=== PATIENT | male | born 1935 | race Caucasian/White ===

== ENCOUNTER → 2016-11-11 | Outpatient (CLI) | payer MEDICARE, OTHER ==
[~2016-11-11] MED LIST: AMLO2.5T PO; ASPI-983 PO; ASPI325T32 PO; CALC-870 PO; DOCU-143 PO; ENLP5T; GADOBUTROL 10 MMOL/10 ML (GADAVIST) VIAL IV ONE; KCL20TCR; LISI-3; LISI1TAB10 PO; NABU750T; ONDA-42 SL; PHEN100C4 PO; POTA20TA15 PO; SENN-35 PO; TRAM1TAB7 PO; TRM50T; [UNRECOGNIZED DRUG - OTHER]
--- OUTSIDE RECORDS SUMMARY | 2016-11-11 11:44 | XMS REPORT | Continuity of Care Document ---
Author Author [facility] Organization [facility] Address Unknown Phone Unavailable Care Team Providers Care Beauty Counselor Name Role Phone MANAN RAJPUT DO PCP Insurance Providers Payer Name Policy Number Subscriber Name Relationship [employer] [id number] Syd Monson 18 Self / Same As Patient Enter Insurance Name [id number] Syd Monson 18 Self / Same As Patient Advance Directives Directive Response Recorded Date/Time Advance Directives Yes 10/07/16 12:14pm Health Care Power of Custom Harvester Y /Charline 10/07/16 12:14pm Organ Donor Yes 10/07/16 12:14pm Resuscitation Status Full Code 10/07/16 12:14pm Chief Complaint and Reason for Visit Chief Complaint WEAKNESS,FATIGUE Reason for Visit Chest pain of uncertain etiology Nausea & vomiting Weakness of both legs Problems Active Problems Medical Problem Onset Date Status Chest pain of uncertain etiology Unknown Acute Nausea & vomiting Unknown Acute Weakness of both legs Unknown Acute Medications Current Home Medications Medication Dose Units Route Directions Days/Qty Instructions Start Date Sennosides/Docusate Sodium 1 Tab 1 Tab Oral Daily 12/04/09 Lisinopril/Hydrochlorothiazide 1 Each 1 Tab Oral Daily 10/07/16 Potassium Chloride 20 Meq 20 Meq Oral Twice A Day 10/07/16 Tramadol Hcl/Acetaminophen 1 Each 2 Tab Oral Three Times A Day as needed for Pain 10/07/16 Aspirin 325 Mg 325 Mg Oral Daily 90 10/08/16 Past Home Medications Medication Directions Ordered Status Enalapril Maleate 5 Mg Tablet, 02/25/09 Discontinued Potassium Chloride 20 Meq Tab, 02/25/09 Discontinued Tramadol Hcl 50 Mg Tab, 02/25/09 Discontinued Lisinopril/Hydrochlorothiazide 1 Tab Tablet, 02/26/09 Discontinued Potassium Chloride 20 Meq Tab, 02/26/09 Discontinued Tramadol Hcl 50 Mg Tab, 02/26/09 Discontinued [Relafin] , 10/16/09 Discontinued Nabumetone 750 Mg Tablet, 12/04/09 Discontinued Ondansetron Hcl 4 Mg Tab, 4 Mg Sublingual Every 4HRS 09/30/14 Discontinued Amlodipine Besylate 2.5 Mg Tablet, 2.5 Mg Oral Daily 10/07/16 Discontinued Social History Social History Problem Response Recorded Date/Time Alcohol Use Denies Use 09/30/2014 10:30am Recreational Drug Use No 09/30/2014 10:30am Recent Foreign Travel No 10/07/2016 12:07pm Recent Infectious Disease Exposure No 10/07/2016 12:07pm Hospitalization with Isolation Denies 10/08/2016 1:58pm Smoking Status Never a Smoker 10/07/2016 12:12pm Recent Hopitalizations Yes 10/07/2016 1:04pm Hospitalization with Isolation Denies 10/08/2016 1:58pm Query Response Start Date Stop Date Smoking Status Never a Smoker Hospital Discharge Instructions Patient Instructions Physician Instructions Patient Instructions: MAKE FOLLOW UP APPT WITH DR. RAJPUT FOR NEXT WEEK Resume Normal Activity: Yes Discharge Diet: Regular Diet Drink 6-8 Glasses of Fluid/Day: Yes Return to The Hospital For: ANY CONCERN FOR RETURN OF WEAKNESS, CHEST PAIN, SHORTNESS OF BREATH, OR CONCERN FOR LIFETHREATENING ILLNESS OR INJURY Symptoms to Reoprt to DrAlanna: Fever Over 101 Degrees F, Pain/Pressure in Chest, Pain/Pressure in Jaw, Pain/Pressure in Shoulder, Memory Changes Suddenly, Shortness of Breath Care Plan Patient Instructions:: MAKE FOLLOW UP APPT WITH DR. RAJPUT FOR NEXT WEEK Plan of Care Discharge Date 10/08/16 1:00pm Disposition 01 HOME, SELF-CARE Instructions/Education Provided Generalized Weakness (DC) Prescriptions See Medication Section Referrals [facility] (Unspecified) - 1 Week Reason(s) for Referral: Weakness of both legs Chest pain of uncertain etiology Nausea & vomiting DR. RAJPUT (Unspecified) - Reason(s) for Referral: CALL TO SCHEDULE FOLLOW UP APPOINTMENT TO SEE DR. RAJPUT IN ONE WEEK ([phone]) DR. BACON (Unspecified) - Reason(s) for Referral: PLEASE CALL TO SCHEDULE APPOINTMENT TO SEE DR. BACON IN 10 DAYS ([phone]) Care Plan and Goals See Discharge Instructions Section Functional Status Query Response Date Recorded Patient Orientation Person Place Time Situation Normal For Age October 08, 2016 1:58pm Comprehension Ability Understands Concepts October 08, 2016 9:00am Allergies, Adverse Reactions, Alerts No known allergies. Immunizations Name Given Type FLU TRIvalent 5 years - Adult 10/07/16 Administered Vital Signs Acute Vital Signs Vital Response Date/Time Temperature (Fahrenheit) 97.9 degrees F (97.6 - 99.5) 10/08/2016 1:53pm Temperature (Calculated Celsius) 36.46415 degrees C (36.4 - 37.5) 10/08/2016 12:00pm Temperature Source Tympanic 10/08/2016 1:53pm Pulse Rate (adult) 58 bpm (60 - 90) 10/08/2016 1:53pm Respiratory Rate 20 bpm (12 - 24) 10/08/2016 1:53pm O2 Sat by Pulse Oximetry 96 % (88 - 100) 10/08/2016 1:53pm Blood Pressure 120/64 mm Hg 10/08/2016 1:53pm Blood Pressure Mean 82 mm Hg 10/08/2016 12:00pm Pain Numeric Pain Scale 0-No Pain 10/08/2016 1:53pm Height (Feet) 6 feet 10/07/2016 1:03pm Height (Inches) 1.00 inches 10/07/2016 1:03pm Height (Calculated Centimeters) 185.258239 cm 10/07/2016 1:03pm Weight (Pounds) 201 pounds 10/08/2016 6:00am Weight (Ounces) 3.0 oz 10/07/2016 1:03pm Weight (Calculated Grams) 58624.067 gm 10/08/2016 6:00am Weight (Calculated Kilograms) 91.958479 kilograms 10/08/2016 6:00am Calculated BMI 26.7 10/07/2016 1:03pm Results Laboratory Results Test Name Result Units Flags Reference Collection Date/Time Result Date/ Time Comments White Blood Count 5.6 10^3/uL 4.3-11.0 10/08/2016 3:2210/08/2016 4: 17am Red Blood Count 4.02 10^6/uL L 4.35-5.85 10/08/2016 3:10/08/2016 4: 17am Hemoglobin 12.9 G/DL L 13.3-17.7 10/08/2016 3:10/08/2016 4:17am Hematocrit 38 % L 40-54 10/08/2016 3:10/08/2016 4:17am Mean Corpuscular Volume 94 FL 80-99 10/08/2016 3:10/08/2016 4: 17am Mean Corpuscular Hemoglobin 32 PG 25-34 10/08/2016 3:10/08/2016 4: 17am Mean Corpuscular Hemoglobin Concent 34 G/DL 32-36 10/08/2016 3:01/2016 4:17am Red Cell Distribution Width 12.6 % 10.0-14.5 10/08/2016 3:2015 4:17am Platelet Count 273 10^3/uL 130-400 10/08/2016 3:10/08/2016 4:17am Mean Platelet Volume 8.9 FL 7.4-10.4 10/08/2016 3:10/08/2016 4: 17am Neutrophils (%) (Auto) 55 % 42-75 10/08/2016 3:10/08/2016 4:17am Lymphocytes (%) (Auto) 27 % 12-44 10/08/2016 3:10/08/2016 4:17am Monocytes (%) (Auto) 12 % 0-12 10/08/2016 3:10/08/2016 4:17am Eosinophils (%) (Auto) 5 % 0-10 10/08/2016 3:10/08/2016 4:17am Basophils (%) (Auto) 1 % 0-10 10/08/2016 3:10/08/2016 4:17am Neutrophils # (Auto) 3.1 X 10^3 1.8-7.8 10/08/2016 3:10/08/2016 4: 17am Lymphocytes # (Auto) 1.5 X 10^3 1.0-4.0 10/08/2016 3:10/08/2016 4: 17am Monocytes # (Auto) 0.7 X 10^3 0.0-1.0 10/08/2016 3:10/08/2016 4: 17am Eosinophils # (Auto) 0.3 10^3/uL 0.0-0.3 10/08/2016 3:10/08/2016 4 :17am Basophils # (Auto) 0.0 10^3/uL 0.0-0.1 10/08/2016 3:10/08/2016 4: 17am Sodium Level 136 MMOL/L 135-145 10/08/2016 3:10/08/2016 4:38am Potassium Level 3.2 MMOL/L L 3.6-5.0 10/08/2016 3:10/08/2016 4:38am Chloride Level 102 MMOL/L 98-107 10/08/2016 3:10/08/2016 4:38am Carbon Dioxide Level 23 MMOL/L 21-32 10/08/2016 3:10/08/2016 4: 38am Anion Gap 11 MMOL/L 5-14 10/08/2016 3:10/08/2016 4:38am Blood Urea Nitrogen 13 MG/DL 7-18 10/08/2016 3:10/08/2016 4:38am Creatinine 0.85 MG/DL 0.60-1.30 10/08/2016 3:10/08/2016 4:38am BUN/Creatinine Ratio 15 10/08/2016 3:10/08/2016 4:38am Estimat Glomerular Filtration Rate > 60 10/08/2016 3:2015 4:38am GFR INTERPRETIVE DATA UNITS FOR ESTIMATED GFR (eGFR): mL/min/1.73 M2 REFERENCE RANGE FOR ESTIMATED GFR (eGFR) eGFR NORMAL eGFR >60 MODERATELY DECREASED eGFR 30-59 SEVERLY DECREASED eGFR 15-29 KIDNEY FAILURE <15 (OR DIALYSIS) Glucose Level 85 MG/DL 70-105 10/08/2016 3:10/08/2016 4:38am Calcium Level 8.7 MG/DL 8.5-10.1 10/08/2016 3:10/08/2016 4:38am Magnesium Level 1.9 MG/DL 1.8-2.4 10/08/2016 3:22am 10/08/2016 4:38am Total Bilirubin 0.8 MG/DL 0.1-1.0 10/07/2016 12:05pm 10/07/2016 12: 41pm Alkaline Phosphatase 85 U/L 40-136 10/07/2016 12:05pm 10/07/2016 12: 41pm Aspartate Amino Transf (AST/SGOT) 23 U/L 5-34 10/07/2016 12:05pm 2015 12:41pm Alanine Aminotransferase (ALT/SGPT) 8 U/L 0-55 10/07/2016 12:05pm 10/07 12:41pm Troponin I < 0.30 NG/ML <0.30 10/07/2016 12:05pm 10/07/2016 12:41pm Troponin I < 0.30 NG/ML <0.30 10/07/2016 5:48pm 10/07/2016 6:17pm Myoglobin 556.2 NG/ML H 10.0-92.0 10/07/2016 12:05pm 10/07/2016 12:41pm Total Protein 6.5 G/DL 6.4-8.2 10/07/2016 12:05pm 10/07/2016 12:41pm Albumin 4.2 G/DL 3.2-4.5 10/07/2016 12:05pm 10/07/2016 12:41pm Thyroid Stimulating Hormone (TSH) 1.68 UIU/ML 0.35-4.94 10/08/2016 3: 22am 10/08/2016 4:55am Procedures Procedure Status Date Provider(s) Tracing only of electrocardiogram Active 10/07/16 MANAN RAJPUT DO Tracing only of electrocardiogram Active 10/07/16 MANAN RAJPUT DO Color Doppler echocardiography Active 10/07/16 Jayde BACON MD Encounters Encounter Location Arrival/Admit Date Discharge/Depart Date Attending Provider Discharged Inpatient (obs) [facility] 10/07/16 11:30am 10/08/16 1:00pm MANAN RAJPUT DO Recent Diagnosis Chest pain of uncertain etiology Nausea & vomiting Weakness of both legs
--- NOTE | 2016-11-11 13:18 | Diagnostic Imaging Report ---
PROCEDURE: MR imaging of the brain with and without contrast. TECHNIQUE: Multiplanar, multisequence MR imaging of the brain was performed with and without contrast. INDICATION: Smelling abnormalities. 10 mL of Gadavist is administered intravenously. FINDINGS: Please note that there is some partial signal drop off in the frontal region related to the kyphotic curvature of the spine preventing optimal positioning. The overall diagnostic quality on most sequences is acceptable. There is no diffusion restriction to suggest an acute infarct or other diffusion abnormality. There are mild periventricular and deep white matter T2 hyperintense signal abnormalities without significant mass effect, edema or enhancement compatible with chronic microvascular ischemic changes. The pituitary gland is normal in size. No hypothalamic or pineal region mass. The central vascular flow-voids are preserved. The internal auditory canals and inner ear structures appear grossly unremarkable. No hydrocephalus. No extraaxial mass is seen. There is mucosal thickening and enhancement seen in the left frontal sinus suggestive of sinusitis. Also there is mucosal thickening and enhancement in the ethmoidal air cells bilaterally. There is suggestion of prior sinonasal surgery in the maxillary sinuses and turbinates with generally clear maxillary sinuses except for mild mucous retention cyst anteriorly and inferiorly on the left side. IMPRESSION: 1. No acute infarct or enhancing mass seen intracranially. 2. Mucosal thickening and enhancement with central debris seen in the left frontal sinus suggestive of sinusitis. Correlate clinically. Dictated by: Dictated on workstation # [id number]
== END ==
LOC: RAD 11:39
PROVIDERS: ATTEND Psychiatry & Neurology Neurology
DX: R56.9 Unspecified convulsions (principal)
CPT/HCPCS: 70553

== ENCOUNTER 2016-12-08 23:19 | Inpatient (IN) | payer MEDICARE, OTHER ==
[~2016-12-08] VITALS: Ht 185.4 cm; Wt 90.7 kg
[~2016-12-08 23:19] MED LIST changes: -ASPI-983 PO; -CALC-870 PO; -DOCU-143 PO; -GADOBUTROL 10 MMOL/10 ML (GADAVIST) VIAL IV ONE; -PHEN100C4 PO
--- OUTSIDE RECORDS SUMMARY | 2016-12-08 23:26 | XMS REPORT | Continuity of Care Document ---
Author Author [facility] Organization [facility] Address Unknown Phone Unavailable Care Team Providers Care Drafter Plumbing Name Role Phone MANAN RAJPUT DO PCP Insurance Providers Payer Name Policy Number Subscriber Name Relationship [employer] [id number] Syd Monson 18 Self / Same As Patient Enter Insurance Name [id number] Syd Monson 18 Self / Same As Patient Advance Directives Directive Response Recorded Date/Time Advance Directives Yes 10/07/16 12:14pm Health Care Power of Conference Specialist Y /Charline 10/07/16 12:14pm Organ Donor Yes [...] TO SEE DR. RAJPUT IN ONE WEEK ([phone]) DR. BACON (Unspecified) - Reason(s) for Referral: PLEASE CALL TO SCHEDULE APPOINTMENT TO SEE DR. BACON IN 10 DAYS ([phone]) Care Plan and Goals See Discharge Instructions [...] - 99.5) 10/08/2016 1:53pm Temperature (Calculated Celsius) 36.32318 degrees C (36.4 - 37.5) 10/08/2016 12:00pm [...] 1.00 inches 10/07/2016 1:03pm Height (Calculated Centimeters) 185.042109 cm 10/07/2016 1:03pm Weight (Pounds) 201 pounds 10/08/2016 6:00am Weight (Ounces) 3.0 oz 10/07/2016 1:03pm Weight (Calculated Grams) 81552.067 gm 10/08/2016 6:00am Weight (Calculated Kilograms) 91.355716 kilograms 10/08/2016 6:00am Calculated BMI 26.7 10/07/2016 [...] Date Attending Provider Discharged Inpatient (obs) [facility] 10/07/16 11:30am 10/08/16 1:00pm MANAN RAJPUT DO Recent Diagnosis Chest pain of uncertain etiology Nausea & vomiting Weakness of both legs
[2016-12-08] MEDS ORDERED: PHEN100C4 PO (23:56)
[2016-12-08] MEDS ORDERED: AMLO2.5T PO (23:56)
[2016-12-09 00:03] LABS: BILIRUBIN,URINE NEGATIVE (NEGATIVE); KETONES,URINE 1+ (NEGATIVE); LEUKOCYTE ESTERASE ,URINE NEGATIVE (NEGATIVE); NITRITE,URINE NEGATIVE (NEGATIVE); PH,URINE 7 (5-9); PROTEIN,URINE 1+ (NEGATIVE); UROBILINOGEN,URINE NORMAL (NORMAL)
[2016-12-09 00:15] LABS: WBC,URINE RARE /HPF
[2016-12-09 00:16] LABS: SQUAMOUS EPITHELIAL CELL,UR RARE /HPF
[2016-12-09] MEDS ORDERED: fentaNYL INJECTION 100 MCG/2 ML AMP IVP ONE ×2 (00:30→02:15)
[2016-12-09 00:31] LABS: BASOPHILS % (AUTO) 0 % (0-10); EOSINOPHILS # (AUTO) 0.2 10^3/uL (0.0-0.3); EOSINOPHILS % (AUTO) 2 % (0-10); LYMPHOCYTES # (AUTO) 1.2 X 10^3 (1.0-4.0); LYMPHOCYTES % (AUTO) 12 % (12-44); MEAN CORPUSCULAR HEMOGLOBIN 32 PG (25-34); MEAN CORPUSCULAR HGB CONC 34 G/DL (32-36); MEAN CORPUSCULAR VOLUME 93 FL (80-99); MEAN PLATELET VOLUME 8.5 FL (7.4-10.4); MONOCYTES % (AUTO) 10 % (0-12); NEUTROPHILS # (AUTO) 7.5 X 10^3 (1.8-7.8); NEUTROPHILS % (AUTO) 76 % (42-75); PLATELET COUNT 305 10^3/uL (130-400); RED BLOOD COUNT 4.73 10^6/uL (4.35-5.85); RED CELL DISTRIBUTION WIDTH 12.9 % (10.0-14.5); WHITE BLOOD COUNT 9.9 10^3/uL (4.3-11.0)
[2016-12-09 00:51] LABS: ALANINE AMINOTRANSFERASE 9 U/L (0-55); ALBUMIN 4.1 G/DL (3.2-4.5); ANION GAP 12 MMOL/L (5-14); ASPARTATE AMINO TRANSFERASE 19 U/L (5-34); BILIRUBIN,TOTAL 0.4 MG/DL (0.1-1.0); BLOOD UREA NITROGEN 11 MG/DL (7-18); BUN/CREATININE RATIO 13; CALCIUM 9.6 MG/DL (8.5-10.1); CARBON DIOXIDE 27 MMOL/L (21-32); CHLORIDE 98 MMOL/L (98-107); CREATININE SERUM 0.87 MG/DL (0.60-1.30); GFR ESTIMATED > 60; GLUCOSE 129 MG/DL (70-105); LIPASE 26 U/L (8-78); POTASSIUM 3.9 MMOL/L (3.6-5.0); SODIUM 137 MMOL/L (135-145); TOTAL PROTEIN 6.7 G/DL (6.4-8.2)
[2016-12-09] MEDS ORDERED: NS 100 ML (IVPB) BAG IV ONE (01:30)
[2016-12-09] MEDS ORDERED: IOHEXOL 350 MG/ML 100 ML (OMNIPAQUE 350) VIAL IV ONE (01:30)
--- NOTE | 2016-12-09 02:11 | ED Abdominal Pain ---
General Chief Complaint: Abdominal/GI Problems Stated Complaint: ABD PAIN Nursing Triage Note: Pt c/o midline abd pain starting this afternoon. Pt reports feeling "gassy" and reports he has been belching a lot. Sepsis Screen: No Definite Risk Source of Information: Patient Exam Limitations: No Limitations History of Present Illness Time Seen By Provider: 23:20 Initial Comments This 81-year-old gentleman presents to the emergency room with complaints of severe mid abdominal pain starting around 13:00. He took antacids and Pepto- Bismol which were not effective. His last bowel movement was about 24 hours ago and was soft. He notes urine is darker than usual. He has excessive belching. He rates his pain as 9/10. He denies any fever, nausea, vomiting, constipation, or diarrhea. He has history of pancreatitis. He also has a history of multiple abdominal surgeries including splenectomy, bowel repair, and cholecystectomy. Allergies and Home Medications Allergies Coded Allergies: No Known Drug Allergies (Unverified , 02/25/09) Home Medications Amlodipine Besylate 2.5 Mg Tablet 2.5 MG PO DAILY (Reported) Aspirin 325 Mg Tablet. #90 325 MG PO DAILY Prescribed by: SHAHAB MARTINEZ on 10/08/16 0907 Phenytoin Sodium Extended 100 Mg Capsule 100 MG PO TID (Reported) Sennosides/Docusate Sodium 1 Tab Tablet 1 TAB PO DAILY (Reported) Tramadol HCl/Acetaminophen 1 Each Tablet 2 TAB PO TID PRN PRN PAIN (Reported) Review of Systems Constitutional: no symptoms reported EENTM: No Symptoms Reported Respiratory: No Symptoms Reported Cardiovascular: No Symptoms Reported Gastrointestinal: See HPI Genitourinary: See HPI Musculoskeletal: no symptoms reported Skin: no symptoms reported Psychiatric/Neurological: No Symptoms Reported Endocrine: No Symptoms Reported Past Rxsqllv-[id number]-Gjklmt Hx Patient Social History Alcohol Use: Denies Use Recreational Drug Use: No Smoking Status: Never a Smoker Recent Foreign Travel: No Contact w/Someone Who Travel: No Recent Infectious Disease Expo: No Recent Hopitalizations: No Seasonal Allergies Seasonal Allergies: No Surgeries HX Surgeries: Yes (SPLEENECTOMY; LT KNEE x2; HERNIA REPAIRS; SINUS SX; LEFT THUMB) Surgeries: Abdominal, Amputation (left thumb), Bowel Surgery, Gallbladder, Joint Replacement, Orthopedic, Tonsillectomy Respiratory Hx Respiratory Disorders: No Cardiovascular Hx Cardiac Disorders: Yes Cardiac Disorders: Hypertension Neurological Hx Neurological Disorders: Yes Neurological Disorders: Seizure Disorder Reproductive System Hx Reproductive Disorders: No Genitourinary Hx Genitourinary Disorders: No Gastrointestinal Hx Gastrointestinal Disorders: Yes (Ventral hernia repair, hernia repair with adhesiolysis) Gastrointestinal Disorders: Obstructive Bowel Musculoskeletal Hx Musculoskeletal Disorders: Yes (Tramuatic left thumb amp) Musculoskeletal Disorders: Amputee Endocrine Hx Endocrine Disorders: No HEENT HX ENT Disorders: Yes Loss of Vision: Denies Hearing Impairment: Hard of Hearing, Bilateral Hearing Aide Cancer Hx Cancer: No Psychosocial Hx Psychiatric Problems: No Integumentary HX Skin/Integumentary Disorder: No Blood Transfusions Hx Blood Disorders: No Physical Exam Vital Signs VS - Last 72 Hours, by Label 12/08/16 23:45 Temp 98.4 Pulse 81 Resp 18 B/P 125/86 Pulse Ox 97 O2 Delivery Room Air Capillary Refill : Less Than 3 Seconds General Appearance: WD/WN mild distress HEENT: PERRL/EOMI normal ENT inspection Neck: normal inspection Respiratory: lungs clear normal breath sounds no respiratory distress no accessory muscle use Cardiovascular: regular rate, rhythm no edema no murmur Gastrointestinal: normal bowel sounds distended tenderness Extremities: normal inspection no pedal edema Neurologic/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 as tested no motor/sensory deficits alert normal mood/affect oriented x 3 Skin: normal color warm/dry Progress/Results/Core Measures Results/Orders Lab Results Laboratory Tests Test 12/08/16 23:47 12/09/16 00:22 Range/Units Urine Amorphous Sediment FEW SOHAIL PHOSPHATE H /LPF Urine Bacteria TRACE /HPF Urine Bilirubin NEGATIVE NEGATIVE Urine Casts NONE /LPF Urine Clarity CLEAR Urine Color YELLOW Urine Crystals PRESENT H /LPF Urine Culture Indicated NO Urine Glucose (UA) NEGATIVE NEGATIVE Urine Ketones 1+ H NEGATIVE Urine Leukocyte Esterase NEGATIVE NEGATIVE Urine Mucus MODERATE H /LPF Urine Nitrite NEGATIVE NEGATIVE Urine Protein 1+ H NEGATIVE Urine RBC RARE /HPF Urine RBC (Auto) 1+ H NEGATIVE Urine Specific [place] 1.015 L 1.016-1.022 Urine Squamous Epithelial Cells RARE /HPF Urine Urobilinogen NORMAL NORMAL MG/DL Urine WBC RARE /HPF Urine pH 7 5-9 Alanine Aminotransferase (ALT/SGPT) 9 0-55 U/L Albumin 4.1 3.2-4.5 G/DL Alkaline Phosphatase 107 40-136 U/L Anion Gap 12 5-14 MMOL/L Aspartate Amino Transf (AST/SGOT) 19 5-34 U/L BUN/Creatinine Ratio 13 Basophils # (Auto) 0.0 0.0-0.1 10^3/uL Basophils (%) (Auto) 0 0-10 % Blood Urea Nitrogen 11 7-18 MG/DL Calcium Level 9.6 8.5-10.1 MG/DL Carbon Dioxide Level 27 21-32 MMOL/L Chloride Level 98 98-107 MMOL/L Creatinine 0.87 0.60-1.30 MG/DL Eosinophils # (Auto) 0.2 0.0-0.3 10^3/uL Eosinophils (%) (Auto) 2 0-10 % Estimat Glomerular Filtration Rate > 60 Glucose Level 129 H 70-105 MG/DL Hematocrit 44 40-54 % Hemoglobin 15.0 13.3-17.7 G/DL Lipase 26 8-78 U/L Lymphocytes # (Auto) 1.2 1.0-4.0 X 10^3 Lymphocytes (%) (Auto) 12 12-44 % Mean Corpuscular Hemoglobin 32 25-34 PG Mean Corpuscular Hemoglobin Concent 34 32-36 G/DL Mean Corpuscular Volume 93 80-99 FL Mean Platelet Volume 8.5 7.4-10.4 FL Monocytes # (Auto) 1.0 0.0-1.0 X 10^3 Monocytes (%) (Auto) 10 0-12 % Neutrophils # (Auto) 7.5 1.8-7.8 X 10^3 Neutrophils (%) (Auto) 76 H 42-75 % Phenytoin (Dilantin) Level 1.7 L 10.0-20.0 UG/ML Platelet Count 305 130-400 10^3/uL Potassium Level 3.9 3.6-5.0 MMOL/L Red Blood Count 4.73 4.35-5.85 10^6/uL Red Cell Distribution Width 12.9 10.0-14.5 % Sodium Level 137 135-145 MMOL/L Total Bilirubin 0.4 0.1-1.0 MG/DL Total Protein 6.7 6.4-8.2 G/DL White Blood Count 9.9 4.3-11.0 10^3/uL My Orders Orders-STEPHANIE GARCIA MD Cbc With Automated Diff (12/08/16 23:20) Comprehensive Metabolic Panel (12/08/16 23:20) Lipase (12/08/16 23:20) Ua Culture If Indicated (12/08/16 23:20) Saline Lock/Iv-Start (12/08/16 23:20) Bladder Scan (12/09/16 00:13) Fentanyl Injection (Sublimaze Injection (12/09/16 00:30) Ct Abdomen/Pelvis W (12/09/16 01:00) Iohexol Injection (Omnipaque 350 Mg/Ml 1 (12/09/16 01:30) Ns (Ivpb) (Sodium Chloride 0.9% Ivpb Bag (12/09/16 01:30) Fentanyl Injection (Sublimaze Injection (12/09/16 02:15) Ng Tube Insert & Assessment (12/09/16 02:04) Phenytoin (Dilantin) (12/09/16 02:06) Medications Given in ED Current Medications Medications Dose Ordered Sig/Mariusz Route Start Time Stop Time Status Last Admin Dose Admin Fentanyl Citrate 50 mcg ONCE ONCE IVP 12/09/16 00:30 12/09/16 00:31 DC 12/09/16 00:36 50 MCG Iohexol 100 ml ONCE ONCE IV 12/09/16 01:30 12/09/16 01:31 DC 12/09/16 01:26 100 ML Sodium Chloride 100 ml ONCE ONCE IV 12/09/16 01:30 12/09/16 01:31 DC 12/09/16 01:26 80 ML Vital Signs/I&O Vital Sign - Last 12Hours 12/08/16 23:45 Temp 98.4 Pulse 81 Resp 18 B/P 125/86 Pulse Ox 97 O2 Delivery Room Air Blood Pressure Mean: 99 Progress Note : Progress Note IV was established and labs drawn. Patient was treated with fentanyl for pain. Imaging analysis began with bladder scan which demonstrated a little retained urine. Labs failed to reveal any cause of pain. CT of the abdomen and pelvis revealed small bowel obstruction. Patient was given a repeat dose of fentanyl and an NG tube was placed. About 300 mL of fluid that resembled bowel contents was yielded from the NG tube. Dr. Jim was contacted and agrees to admission. Patient remarks that he has been taking Dilantin only twice a day instead of 3 times a day as prescribed due to side effect of headaches. He requested a Dilantin level be drawn. Since patient has seizure disorder, he will be allowed his usual medications with NG tube clamping after administration. Diagnostic Imaging Diagonstic Imaging: CT Plain Films/CT/US/NM/MRI: c-spine, pelvis Comments CT scan reviewed by me and staffed rad report reviewed. Small bowel obstruction with transition point was identified. Small amount of mesenteric edema was noted. No free air or evidence of perforation. Departure Communication Time/Spoke to Admitting Phy: 02:[address] Jim Impression Impression: Primary Impression: Small bowel obstruction Disposition: ADMITTED INPATIENT Condition: Stable Decision to Admit Reason: Admit from ER (General) Decision to Admit/Date: Dec 09, 2016 Time/Decision to Admit Time: 01:50 Departure-Patient Inst. Referrals: MANAN RAJPUT DO (PCP/Family) Primary Care Physician STEPHANIE GARCIA MD Dec 09, 2016 02:11
[2016-12-09] MEDS ORDERED: D5 1/2 NS W/KCL 20 MEQ/L 1,000 ML IV ONE (03:27)
[2016-12-09] MEDS: D5 1/2 NS W/KCL 20 MEQ/L 1,000 ML IV SCH ×2 (03:35→16:07)
[2016-12-09 04:00] VITALS: BP 167/80
[2016-12-09] MEDS ORDERED: fentaNYL INJECTION 100 MCG/2 ML AMP IV PRN (04:00)
[2016-12-09] MEDS ORDERED: CATHETER FLUSH 10 ML SYR IV PRN (04:00)
[2016-12-09] MEDS ORDERED: ONDANSETRON 4 MG/2 ML (SDV) Z0FRAN IV PRN (04:00)
[2016-12-09] MEDS: CATHETER FLUSH 10 ML SYR IV SCH ×3 (04:01→19:24)
--- NOTE | 2016-12-09 06:41 | Diagnostic Imaging Report ---
PROCEDURE: CT abdomen and pelvis with contrast. TECHNIQUE: Multiple contiguous axial images were obtained through the abdomen and pelvis after administration of intravenous contrast. Indication: Midline abdominal pain. Comparison: 12/04/2009. Discussion: Changes of COPD are noted within the bilateral lung bases. 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 Normal heart size. No pleural or pericardial fluid. The gallbladder surgically absent. 1.2 cm low-attenuation focus within the right hepatic lobe, segment VII, appears new and is indeterminate. Postsurgical changes are noted within the bowel. Small bowel obstruction is noted with transition point within the anterior right midline of the abdomen. Mild mesenteric edema is noted. No evidence of perforation or pneumatosis. There is a small amount of gas and stool noted within the colon. The distal small bowel is completely decompressed. The spleen is surgically absent, with a small residual splenule noted within the left upper quadrant. The stomach and pancreas along with the adrenal glands are unremarkable. Cystic changes of the bilateral kidneys are noted. Tiny nonobstructing bilateral renal calculi. No hydronephrosis. Previous ventral wall hernia repair. Small ventral hernia containing fat, measuring 4 cm. The abdominal aorta is normal in caliber. The prostate is enlarged. The urinary bladder is unremarkable. Mild diverticulosis with no secondary evidence for diverticulitis. Degenerative changes are present within the lumbar spine. No acute osseous abnormality. Impression: 1. High-grade small bowel obstruction with abrupt transition point within the anterior midline of the abdomen near the region of previous hernia repair, likely due to an adhesion. 2. Indeterminate low-attenuation 1.2 cm nodule within the liver, new from prior. 3. Tiny nonobstructing bilateral renal calculi. 4. Diverticulosis. 5. Additional chronic changes as discussed above. 6. Agree with preliminary report. Dictated by: Dictated on workstation # [id number]
--- NOTE | 2016-12-09 06:53 | Diagnostic Imaging Report ---
INDICATION: Enteric tube placement. DISCUSSION: Single portable upright view of the chest was obtained, comparison 10/07/2016. No acute cardiopulmonary process identified. Stable normal heart size. New enteric tube tip in the gastric body in good position. IMPRESSION: 1. Enteric tube with tip in the gastric body in good position. Dictated by: Dictated on workstation # [id number]
[2016-12-09 08:00] VITALS: BP 160/75
[2016-12-09] MEDS: FAMOTIDINE 20MG/2ML IV (PEPCID) IV SCH ×2 (09:01→19:23)
[2016-12-09] MEDS ORDERED: DOCU-143 PO (09:29)
[2016-12-09] MEDS ORDERED: ASPI-983 PO (09:29)
[2016-12-09] MEDS ORDERED: CALC-870 PO (09:29)
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
[2016-12-09 12:00] VITALS: BP 172/77
[2016-12-09 15:42] VITALS: BP 163/85
[2016-12-09] MEDS ORDERED: NON-FORMULARY MEDICATION 1 EA EA (Tramadol HCl/Acetaminophen (Tramadol-Acetaminophn 37.5-3 PO PRN (16:00)
[2016-12-09] MEDS ORDERED: CALCIUM CARBONATE 500 MG (TUMS) TAB.CHEW PO PRN (16:00)
[2016-12-09] MEDS ORDERED: CALCIUM CARBONATE 300 MG PO PRN (16:00)
[2016-12-09] MEDS ORDERED: ACETAMINOPHEN 325 MG TABLET/CAPLET (TYLENOL) PO PRN (16:00)
[2016-12-09] MEDS ORDERED: FLU TRIvalent (5 YOA+) 2016-17 (AFLURIA) 0.5 ML IM ONE (18:00)
[2016-12-09] MEDS ORDERED: amLODIPine 2.5MG (NORVASC) TAB ONE (19:18)
[2016-12-09] MEDS: PHENYTOIN 100 MG (DILANTIN) CAP PO SCH (19:20)
[2016-12-09 19:21] VITALS: BP 177/81
[2016-12-09] MEDS: ASPIRIN E.C. 81 MG (ECOTRIN) TAB PO SCH (19:22)
[2016-12-09] MEDS: amLODIPine 2.5MG (NORVASC) TAB PO SCH (19:22)
[2016-12-10] VITALS: BP 155/72
[2016-12-10 04:00] VITALS: BP 154/78
[2016-12-10] MEDS: CATHETER FLUSH 10 ML SYR IV SCH (05:37)
[2016-12-10 08:00] VITALS: BP 148/70
[2016-12-10] MEDS: ASPIRIN E.C. 81 MG (ECOTRIN) TAB PO SCH (08:52)
[2016-12-10] MEDS: amLODIPine 2.5MG (NORVASC) TAB PO SCH (08:52)
[2016-12-10] MEDS: FAMOTIDINE 20MG/2ML IV (PEPCID) IV SCH (08:52)
[2016-12-10] MEDS: PHENYTOIN 100 MG (DILANTIN) CAP PO SCH (08:52)
[2016-12-10] MEDS ORDERED: DOCUSATE SODIUM 100 MG (COLACE) CAP PO SCH (09:00)
[2016-12-10 13:36] VITALS: BP 129/69
[2016-12-10 13:37] VITALS: BP 129/69
--- NOTE | 2016-12-10 14:09 | Progress Note (SOAP) ---
Subjective Subjective/Events-last exam uneventful night. No nausea. Tolerating soft diet. NG tube clamped. Review of Systems General: No Chills, No Night Sweats, No Fatigue, No Malaise HEENT: No Head Aches, No Eye Pain, No Ear Pain, No Dysphasia, No Sinus Congestion, No Post Nasal Drip, No Sore Throat Pulmonary: No Dyspnea, No Cough, No Pleuritic Chest Pain Cardiovascular: No: Chest Pain, Edema, Lt Headedness, Orthopnea, Palpitations, Paroxysmal Noc. Dyspnea Gastrointestinal: No: Abdominal Pain, Constipation, Diarrhea, Hematochezia, Melena, Nausea, Vomiting Genitourinary: No Dysuria, No Frequency, No Incontinence, No Hematuria, No Retention Musculoskeletal: No: arm pain, back pain, foot pain, hand pain, leg pain, neck pain, other, shoulder pain Neurological: No: Change in speech, Confusion, Incoordination, Numbness, Other , Seizures, Weakness Objective Exam Vital Signs Date Time Temp Pulse Resp B/P Pulse Ox O2 Delivery O2 Flow Rate FiO2 12/10/16 13:37 74 16 129/69 97 12/10/16 13:36 97.6 74 16 129/69 97 Room Air 12/10/16 08:00 98.4 68 18 148/70 98 Room Air 12/10/16 04:00 98.0 66 18 154/78 96 Room Air 12/10/16 00:00 99.1 72 18 155/72 96 Room Air 12/09/16 19:21 98.4 80 20 177/81 98 Room Air 12/09/16 15:42 98.5 59 20 163/85 98 Room Air I & O 12/10/16 07:00 Intake Total 2730 ml Output Total 480 ml Balance 2250 ml Capillary Refill : Less Than 3 Seconds General Appearance: No Apparent Distress HEENT: PERRL/EOMI Neck: Normal Inspection Respiratory: Lungs Clear Cardiovascular: Regular Rate, Rhythm Gastrointestinal: non tender soft Extremity: Normal Capillary Refill Normal Inspection Skin: Normal Color Warm/Dry Assessment/Plan Assessment/Plan Assess & Plan/Chief Complaint gentleman with partial small bowel obstruction, currently resolved. Tolerating diet. NG tube removed and he could be discharged Diagnosis/Problems: Final Diagnosis partial small bowel obstruction, resolved Clinical Quality Measures DVT/VTE Risk/Contraindication: Risk Factor Score Per Nursin RFS Level Per Nursing on Admit: 4+=Very High LORETTA BURNHAM MD Dec 10, 2016 2:09 pm
== END 2016-12-10 13:15 | disposition home or self-care (01) | DRG 328 ==
LOC: EDUNIT# 23:19 → ER 23:21 → 4TH 12-09 02:09
PROVIDERS: ADMIT Surgery; ATTEND Surgery
PROC: 0D9470Z Drainage of Esophagogastric Junction with Drainage Device, Via Natural or Artificial Opening (ICD-10-PCS; principal; 2016-12-09)
DX: K56.69 Other intestinal obstruction (principal); I10 Essential (primary) hypertension; G40.909 Epilepsy, unspecified, not intractable, without status epilepticus; Z90.49 Acquired absence of other specified parts of digestive tract; Z90.81 Acquired absence of spleen; Z89.012 Acquired absence of left thumb
CPT/HCPCS: 36415; 71010; 74177; 80053; 80185; 81000; 83690; 85025; 96374; 96376

== ENCOUNTER 2017-07-14 19:09 | Inpatient (IN) | payer MEDICARE, OTHER ==
[~2017-07-14] VITALS: Ht 180.3 cm; Wt 86.2 kg
[~2017-07-14 19:09] MED LIST changes: +ASPI-983 PO; +CALC-870 PO; +DOCU-143 PO; +PHEN100C4 PO
[2017-07-14] MEDS ORDERED: NS IV 1000 ML 1,000 ML IV ONE (19:21)
[2017-07-14] MEDS ORDERED: fentaNYL INJECTION 100 MCG/2 ML AMP IVP STA (19:21)
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
[2017-07-14 19:36] LABS: BASOPHILS % (AUTO) 0 % (0-10); BILIRUBIN,URINE NEGATIVE (NEGATIVE); EOSINOPHILS # (AUTO) 0.4 10^3/uL (0.0-0.3); EOSINOPHILS % (AUTO) 5 % (0-10); KETONES,URINE NEGATIVE (NEGATIVE); LEUKOCYTE ESTERASE ,URINE NEGATIVE (NEGATIVE); LYMPHOCYTES # (AUTO) 1.7 X 10^3 (1.0-4.0); LYMPHOCYTES % (AUTO) 20 % (12-44); MEAN CORPUSCULAR HEMOGLOBIN 33 PG (25-34); MEAN CORPUSCULAR HGB CONC 34 G/DL (32-36); MEAN CORPUSCULAR VOLUME 98 FL (80-99); MEAN PLATELET VOLUME 8.4 FL (7.4-10.4); MONOCYTES # (AUTO) 0.9 X 10^3 (0.0-1.0); MONOCYTES % (AUTO) 11 % (0-12); NEUTROPHILS # (AUTO) 5.5 X 10^3 (1.8-7.8); NEUTROPHILS % (AUTO) 64 % (42-75); NITRITE,URINE NEGATIVE (NEGATIVE); PH,URINE 7 (5-9); PLATELET COUNT 305 10^3/uL (130-400); PROTEIN,URINE NEGATIVE (NEGATIVE); RED BLOOD COUNT 4.22 10^6/uL (4.35-5.85); RED CELL DISTRIBUTION WIDTH 12.5 % (10.0-14.5); UROBILINOGEN,URINE NORMAL (NORMAL); WHITE BLOOD COUNT 8.6 10^3/uL (4.3-11.0)
[2017-07-14 19:58] LABS: WBC,URINE RARE /HPF
[2017-07-14] MEDS ORDERED: NS 100 ML (IVPB) BAG IV ONE (20:00)
[2017-07-14] MEDS ORDERED: IOHEXOL 350 MG/ML 100 ML (OMNIPAQUE 350) VIAL IV ONE (20:00)
[2017-07-14 20:06] LABS: ALANINE AMINOTRANSFERASE 10 U/L (0-55); ALBUMIN 4.2 GM/DL (3.2-4.5); ANION GAP 11 MMOL/L (5-14); ASPARTATE AMINO TRANSFERASE 23 U/L (5-34); BILIRUBIN,TOTAL 0.6 MG/DL (0.1-1.0); BLOOD UREA NITROGEN 14 MG/DL (7-18); BUN/CREATININE RATIO 14; CALCIUM 9.4 MG/DL (8.5-10.1); CARBON DIOXIDE 27 MMOL/L (21-32); CHLORIDE 97 MMOL/L (98-107); CREATININE SERUM 0.98 MG/DL (0.60-1.30); GFR ESTIMATED > 60; GLUCOSE 101 MG/DL (70-105); LIPASE 34 U/L (8-78); MAGNESIUM 2.2 MG/DL (1.8-2.4); POTASSIUM 4.3 MMOL/L (3.6-5.0); SODIUM 135 MMOL/L (135-145); TOTAL PROTEIN 6.7 GM/DL (6.4-8.2); TRIGLYCERIDES 83 MG/DL (<150)
--- NOTE | 2017-07-14 20:44 | Diagnostic Imaging Report ---
PROCEDURE: CT abdomen and pelvis with contrast. TECHNIQUE: Multiple contiguous axial images were obtained through the abdomen and pelvis after administration of intravenous contrast. INDICATION: 81-year-old male with generalized abdominal pain. COMPARISONS: 01/06/17 FINDINGS: The lung bases show some chronic parenchyma changes with mild COPD. Cardiac contour is normal. A few coronary calcifications are suggested. The liver shows uniform attenuation. The gallbladder is surgically absent. There is a splenic remnant. GE junction is normal. The stomach is moderately distended with food stuff and liquid. The duodenal sweep is unremarkable. The pancreas shows sharp margins. Adrenals are normal. Kidneys show cortical thinning, age-appropriate. There are also bilateral small renal cysts. There is symmetrical perfusion and excretion of contrast. Both ureters are seen intermittently through their course. The filled bladder is unremarkable. Prostate is enlarged and measures 6 cm and shows heterogenous attenuation and mild heterogenous enhancement. The mid and distal small bowel shows moderate distention with fluid and air-fluid levels. There appears to be anterior abdominal wall adhesions. There has been a previous abdominal hernia repair with possibly mesh. There continues to be some fascial defects on the right with herniated fat in the right abdomen with fascial defect measuring approximately 2.4 cm. There is also a wide fascial defect with slight herniation of small bowel in the left abdomen with the fascial defect measuring approximately 3.2 cm. The ileum is normal in caliber. The large bowel contains fecal material and gas proximally with moderate gaseous distention of the transverse and the descending colon to the rectum. There is colonic diverticulosis but no evidence of acute diverticulitis. The visualized vasculature shows normal caliber of the aorta, iliac and femoral arteries with a few nonaneurysmal calcifications. There is normal origin of the visceral arteries. There is moderate to severe degenerative changes in the lumbosacral spine with multilevel hypertrophic facet changes and marginal endplate osteophytes. IMPRESSION: 1. Moderate distention of the stomach and proximal and mid small bowel. A mid small bowel obstruction is suspected. This obstruction may be due to anterior abdominal wall effusions. There are also several wide fascial defects with associated herniated fat and small bowel. These do not appear to be incarcerated or strangulated. 2. Colonic diverticulosis but no evidence of acute diverticulitis. 3. Previous abdominal wall repair possibly with mesh. Correlate clinically. 4. Prostatic enlargement with heterogenous attenuation, correlate clinically and possibly with PSA. Additional nonemergent findings, as described. Dictated by: Dictated on workstation # [id number]
[2017-07-14] MEDS ORDERED: ONDANSETRON 4 MG/2 ML (SDV) Z0FRAN IVP ONE (21:30)
[2017-07-14 22:05] VITALS: BP 131/61
[2017-07-14] MEDS ORDERED: ONDANSETRON 4 MG/2 ML (SDV) Z0FRAN IV PRN (22:45)
[2017-07-14] MEDS ORDERED: fentaNYL INJECTION 100 MCG/2 ML AMP IV PRN ×2 (22:45)
[2017-07-14] MEDS: NS IV 1000 ML 1,000 ML IV SCH (22:47)
[2017-07-15] VITALS: BP 133/70
[2017-07-15] MEDS ORDERED: LISI40TA PO (01:43)
[2017-07-15 04:00] VITALS: BP 139/68
[2017-07-15] MEDS: NS IV 1000 ML 1,000 ML IV SCH (06:46)
[2017-07-15 07:26] LABS: ANION GAP 8 MMOL/L (5-14); BLOOD UREA NITROGEN 9 MG/DL (7-18); BUN/CREATININE RATIO 12; CALCIUM 8.8 MG/DL (8.5-10.1); CARBON DIOXIDE 24 MMOL/L (21-32); CHLORIDE 105 MMOL/L (98-107); CREATININE SERUM 0.78 MG/DL (0.60-1.30); GFR ESTIMATED > 60; GLUCOSE 94 MG/DL (70-105); POTASSIUM 4.8 MMOL/L (3.6-5.0); SODIUM 137 MMOL/L (135-145)
[2017-07-15 07:54] LABS: BASOPHILS % (AUTO) 0 % (0-10); EOSINOPHILS # (AUTO) 0.3 10^3/uL (0.0-0.3); EOSINOPHILS % (AUTO) 4 % (0-10); LYMPHOCYTES % (AUTO) 17 % (12-44); MEAN CORPUSCULAR HEMOGLOBIN 33 PG (25-34); MEAN CORPUSCULAR HGB CONC 33 G/DL (32-36); MEAN CORPUSCULAR VOLUME 100 FL (80-99); MEAN PLATELET VOLUME 8.5 FL (7.4-10.4); MONOCYTES # (AUTO) 0.8 X 10^3 (0.0-1.0); MONOCYTES % (AUTO) 14 % (0-12); NEUTROPHILS # (AUTO) 3.9 X 10^3 (1.8-7.8); NEUTROPHILS % (AUTO) 65 % (42-75); PLATELET COUNT 257 10^3/uL (130-400); RED BLOOD COUNT 3.84 10^6/uL (4.35-5.85); RED CELL DISTRIBUTION WIDTH 12.6 % (10.0-14.5)
[2017-07-15 08:30] VITALS: BP 157/70
--- NOTE | 2017-07-15 08:59 | Diagnostic Imaging Report ---
EXAM: ABDOMEN, FLAT UPRIGHT/DECUB INDICATION: Small bowel obstruction. COMPARISON: CT abdomen and pelvis with IV contrast 07/14/2017. FINDINGS: NG tube tip and side-port overlying the stomach. Stable cholecystectomy clips, midline sutures and hernia repair. Nonspecific bowel gas pattern. No acute osseous findings. IMPRESSION: 1. Nonspecific bowel gas pattern. Paucity of bowel gas in the small bowel. 2. NG tube in the expected position. Dictated by: Dictated on workstation # [id number]
[2017-07-15 12:00] VITALS: BP 159/76
[2017-07-15] MEDS ORDERED: DIATRIZOATE MEGLUM/SODIUM 37% 120 ML (GASTROGRAFIN) NG ONE (12:00)
--- NOTE | 2017-07-15 12:30 | Progress Note-Hospitalist ---
Progress Note Progress Notes/Assess & Plan Date Seen 07/15/17 Time Seen by Provider: 00:00 Diagonsis/Assessment & Plan Pt not seen due to in small bowel follow through procedure Dilantin 100mg IV Q 12 hours was ordered due to NPO status SERENITY THAO DO Jul 15, 2017 12:30
[2017-07-15] MEDS ORDERED: PHENYTOIN IV NR (12:35)
[2017-07-15] MEDS ORDERED: NS IV NR (12:35)
--- NOTE | 2017-07-15 12:52 | Diagnostic Imaging Report ---
INDICATION: Abdominal pain. Evaluate for small bowel obstruction. 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 There are no dilated loops of bowel. The patient was then administered water-soluble radiopaque contrast material (120 mL of Gastrografin mixed with 120 mL of water). Imaging over the next one hour and 30 minutes demonstrates opacification of normal caliber small bowel loops which have normal fold pattern. No extrinsic mass effect on the small bowel loops. Contrast reaches the colon by one hour and 30 minutes. IMPRESSION: 1. No small bowel obstruction. Normal small bowel transit time of one hour 30 minutes. Dictated by: Dictated on workstation # [id number]
--- NOTE | 2017-07-15 13:20 | History & Physical-Surgical ---
History of Present Illness History of Present Illness Reason for visit/HPI Chief complaint abdominal pain Patient is an 81-year-old male who states yesterday began having abdominal pain in the central epigastric portion of his abdomen. He started feeling like he became more distended. Patient's pain was moderate. There is no radiation of the pain. Patient states that he began getting very nauseous but had no emesis. He has history of previous small bowel obstructions in the past therefore he went to the emergency department for further evaluation. Patient was CT scan that was consistent with small bowel obstruction. He had an NG tube placed last night to low intermittent wall suction. A shouldn't states that he is passing some flatus and had some bowel movements but it was having bowel movements yesterday as well. He has not had any fever sweats chills shortness of breath or chest pain. Date of Admission Jul 14, 2017 at 21:55 Date Seen by Provider: Jul 15, 2017 Time Seen by Provider: 08:30 I consulted on this patient on 07/15/17 08:30 Attending Physician Isaias Garcia DO Admitting Physician Gaby Rodas DO Consult Allergies and Home Medications Allergies Coded Allergies: No Known Drug Allergies (Unverified , 02/25/09) Home Medications Aspirin 81 Mg Tablet.dr, 162 MG PO DAILY, (Reported) TAKES 2 (81MG) TABLETS Calcium Carbonate 300 Mg Tab.chew, 300 MG PO TID PRN for INDIGESTION, (Reported) Docusate Sodium 100 Mg Capsule, 100 MG PO DAILY, (Reported) Lisinopril 40 Mg Tablet, 40 MG PO DAILY for 30 Days, (Reported) Phenytoin Sodium Extended 100 Mg Capsule, 100 MG PO BID, (Reported) Tramadol HCl/Acetaminophen 1 Each Tablet, 1 TAB PO TID PRN for PAIN, (Reported) Past Xgmreob-Sbkfbc-Puthvi Hx Patient Social History Alcohol Use: Denies Use Recreational Drug Use: No Smoking Status: Never a Smoker 2nd Hand Smoke Exposure: No Recent Foreign Travel: No Contact w/Someone Who Travel: No Recent Infectious Disease Expo: No Recent Hopitalizations: No Physical Abuse Screen: No Sexual Abuse: No Seasonal Allergies Seasonal Allergies: No Surgeries History of Surgeries: Yes (SPLEENECTOMY; LT KNEE x2; HERNIA REPAIRS; SINUS SX; LEFT THUMB) Surgeries: Abdominal, Amputation, Bowel Surgery, Gallbladder, Joint Replacement , Orthopedic, Tonsillectomy Respiratory History of Respiratory Disorde: No Cardiovascular History of Cardiac Disorders: Yes Cardiac Disorders: Hypertension Neurological History of Neurological Disord: Yes Neurological Disorders: Seizure Disorder Reproductive System Hx Reproductive Disorders: No Sexually Transmitted Disease: No HIV/AIDS: No Genitourinary History of Genitourinary Disor: No Gastrointestinal History of Gastrointestinal Di: Yes (Ventral hernia repair, hernia repair with adhesiolysis) Gastrointestinal Disorders: Obstructive Bowel Musculoskeletal History of Musculoskeletal Dis: Yes (Tramuatic left thumb amp) Musculoskeletal Disorders: Amputee Endocrine History of Endocrine Disorders: No HEENT History of HEENT Disorders: No Loss of Vision: Denies Hearing Impairment: Hard of Hearing, Bilateral Hearing Aide Cancer History of Cancer: No Psychosocial History of Psychiatric Problem: No Integumentary History of Skin or Integumenta: No Blood Transfusions History of Blood Disorders: No Adverse Reaction to a Blood Tr: No Family Medical History Significant Family History: Cancer, Other Conditions/Hx Constitutional: no symptoms reported EENTM: no symptoms reported Respiratory: no symptoms reported Cardiovascular: no symptoms reported Gastrointestinal: see HPI Genitourinary: no symptoms reported Musculoskeletal: no symptoms reported Skin: no symptoms reported Psychiatric/Neurological: No Symptoms Reported Physical Exam Vital Signs Vital Sign - Last 12Hours 07/14/17 19:16 Temp 98.2 Pulse 71 Resp 16 B/P (MAP) 126/69 Pulse Ox 98 O2 Delivery Room Air Capillary Refill : Less Than 3 Seconds General Appearance: No Apparent Distress HEENT: PERRL/EOMI, Normal ENT Inspection Neck: Non Tender, Supple Respiratory: No Accessory Muscle Use, No Respiratory Distress Cardiovascular: Regular Rate, Rhythm Gastrointestinal: Soft (reducible ventral hernias), No Distended, No Guarding, No Hepatomegaly Rectal: Deferred Back: No CVA Tenderness Extremity: Non Tender, No Calf Tenderness Neurologic/Psychiatric: Alert, Oriented x3, Normal Mood/Affect Skin: Warm/Dry Lymphatic: No Adenopathy Data Review Labs Laboratory Tests 07/14/17 19:25: White Blood Count 8.6, Red Blood Count 4.22L, Hemoglobin 14.1, Hematocrit 41, Mean Corpuscular Volume 98, Mean Corpuscular Hemoglobin 33, Mean Corpuscular Hemoglobin Concent 34, Red Cell Distribution Width 12.5, Platelet Count 305, Mean Platelet Volume 8.4, Neutrophils (%) (Auto) 64, Lymphocytes (%) (Auto) 20, Monocytes (%) (Auto) 11, Eosinophils (%) (Auto) 5, Basophils (%) (Auto) 0, Neutrophils # (Auto) 5.5, Lymphocytes # (Auto) 1.7, Monocytes # (Auto) 0.9, Eosinophils # (Auto) 0.4H, Basophils # (Auto) 0.0, Urine Color YELLOW, Urine Clarity CLEAR, Urine pH 7, Urine Specific [place] 1.010L, Urine Protein NEGATIVE , Urine Glucose (UA) NEGATIVE, Urine Ketones NEGATIVE, Urine Nitrite NEGATIVE, Urine Bilirubin NEGATIVE, Urine Urobilinogen NORMAL, Urine Leukocyte Esterase NEGATIVE, Urine RBC (Auto) NEGATIVE, Urine RBC RARE, Urine WBC RARE, Urine Crystals NONE, Urine Bacteria NEGATIVE, Urine Casts NONE, Urine Mucus NEGATIVE, Urine Culture Indicated NO, Sodium Level 135, Potassium Level 4.3, Chloride Level 97L, Carbon Dioxide Level 27, Anion Gap 11, Blood Urea Nitrogen 14, Creatinine 0.98, Estimat Glomerular Filtration Rate > 60, BUN/Creatinine Ratio 14, Glucose Level 101, Calcium Level 9.4, Magnesium Level 2.2, Total Bilirubin 0.6, Aspartate Amino Transf (AST/SGOT) 23, Alanine Aminotransferase (ALT/SGPT) 10, Alkaline Phosphatase 128, Total Protein 6.7, Albumin 4.2, Triglycerides Level 83, Lipase 34 07/15/17 07:02: Sodium Level 137, Potassium Level 4.8, Chloride Level 105, Carbon Dioxide Level 24, Anion Gap 8, Blood Urea Nitrogen 9, Creatinine 0.78, Estimat Glomerular Filtration Rate > 60, BUN/Creatinine Ratio 12, Glucose Level 94, Calcium Level 8.8 07/15/17 07:50: White Blood Count 6.0, Red Blood Count 3.84L, Hemoglobin 12.8L, Hematocrit 38L, Mean Corpuscular Volume 100H, Mean Corpuscular Hemoglobin 33, Mean Corpuscular Hemoglobin Concent 33, Red Cell Distribution Width 12.6, Platelet Count 257, Mean Platelet Volume 8.5, Neutrophils (%) (Auto) 65, Lymphocytes (%) (Auto) 17, Monocytes (%) (Auto) 14H, Eosinophils (%) (Auto) 4, Basophils (%) (Auto) 0, Neutrophils # (Auto) 3.9, Lymphocytes # (Auto) 1.0, Monocytes # (Auto) 0.8, Eosinophils # (Auto) 0.3, Basophils # (Auto) 0.0 Assessment/Plan Assessment/Plan Assessment/Plan Partial small bowel obstruction Reducible ventral/incisional hernias Epigastric abdominal pain-resolved Patient is an 81-year-old male with CT scan findings suggestive of at least partial small bowel obstruction. Patient was placed in the hospital with low intermittent wall suction NG tube. This morning he is passing some flatus and had some bowel movements. Question if this is from distal to the obstruction or if he is already opened up. We'll get a small bowel follow-through to evaluate. If small bowel follow-through is open patient doing well we'll start on liquids and possibly DC home later today or tomorrow. If not open. Plan continue NG tube to low intermittent wall suction. And see if patient opens up if not would possibly need surgical intervention. Conservative management for now. Patient agrees with plan. Time attention 07/15/17 1318 small bowel follow-through completed contrast makes it is way through the small bowel without any sign of obstruction. Since patient's passing flatus and having bowel movements will DC the NG tube started on clear liquids. If he tolerates we'll plan on DC home later today or possibly in the morning. Final Diagnosis partial small bowel obstruction ventral/incisional hernias reducible abdominal pain epigastric resolved. Clinical Quality Measures DVT/VTE Risk/Contraindication: Risk Factor Score Per Nursin RFS Level Per Nursing on Admit: 2=Moderate ISAIAS GARCIA DO Jul 15, 2017 13:20
[2017-07-15 16:45] VITALS: BP 125/63
[2017-07-15 17:28] VITALS: BP 125/63
[2017-07-15] MEDS ORDERED: NS IV SCH (21:00)
[2017-07-15] MEDS ORDERED: PHENYTOIN IV SCH (21:00)
== END 2017-07-15 17:35 | disposition home or self-care (01) | DRG 390 ==
LOC: EDUNIT# 19:09 → ER 19:11 → 4TH 21:55
PROVIDERS: ADMIT Surgery; ATTEND Surgery
PROC: 0D9670Z Drainage of Stomach with Drainage Device, Via Natural or Artificial Opening (ICD-10-PCS; principal; 2017-07-14)
DX: K56.60 Unspecified intestinal obstruction (principal); K43.2 Incisional hernia without obstruction or gangrene; G40.909 Epilepsy, unspecified, not intractable, without status epilepticus; I10 Essential (primary) hypertension
CPT/HCPCS: 36415; 74020; 74177; 74250; 80048; 80053; 81000; 83690; 83735; 84478; 85025; 96361; 96374; 96375

== ENCOUNTER → 2018-04-24 | Outpatient (CLI) | payer MEDICARE, OTHER ==
[~2018-04-24] MED LIST changes: +LISI40TA PO
--- NOTE | 2018-04-24 17:12 | Diagnostic Imaging Report ---
INDICATION: Pain in back x40 years. TECHNIQUE: AP, lateral and spot imaging of the lumbar spine. CORRELATION STUDY: None. FINDINGS: There is loss of normal lumbar lordotic curvature. There is overall fairly good preservation of the lumbar vertebral body heights without evidence for acute-appearing compression deformity. There is marked disc space narrowing particularly at the L4-L5 and L3-L4 levels. Extensive bridging osteophytes noted throughout the majority of the lumbar segments. There is marked prominent anterior osteophyte at the L1-L2 level. Hypertrophic facet arthropathy is present which also is likely largely fused. Likely prior abdominal wall hernia repair with mesh. IMPRESSION: No findings to suggest acute abnormality about the lumbar spine. There is however extensive fusion across the disc spaces as well as likely facet joints at multiple levels. While some of these areas are somewhat bulky and prominent, underlying ankylosing spondylitis is not excluded and suspect. Dictated by: Dictated on workstation # [id number]
--- NOTE | 2018-04-24 17:19 | Diagnostic Imaging Report ---
INDICATION: 40-year history of back pain. TECHNIQUE: AP, lateral and swimmer's imaging of the thoracic spine. CORRELATION STUDY: None. FINDINGS: There is slightly accentuated superior thoracic kyphotic curvature. Alignment is otherwise relatively anatomic. Thoracic vertebral body heights overall are fairly well maintained. There is diffuse disc space narrowing. Additionally, there appear predominantly diffuse thin bridging osteophytes throughout essentially entirety of the thoracic spine. Slightly more prominent bulky osteophytes inferiorly. IMPRESSION: No findings to suggest acute abnormality about the thoracic spine. There is extensive diffuse predominantly thin bridging osteophytes throughout the majority of the thoracic spine likely reflective of underlying ankylosing spondylitis. Dictated by: Dictated on workstation # [id number]
== END ==
LOC: RAD 13:57
PROVIDERS: ATTEND Family Medicine
DX: M54.5 Low back pain (principal); M54.6 Pain in thoracic spine; Z98.1 Arthrodesis status
CPT/HCPCS: 72072; 72100

== ENCOUNTER 2019-01-02 11:14 | Outpatient (RCR) | payer MEDICARE, OTHER ==
[~2019-01-02 11:14] MED LIST changes: -AMLO2.5T PO; +AMLO2.5T4 PO
== END 2019-01-02 17:00 | disposition home or self-care (01) ==
PROVIDERS: ATTEND Orthopaedic Surgery
DX: Z47.1 Aftercare following joint replacement surgery (principal); Z96.652 Presence of left artificial knee joint

== ENCOUNTER 2019-06-19 05:32 | Outpatient (CLI) | payer MEDICARE, OTHER ==
[~2019-06-19] VITALS: Ht 180.3 cm; Wt 88.5 kg
[2019-06-19] MEDS ORDERED: ASPI-808 PO (11:38)
== END 2019-06-19 11:43 | disposition home or self-care (01) ==
LOC: PREOP 05:32
PROVIDERS: ATTEND Specialist
DX: Z01.818 Encounter for other preprocedural examination (principal)

== ENCOUNTER 2019-06-21 06:31 | Day surgery (SDC) | payer MEDICARE, OTHER ==
[~2019-06-21] VITALS: Ht 180.3 cm; Wt 88.5 kg
[~2019-06-21 06:31] MED LIST changes: +ASPI-808 PO
[2019-06-21 06:35] VITALS: BP 150/78
[2019-06-21] MEDS: TETRACAINE 0.5% OPHTH SOLN 4 ML BTL (SINGLE DOSE ONLY) OU PRN ×3 (06:55→07:07)
[2019-06-21] MEDS: TROPICAMIDE 1% OPH SOLN (MYDRIACYL) 15 ML BTL OU PRN ×3 (06:55→07:07)
[2019-06-21] MEDS: PHENYLEPHRINE 10% OPHTH (NEO-SYN) 5 ML BTL OU PRN ×3 (06:55→07:07)
[2019-06-21 07:30] VITALS: BP 150/78
--- NOTE | 2019-06-21 07:50 | Ophthalmologist Pre-Op Note ---
Pre-Operative Progress Note H&P Reviewed The H&P was reviewed, patient examined and no changes noted. Date H&P Reviewed: Jun 21, 2019 Time H&P Reviewed: 07:29 Pre-Op Dx Secondary Cataract, Right Eye MELBA LEVY MD Jun 21, 2019 07:50
--- NOTE | 2019-06-21 07:51 | Ophthalmology Operative Report ---
YAG Capsulotomy PREOPERATIVE DIAGNOSIS: Secondary Cataract Right Eye POSTOPERATIVE DIAGNOSIS: Secondary Cataract Right Eye PROCEDURE: YAG Capsulotomy, right eye SURGEON: Rashard Levy ANESTHESIA: Topical anesthesia COMPLICATIONS: None ESTIMATED BLOOD LOSS: Minimal DESCRIPTION OF PROCEDURE: After proper informed consent was obtained, the patient's, a 83 male, right eye received one drop of Tropicamide and one drop of Tetracaine. The patient was then placed at the YAG laser and using a power of [ 3.8] millijoules and [29 ] bursts were used to fashion a central capsulotomy. The patient tolerated the procedure well without complications. RASHARD LEVY MD Jun 21, 2019 07:51
== END 2019-06-21 07:30 | disposition home or self-care (01) ==
LOC: SDC 06:31
PROVIDERS: ATTEND Specialist
DX: H26.491 Other secondary cataract, right eye (principal); I10 Essential (primary) hypertension; G40.909 Epilepsy, unspecified, not intractable, without status epilepticus; M19.91 Primary osteoarthritis, unspecified site; Z85.828 Personal history of other malignant neoplasm of skin

== ENCOUNTER 2019-09-18 18:49 | Inpatient (IN) | payer MEDICARE, OTHER ==
[~2019-09-18] VITALS: Ht 177.8 cm; Wt 87.2 kg
[2019-09-18] MEDS ORDERED: fentaNYL INJECTION 100 MCG/2 ML AMP IVP ONE ×2 (19:30→20:45)
[2019-09-18] MEDS ORDERED: ONDANSETRON 4 MG/2 ML (SDV) Z0FRAN IVP ONE (19:30)
[2019-09-18 19:43] LABS: BASOPHILS % (AUTO) 0 % (0-10); EOSINOPHILS # (AUTO) 0.2 10^3/uL (0.0-0.3); EOSINOPHILS % (AUTO) 2 % (0-10); HEMATOCRIT 40 % (40-54); HEMOGLOBIN 13.5 G/DL (13.3-17.7); LYMPHOCYTES # (AUTO) 1.5 X 10^3 (1.0-4.0); LYMPHOCYTES % (AUTO) 16 % (12-44); MEAN CORPUSCULAR HEMOGLOBIN 33 PG (25-34); MEAN CORPUSCULAR HGB CONC 34 G/DL (32-36); MEAN CORPUSCULAR VOLUME 98 FL (80-99); MEAN PLATELET VOLUME 8.8 FL (7.4-10.4); MONOCYTES # (AUTO) 0.8 X 10^3 (0.0-1.0); MONOCYTES % (AUTO) 8 % (0-12); NEUTROPHILS # (AUTO) 7.4 X 10^3 (1.8-7.8); NEUTROPHILS % (AUTO) 74 % (42-75); PLATELET COUNT 326 10^3/uL (130-400); RED CELL DISTRIBUTION WIDTH 13.1 % (10.0-14.5)
[2019-09-18 19:54] LABS: INR 0.9 (0.8-1.4); PROTHROMBIN TIME PATIENT 12.9 SEC (12.2-14.7)
--- NOTE | 2019-09-18 19:54 | NUR ---
Pt reports pain has resolved at this time.
--- NOTE | 2019-09-18 20:01 | ED Abdominal Pain ---
General Chief Complaint: Abdominal/GI Problems Stated Complaint: ABD PAIN Nursing Triage Note: abdominal pain started today at 1400pain 10/10 nausea and vomiting at this time for the first time. Sepsis Screen: No Definite Risk Source of Information: Patient Exam Limitations: No Limitations History of Present Illness Date Seen by Provider: Sep 18, 2019 Time Seen by Provider: 19:59 Initial Comments To ER with reports of. No abdominal pain that began today about 2 PM. Vomited once in the waiting room here but feels better in that regard now, no diarrhea. He has been passing gas. 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 Timing/Duration: 1-2 Days Severity/Quality: Moderate Radiation: No Radiation Activities at Onset: None Allergies and Home Medications Allergies Coded Allergies: No Known Drug Allergies (Unverified , 02/25/09) Home Medications Aspirin 325 Mg Tablet, 325 MG PO DAILY, (Reported) Docusate Sodium 100 Mg Capsule, 100 MG PO BID, (Reported) Lisinopril 40 Mg Tablet, 40 MG PO DAILY, (Reported) Phenytoin Sodium Extended 100 Mg Capsule, 200 MG PO BID, (Reported) take 2 (100mg) tabs Patient Home Medication List Home Medication List Reviewed: Yes Review of Systems Review of Systems Constitutional: see HPI EENTM: No Symptoms Reported Respiratory: No Symptoms Reported Cardiovascular: No Symptoms Reported Gastrointestinal: See HPI Genitourinary: No Symptoms Reported Musculoskeletal: no symptoms reported Skin: no symptoms reported Psychiatric/Neurological: No Symptoms Reported Endocrine: No Symptoms Reported Hematologic/Lymphatic: No Symptoms Reported Past Mbimlqd-Oxgobg-Ezyqii Hx Patient Social History Alcohol Use: Denies Use Recreational Drug Use: No 2nd Hand Smoke Exposure: No Recent Foreign Travel: No Contact w/Someone Who Travel: No Recent Infectious Disease Expo: No Recent Hopitalizations: No Physical Abuse: No Sexual Abuse: No Mistreated: No Fear: No Immunizations Up To Date Tetanus Booster (TDap): Unknown Seasonal Allergies Seasonal Allergies: No Past Medical History Surgeries: Yes (SPLEENECTOMY; LT KNEE x2; HERNIA REPAIRS; SINUS SX; LEFT THUMB) Abdominal, Amputation, Bowel Surgery, Gallbladder, Joint Replacement, Orthopedic, Tonsillectomy Respiratory: No Currently Using CPAP: No Currently Using BIPAP: No Cardiac: Yes Hypertension Neurological: Yes Seizure Disorder Reproductive Disorders: No Sexually Transmitted Disease: No HIV/AIDS: No Genitourinary: No Gastrointestinal: Yes (Ventral hernia repair, hernia repair with adhesiolysis) 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 Endocrine: No HEENT: No Loss of Vision: Denies Hearing Impairment: Hard of Hearing, Bilateral Hearing Aide Cancer: No Psychosocial: No Integumentary: No Blood Disorders: No Adverse Reaction/Blood Tranf: No Family Medical History Cancer, Other Conditions/Hx Physical Exam Vital Signs Vital Signs - First Documented 09/18/19 19:04 Temp 36.4 Pulse 65 Resp 20 B/P (MAP) 139/77 (97) Pulse Ox 96 Capillary Refill : Less Than 3 Seconds Height/Weight/BMI Height: 5'11.00" Weight: 195lbs. 0.0oz. 88.929427tp; 27.00 BMI Method:Stated General Appearance: WD/WN, no apparent distress HEENT: PERRL/EOMI, normal ENT inspection Neck: non-tender, full range of motion Respiratory: no respiratory distress, no accessory muscle use Cardiovascular: regular rate, rhythm, no murmur Gastrointestinal: normal bowel sounds, soft, other (large ventral hernia without apparent strangulation or incarceration) Extremities: normal range of motion, non-tender Neurologic/Psychiatric: alert, normal mood/affect, oriented x 3 Skin: normal color, warm/dry Progress/Results/Core Measures Results/Orders Lab Results Laboratory Tests Test 09/18/19 19:35 09/18/19 20:00 09/18/19 20:01 Range/Units White Blood Count 10.0 4.3-11.0 10^3/uL Red Blood Count 4.06 L 4.35-5.85 10^6/uL Hemoglobin 13.5 13.3-17.7 G/DL Hematocrit 40 40-54 % Mean Corpuscular Volume 98 80-99 FL Mean Corpuscular Hemoglobin 33 25-34 PG Mean Corpuscular Hemoglobin Concent 34 32-36 G/DL Red Cell Distribution Width 13.1 10.0-14.5 % Platelet Count 326 130-400 10^3/uL Mean Platelet Volume 8.8 7.4-10.4 FL Neutrophils (%) (Auto) 74 42-75 % Lymphocytes (%) (Auto) 16 12-44 % Monocytes (%) (Auto) 8 0-12 % Eosinophils (%) (Auto) 2 0-10 % Basophils (%) (Auto) 0 0-10 % Neutrophils # (Auto) 7.4 1.8-7.8 X 10^3 Lymphocytes # (Auto) 1.5 1.0-4.0 X 10^3 Monocytes # (Auto) 0.8 0.0-1.0 X 10^3 Eosinophils # (Auto) 0.2 0.0-0.3 10^3/uL Basophils # (Auto) 0.0 0.0-0.1 10^3/uL Prothrombin Time 12.9 12.2-14.7 SEC INR Comment 0.9 0.8-1.4 Urine Color YELLOW Urine Clarity CLEAR Urine pH 7.0 5-9 Urine Specific [place] 1.015 L 1.016-1.022 Urine Protein NEGATIVE NEGATIVE Urine Glucose (UA) NEGATIVE NEGATIVE Urine Ketones NEGATIVE NEGATIVE Urine Nitrite NEGATIVE NEGATIVE Urine Bilirubin NEGATIVE NEGATIVE Urine Urobilinogen 0.2 < = 1.0 MG/DL Urine Leukocyte Esterase NEGATIVE NEGATIVE Urine RBC (Auto) NEGATIVE NEGATIVE Urine RBC NONE /HPF Urine WBC NONE /HPF Urine Squamous Epithelial Cells RARE /HPF Urine Crystals NONE /LPF Urine Bacteria NEGATIVE /HPF Urine Casts NONE /LPF Urine Mucus SMALL H /LPF Urine Culture Indicated NO Sodium Level 136 135-145 MMOL/L Potassium Level 4.2 3.6-5.0 MMOL/L Chloride Level 97 L 98-107 MMOL/L Carbon Dioxide Level 29 21-32 MMOL/L Anion Gap 10 5-14 MMOL/L Blood Urea Nitrogen 19 H 7-18 MG/DL Creatinine 0.86 0.60-1.30 MG/DL Estimat Glomerular Filtration Rate > 60 BUN/Creatinine Ratio 22 Glucose Level 133 H 70-105 MG/DL Calcium Level 9.0 8.5-10.1 MG/DL Corrected Calcium 9.0 8.5-10.1 MG/DL Total Bilirubin 0.3 0.1-1.0 MG/DL Aspartate Amino Transf (AST/SGOT) 19 5-34 U/L Alanine Aminotransferase (ALT/SGPT) 7 0-55 U/L Alkaline Phosphatase 121 40-136 U/L Total Protein 6.5 6.4-8.2 GM/DL Albumin 4.0 3.2-4.5 GM/DL Lipase 32 8-78 U/L My Orders Orders - MARILEE HERNANDEZ APRN Protime With Inr (09/18/19 19:28) Cbc With Automated Diff (09/18/19 19:28) Comprehensive Metabolic Panel (09/18/19 19:28) Lipase (09/18/19 19:28) Ua Culture If Indicated (09/18/19 19:28) Ct Abdomen/Pelvis W (09/18/19 19:28) Ed Iv/Invasive Line Start (09/18/19 19:28) Ondansetron Injection (Zofran Injectio (09/18/19 19:30) Fentanyl Injection (Sublimaze Injection (09/18/19 19:30) Fentanyl Injection (Sublimaze Injection (09/18/19 20:45) Medications Given in ED Current Medications Medications Dose Ordered Sig/Mariusz Route Start Time Stop Time Status Last Admin Dose Admin Fentanyl Citrate 50 mcg ONCE ONCE IVP 09/18/19 19:30 09/18/19 19:31 DC 09/18/19 19:42 50 MCG Fentanyl Citrate 50 mcg ONCE ONCE IVP 09/18/19 20:45 09/18/19 20:46 DC 09/18/19 20:52 50 MCG Iohexol 100 ml ONCE ONCE IV 09/18/19 20:45 09/18/19 20:46 UNV 09/18/19 21:03 100 ML Ondansetron HCl 4 mg ONCE ONCE IVP 09/18/19 19:30 09/18/19 19:31 DC 09/18/19 19:40 4 MG Sodium Chloride 10 ml NEEDED PRN IV 09/18/19 20:45 UNV 09/18/19 21:03 10 ML Sodium Chloride 100 ml ONCE ONCE IV 09/18/19 20:45 09/18/19 20:46 UNV 09/18/19 21:03 80 ML Vital Signs/I&O 09/18/19 19:04 Temp 36.4 Pulse 65 Resp 20 B/P (MAP) 139/77 (97) Pulse Ox 96 Blood Pressure Mean: 97 POS Departure Impression Primary Impression: Small bowel obstruction Disposition: 09 ADMITTED INPATIENT Condition: Stable Admissions Decision to Admit Reason: Admit from ER (General) Decision to Admit/Date: Sep 18, 2019 Time/Decision to Admit Time: 21:13 Departure-Patient Inst. Referrals: MANAN RAJPUT DO (PCP/Family) Primary Care Physician HERNANDEZMARILEE LAM APRN Sep 18, 2019 20:01 POS
[2019-09-18 20:09] LABS: BILIRUBIN,URINE NEGATIVE (NEGATIVE); CLARITY,URINE CLEAR; COLOR,URINE YELLOW; GLUCOSE, URINE (UA) NEGATIVE (NEGATIVE); KETONES,URINE NEGATIVE (NEGATIVE); LEUKOCYTE ESTERASE ,URINE NEGATIVE (NEGATIVE); NITRITE,URINE NEGATIVE (NEGATIVE); PROTEIN,URINE NEGATIVE (NEGATIVE)
[2019-09-18 20:16] LABS: BACTERIA,URINE NEGATIVE /HPF; SQUAMOUS EPITHELIAL CELL,UR RARE /HPF
[2019-09-18 20:30] LABS: ALANINE AMINOTRANSFERASE 7 U/L (0-55); ALKALINE PHOSPHATASE 121 U/L (40-136); BILIRUBIN,TOTAL 0.3 MG/DL (0.1-1.0); BUN/CREATININE RATIO 22; CARBON DIOXIDE 29 MMOL/L (21-32); CHLORIDE 97 MMOL/L (98-107); CREATININE SERUM 0.86 MG/DL (0.60-1.30); GFR ESTIMATED > 60; GLUCOSE 133 MG/DL (70-105); LIPASE 32 U/L (8-78); POTASSIUM 4.2 MMOL/L (3.6-5.0); SODIUM 136 MMOL/L (135-145); TOTAL PROTEIN 6.5 GM/DL (6.4-8.2)
[2019-09-18] MEDS ORDERED: CATHETER FLUSH 10 ML SYR IV PRN (20:45)
[2019-09-18] MEDS ORDERED: NS 100 ML (IVPB) BAG IV ONE (20:45)
[2019-09-18] MEDS ORDERED: IOHEXOL 350 MG/ML 100 ML (OMNIPAQUE 350) VIAL IV ONE (20:45)
[2019-09-18] MEDS ORDERED: HOLD METFORMIN - RECEIVED CONTRAST 20 ML VIAL IV SCH (20:45)
--- NOTE | 2019-09-18 21:55 | Diagnostic Imaging Report ---
PROCEDURE: CT abdomen and pelvis with contrast. TECHNIQUE: Multiple contiguous axial images were obtained through the abdomen and pelvis after administration of intravenous contrast. Auto Exposure Controls were utilized during the CT exam to meet ALARA standards for radiation dose reduction. INDICATION: Mid abdominal pain with nausea and vomiting. History of melanoma. COMPARISON: 07/14/2017. FINDINGS: The heart is unremarkable. Atelectasis is seen in the bilateral lung bases. Fluid-filled dilated loops of small bowel are seen in the mid abdomen with a transition point in the region of ventral hernia repair in the midline of the lower abdomen. Small ventral hernias are seen in the midline and left of midline containing partial loops of small bowel. No evidence of free fluid or free air is seen in the abdomen and pelvis. Diverticulosis without evidence of acute diverticulitis is noted. Small hemangioma is again noted in the right hepatic lobe. No suspicious hepatic lesions are seen. The gallbladder is surgically absent. Postsurgical changes of splenectomy are again noted with a small splenule in the left upper quadrant. The pancreas, adrenal glands and kidneys demonstrate no acute abnormalities. Multiple cortical cysts are seen in the kidneys, similar to prior exam. Degenerative changes are seen in the included osseous structures without acute abnormality. The urinary bladder is nondistended. Diverticulosis without evidence of acute diverticulitis. Prostatomegaly is noted. No pathologically enlarged lymphadenopathy is seen in the abdomen and pelvis. IMPRESSION: 1. Findings consistent with small bowel obstruction with a transition point in the area of prior ventral hernia repair. No free fluid or free air. 2. Diverticulosis without evidence of acute diverticulitis. 3. Two small ventral hernias are seen in the midline and left of midline containing partial loops of small bowel. Dictated by: Dictated on workstation # [id number]
[2019-09-18] MEDS ORDERED: fentaNYL INJECTION 100 MCG/2 ML AMP IVP PRN (22:30)
--- NOTE | 2019-09-18 22:51 | NUR ---
Called to give report. Nurse will call when available.
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
--- NOTE | 2019-09-18 23:15 | NUR ---
KELLE TATUM admitted to room 413-1, with an admitting diagnosis of SMALL BOWEL OBSTRUCTION, on 09/18/19 from [place] via WHEELCHAIR, accompanied by STAFF.KELLE TATMU introduced to surroundings, call light, bed controls, phone, TV, temperature control, lights, meal times, smoking policy, visitor policy, side rail policy, bathrooms and showers. Patient Rights given to patient in the handbook. KELLE TATUM verbalizes understanding that [facility] is not responsible for the loss or damage to any personal effects or valuables that are kept in the patients posession during their hospitalization.
[2019-09-18 23:35] VITALS: BP 113/64
[2019-09-18] MEDS ORDERED: NS W/KCL 20 MEQ/L 1,000 ML IV ONE (23:59)
[2019-09-19] VITALS (7 sets, daily range): BP systolic 108–156; BP diastolic 57–71
[2019-09-19] MEDS ORDERED: fentaNYL INJECTION 100 MCG/2 ML AMP IV PRN (01:00)
[2019-09-19] MEDS ORDERED: ONDANSETRON 4 MG/2 ML (SDV) Z0FRAN IV PRN (01:00)
[2019-09-19 06:06] LABS: BASOPHILS % (AUTO) 0 % (0-10); EOSINOPHILS # (AUTO) 0.2 10^3/uL (0.0-0.3); EOSINOPHILS % (AUTO) 2 % (0-10); HEMATOCRIT 38 % (40-54); HEMOGLOBIN 12.7 G/DL (13.3-17.7); LYMPHOCYTES # (AUTO) 0.7 X 10^3 (1.0-4.0); LYMPHOCYTES % (AUTO) 9 % (12-44); MEAN CORPUSCULAR HEMOGLOBIN 33 PG (25-34); MEAN CORPUSCULAR HGB CONC 34 G/DL (32-36); MEAN CORPUSCULAR VOLUME 99 FL (80-99); MEAN PLATELET VOLUME 8.5 FL (7.4-10.4); MONOCYTES # (AUTO) 0.9 X 10^3 (0.0-1.0); MONOCYTES % (AUTO) 11 % (0-12); NEUTROPHILS # (AUTO) 6.3 X 10^3 (1.8-7.8); NEUTROPHILS % (AUTO) 78 % (42-75); PLATELET COUNT 307 10^3/uL (130-400); RED CELL DISTRIBUTION WIDTH 13.3 % (10.0-14.5); WHITE BLOOD COUNT 8.2 10^3/uL (4.3-11.0)
[2019-09-19 06:39] LABS: ALANINE AMINOTRANSFERASE 7 U/L (0-55); ALBUMIN 3.8 GM/DL (3.2-4.5); ALKALINE PHOSPHATASE 114 U/L (40-136); BILIRUBIN,TOTAL 0.4 MG/DL (0.1-1.0); BUN/CREATININE RATIO 21; CARBON DIOXIDE 31 MMOL/L (21-32); CHLORIDE 99 MMOL/L (98-107); CREATININE SERUM 0.82 MG/DL (0.60-1.30); GFR ESTIMATED > 60; GLUCOSE 106 MG/DL (70-105); POTASSIUM 4.8 MMOL/L (3.6-5.0); SODIUM 139 MMOL/L (135-145); TOTAL PROTEIN 6.1 GM/DL (6.4-8.2)
--- NOTE | 2019-09-19 07:47 | Diagnostic Imaging Report ---
Indication: Abdominal pain started today nausea and vomiting FINDINGS: Frontal view of the chest demonstrates lungs to be clear. Heart mediastinum and pulmonary vascularity and visualized bony thorax normal. An oral gastric tube transverses the radiograph. IMPRESSION: Normal chest. Dictated by: Dictated on workstation # [id number]
--- NOTE | 2019-09-19 09:57 | Diagnostic Imaging Report ---
INDICATION: Small bowel obstruction EXAM: KUB at 9:48 AM FINDINGS: There is an NG tube projecting over the stomach. There are postsurgical changes from a cholecystectomy and from a ventral hernia repair. The small bowel is decompressed compared to the previous days CT. Bowel gas pattern is nearly normal. IMPRESSION: Resolving small bowel obstruction. Dictated by: Dictated on workstation # [id number]
--- NOTE | 2019-09-19 10:16 | NUR ---
PATIENT LISTED HIS MEDICATIONS TO ME. I CALLED [facility] BUT THEY HAVE NOT FILLED ANYTHING FOR HIM RECENTLY. I CALLED AND SPOKE WITH [facility]: 08-26-19 PHENYTOIN EXT 100MG 2 CAPS BID 90 DAYS 04-17-19 LISINOPRIL 40MG DAILY #90 HE STATES HE TAKES A STOOL SOFTENER BID OTC. HE IS NO LONGER TAKING ASPIRIN, HE STATES HE WAS TAKING IT AFTER HIS KNEE PROCEDURE BUT HAS STOPPED IN THE LAST WEEK TO WEEK AND A HALF DUE TO HIS SKIN BEING SO THIN. HE IS GOING TO DISCUSS WITH HIS BUT HAS STOPPED TAKING IT FOR NOW.
[2019-09-19] MEDS: NS W/KCL 20 MEQ/L 1,000 ML IV SCH ×3 (10:43→20:23)
--- NOTE | 2019-09-19 12:26 | Consultation ---
History of Present Illness History of Present Illness Patient Consulted On(tc/time) 09/19/19 12:21 Date Seen by Provider: Sep 19, 2019 Time Seen by Provider: 12:22 History of Present Illness This is an 83 year old male with a known history of bowel obstructions who presented to the emergency room with sudden onset of abdominal pain. He also had one episode of nausea and vomiting. Upon examination in the emergency room, he was found to have a small bowel obstruction. A NG tube was placed and the patient was given IV fentanyl for pain. He will be admitted to surgery and I will consult for medical management. Allergies and Home Medications Allergies Coded Allergies: oxycodone (Verified Allergy, Unknown, 09/18/19) hallucinations Home Medications Docusate Sodium 100 Mg Capsule, 100 MG PO BID, (Reported) Lisinopril 40 Mg Tablet, 40 MG PO DAILY, (Reported) LAST FILLED #90 04-17-19 Phenytoin Sodium Extended 100 Mg Capsule, 200 MG PO BID, (Reported) TAKES 2 (100MG) CAPSULES Patient Home Medication List Home Medication List Reviewed: Yes Past Ehhnjfc-Btflfm-Qomzti Hx Patient Social History Alcohol Use: Denies Use Recreational Drug Use: No 2nd Hand Smoke Exposure: No Recent Foreign Travel: No Contact w/Someone Who Travel: No Recent Infectious Disease Expo: No Recent Hopitalizations: No Physical Abuse: No Sexual Abuse: No Mistreated: No Fear: No Immunizations Up To Date Tetanus Booster (TDap): Unknown Date of Influenza Vaccine: Sep 06, 2019 Seasonal Allergies Seasonal Allergies: No Past Medical History Surgeries: Yes (SPLEENECTOMY; LT KNEE x2; HERNIA REPAIRS; SINUS SX; LEFT THUMB) Abdominal, Amputation, Bowel Surgery, Gallbladder, Joint Replacement, Orthopedic, Tonsillectomy Respiratory: No Currently Using CPAP: No Currently Using BIPAP: No Cardiac: Yes Hypertension Neurological: Yes Seizure Disorder Reproductive Disorders: No Sexually Transmitted Disease: No HIV/AIDS: No Genitourinary: No Gastrointestinal: Yes (Ventral hernia repair, hernia repair with adhesiolysis) 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 Endocrine: No HEENT: No Loss of Vision: Denies Hearing Impairment: Hard of Hearing, Bilateral Hearing Aide Cancer: No Psychosocial: No Integumentary: No Blood Disorders: No Adverse Reaction/Blood Tranf: No Family Medical History Cancer, Other Conditions/Hx Physical Exam Vital Signs Vital Signs - First Documented 09/18/19 09/18/19 19:04 23:13 Temp 36.4 Pulse 65 Resp 20 B/P (MAP) 139/77 (97) Pulse Ox 96 O2 Delivery Room Air Capillary Refill : Less Than 3 Seconds Height, Weight, BMI Height: 5'11.00" Weight: 195lbs. 0.0oz. [id number]; 27.58 BMI Method:Stated General Appearance: No Apparent Distress HEENT: Other (NG tube in place) Neck: Supple Respiratory: Lungs Clear Cardiovascular: Regular Rate, Rhythm Gastrointestinal: Non Tender, Soft, Abnormal Bowel Sounds Rectal: Deferred Back: No CVA Tenderness Extremity: Non Tender, No Calf Tenderness, No Pedal Edema Neurologic/Psychiatric: Alert, Oriented x3 Skin: Warm/Dry Comments Laboratory Tests 09/18/19 19:35: White Blood Count 10.0, Red Blood Count 4.06L, Hemoglobin 13.5, Hematocrit 40, Mean Corpuscular Volume 98, Mean Corpuscular Hemoglobin 33, Mean Corpuscular Hemoglobin Concent 34, Red Cell Distribution Width 13.1, Platelet Count 326, Mean Platelet Volume 8.8, Neutrophils (%) (Auto) 74, Lymphocytes (%) (Auto) 16, Monocytes (%) (Auto) 8, Eosinophils (%) (Auto) 2, Basophils (%) (Auto) 0, Neut rophils # (Auto) 7.4, Lymphocytes # (Auto) 1.5, Monocytes # (Auto) 0.8, Eosinophils # (Auto) 0.2, Basophils # (Auto) 0.0, Prothrombin Time 12.9, INR Comment 0.9 09/18/19 20:00: Urine Color YELLOW, Urine Clarity CLEAR, Urine pH 7.0, Urine Specific [place] 1.015L, Urine Protein NEGATIVE, Urine Glucose (UA) NEGATIVE, Urine Ketones NEGATIVE, Urine Nitrite NEGATIVE, Urine Bilirubin NEGATIVE, Urine Urobilinogen 0.2, Urine Leukocyte Esterase NEGATIVE, Urine RBC (Auto) NEGATIVE, Urine RBC NONE, Urine WBC NONE, Urine Squamous Epithelial Cells RARE, Urine Crystals NONE, Urine Bacteria NEGATIVE, Urine Casts NONE, Urine Mucus SMALLH, Urine Culture Indicated NO 09/18/19 20:01: Sodium Level 136, Potassium Level 4.2, Chloride Level 97L, Carbon Dioxide Level 29, Anion Gap 10, Blood Urea Nitrogen 19H, Creatinine 0.86, Estimat Glomerular Filtration Rate > 60, BUN/Creatinine Ratio 22, Glucose Level 133H, Calcium Level 9.0, Corrected Calcium 9.0, Total Bilirubin 0.3, Aspartate Amino Transf (AST/SGOT) 19, Alanine Aminotransferase (ALT/SGPT) 7, Alkaline Phosphatase 121, Total Protein 6.5, Albumin 4.0, Lipase 32 09/19/19 05:20: White Blood Count 8.2, Red Blood Count 3.82L, Hemoglobin 12.7L, Hematocrit 38L, Mean Corpuscular Volume 99, Mean Corpuscular Hemoglobin 33, Mean Corpuscular Hemoglobin Concent 34, Red Cell Distribution Width 13.3, Platelet Count 307, Mean Platelet Volume 8.5, Neutrophils (%) (Auto) 78H, Lymphocytes (%) (Auto) 9L, Monocytes (%) (Auto) 11, Eosinophils (%) (Auto) 2, Basophils (%) (Auto) 0, [place] trophils # (Auto) 6.3, Lymphocytes # (Auto) 0.7L, Monocytes # (Auto) 0.9, Eosinophils # (Auto) 0.2, Basophils # (Auto) 0.0, Sodium Level 139, Potassium Level 4.8, Chloride Level 99, Carbon Dioxide Level 31, Anion Gap 9, Blood Urea Nitrogen 17, Creatinine 0.82, Estimat Glomerular Filtration Rate > 60, BUN/Creatinine Ratio 21, Glucose Level 106H, Calcium Level 9.0, Corrected Calcium 9.2, Total Bilirubin 0.4, Aspartate Amino Transf (AST/SGOT) 18, Alanine Aminotransferase (ALT/SGPT) 7, Alkaline Phosphatase 114, Total Protein 6.1L, Albumin 3.8 Assessment/Plan Assessment/Plan Admission Dx 1. Acute Small Bowel Obstruction--NG tube with gut rest, pain control, ambulate 2. Hypertension--currently stable so will hold home meds and monitor 3. Seizure Disorder--resume dilantin once able to take orals, ativan prn for seizure activity Clinical Quality Measures DVT/VTE Risk/Contraindication: Risk Factor Score Per Nursin RFS Level Per Nursing on Admit: 2=Moderate MANAN RAJPUT DO Sep 19, 2019 12:26 POS
[2019-09-19] MEDS ORDERED: LORazepam INJ 2 MG/ML (ATIVAN) VIAL IVP PRN (12:30)
--- NOTE | 2019-09-19 16:21 | NUR ---
Pt is Orthodoxy. Currently NPO. Will check daily for Communion.
[2019-09-19] MEDS: lisINopril 40 MG (PRINIVIL) TABLET PO SCH (20:23)
[2019-09-19] MEDS: PHENYTOIN 100 MG (DILANTIN) CAP PO SCH (20:23)
[2019-09-20 04:45] VITALS: BP 152/65
[2019-09-20] MEDS: NS W/KCL 20 MEQ/L 1,000 ML IV SCH ×2 (06:21→19:00)
[2019-09-20 08:00] VITALS: BP 147/71
--- NOTE | 2019-09-20 08:15 | NUR ---
Initial visit by [employer] Selectortalia [place]: Engaged in rapport building and educated about Spiritual Care Services. Pt's family is Rastafari. Hide Selector offered prayer for healing.
[2019-09-20] MEDS ORDERED: lisINopril 40 MG (PRINIVIL) TABLET PO SCH (09:00)
[2019-09-20] MEDS: PHENYTOIN 100 MG (DILANTIN) CAP PO SCH ×2 (09:22→20:30)
--- NOTE | 2019-09-20 10:35 | Progress Note ---
Subjective Date Seen by a Provider: Sep 20, 2019 Time Seen by a Provider: 10:00 Subjective/Events-last exam doing much better. had a few bowel movements and continues to pass flatus. no abd pain or distention. ambulating well. Objective Exam Vital Signs Date Time Temp Pulse Resp B/P (MAP) Pulse Ox O2 Delivery O2 Flow Rate FiO2 09/20/19 08:00 36.5 81 20 147/71 (96) 98 Room Air 09/20/19 07:46 99 Room Air 09/20/19 04:45 36.3 62 18 152/65 (94) 96 Room Air 09/19/19 23:33 36.8 67 20 156/70 (98) 97 Room Air 09/19/19 20:23 Room Air 09/19/19 20:00 37.2 84 16 140/66 (90) 97 Room Air 09/19/19 16:55 36.8 69 16 150/70 (96) 97 Room Air 09/19/19 11:33 36.6 79 18 122/67 (85) 96 Room Air I & O 09/20/19 07:00 Intake Total 2000 ml Output Total 525 ml Balance 1475 ml Capillary Refill : Less Than 3 Seconds General Appearance: No Apparent Distress HEENT: PERRL/EOMI Neck: Full Range of Motion, Normal Inspection Respiratory: Chest Non Tender, Lungs Clear, Normal Breath Sounds Cardiovascular: Regular Rate, Rhythm Gastrointestinal: normal bowel sounds, non tender, soft Extremity: Normal Capillary Refill Neurologic/Psychiatric: Alert, Oriented x3 Skin: Normal Color Lymphatic: No Adenopathy Assessment/Plan Assessment/Plan Assess & Plan/Chief Complaint PSBO. resolving. will d/c NGT and start clear liquids. if tolerating then advance to low residue dys3 diet. would recommend adding fiber supplement slowly nursing home to promote soft stools daily. Clinical Quality Measures DVT/VTE Risk/Contraindication: Risk Factor Score Per Nursin RFS Level Per Nursing on Admit: 2=Moderate SEEMA LEUNG MD Sep 20, 2019 10:35 POS
--- NOTE | 2019-09-20 10:43 | Progress Note ---
Subjective Date Seen by a Provider: Sep 20, 2019 Time Seen by a Provider: 10:41 Subjective/Events-last exam Fwup SBO, HTN, seizure disorder. Passing flatus and stool. Feels much better. Has been up ambulating. Objective Exam Vital Signs Date Time Temp Pulse Resp B/P (MAP) Pulse Ox O2 Delivery O2 Flow Rate FiO2 09/20/19 08:00 36.5 81 20 147/71 (96) 98 Room Air 09/20/19 07:46 99 Room Air 09/20/19 04:45 36.3 62 18 152/65 (94) 96 Room Air 09/19/19 23:33 36.8 67 20 156/70 (98) 97 Room Air 09/19/19 20:23 Room Air 09/19/19 20:00 37.2 84 16 140/66 (90) 97 Room Air 09/19/19 16:55 36.8 69 16 150/70 (96) 97 Room Air 09/19/19 11:33 36.6 79 18 122/67 (85) 96 Room Air I & O 09/20/19 07:00 Intake Total 2000 ml Output Total 525 ml Balance 1475 ml Capillary Refill : Less Than 3 Seconds General Appearance: No Apparent Distress HEENT: Other (NG tube in place) Respiratory: Lungs Clear Cardiovascular: Regular Rate, Rhythm Gastrointestinal: normal bowel sounds, non tender, soft Extremity: Non Tender, No Calf Tenderness, No Pedal Edema Neurologic/Psychiatric: Alert, Oriented x3 Assessment/Plan Assessment/Plan Assess & Plan/Chief Complaint 1. SBO--improved, NG tube out today and start clear liquids 2. Hypertension--restarted lisinopril 3. Hx of Seizure Disorder--restarted Dilantin and has ativan prn Clinical Quality Measures Admission Status Admission Dx 1. Acute Small Bowel Obstruction--NG tube with gut rest, pain control, ambulate 2. Hypertension--currently stable so will hold home meds and monitor 3. Seizure Disorder--resume dilantin once able to take orals, ativan prn for seizure activity DVT/VTE Risk/Contraindication: Risk Factor Score Per Nursin RFS Level Per Nursing on Admit: 2=Moderate MANAN RAJPUT DO Sep 20, 2019 10:43 POS
[2019-09-20 12:00] VITALS: BP 125/63
--- NOTE | 2019-09-20 12:50 | NUR ---
"RD ASSESSMENT PMHx: HTN; seizures PT INTERACTION: Pt was awake and pleasant during nutrition assessment. Pt states current appetite is good and that he just received his first meal earlier today. Note pt had been NPO x1d, per chart review. Pt states following a regular diet at home, and currently has no issues with chewing/swallowing food. Pt states no recent issues with n/v at this time. Pt states having some issues with constipation, as he had a SBO. Note last BM was 09/19 and pt not currently on bowel regimen, per chart review. Pt states no recent wt changes. Note 2# wt loss x3mon, per chart review. Upon visual exam, pt appears to be adequately nourished with no visible signs of muscle/fat wasting and a BMI of 27.6. ABNORMAL NUTRITION-RELATED LAB VALUES: glu 106 (H); Pro 6.1 (L) Est. kcal needs: 2009-3113 kcal (20-25 kcal/kg) Est. Pro needs: 70-87 g Pro (0.8-1.0 g Pro/kg) PES STATEMENT: Inadequate oral intake (NI-2.1) related to constipation | NPO status as evidenced by pt interview INTERVENTION: Continue with current diet order of Clear Liquid diet. Advance diet to Regular, if medically able and as tolerated. Pt may benefit from nutrition supplementation if PO intake remains low. Will continue to follow and reassess as pt needs and status change. MONITOR/EVALUATE: PO Intake; Plan of Care; Hydration Status; Weight Status; Lab Values Shira Palm, MS, RD, LD"
--- NOTE | 2019-09-20 15:36 | NUR ---
provided prayer and Communion.
[2019-09-20 16:00] VITALS: BP 161/73
[2019-09-20 20:23] VITALS: BP 139/69
[2019-09-20] MEDS: lisINopril 40 MG (PRINIVIL) TABLET PO SCH (20:30)
[2019-09-20 23:30] VITALS: BP 147/55
[2019-09-21] MEDS: NS W/KCL 20 MEQ/L 1,000 ML IV SCH (00:24)
[2019-09-21 03:48] VITALS: BP 153/76
[2019-09-21 08:00] VITALS: BP 103/59
[2019-09-21] MEDS: PHENYTOIN 100 MG (DILANTIN) CAP PO SCH (09:01)
--- NOTE | 2019-09-21 10:13 | Discharge Summary ---
Discharge Summary Hospital Course Was the Problem List Reviewed?: Yes Hospital Course Date of Admission: Sep 18, 2019 at 22:22 Admission Diagnosis : Partial small bowel obstruction Family Physician/Provider: Gaby Rodas DO Date of Discharge: 09/21/19 Discharge Diagnosis: Partial small bowel obstruction Hospital Course: Norman Monson is an 83yoM who was admitted with a partial small bowel obstruction. Surgery was consulted and he was treated conservatively with bowel rest and NG tube. His symptoms improved and the NG was removed. He tolerated a diet. He was passing gas. He was discharged home and should follow up with Dr. Rodas in about a week. Labs and Pending Lab Test: Microbiology 09/19/19 MRSA Screen - Final, Complete MRSA not isolated Home Meds Active Reported Lisinopril 40 Mg Tablet 40 Mg PO DAILY LAST FILLED #90 04-17-19 Colace (Docusate Sodium) 100 Mg Capsule 100 Mg PO BID Dilantin (Phenytoin Sodium Extended) 100 Mg Capsule 200 Mg PO BID TAKES 2 (100MG) CAPSULES Assessment/Pt Instructions Take medications as prescribed. Follow up with Dr. Rodas in about a week. Return with intractable nausea and vomiting, worsening abdominal pain and distension, or if you feel like you are getting worse. Discharge Planning: <30 minutes discharge planning Discharge Instructions Discharge Diet: No Restrictions Activity as Tolerated: Yes Pneumonia Vaccine Order Indica: Yes Consultations General surgery Discharge Physical Examination Vital Signs Vital Signs Date Time Temp Pulse Resp B/P (MAP) Pulse Ox O2 Delivery O2 Flow Rate FiO2 09/21/19 07:55 Nasal Cannula 09/21/19 03:48 36.5 65 18 153/76 (101) 97 General Appearance: No Apparent Distress, WD/WN HEENT: PERRL/EOMI, Pharynx Normal Respiratory: Lungs Clear, Normal Breath Sounds, No Respiratory Distress Cardiovascular: Regular Rate, Rhythm, No Edema, No Murmur Gastrointestinal: Normal Bowel Sounds, Non Tender, Soft Extremity: Normal Inspection, Non Tender, No Pedal Edema Skin: Normal Color, Warm/Dry Neurologic/Psychiatric: Alert, Oriented x3, No Motor/Sensory Deficits, Normal Mood/Affect Allergies: Coded Allergies: oxycodone (Verified Allergy, Unknown, 09/18/19) hallucinations Copy Copies To 1: GABY RODAS DO Discharge Summary Date of Admission Sep 18, 2019 at 22:22 Date of Discharge Discharge Date: Sep 21, 2019 Discharge Time: 10:12 Admission Diagnosis Partial small bowel obstruction Consults/Procedures Consulations General surgery Discharge Diagnosis Partial small bowel obstruction (1) Small bowel obstruction Status: Acute Clinical Quality Measures DVT/VTE Risk/Contraindication: Risk Factor Score Per Nursin RFS Level Per Nursing on Admit: 2=Moderate LUISITO LOPEZ MD Sep 21, 2019 10:13 POS
[2019-09-21 11:30] VITALS: BP 153/76
--- NOTE | 2019-09-21 11:30 | NUR ---
KELLE TATUM demonstrates understanding of discharge instructions and accurately returns instructions upon questioning. Copy of Post-Discharge Instructions given to PT. KELLE TATUM is able to manage continuing needs after discharge. Patients belongings returned to PT. Patient discharged from 413-1 on 09/21/19 at 11:30 . KELLE TATUM left floor via W/C, accompanied by STAFF AND SELF PER AUTO.
--- NOTE | 2019-09-21 13:13 | Progress Note - Surgery ---
CONY ALBRIGHT,MED STUDENT 09/21/19 1313: Subjective Date Seen by a Provider: Sep 21, 2019 Time Seen by a Provider: 07:50 Subjective/Events-last exam Patient seen and examined. He started following a regular diet this morning and is tolerating well without nausea. He is passing gas, and had a bm yesterday but has not had one yet this am. Bowel gas pattern on abdominal x-ray from 09/19 is improved from previous. He states he feels much better today and is wanting to go home. Objective Exam Vital Signs Date Time Temp Pulse Resp B/P (MAP) Pulse Ox O2 Delivery O2 Flow Rate FiO2 09/21/19 11:30 36.5 65 18 153/76 97 Nasal Cannula 09/21/19 08:00 36.1 73 18 103/59 (74) 98 Room Air 09/21/19 07:55 Nasal Cannula 09/21/19 03:48 36.5 65 18 153/76 (101) 97 Room Air 09/21/19 03:10 95 Room Air 09/20/19 23:30 36.4 63 18 147/55 (85) 95 Room Air 09/20/19 22:39 98 Room Air 09/20/19 20:33 98 Room Air 09/20/19 20:25 Room Air 09/20/19 20:23 37.0 61 18 139/69 (92) 100 Room Air 09/20/19 16:00 36.9 60 18 161/73 (102) 98 Room Air I & O 09/21/19 07:00 Intake Total 2730 ml Balance 2730 ml Capillary Refill : Less Than 3 Seconds General Appearance: No Apparent Distress, WD/WN HEENT: PERRL/EOMI, Pharynx Normal Neck: Full Range of Motion, Normal Inspection Respiratory: Lungs Clear, Normal Breath Sounds, No Accessory Muscle Use, No Respiratory Distress Cardiovascular: Regular Rate, Rhythm, No Edema, No Murmur Peripheral Pulses: 2+ Radial Pulses (R), 2+ Radial Pulses (L) Gastrointestinal: normal bowel sounds, non tender, soft; No distended, No guarding Extremity: Normal Inspection, Non Tender, No Pedal Edema Neurologic/Psychiatric: Alert, Oriented x3, Normal Mood/Affect Skin: Normal Color, Warm/Dry Results Lab Microbiology 09/19/19 MRSA Screen - Final, Complete MRSA not isolated Assessment/Plan Assessment/Plan Assessment/Plan Small bowel obstruction Hypertension Hx of seizures SBO is improved and has had bm's and flatus, advance to regular diet On Phenytoin, and has Ativan prn Will DC home today Clinical Quality Measures DVT/VTE Risk/Contraindication: Risk Factor Score Per Nursin RFS Level Per Nursing on Admit: 2=Moderate ISAIAS GARCIA DO 09/21/19 1441: Subjective Subjective/Events-last exam Patient tolerating diet. No nausea or emesis. + bowel function. Wanting to go home. Denies n/v fever sweats chills shortness of breath or chest pain. Objective Exam General Appearance: No Apparent Distress HEENT: PERRL/EOMI Neck: Full Range of Motion, Normal Inspection Respiratory: Chest Non Tender, No Accessory Muscle Use, No Respiratory Distress Cardiovascular: Regular Rate, Rhythm Gastrointestinal: non tender, soft, hernia (reducible above umbilicus) Extremity: Normal Inspection, Non Tender Neurologic/Psychiatric: Alert, Oriented x3, No Motor/Sensory Deficits, Normal Mood/Affect, religion instructor II-XII Norm as Tested Skin: Normal Color, Warm/Dry Lymphatic: No Adenopathy Assessment/Plan Assessment/Plan Assessment/Plan Small bowel obstruction Hypertension Hx of seizures doing well. okay to dc any change be seen at that time. Supervisory-Addendum Brief Verification & Attestation Participated in pt care: history, MDM, physical Personally performed: exam, history, MDM, supervision of care Care discussed with: Medical Student Procedures: n/a Results interpretation: Verified all documentation Verification and Attestation of Medical Student E/M Service A medical student performed and documented this service in my presence. I reviewed and verified all information documented by the medical student and made modifications to such information, when appropriate. I personally performed the physical exam and medical decision making. Isaias Garcia, Sep 21, 2019,14:41 CONY ALBRIGHT,LATOYA STUDENT Sep 21, 2019 13:13 ISAIAS FRASER DO Sep 21, 2019 14:41 POS
== END 2019-09-21 11:30 | disposition home or self-care (01) | DRG 394 ==
LOC: EDUNIT# 18:49 → ER 18:50 → 4TH 22:22
PROVIDERS: ADMIT Surgery; ATTEND Surgery
PROC: 0D9670Z Drainage of Stomach with Drainage Device, Via Natural or Artificial Opening (ICD-10-PCS; principal; 2019-09-18)
DX: K43.0 Incisional hernia with obstruction, without gangrene (principal); K56.51 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], with partial obstruction; I10 Essential (primary) hypertension; G40.909 Epilepsy, unspecified, not intractable, without status epilepticus; M19.91 Primary osteoarthritis, unspecified site; H91.93 Unspecified hearing loss, bilateral; Z90.81 Acquired absence of spleen; Z89.012 Acquired absence of left thumb; Z97.4 Presence of external hearing-aid; Z96.652 Presence of left artificial knee joint
CPT/HCPCS: 36415; 71045; 74019; 74177; 80053; 81000; 83690; 85025; 85610; 87081; 94760; 96374; 96375; 96376

== ENCOUNTER 2019-11-03 21:28 | Inpatient (IN) | payer MEDICARE, OTHER ==
[~2019-11-03] VITALS: Ht 177.8 cm; Wt 85.7 kg
--- NOTE | 2019-11-03 21:54 | ED Chest Pain ---
General Stated Complaint: CHEST PAIN, TROUBLE BREATHING Source: patient Exam Limitations: no limitations (ASYA HU MED STUDENT) History of Present Illness Date Seen by Provider: Nov 03, 2019 Time Seen by Provider: 21:44 Initial Comments Pt presents to ED via personal vehicle with CC of chest pressure. Pt was reading in chair when he experienced epigastric chest pressure and shortness of breath beginning at approximately 2100 today and lasted one minute. He recorded a pulse of 38 and his encouraged him to come to ER. Denies chest pain, radiation, nausea, vomiting, diaphoresis, recent illness or lightheadedness. He has taken his aspirin today. Pt states he is active and works outside daily. Pt has had no prior cardiac work up or interventions. Past medical history is notable for hypertension for which he takes lisinopril. Timing/Duration: 1 hour, resolved prior to arrival Severity/Quality: mild, pressure Location: substernal, central Radiation: no radiation Activities at Onset: none Prior CP/Workup: no prior chest pain, no prior cardiac workup Associated Symptoms: No abdominal pain, No back pain, No diaphoresis, No dizziness, No fever/chills, No headache, No heartburn, No nausea/vomiting; shortness of breath; No syncope (ASYA HU MED STUDENT) Timing/Duration: resolved prior to arrival Severity/Quality: mild, pressure Location: central Radiation: no radiation Prior CP/Workup: echocardiography, stress test Modifying Factors: improves with rest ASA po VP PROJECT: Yes NTG SL VP PROJECT: No (MIHIR SHIPLEY MD) Allergies and Home Medications Allergies Coded Allergies: oxycodone (Verified Allergy, Unknown, 09/18/19) hallucinations Home Medications Docusate Sodium 100 Mg Capsule, 100 MG PO BID, (Reported) Lisinopril 40 Mg Tablet, 40 MG PO DAILY, (Reported) LAST FILLED #90 04-17-19 Phenytoin Sodium Extended 100 Mg Capsule, 200 MG PO BID, (Reported) TAKES 2 (100MG) CAPSULES Patient Home Medication List Home Medication List Reviewed: Yes (ASYA HU MED STUDENT) Home Medication List Reviewed: Yes (MIHIR SHIPLEY MD) Review of Systems Review of Systems Constitutional: No chills, No fever EENTM: No Eye Pain, No Ear Pain, No Nose Pain, No Throat Pain Respiratory: Denies Cough; Shortness of Air Cardiovascular: See HPI, Chest Pain (pressure), Edema; Denies Irregular Heart Rate, Denies Lightheadedness, Denies Palpitations, Denies Syncope Gastrointestinal: Denies Abdominal Pain, Denies Constipated, Denies Diarrhea, Denies Nausea Genitourinary: Denies Incontinence, Denies Pain Musculoskeletal: No back pain, No joint pain Skin: No lesions, No lumps, No rash Psychiatric/Neurological: Denies Headache, Denies Numbness, Denies Tingling (AYSA HU MED STUDENT) All Other Systems Reviewed Negative Unless Noted: Yes (MIHIR SHIPLEY MD) Past Ltqoiqb-Mktoax-Esaqge Hx Past Med/Social Hx: Reviewed Nursing Past Med/Soc Hx (MIHIR SHIPLEY MD) Patient Social History 2nd Hand Smoke Exposure: No Recent Foreign Travel: No Contact w/Someone Who Travel: No Recent Hopitalizations: No (ASYA HU MED STUDENT) Immunizations Up To Date Tetanus Booster (TDap): Unknown Date of Influenza Vaccine: Sep 06, 2019 (ASYA HU MED STUDENT) Seasonal Allergies Seasonal Allergies: No (ASYA HU MED STUDENT) Past Medical History Surgeries: Yes (SPLEENECTOMY; LT KNEE x2; HERNIA REPAIRS; SINUS SX; LEFT THUMB) Abdominal, Amputation, Bowel Surgery, Gallbladder, Joint Replacement, Orthopedic, Tonsillectomy Respiratory: No Currently Using CPAP: No Currently Using BIPAP: No Cardiac: Yes Hypertension Neurological: Yes Seizure Disorder Reproductive Disorders: No Sexually Transmitted Disease: No HIV/AIDS: No Genitourinary: No Gastrointestinal: Yes (Ventral hernia repair, hernia repair with adhesiolysis) 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 Endocrine: No HEENT: No Loss of Vision: Denies Hearing Impairment: Hard of Hearing, Bilateral Hearing Aide Cancer: No Psychosocial: No Integumentary: No Blood Disorders: No Adverse Reaction/Blood Tranf: No (ASYA HU MED STUDENT) Family Medical History Reviewed Nursing Family Hx (MIHIR SHIPLEY MD) Cancer, Other Conditions/Hx (ASYA HU MED STUDENT) No Pertinent Family Hx (MIHIR SHIPLEY MD) Physical Exam Vital Signs Vital Signs - First Documented 11/03/19 22:03 Temp 36.8 Pulse 43 Resp 23 B/P (MAP) 94/75 (81) Pulse Ox 99 (MIHIR SHIPLEY MD) Vital Signs Capillary Refill : (ASYA HU,MED STUDENT) Height, Weight, BMI Height: 5'11.00" Weight: 195lbs. 0.0oz. 88.218347ie; 27.58 BMI Method:Stated General Appearance: No Apparent Distress, WD/WN HEENT: PERRL/EOMI, Pharynx Normal Neck: Non Tender, Supple Respiratory: Chest Non Tender, Lungs Clear, Normal Breath Sounds, No Accessory Muscle Use, No Respiratory Distress Cardiovascular: No Edema, No Gallop, No Murmur, Bradycardia (38 in room ) Gastrointestinal: Non Tender, Soft Extremity: No Calf Tenderness, No Pedal Edema Neurologic/Psychiatric: Alert, Oriented x3 Skin: Normal Color, Warm/Dry Lymphatic: No Adenopathy (A/P cervical, supra/infra clavicular ) (ASYA HU,MED STUDENT) General Appearance: No Apparent Distress, WD/WN HEENT: PERRL/EOMI, Pharynx Normal Neck: Non Tender, Supple Respiratory: No Accessory Muscle Use, No Respiratory Distress, Crackles (right base) Cardiovascular: No Murmur, Bradycardia (38 in room ) Gastrointestinal: Non Tender, Soft Extremity: No Calf Tenderness, No Pedal Edema Neurologic/Psychiatric: Alert, Oriented x3 Skin: Normal Color, Warm/Dry (MIHIR SHIPLEY MD) Progress/Results/Core Measures Results/Orders Lab Results Laboratory Tests Test 11/03/19 21:38 Range/Units White Blood Count 6.4 4.3-11.0 10^3/uL Red Blood Count 3.70 L 4.35-5.85 10^6/uL Hemoglobin 12.4 L 13.3-17.7 G/DL Hematocrit 37 L 40-54 % Mean Corpuscular Volume 101 H 80-99 FL Mean Corpuscular Hemoglobin 34 25-34 PG Mean Corpuscular Hemoglobin Concent 33 32-36 G/DL Red Cell Distribution Width 13.4 10.0-14.5 % Platelet Count 282 130-400 10^3/uL Mean Platelet Volume 8.6 7.4-10.4 FL Neutrophils (%) (Auto) 43 42-75 % Lymphocytes (%) (Auto) 36 12-44 % Monocytes (%) (Auto) 13 H 0-12 % Eosinophils (%) (Auto) 7 0-10 % Basophils (%) (Auto) 1 0-10 % Neutrophils # (Auto) 2.8 1.8-7.8 X 10^3 Lymphocytes # (Auto) 2.3 1.0-4.0 X 10^3 Monocytes # (Auto) 0.9 0.0-1.0 X 10^3 Eosinophils # (Auto) 0.5 H 0.0-0.3 10^3/uL Basophils # (Auto) 0.0 0.0-0.1 10^3/uL Prothrombin Time 13.6 12.2-14.7 SEC INR Comment 1.0 0.8-1.4 Activated Partial Thromboplast Time 27 24-35 SEC Sodium Level 133 L 135-145 MMOL/L Potassium Level 4.8 3.6-5.0 MMOL/L Chloride Level 98 98-107 MMOL/L Carbon Dioxide Level 23 21-32 MMOL/L Anion Gap 12 5-14 MMOL/L Blood Urea Nitrogen 19 H 7-18 MG/DL Creatinine 1.14 0.60-1.30 MG/DL Estimat Glomerular Filtration Rate > 60 BUN/Creatinine Ratio 17 Glucose Level 113 H 70-105 MG/DL Calcium Level 8.8 8.5-10.1 MG/DL Corrected Calcium 8.8 8.5-10.1 MG/DL Magnesium Level 2.0 1.6-2.4 MG/DL Total Bilirubin 0.2 0.1-1.0 MG/DL Aspartate Amino Transf (AST/SGOT) 25 5-34 U/L Alanine Aminotransferase (ALT/SGPT) 14 0-55 U/L Alkaline Phosphatase 114 40-136 U/L Myoglobin 46.0 10.0-92.0 NG/ML Troponin I < 0.028 <0.028 NG/ML Total Protein 6.3 L 6.4-8.2 GM/DL Albumin 4.0 3.2-4.5 GM/DL (MIHIR SHIPLEY MD) My Orders Orders - MIHIR SHIPLEY MD Cbc With Automated Diff (11/03/19 21:57) Magnesium (11/03/19 21:57) Chest 1 View, Ap/Pa Only (11/03/19 21:57) Ekg Tracing (11/03/19 21:57) Comprehensive Metabolic Panel (11/03/19 21:57) Myoglobin Serum (11/03/19 21:57) Protime With Inr (11/03/19 21:57) Partial Thromboplastin Time (11/03/19 21:57) O2 (11/03/19 21:57) Monitor-Rhythm Ecg Trace Only (11/03/19 21:57) Lipid Panel (11/04/19 06:00) Ed Iv/Invasive Line Start (11/03/19 21:57) Troponin I (11/03/19 21:57) Lactated Ringers (Lr 1000 Ml Iv Solution (11/03/19 22:23) Dilantin (Phenytoin) (11/03/19 23:00) Acetaminophen Tablet (Tylenol Tablet) (11/03/19 23:28) (MIHIR SHIPLEY MD) Medications Given in ED Current Medications Medications Dose Ordered Sig/Mariusz Route Start Time Stop Time Status Last Admin Dose Admin Lactated Ringer's 1,000 ml @ 0 mls/hr Q0M ONCE IV 11/03/19 22:23 11/03/19 22:24 DC 11/03/19 22:31 1,000 MLS/HR (MIIHR SHIPLEY MD) Vital Signs/I&O 11/03/19 22:03 Temp 36.8 Pulse 43 Resp 23 B/P (MAP) 94/75 (81) Pulse Ox 99 (MIHIR SHIPLEY MD) Progress Progress Note : Time: 21:59 Progress Note Seen and evaluated. Ordered EKG, CBC, CMP, PT/INR CXR, troponin, BNP, Mg. Pt has already taken ASA today. (ASYA HU,MED STUDENT) Progress Note : Progress Note I have seen and evaluated the patient and agree with above except as indicated. I have directed the plan of care. Patient is here with slow heart rate and brief chest pressure. Presented to the ER without chest pain but did have persistence of bradycardia. Typically runs his heart rate os 50s to 70s and now it is in the 30s. Denies nausea, vomiting or dizziness. Evaluation as above. We will do chest pain protocol and patient is on monitor. Patient has taken aspirin today. Monitor patient. 2258: I discussed the case with Dr. Olivarez. We will do serial troponins and get echo in the morning. Patient to be admitted. He will see the patient in consult. I discussed the case with Dr. Blackman, on-call for Dr. Rodas. He accepts patient for admission, inpatient status. Patient will go to cardiac step down for symptomatic bradycardia and chest pain. Patient does have headache and so LR 1 L bolus was ordered and blood pressure did improve the headache did not resolve. Tylenol 1 g by mouth ordered. Blood pressure currently 110's systolic. Heart rate 32-38. (MIHIR SHIPLEY MD) Initial ECG Impression Date: Nov 03, 2019 Initial ECG Impression Time: 21:34 Initial ECG Rate: 43 Comment Junctional escape with nonspecific intraventricular conduction delay. No obvious P waves noted. Change from previous of 10/07/16 which had similar appearance but P waves were present at that time. No evidence of ST elevation DC. Interpreted by me. (MIHIR SHIPLEY MD) Diagnostic Imaging Diagonstic Imaging: Xray Plain Films/CT/US/NM/MRI: chest Comments No acute findings Reviewed: Reviewed by Me (MIHIR SHIPLEY MD) Departure Communication (Admissions) Time/Spoke to Admitting Phy: 23:05 Time/Spoke to Consulting Phy: 22:58 (MIHIR SHIPLEY MD) Impression Primary Impression: Symptomatic bradycardia Additional Impressions: Junctional escape rhythm Chest pain Qualified Codes: R07.9 - Chest pain, unspecified Disposition: 09 ADMITTED INPATIENT Condition: Stable Admissions Decision to Admit Reason: Admit from ER (General) Decision to Admit/Date: Nov 03, 2019 Time/Decision to Admit Time: 22:58 (MIHIR SHIPLEY MD) Departure-Patient Inst. Referrals: MANAN RODAS DO (PCP/Family) Primary Care Physician ASYA HU,MED STUDENT Nov 03, 2019 21:53 MIHIR SHIPLEY MD Nov 03, 2019 23:37
[2019-11-03 22:06] LABS: BASOPHILS % (AUTO) 1 % (0-10); EOSINOPHILS # (AUTO) 0.5 10^3/uL (0.0-0.3); EOSINOPHILS % (AUTO) 7 % (0-10); HEMATOCRIT 37 % (40-54); HEMOGLOBIN 12.4 G/DL (13.3-17.7); LYMPHOCYTES # (AUTO) 2.3 X 10^3 (1.0-4.0); LYMPHOCYTES % (AUTO) 36 % (12-44); MEAN CORPUSCULAR HEMOGLOBIN 34 PG (25-34); MEAN CORPUSCULAR HGB CONC 33 G/DL (32-36); MEAN CORPUSCULAR VOLUME 101 FL (80-99); MEAN PLATELET VOLUME 8.6 FL (7.4-10.4); MONOCYTES # (AUTO) 0.9 X 10^3 (0.0-1.0); MONOCYTES % (AUTO) 13 % (0-12); NEUTROPHILS # (AUTO) 2.8 X 10^3 (1.8-7.8); NEUTROPHILS % (AUTO) 43 % (42-75); PLATELET COUNT 282 10^3/uL (130-400); RED CELL DISTRIBUTION WIDTH 13.4 % (10.0-14.5); WHITE BLOOD COUNT 6.4 10^3/uL (4.3-11.0)
[2019-11-03 22:09] LABS: PROTHROMBIN TIME PATIENT 13.6 SEC (12.2-14.7)
[2019-11-03 22:17] LABS: ALANINE AMINOTRANSFERASE 14 U/L (0-55); ALKALINE PHOSPHATASE 114 U/L (40-136); BILIRUBIN,TOTAL 0.2 MG/DL (0.1-1.0); BUN/CREATININE RATIO 17; CALCIUM 8.8 MG/DL (8.5-10.1); CARBON DIOXIDE 23 MMOL/L (21-32); CHLORIDE 98 MMOL/L (98-107); CREATININE SERUM 1.14 MG/DL (0.60-1.30); GFR ESTIMATED > 60; GLUCOSE 113 MG/DL (70-105); POTASSIUM 4.8 MMOL/L (3.6-5.0); SODIUM 133 MMOL/L (135-145); TOTAL PROTEIN 6.3 GM/DL (6.4-8.2)
[2019-11-03] MEDS ORDERED: LACTATED RINGERS 1,000 ML IV ONE (22:23)
[2019-11-03] MEDS ORDERED: ACETAMINOPHEN 500 MG TAB (TYLENOL) PO STA (23:28)
[2019-11-04] VITALS (9 sets, daily range): BP systolic 99–161; BP diastolic 46–80
[2019-11-04] MEDS ORDERED: NS IV 1000 ML 1,000 ML ONE (00:43)
[2019-11-04] MEDS ORDERED: ONDANSETRON 4 MG/2 ML (SDV) Z0FRAN IV PRN (01:00)
[2019-11-04] MEDS ORDERED: NS IV 1000 ML 1,000 ML IV SCH ×2 (01:00→16:04)
[2019-11-04] MEDS ORDERED: ACETAMINOPHEN 325 MG TABLET PO PRN (01:00)
[2019-11-04] MEDS ORDERED: ATROPINE INJ 0.4 MG/ML SDV ONE (02:05)
[2019-11-04 03:52] LABS: BASOPHILS % (AUTO) 1 % (0-10); EOSINOPHILS # (AUTO) 0.4 10^3/uL (0.0-0.3); EOSINOPHILS % (AUTO) 6 % (0-10); HEMATOCRIT 34 % (40-54); HEMOGLOBIN 11.4 G/DL (13.3-17.7); LYMPHOCYTES # (AUTO) 1.9 X 10^3 (1.0-4.0); LYMPHOCYTES % (AUTO) 32 % (12-44); MEAN CORPUSCULAR HEMOGLOBIN 34 PG (25-34); MEAN CORPUSCULAR HGB CONC 33 G/DL (32-36); MEAN CORPUSCULAR VOLUME 101 FL (80-99); MONOCYTES # (AUTO) 0.9 X 10^3 (0.0-1.0); MONOCYTES % (AUTO) 14 % (0-12); NEUTROPHILS # (AUTO) 2.9 X 10^3 (1.8-7.8); NEUTROPHILS % (AUTO) 48 % (42-75); PLATELET COUNT 251 10^3/uL (130-400); RED CELL DISTRIBUTION WIDTH 13.4 % (10.0-14.5); WHITE BLOOD COUNT 6.1 10^3/uL (4.3-11.0)
[2019-11-04 04:14] LABS: ALANINE AMINOTRANSFERASE 13 U/L (0-55); ALBUMIN 3.5 GM/DL (3.2-4.5); ALKALINE PHOSPHATASE 98 U/L (40-136); BILIRUBIN,TOTAL 0.2 MG/DL (0.1-1.0); BUN/CREATININE RATIO 17; CALCIUM 8.6 MG/DL (8.5-10.1); CARBON DIOXIDE 24 MMOL/L (21-32); CHLORIDE 101 MMOL/L (98-107); CHOLESTEROL 156 MG/DL (< 200); CREATININE SERUM 0.99 MG/DL (0.60-1.30); GFR ESTIMATED > 60; GLUCOSE 101 MG/DL (70-105); HDL CHOLESTEROL 64 MG/DL (40-60); POTASSIUM 4.9 MMOL/L (3.6-5.0); SODIUM 136 MMOL/L (135-145); TOTAL PROTEIN 5.4 GM/DL (6.4-8.2); TRIGLYCERIDES 64 MG/DL (<150); VLDL CHOLESTEROL 13 MG/DL (5-40)
--- NOTE | 2019-11-04 06:53 | Diagnostic Imaging Report ---
INDICATION: Chest pain Portable upright AP view of the chest is obtained with comparison made to the study of 09/18/2019. FINDINGS: Heart size and pulmonary vascularity are within normal limits, and the lungs are clear, bilaterally. IMPRESSION: Unremarkable chest. Dictated by: Dictated on workstation # [id number]
[2019-11-04] MEDS ORDERED: ASPI-808 PO (09:58)
--- NOTE | 2019-11-04 11:17 | Consultation-Cardiology ---
HPI-Cardiology Cardiology Consultation: Date of Consultation 11/04/19 Date of Admission Attending Physician Gaby Rodas DO Admitting Physician Gaby Rodas DO Consulting Physician Jayde OLIVAREZ MD HPI: Time Seen by a Provider: 11:16 Chief Complaint: Bradycardia, fatigue, lightheadedness, chest pressure This is a 84-year-old gentleman who presented to the ER with bradycardia and chest pressure. His heart rate was in the 30s at home and he was extremely weak and lightheaded. He was also complaining of some chest pressure. He has history of hypertension. He denies any other cardiac symptoms especially palpitations, syncope, near-syncope. Chest pressure is in the epigastric area. No associated cardiac symptoms. No exacerbating or relieving factors. Moderate intensity. Denies active smoking. He does have history of seizure disorder and takes phenytoin. However he has been taking phenytoin for many years. Review of Systems-Cardiology Review of Systems Constitutional: As described under HPI; No As described under HPI, No no symptoms reported, No chills, No fever; lightheadedness, tiredness Eyes: No As described under HPI, No no symptoms reported, No blindness, No blurred vision, No contact lenses, No drainage, No decreased acuity, No foreign body sensation, No pain, No vision change Ears/Nose/Throat: No As described under HPI, No no symptoms reported, No chronic hearing loss, No ear discharge, No ear pain, No nasal drainage, No ulcerations Respiratory: No no symptoms reported; As described under HPI; No As described under HPI, No cough, No orthopnea, No shortness of breath, No SOB with excertion Cardiovascular: No no symptoms reported; As described under HPI; No As described under HPI; chest pain; No edema, No irregular heart rate, No lightheadedness, No palpitations Gastrointestinal: No no symptoms reported, No As described under HPI, No abdomen distended, No abdominal pain, No blood streaked bowels, No constipation, No diarrhea, No nausea, No vomiting, No stool coloration changes Genitourinary: No As described under HPI, No burning, No dysuria, No discharge, No frequency, No flank pain, No hematuria, No urgency Skin: No rash, No skin related problems, No ulcerations Psychiatric/Neurological: No anxiety, No depression, No seizure, No focal weakness, No syncope Hematologic: No bleeding abnormalities All Other Systems Reviewed Negative Unless Noted: Yes CEA-Uizitx-Kpmpoy Hx Patient Social History Alcohol Use: Denies Use Recreational Drug Use: No 2nd Hand Smoke Exposure: No Recent Foreign Travel: No Recent Infectious Disease Expo: No Hospitalization with Isolation: Denies Immunizations Up To Date Tetanus Booster (TDap): Unknown Date of Pneumonia Vaccine: Oct 05, 2019 Date of Influenza Vaccine: Sep 06, 2019 Past Medical History PMH As described under Assessment. Allergies and Home Medications Allergies Coded Allergies: oxycodone (Verified Allergy, Unknown, 09/18/19) hallucinations Home Medications Aspirin 325 Mg Tablet, 325 MG PO DAILY, (Reported) Docusate Sodium 100 Mg Capsule, 100 MG PO HS, (Reported) Lisinopril 40 Mg Tablet, 40 MG PO DAILY, (Reported) LAST FILLED #90 04-17-19 Phenytoin Sodium Extended 100 Mg Capsule, 200 MG PO BID, (Reported) TAKES 2 (100MG) CAPSULES Patient Home Medication List Home Medication List Reviewed: Yes Physical Exam-Cardiology Physical Exam Vital Signs/I&O 11/04/19 11/04/19 11/04/19 11/04/19 07:00 08:00 08:00 09:00 Pulse 55 69 Resp 21 B/P (MAP) 148/75 (99) Pulse Ox 98 95 O2 Delivery Room Air Room Air Room Air 11/04/19 11/04/19 11/04/19 11/04/19 12:00 12:00 12:00 13:00 Temp 36.4 Pulse 63 60 Resp 38 B/P (MAP) 151/80 (103) Pulse Ox 100 O2 Delivery Room Air Room Air 11/04/19 16:00 Pulse 59 Resp 8 B/P (MAP) 139/74 (95) Pulse Ox 97 O2 Delivery Room Air 11/04/19 00:00 Intake Total 1000 ml Balance 1000 ml Capillary Refill : Less Than 3 Seconds Constitutional: appears stated age, AAO x 3; No apparent distress; well- developed, well-nourished HEENT: PERRL; No discharge; hearing is well preserved, oral hygience is good; No ulceration, No xanthelasmas are seen Neck: No carotid bruit; carotid pulses are 2 + bilaterally Respiratory: chest is bilaterally symmetric, lungs clear to auscultation Cardiovascular: regular rate-rhythm, bradycardia, S1 and S2 Gastrointestinal: soft, audible bowel sounds; No spleenomegaly Rectal: deferred Extremities: normal range of motion, non-tender, normal inspection; No clubbing, No cyanosis; no lower extremity edema bilateral; No significant edema Neurologic/Psychiatric: no motor/sensory deficits, alert, normal mood/affect, oriented x 3, power is 5/5 both on sides Skin: normal color, warm/dry; No rash, No ulcerations Data Review Labs Laboratory Tests 11/03/19 21:38: White Blood Count 6.4, Red Blood Count 3.70L, Hemoglobin 12.4L, Hematocrit 37L, Mean Corpuscular Volume 101H, Mean Corpuscular Hemoglobin 34, Mean Corpuscular Hemoglobin Concent 33, Red Cell Distribution Width 13.4, Platelet Count 282, Mean Platelet Volume 8.6, Neutrophils (%) (Auto) 43, Lymphocytes (%) (Auto) 36, Monocytes (%) (Auto) 13H, Eosinophils (%) (Auto) 7, Basophils (%) (Auto) 1, Neutrophils # (Auto) 2.8, Lymphocytes # (Auto) 2.3, Monocytes # (Auto) 0.9, Eosinophils # (Auto) 0.5H, Basophils # (Auto) 0.0, Prothrombin Time 13.6, INR Comment 1.0, Activated Partial Thromboplast Time 27, Sodium Level 133L, Potassium Level 4.8, Chloride Level 98, Carbon Dioxide Level 23, Anion Gap 12, Blood Urea Nitrogen 19H, Creatinine 1.14, Estimat Glomerular Filtration Rate > 60, BUN/Creatinine Ratio 17, Glucose Level 113H, Calcium Level 8.8, Corrected Calcium 8.8, Magnesium Level 2.0, Total Bilirubin 0.2, Aspartate Amino Transf (AST/SGOT) 25, Alanine Aminotransferase (ALT/SGPT) 14, Alkaline Phosphatase 114, Myoglobin 46.0, Troponin I < 0.028, Total Protein 6.3L, Albumin 4.0 11/04/19 02:43: White Blood Count 6.1, Red Blood Count 3.39L, Hemoglobin 11.4L, Hematocrit 34L, Mean Corpuscular Volume 101H, Mean Corpuscular Hemoglobin 34, Mean Corpuscular Hemoglobin Concent 33, Red Cell Distribution Width 13.4, Platelet Count 251, Mean Platelet Volume 9.0, Neutrophils (%) (Auto) 48, Lymphocytes (%) (Auto) 32, Monocytes (%) (Auto) 14H, Eosinophils (%) (Auto) 6, Basophils (%) (Auto) 1, Neutrophils # (Auto) 2.9, Lymphocytes # (Auto) 1.9, Monocytes # (Auto) 0.9, Eosinophils # (Auto) 0.4H, Basophils # (Auto) 0.0, Sodium Level 136, Potassium Level 4.9, Chloride Level 101, Carbon Dioxide Level 24, Anion Gap 11, Blood Urea Nitrogen 17, Creatinine 0.99, Estimat Glomerular Filtration Rate > 60, BUN/Creatinine Ratio 17, Glucose Level 101, Calcium Level 8.6, Corrected Calcium 9.0, Total Bilirubin 0.2, Aspartate Amino Transf (AST/SGOT) 22, Alanine Aminotransferase (ALT/SGPT) 13, Alkaline Phosphatase 98, Troponin I < 0.028, Total Protein 5.4L, Albumin 3.5, Triglycerides Level 64, Cholesterol Level 156, LDL Cholesterol Direct 75, VLDL Cholesterol 13, HDL Cholesterol 64H 11/04/19 09:39: Troponin I < 0.028 ECG Impression ECG Comment Junctional bradycardia A/P-Cardiology Assessment/Admission Diagnosis Severe junctional bradycardia with symptoms, Seizure disorder, Chest pressure Plan Severe junctional bradycardia with symptoms, his lowest heart rate was 28 BPM. He complained of extreme fatigue and mild lightheadedness. Therefore this patient has symptomatic bradycardia. He is not on any rate controlling agents. Dual-chamber permanent pacemaker is recommended. Informed consent was taken. Seizure disorder, continue phenytoin. Dilantin can rarely cause sinus bradycardia and sinus node dysfunction. However the patient has been on Dilantin for a number of years. Chest pressure, serial troponin are negative. Recommend an echocardiogram. Echocardiogram showed normal LV function. Thank you for your consultation. Please call me if you have any questions. Shae Olivarez MD, FACP, FACC, FSCAI, FHRS, CCDS Interventional Cardiology Cardiac Electrophysiology Vascular Medicine and Endovascular Interventions Clinical Quality Measures AMI/AHF: ASA po Prior to arrival: Yes DVT/VTE Risk/Contraindication: Risk Factor Score Per Nursin RFS Level Per Nursing on Admit: 3=High Jayde OLIVAREZ MD Nov 04, 2019 11:17
[2019-11-04] MEDS ORDERED: BACITRACIN INJECTION 50,000 UNIT, SODIUM CHLORIDE 0.9% IRRIGATIO 500 ML IR ONE ×2 (12:45)
[2019-11-04] MEDS ORDERED: ceFAZolin 2 GM/50 ML NS 50 ML IV ONE (12:45)
[2019-11-04] MEDS ORDERED: fentaNYL INJECTION 100 MCG/2 ML AMP ONE ×2 (12:46→14:49)
[2019-11-04] MEDS ORDERED: MIDAZOLAM 5 MG/5 ML (VERSED) VIAL ONE ×2 (12:46→14:49)
[2019-11-04] MEDS ORDERED: HEParin 1000 UNIT/ML (10ML VIAL) FOR BOLUS ONE (12:50)
[2019-11-04] MEDS ORDERED: NS IV 1000 ML 2,000 ML ONE (12:50)
[2019-11-04] MEDS ORDERED: LIDOCAINE 1% INJ 20 ML 20 ML VIAL ONE (12:50)
[2019-11-04] MEDS ORDERED: PHENYTOIN 100 MG (DILANTIN) CAP PO ONE (13:32)
[2019-11-04] MEDS: PHENYTOIN 100 MG (DILANTIN) CAP PO SCH ×2 (14:31→20:57)
--- NOTE | 2019-11-04 16:04 | Permanent Pacemaker Implant ---
Dual Chamber Pacemaker Implant PROCEDURE PHYSICIAN: Shae Olivarez MD DUAL CHAMBER PACEMAKER IMPLANTATION: DATE OF PROCEDURE: 11/04/19 INDICATION: Severe symptomatic bradycardia. PREOPERATIVE DIAGNOSIS: Severe symptomatic bradycardia. POSTOPERATIVE DIAGNOSIS: Successful dual-chamber permanent pacemaker. HISTORY: This is a 84-year-old gentleman who presents with symptomatic bradycardia with heart rate of 28. EKG showed junctional bradycardia. However when I saw him later he was in sinus rhythm. His been on Dilantin for a long time. Dual- chamber permanent pacemaker was recommended. PROCEDURE PERFORMED: 1. Dual-chamber permanent pacemaker implantation. 2. Fluoroscopy. 3. Central venous access. 4. Left upper extremity venogram. ANESTHESIA: Local anesthesia, conscious sedation. COMPLICATIONS: None. ESTIMATED BLOOD LOSS:20 mL. SPECIMENS: None. ORAL ANTICOAGULATION: None. FLUOROSCOPY TIME: 11.25 minutes. FLUOROSCOPY DOSE: 143 mgy. CONTRAST DOSE: 20 mL. PROCEDURE DETAILS: The patient is a 84 male and after all of the patients questions were answered, the patient was brought to the EP Lab. The patient's left chest was prepped and draped in sterile fashion. A 2 inch horizontal incision was made 1 cm below the clavicle and dissection carried down to the pectoralis fascia. . We were having difficulty in accessing the axillary vein and therefore a left upper extremity venogram was performed. 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 Using the modified Seldinger technique and under fluoroscopy guidance, the anterior aspect of the left axillary vein was accessed 2 times. The J wires were secured to the drapes with a mosquito clamp. A 6-Citizen Of [place] sheath was introduced over one of the J-wires. The RV lead was then inserted. The RV lead was directed across the tricuspid valve to the apical septal portion of the right ventricle. The position was checked in RONY and HO views. The screw was deployed and the lead connected to the machine programmer. Close sensing and pacing thresholds were obtained. Diaphragmatic pacing was ruled out. The lead was secured with 2-0 silk ties to the underlying muscle and fascia. Next, a 6-Citizen Of [place] sheath was introduced through the remaining J-wire. An atrial lead was then introduced and guided to the level of the right appendage. The screw was deployed and the lead was connected to the interrogator. Good sensing and pacing thresholds were obtained. Diaphragmatic pacing was ruled out. The leads were secured with 2-0 silk ties to the underlying muscle and fascia. The leads were connected to the device in a hermetic fashion. The device and ronald ds were placed in the pocket. Aggressive irrigation with saline solution was done. The device was secured to the underlying muscle and fascia with a 2-0 silk tie. interrogation of the device revealed good integrity of all the leads and good connections. The wound was then closed using 2 layers. The first layer was interrupted 2-0 absorbable Vicryl suture. The last layer was a single subcuticular layer with 4- 0 Vicryl suture. Half inch Steri-Strips and a small dressing were then applied to the wound. The patient tolerated the procedure well and was returned to the recovery room in stable condition with stable vital signs. DEVICE INFORMATION: Eluna 8 DR-T, [employer], reference number [id number], serial number [id number]. RA LEAD: Solia S 53, [employer], reference number [id number], serial number [id number]. RV LEAD: Solia S 60, [employer], reference number [id number], serial number [id number]. PER-OPERATIVE DEVICE INTERROGATION: Right atrial sensing 1.4 mV. Impedance 577 ohms. Capture threshold 1.4 V at 0.4 ms. RV sensing 9.8 mV. Impedance 1205 ohms. Threshold 0.8 V at 0.4 ms. IMMEDIATE POSTOPERATIVE DEVICE INTERROGATION: Right atrial sensing 1.2 mV, impedance 507 ohms. Capture threshold 1.4 V at 0.4 ms. RV sensing 9.8 mV, impedance 1053 ohms, threshold 0.6 V at 0.4 ms. Device DDD [id number]. Paced AV delay 350+70, sensed AV delay 350+70. PLAN: The patient transferred to the ICU. We will continue with two more doses of IV antibiotics. We will check a chest x-ray and interrogate the device in the morning. The patient will continue on oral antibiotics for 5 days. Shae Olivarez MD, [facility] Cardiac Electrophysiology Jayde OLIVAREZ MD Nov 04, 2019 16:04
--- NOTE | 2019-11-04 16:04 | Cardiac Procedure Note-CS/ASA ---
Pre-Procedure Note Pre-Op Procedure Note H&P Reviewed The H&P was reviewed, patient examined and no changes noted. Date H&P Reviewed: Nov 04, 2019 Time H&P Reviewed: 12:00 Conscious Sedation Pre-Proced Time 12:00 ASA Score 3 For ASA 3 and 4: Consider anesthesia and medical clearance. Also, for patients with a history of failed moderate sedation consider anesthesia. Airway Lungs Heart ASA score ASA 1: a normal healthy patient ASA 2: a patient with a mild systemic disease (mid diabetes, controlled hypertension, obesity ASA 3: a patient with a severe systemic disease that limits activity (angina, COPD, prior Myocardial infarction) ASA 4: a patient with an incapacitating disease that is a constant threat to life (CHF, renal failure) ASA 5: a moribund patient not expected to survive 24 hrs. (ruptured aneurysm) ASA 6: a declared brain- patient whose organs are being harvested. For emergent operations, add the letter E after the classification Mallampati Classification Grade 1 Sedation Plan Analgesia, Amnesia, Plan communicated to team members, Discussed options with patient/fam, Discussed risks with patient/fam The patient is an appropriate candidate to undergo the planned procedure, sedation, and anesthesia. The patient immediately re-assessed prior to indication. Jayde BACON MD Nov 04, 2019 16:04
--- NOTE | 2019-11-04 16:14 | Diagnostic Imaging Report ---
INDICATION: Arrhythmia. Portable chest at 03:59 p.m. FINDINGS: There is a dual-chamber pacemaker. Heart size and pulmonary vascularity are normal. Lungs are clear. There are no effusions or pneumothoraces. IMPRESSION: Negative chest. Dictated by: Dictated on workstation # [id number]
[2019-11-04] MEDS ORDERED: PATIENT MAY USE OWN MEDS, ALL PO SCH (16:15)
--- NOTE | 2019-11-04 17:43 | History & Physical ---
History of Present Illness History of Present Illness Reason for visit/HPI This is an 84 year old male who presented to the emergency room after an episode of substernal chest discomfort. His pulse was in the 40s so his felt he should be evaluated. Upon arrival in the emergency room, his heart rate was in the 40s and remained in the 40s. It was decided he should be admitted to the ICU for further monitoring and evaluation. Date of Admission Nov 03, 2019 at 23:19 Date Seen by a Provider: Nov 04, 2019 Time Seen by a Provider: 08:55 I consulted on this patient on 11/04/19 17:33 Attending Physician Gaby Rajput DO Admitting Physician Gaby Rajput DO Consult Allergies and Home Medications Allergies Coded Allergies: oxycodone (Verified Allergy, Unknown, 09/18/19) hallucinations Home Medications Aspirin 325 Mg Tablet, 325 MG PO DAILY, (Reported) Docusate Sodium 100 Mg Capsule, 100 MG PO HS, (Reported) Lisinopril 40 Mg Tablet, 40 MG PO DAILY, (Reported) LAST FILLED #90 04-17-19 Phenytoin Sodium Extended 100 Mg Capsule, 200 MG PO BID, (Reported) TAKES 2 (100MG) CAPSULES Patient Home Medication List Home Medication List Reviewed: Yes Past Myeguvx-Teqgcl-Ppwevg Hx Past Med/Social Hx: Reviewed Nursing Past Med/Soc Hx Patient Social History Marrital Status: Alcohol Use: Denies Use Recreational Drug Use: No 2nd Hand Smoke Exposure: No Recent Foreign Travel: No Contact w/other who traveled: No Recent Hopitalizations: No Recent Infectious Disease Expo: No Immunizations Up To Date Tetanus Booster (TDap): Unknown Date of Pneumonia Vaccine: Oct 05, 2019 Date of Influenza Vaccine: Sep 06, 2019 Seasonal Allergies Seasonal Allergies: No Past Medical History Surgeries: Abdominal, Amputation, Bowel Surgery, Gallbladder, Joint Replacement, Orthopedic, Tonsillectomy Currently Using CPAP: No Currently Using BIPAP: No Cardiac: Hypertension Neurological: Seizure Disorder Reproductive: No Sexually Transmitted Disease: No HIV/AIDS: No Gastrointestinal: Obstructive Bowel Musculoskeletal: Amputee Loss of Vision: Denies Hearing Impairment: Hard of Hearing, Bilateral Hearing Aide History of Blood Disorders: No Adverse Reaction to Blood Zaman: No Family History Reviewed Nursing Family Hx No Pertinent Family Hx Review of Systems Constitutional: weakness EENTM: No see HPI, No no symptoms reported, No ear discharge, No hearing loss, No ear pain, No blurred vision, No double vision, No eye pain, No tearing, No vision loss, No dental problems, No hoarseness, No mouth pain, No mouth swelling, No epistaxis, No nose congestion, No nose pain, No throat pain, No throat swelling, No other Respiratory: No no symptoms reported, No see HPI, No cough, No dyspnea on exertion, No hemoptysis, No orthopnea, No phlegm, No short of breath, No stridor, No wheezing, No other Cardiovascular: chest pain Gastrointestinal: No RUQ, No LUQ, No RLQ, No LLQ, No no symptoms reported, No see HPI, No abdominal pain, No constipation, No diarrhea, No dysphagia, No hematemesis, No heartburn, No jaundice, No loss of appetite, No melena, No nausea, No vomiting, No other Genitourinary: No no symptoms reported, No see HPI, No decreased output, No discharge, No dysuria, No frequency, No hematuria, No hesitancy, No in continence, No nocturia, No pain, No other Musculoskeletal: No no symptoms reported, No see HPI, No back pain, No gout, No joint pain, No joint swelling, No muscle pain, No muscle stiffness, No muscle cramps, No muscle twitching, No muscle weakness, No neck pain, No other Skin: No no symptoms reported, No see HPI, No change in color, No change in hair/nails, No dryness, No hx of skin cancer, No lesions, No lumps, No pruritus, No rash, No other Psychiatric/Neurological: Seizure, Weakness Physical Exam Vital Signs Vital Signs - First Documented 11/03/19 22:03 Temp 36.8 Pulse 43 Resp 23 B/P (MAP) 94/75 (81) Pulse Ox 99 Capillary Refill : Less Than 3 Seconds Height, Weight, BMI Height: 5'11.00" Weight: 195lbs. 0.0oz. 88.915412cc; 27.67 BMI Method:Stated General Appearance: No Apparent Distress HEENT: Normal ENT Inspection Neck: Supple Respiratory: Lungs Clear Cardiovascular: Bradycardia, Systolic Murmur Gastrointestinal: Normal Bowel Sounds, Non Tender, Soft Rectal: Deferred Back: No CVA Tenderness Extremity: Non Tender, No Calf Tenderness, No Pedal Edema Neurologic/Psychiatric: Alert, Oriented x3 Skin: Warm/Dry Comments Laboratory Tests 11/03/19 21:38: White Blood Count 6.4, Red Blood Count 3.70L, Hemoglobin 12.4L, Hematocrit 37L, Mean Corpuscular Volume 101H, Mean Corpuscular Hemoglobin 34, Mean Corpuscular Hemoglobin Concent 33, Red Cell Distribution Width 13.4, Platelet Count 282, Mean Platelet Volume 8.6, Neutrophils (%) (Auto) 43, Lymphocytes (%) (Auto) 36, Monocytes (%) (Auto) 13H, Eosinophils (%) (Auto) 7, Basophils (%) (Auto) 1, Neutrophils # (Auto) 2.8, Lymphocytes # (Auto) 2.3, Monocytes # (Auto) 0.9, Eosinophils # (Auto) 0.5H, Basophils # (Auto) 0.0, Prothrombin Time 13.6, INR Comment 1.0, Activated Partial Thromboplast Time 27, Sodium Level 133L, Potassium Level 4.8, Chloride Level 98, Carbon Dioxide Level 23, Anion Gap 12, Blood Urea Nitrogen 19H, Creatinine 1.14, Estimat Glomerular Filtration Rate > 60, BUN/Creatinine Ratio 17, Glucose Level 113H, Calcium Level 8.8, Corrected Calcium 8.8, Magnesium Level 2.0, Total Bilirubin 0.2, Aspartate Amino Transf (AST/SGOT) 25, Alanine Aminotransferase (ALT/SGPT) 14, Alkaline Phosphatase 114, Myoglobin 46.0, Troponin I < 0.028, Total Protein 6.3L, Albumin 4.0, Phenytoin (Dilantin) Level [Pending] 11/04/19 02:43: White Blood Count 6.1, Red Blood Count 3.39L, Hemoglobin 11.4L, Hematocrit 34L, Mean Corpuscular Volume 101H, Mean Corpuscular Hemoglobin 34, Mean Corpuscular Hemoglobin Concent 33, Red Cell Distribution Width 13.4, Platelet Count 251, Mean Platelet Volume 9.0, Neutrophils (%) (Auto) 48, Lymphocytes (%) (Auto) 32, Monocytes (%) (Auto) 14H, Eosinophils (%) (Auto) 6, Basophils (%) (Auto) 1, Neutrophils # (Auto) 2.9, Lymphocytes # (Auto) 1.9, Monocytes # (Auto) 0.9, Eosinophils # (Auto) 0.4H, Basophils # (Auto) 0.0, Sodium Level 136, Potassium Level 4.9, Chloride Level 101, Carbon Dioxide Level 24, Anion Gap 11, Blood Urea Nitrogen 17, Creatinine 0.99, Estimat Glomerular Filtration Rate > 60, BUN/Creatinine Ratio 17, Glucose Level 101, Calcium Level 8.6, Corrected Calcium 9.0, Total Bilirubin 0.2, Aspartate Amino Transf (AST/SGOT) 22, Alanine Aminotransferase (ALT/SGPT) 13, Alkaline Phosphatase 98, Troponin I < 0.028, Total Protein 5.4L, Albumin 3.5, Triglycerides Level 64, Cholesterol Level 156, LDL Cholesterol Direct 75, VLDL Cholesterol 13, HDL Cholesterol 64H 11/04/19 09:39: Troponin I < 0.028 Assessment/Plan Assessment and Plan 1. Sinus Bradycardia--likely sick sinus syndrome--cardiology eval but will likely need pacemaker 2. Hypertension--BP currently stable 3. History of Seizure Disorder--restart home meds 4. Chest Pain--uncertain etiology, further workup per cardiology Admission Diagnosis Admission Status: Inpatient Order (span 2 midnights) Reason for Inpatient Admission: Will likely need pacemaker Clinical Quality Measures AMI/AHF: ASA po Prior to arrival: Yes DVT/VTE Risk/Contraindication: Risk Factor Score Per Nursin RFS Level Per Nursing on Admit: 3=High GABY RAJPUT DO Nov 04, 2019 17:43
[2019-11-04] MEDS: ceFAZolin INJECTION 1,000 MG in WATER (STERILE) FOR INJECTION 10 ML IV SCH (20:57)
[2019-11-04] MEDS ORDERED: DOCUSATE SODIUM 100 MG (COLACE) CAP PO SCH (21:00)
[2019-11-05 04:14] LABS: HEMOGLOBIN 12.8 G/DL (13.3-17.7); MEAN PLATELET VOLUME 9.1 FL (7.4-10.4); RED CELL DISTRIBUTION WIDTH 13.3 % (10.0-14.5); WHITE BLOOD COUNT 7.2 10^3/uL (4.3-11.0)
[2019-11-05 04:30] VITALS: BP 127/69
[2019-11-05 04:43] LABS: ALANINE AMINOTRANSFERASE 12 U/L (0-55); ALBUMIN 3.8 GM/DL (3.2-4.5); ALKALINE PHOSPHATASE 110 U/L (40-136); BILIRUBIN,TOTAL 0.5 MG/DL (0.1-1.0); BUN/CREATININE RATIO 16; CALCIUM 8.8 MG/DL (8.5-10.1); CARBON DIOXIDE 23 MMOL/L (21-32); CHLORIDE 102 MMOL/L (98-107); CREATININE SERUM 0.95 MG/DL (0.60-1.30); GFR ESTIMATED > 60; GLUCOSE 93 MG/DL (70-105); POTASSIUM 4.3 MMOL/L (3.6-5.0); SODIUM 137 MMOL/L (135-145); TOTAL PROTEIN 5.9 GM/DL (6.4-8.2)
[2019-11-05] MEDS: ceFAZolin INJECTION 1,000 MG in WATER (STERILE) FOR INJECTION 10 ML IV SCH (06:59)
[2019-11-05 08:00] VITALS: BP 128/78
[2019-11-05] MEDS: PHENYTOIN 100 MG (DILANTIN) CAP PO SCH (09:41)
[2019-11-05 12:00] VITALS: BP 130/69
[2019-11-05] MEDS ORDERED: CEPH-507 PO (12:56)
[2019-11-05] MEDS ORDERED: ASPI-999 PO (12:58)
[2019-11-05 15:09] VITALS: BP 130/69
--- NOTE | 2019-11-05 16:09 | Cardiology Progress Note ---
Cardiology SOAP Progress Note Subjective: Doing well post dual-chamber permanent pacemaker. Objective: I&O/Vital Signs 11/05/19 11/05/19 11/05/19 11/05/19 04:30 07:01 08:00 08:00 Temp 36.6 Pulse 66 69 78 Resp 27 12 B/P (MAP) 127/69 (88) 128/78 (95) Pulse Ox 96 O2 Delivery Room Air Room Air Room Air 11/05/19 11/05/19 11/05/19 11/05/19 09:00 12:00 12:00 15:09 Temp 36.6 36.6 Pulse 64 64 Resp 17 17 B/P (MAP) 130/69 (89) 130/69 Pulse Ox 96 96 96 O2 Delivery Room Air Room Air Room Air Room Air 11/05/19 00:00 Intake Total 2580 ml Output Total 1750 ml Balance 830 ml Weight (Pounds): 195 Weight (Ounces): 0.0 Weight (Calculated Kilograms): 88.835313 Side: left Device Insertion Site: without hematoma, no signs of inflammation Swelling: without swelling Drainage: No Bruising: mild bruising Constitutional: appears stated age, AAO x 3; No apparent distress; well- developed, well-nourished Respiratory: chest is bilaterally symmetric, lungs clear to auscultation Cardiovascular: regular rate-rhythm, S1 and S2 Gastrointestional: soft, audible bowel sounds; No spleenomegaly Extremities: normal range of motion, non-tender, normal inspection; No clubbing, No cyanosis; no lower extremity edema bilateral; No significant edema Neurologic/Psychiatric: no motor/sensory deficits, alert, normal mood/affect, oriented x 3, power is 5/5 both on sides Skin: normal color, warm/dry; No rash, No ulcerations Results/Procedures: Labs Laboratory Tests 11/05/19 02:50: White Blood Count 7.2, Red Blood Count 3.85L, Hemoglobin 12.8L, Hematocrit 39L, Mean Corpuscular Volume 100H, Mean Corpuscular Hemoglobin 33, Mean Corpuscular Hemoglobin Concent 33, Red Cell Distribution Width 13.3, Platelet Count 289, Mean Platelet Volume 9.1, Sodium Level 137, Potassium Level 4.3, Chloride Level 102, Carbon Dioxide Level 23, Anion Gap 12, Blood Urea Nitrogen 15, Creatinine 0.95, Estimat Glomerular Filtration Rate > 60, BUN/Creatinine Ratio 16, Glucose Level 93, Calcium Level 8.8, Corrected Calcium 9.0, Total Bilirubin 0.5, Aspartate Amino Transf (AST/SGOT) 26, Alanine Aminotransferase (ALT/SGPT) 12, Alkaline Phosphatase 110, Total Protein 5.9L, Albumin 3.8 A/P: Assessment/Dx: Severe junctional bradycardia with symptoms, Seizure disorder, Chest pressure Plan: Severe junctional bradycardia with symptoms, his lowest heart rate was 28 BPM. He complained of extreme fatigue and mild lightheadedness. Therefore this patient has symptomatic bradycardia. He is not on any rate controlling agents. Dual-chamber permanent pacemaker is recommended. Informed consent was taken. Dual-chamber permanent pacemaker done on 11/04/2019. Postprocedure chest x-ray did not show any complication. 24-hour device interrogation showed excellent capture threshold and sensitivity. Seizure disorder, continue phenytoin. Dilantin can rarely cause sinus bradycardia and sinus node dysfunction. However the patient has been on Dilantin for a number of years. Chest pressure, serial troponin are negative. Myocardial perfusion imaging as an outpatient is recommended. Echocardiogram showed normal LV function. Patient can be discharged to follow-up for wound checkup with my nurse in one week and device follow-up in a month. Keflex 500 mg 3 times a day for 5 days. Discharge instructions discussed at length with the patient. Thank you for your consultation. Please call me if you have any questions. Shae Olivarez MD, FACP, FACC, FSCAI, FHRS, CCDS Interventional Cardiology Cardiac Electrophysiology Vascular Medicine and Endovascular Interventions Clinical Quality Measures AMI/AHF: ASA po Prior to arrival: Yes Jayde OLIVAREZ MD Nov 05, 2019 16:09
== END 2019-11-05 15:15 | disposition home or self-care (01) | DRG 244 ==
LOC: EDUNIT# 21:28 → ER 21:30 → ICU 23:19 → UNDOADMIN 23:19 → ICU 11-04 00:22
PROVIDERS: ADMIT Internal Medicine; ATTEND Family Medicine
PROC: 02HK3JZ Insertion of Pacemaker Lead into Right Ventricle, Percutaneous Approach (ICD-10-PCS; principal; 2019-11-04)
PROC: 0JH606Z Insertion of Pacemaker, Dual Chamber into Chest Subcutaneous Tissue and Fascia, Open Approach (ICD-10-PCS; 2019-11-04)
PROC: 02H63JZ Insertion of Pacemaker Lead into Right Atrium, Percutaneous Approach (ICD-10-PCS; 2019-11-04)
DX: I49.5 Sick sinus syndrome (principal); I10 Essential (primary) hypertension; G40.909 Epilepsy, unspecified, not intractable, without status epilepticus; Z89.012 Acquired absence of left thumb; Z90.81 Acquired absence of spleen; Z90.89 Acquired absence of other organs; Z79.82 Long term (current) use of aspirin
CPT/HCPCS: 33208; 36415; 71045; 75820; 80053; 80061; 80185; 83735; 83874; 84484; 85025; 85027; 85610; 85730; 93005; 93041; 93306; 96360

== ENCOUNTER 2019-11-10 17:31 | Emergency (ER) | payer MEDICARE, OTHER ==
[~2019-11-10] VITALS: Ht 177.8 cm; Wt 86.8 kg
[~2019-11-10 17:31] MED LIST changes: +ASPI-999 PO; +CEPH-507 PO
--- NOTE | 2019-11-10 17:43 | ED Cardiac General ---
History of Present Illness General Chief Complaint: Cardiac/General Problems Stated Complaint: POST PACE MAKER SURGERY/LOW HR Source: patient Exam Limitations: no limitations History of Present Illness Date Seen by Provider: Nov 10, 2019 Time Seen by Provider: 17:41 Initial Comments To ER with reports of bradycardia. States that he awakened from his nap earlier today and felt very weak. He checked his pulse and found it to be 48. He had pacemaker placed on Monday one week ago for bradycardia. He feels a little better now, still weak however. No chest pain, minimal shortness of breath. Pacemaker was [employer], mode DDD rate 45 to 130 Timing/Duration: 1-3 hours Severity: moderate Prior CP/Workup: other NTG SL CPAS: No ASA po CPAS: No Allergies and Home Medications Allergies Coded Allergies: oxycodone (Verified Allergy, Unknown, 09/18/19) hallucinations Home Medications Aspirin 81 Mg Tab.chew, 81 MG PO DAILY Prescribed by: MANAN RAJPUT on 11/05/19 1258 Cephalexin 500 Mg Capsule, 500 MG PO TID Prescribed by: GERMAINE WRIGHT on 11/05/19 1256 Docusate Sodium 100 Mg Capsule, 100 MG PO HS, (Reported) Lisinopril 40 Mg Tablet, 40 MG PO DAILY, (Reported) LAST FILLED #90 04-17-19 Phenytoin Sodium Extended 100 Mg Capsule, 200 MG PO BID, (Reported) TAKES 2 (100MG) CAPSULES Patient Home Medication List Home Medication List Reviewed: Yes Review of Systems Review of Systems Constitutional: see HPI EENTM: No Symptoms Reported Respiratory: No Symptoms Reported Cardiovascular: See HPI, Lightheadedness Gastrointestinal: No Symptoms Reported Genitourinary: No Symptoms Reported Musculoskeletal: no symptoms reported Skin: no symptoms reported Psychiatric/Neurological: No Symptoms Reported Endocrine: No Symptoms Reported Hematologic/Lymphatic: No Symptoms Reported Past Thphhcp-Kxjebo-Aqfeqf Hx Patient Social History 2nd Hand Smoke Exposure: No Recent Foreign Travel: No Contact w/Someone Who Travel: No Recent Hopitalizations: No Immunizations Up To Date Tetanus Booster (TDap): Unknown Date of Pneumonia Vaccine: Oct 05, 2019 Date of Influenza Vaccine: Sep 06, 2019 Seasonal Allergies Seasonal Allergies: No Past Medical History Surgeries: Yes (SPLEENECTOMY; LT KNEE x2; HERNIA REPAIRS; SINUS SX; LEFT THUMB) Abdominal, Amputation, Bowel Surgery, Gallbladder, Joint Replacement, Orthopedic, Tonsillectomy Respiratory: No Currently Using CPAP: No Currently Using BIPAP: No Cardiac: Yes Hypertension Neurological: Yes Seizure Disorder Reproductive Disorders: No Sexually Transmitted Disease: No HIV/AIDS: No Genitourinary: No Gastrointestinal: Yes (Ventral hernia repair, hernia repair with adhesiolysis) 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 Endocrine: No HEENT: No Loss of Vision: Denies Hearing Impairment: Hard of Hearing, Bilateral Hearing Aide Cancer: No Psychosocial: No Integumentary: No Blood Disorders: No Adverse Reaction/Blood Tranf: No Family Medical History No Pertinent Family Hx Physical Exam Vital Signs Vital Signs - First Documented 11/10/19 17:34 Temp 36.6 Pulse 48 Resp 18 B/P (MAP) 137/65 (89) Pulse Ox 97 Capillary Refill : Height, Weight, BMI Height: 5'11.00" Weight: 195lbs. 0.0oz. 88.506761ai; 27.67 BMI Method:Stated General Appearance: No Apparent Distress, WD/WN HEENT: PERRL/EOMI, TMs Normal Neck: Full Range of Motion, Normal Inspection Respiratory: No Accessory Muscle Use, No Respiratory Distress Cardiovascular: Bradycardia (initially rate of 48, on the EKG the rate is 56 atrial paced.) Extremity: Normal Capillary Refill, Normal Inspection Neurologic/Psychiatric: Alert, Oriented x3 Skin: Normal Color, Warm/Dry Progress/Results/Core Measures Results/Orders Lab Results Laboratory Tests Test 11/10/19 15:42 11/10/19 17:45 Range/Units White Blood Count 7.4 4.3-11.0 10^3/uL Red Blood Count 3.78 L 4.35-5.85 10^6/uL Hemoglobin 12.6 L 13.3-17.7 G/DL Hematocrit 38 L 40-54 % Mean Corpuscular Volume 101 H 80-99 FL Mean Corpuscular Hemoglobin 33 25-34 PG Mean Corpuscular Hemoglobin Concent 33 32-36 G/DL Red Cell Distribution Width 13.5 10.0-14.5 % Platelet Count 311 130-400 10^3/uL Mean Platelet Volume 9.4 7.4-10.4 FL Neutrophils (%) (Auto) 36 L 42-75 % Lymphocytes (%) (Auto) 36 12-44 % Monocytes (%) (Auto) 17 H 0-12 % Eosinophils (%) (Auto) 11 H 0-10 % Basophils (%) (Auto) 1 0-10 % Neutrophils # (Auto) 2.6 1.8-7.8 X 10^3 Lymphocytes # (Auto) 2.6 1.0-4.0 X 10^3 Monocytes # (Auto) 1.2 H 0.0-1.0 X 10^3 Eosinophils # (Auto) 0.8 H 0.0-0.3 10^3/uL Basophils # (Auto) 0.1 0.0-0.1 10^3/uL Sodium Level 133 L 135-145 MMOL/L Potassium Level 4.9 3.6-5.0 MMOL/L Chloride Level 101 98-107 MMOL/L Carbon Dioxide Level 20 L 21-32 MMOL/L Anion Gap 12 5-14 MMOL/L Blood Urea Nitrogen 21 H 7-18 MG/DL Creatinine 0.88 0.60-1.30 MG/DL Estimat Glomerular Filtration Rate > 60 BUN/Creatinine Ratio 24 Glucose Level 104 70-105 MG/DL Calcium Level 8.7 8.5-10.1 MG/DL Troponin I < 0.028 <0.028 NG/ML B-Type Natriuretic Peptide 87.7 <100.0 PG/ML My Orders Orders - MARILEE HERNANDEZ APRN Cbc With Automated Diff (11/10/19 17:57) BNP (11/10/19 17:57) Basic Metabolic Panel (11/10/19 17:57) Chest 1 View, Ap/Pa Only (11/10/19 17:57) Troponin I (11/10/19 17:57) Ekg Tracing (11/10/19 17:57) Vital Signs/I&O 11/10/19 11/10/19 17:34 19:21 Temp 36.6 Pulse 48 65 Resp 18 14 B/P (MAP) 137/65 (89) 149/78 (101) Pulse Ox 97 98 Diagnostic Imaging Diagonstic Imaging: CT Comments NAME: KELLE TATUM [facility] REC#: [id number] PT STATUS: REG ER : 1935 PHYSICIAN: MARILEE HERNANDEZ APRN ADMIT DATE: 11/10/19/ER Draft Date of Exam:11/10/19 CHEST 1 VIEW, AP/PA ONLY INDICATION: Pacemaker placement 5 days ago, bradycardia. TECHNIQUE: Single view chest, 6:21 p.m. CORRELATION STUDY: 11/04/2019. FINDINGS: Left-sided dual-chamber pacemaker is present. Approximately it projects over the right heart border, distally near the floor of the ventricular apex. Heart size and mediastinal configuration are generally stable. Vasculature is within normal limits. Lung huerta overall appear clear. IMPRESSION: Left-sided dual-chamber pacemaker. Negative for acute abnormality of the chest. Dictated on workstation # [id number] Dict: 11/10/19 182 Trans: 11/10/191828 PJE [id number] Interpreted by: RUBA MANJARREZ DO Electronically signed by: Departure Communication (Admissions) Discussed the case with Dr. Olivarez. Patient is intolerant of the lower level of pacing at 45. I will contact the bilateral chronic nutrition representative for a stat interrogation and to increase the lower limit from 45-55. 1816-I spoke with [employer] nutrition representative, he is just [facility] and will call Dr. Olivarez to verify settings and be in route to the hospital here to interrogate the pacemaker and reset lower limit to 55. At this time his heart rate is 68 and he feels perfect. 2010-[employer] rep has been here, interrogated the pacemaker and increase the lower rate limit from 45-55. Mr. worthington remains asymptomatic. I'll discharge to home. Impression Primary Impression: Pacemaker reprogramming/check Disposition: HOME, SELF-CARE Condition: Improved Departure-Patient Inst. Decision time for Depature: 20:12 Referrals: MANAN RAJPUT DO (PCP/Family) Primary Care Physician Patient Instructions: Bradycardia Add. Discharge Instructions: 1. Call Dr. Olivarez tomorrow to report how you are feeling. Return to ER for any concerns. All discharge instructions reviewed with patient and/or family. Voiced understanding. Copy Copies To 1: Jayde OLIVAREZ MD; MANAN RAJPUT PETER J APRN Nov 10, 2019 17:43
[2019-11-10 18:07] LABS: BASOPHILS # (AUTO) 0.1 10^3/uL (0.0-0.1); BASOPHILS % (AUTO) 1 % (0-10); EOSINOPHILS # (AUTO) 0.8 10^3/uL (0.0-0.3); EOSINOPHILS % (AUTO) 11 % (0-10); HEMATOCRIT 38 % (40-54); HEMOGLOBIN 12.6 G/DL (13.3-17.7); LYMPHOCYTES # (AUTO) 2.6 X 10^3 (1.0-4.0); LYMPHOCYTES % (AUTO) 36 % (12-44); MEAN CORPUSCULAR HEMOGLOBIN 33 PG (25-34); MEAN CORPUSCULAR HGB CONC 33 G/DL (32-36); MEAN CORPUSCULAR VOLUME 101 FL (80-99); MEAN PLATELET VOLUME 9.4 FL (7.4-10.4); MONOCYTES # (AUTO) 1.2 X 10^3 (0.0-1.0); MONOCYTES % (AUTO) 17 % (0-12); NEUTROPHILS # (AUTO) 2.6 X 10^3 (1.8-7.8); NEUTROPHILS % (AUTO) 36 % (42-75); PLATELET COUNT 311 10^3/uL (130-400); RED CELL DISTRIBUTION WIDTH 13.5 % (10.0-14.5); WHITE BLOOD COUNT 7.4 10^3/uL (4.3-11.0)
[2019-11-10 18:16] LABS: BUN/CREATININE RATIO 24; CALCIUM 8.7 MG/DL (8.5-10.1); CARBON DIOXIDE 20 MMOL/L (21-32); CHLORIDE 101 MMOL/L (98-107); CREATININE SERUM 0.88 MG/DL (0.60-1.30); GFR ESTIMATED > 60; GLUCOSE 104 MG/DL (70-105); POTASSIUM 4.9 MMOL/L (3.6-5.0); SODIUM 133 MMOL/L (135-145)
--- NOTE | 2019-11-10 18:16 | NUR ---
[email or web address] pacemaker rep contacted by Denise Kiser. He reports he is on his way from [place] and will be here in approximately two hours.
--- NOTE | 2019-11-10 18:29 | Diagnostic Imaging Report ---
INDICATION: Pacemaker placement 5 days ago, bradycardia. TECHNIQUE: Single view chest, 6:21 p.m. CORRELATION STUDY: 11/04/2019. FINDINGS: Left-sided dual-chamber pacemaker is present. Approximately it projects over the right heart border, distally near the floor of the ventricular apex. Heart size and mediastinal configuration are generally stable. Vasculature is within normal limits. Lung huerta overall appear clear. IMPRESSION: Left-sided dual-chamber pacemaker. Negative for acute abnormality of the chest. Dictated by: Dictated on workstation # [id number]
--- NOTE | 2019-11-10 19:16 | NUR ---
Pt resting comfortably at this time. Pt has been ambulatory to the restroom without the need of assistance. Pt denies weakness or SOB at this time.
[2019-11-10 19:21] VITALS: BP 149/78
--- NOTE | 2019-11-10 20:04 | NUR ---
[employer] rep in to see pt.
--- NOTE | 2019-11-10 20:11 | NUR ---
Rep states he is done interrogating the pacemaker. New lower limit of 55 bpm set.
[2019-11-10 20:20] VITALS: BP 149/78
== END 2019-11-10 20:20 | disposition home or self-care (01) ==
LOC: EDUNIT# 17:31 → ER 17:32
DX: Z45.018 Encounter for adjustment and management of other part of cardiac pacemaker (principal); I10 Essential (primary) hypertension; G40.909 Epilepsy, unspecified, not intractable, without status epilepticus; Z88.5 Allergy status to narcotic agent; Z79.82 Long term (current) use of aspirin; Z90.89 Acquired absence of other organs; Z90.81 Acquired absence of spleen
CPT/HCPCS: 36415; 71045; 80048; 83880; 84484; 85025; 93005

== ENCOUNTER 2020-06-08 18:37 | Inpatient (IN) | payer MEDICARE, OTHER ==
[~2020-06-08] VITALS: Ht 177.8 cm; Wt 87.2 kg
[~2020-06-08 18:37] MED LIST changes: -LISI1TAB10 PO; +LISI1TAB26 PO
[2020-06-08] MEDS ORDERED: LACTATED RINGERS 1,000 ML IV ONE (18:42)
[2020-06-08] MEDS ORDERED: fentaNYL INJECTION 100 MCG/2 ML AMP IVP STA ×2 (18:51→20:16)
[2020-06-08 18:54] LABS: BASOPHILS % (AUTO) 1 % (0-10); EOSINOPHILS # (AUTO) 0.5 10^3/uL (0.0-0.3); EOSINOPHILS % (AUTO) 5 % (0-10); HEMATOCRIT 39 % (40-54); HEMOGLOBIN 13.1 G/DL (13.3-17.7); LYMPHOCYTES # (AUTO) 1.8 X 10^3 (1.0-4.0); LYMPHOCYTES % (AUTO) 21 % (12-44); MEAN CORPUSCULAR HEMOGLOBIN 33 PG (25-34); MEAN CORPUSCULAR HGB CONC 34 G/DL (32-36); MEAN CORPUSCULAR VOLUME 98 FL (80-99); MEAN PLATELET VOLUME 8.4 FL (7.4-10.4); MONOCYTES # (AUTO) 1.1 X 10^3 (0.0-1.0); MONOCYTES % (AUTO) 13 % (0-12); NEUTROPHILS # (AUTO) 5.1 X 10^3 (1.8-7.8); NEUTROPHILS % (AUTO) 60 % (42-75); PLATELET COUNT 280 10^3/uL (130-400); RED CELL DISTRIBUTION WIDTH 12.6 % (10.0-14.5); WHITE BLOOD COUNT 8.5 10^3/uL (4.3-11.0)
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
[2020-06-08] MEDS ORDERED: PANTOPRAZOLE 40 MG (PROTONIX) VIAL IV ONE (19:00)
[2020-06-08] MEDS ORDERED: ONDANSETRON 4 MG/2 ML (SDV) Z0FRAN IVP ONE (19:00)
[2020-06-08 19:05] LABS: PROTHROMBIN TIME PATIENT 13.3 SEC (12.2-14.7)
[2020-06-08 19:15] LABS: ALANINE AMINOTRANSFERASE 7 U/L (0-55); ALBUMIN 4.2 GM/DL (3.2-4.5); ALKALINE PHOSPHATASE 125 U/L (40-136); AMYLASE 76 U/L (25-125); BILIRUBIN,TOTAL 0.5 MG/DL (0.1-1.0); BUN/CREATININE RATIO 17; CALCIUM 9.1 MG/DL (8.5-10.1); CARBON DIOXIDE 25 MMOL/L (21-32); CHLORIDE 100 MMOL/L (98-107); CREATININE SERUM 0.92 MG/DL (0.60-1.30); GFR ESTIMATED > 60; GLUCOSE 109 MG/DL (70-105); LIPASE 38 U/L (8-78); MAGNESIUM 2.1 MG/DL (1.6-2.4); POTASSIUM 4.3 MMOL/L (3.6-5.0); SODIUM 136 MMOL/L (135-145); TOTAL PROTEIN 6.8 GM/DL (6.4-8.2)
[2020-06-08] MEDS ORDERED: IOHEXOL 350 MG/ML 100 ML (OMNIPAQUE 350) VIAL IV ONE (19:30)
[2020-06-08] MEDS ORDERED: NS 100 ML (IVPB) BAG IV ONE (19:30)
[2020-06-08] MEDS ORDERED: HOLD METFORMIN - RECEIVED CONTRAST 20 ML VIAL IV SCH (19:30)
--- NOTE | 2020-06-08 19:42 | Diagnostic Imaging Report ---
INDICATION: Abdominal pain Abdominal series performed with frontal chest radiograph and supine and upright abdominal films Frontal chest view shows heart normal in size with the lungs clear. There is a pacemaker device in place with right atrial and right ventricular leads. There is no free intraperitoneal air. The abdominal bowel gas pattern is nonspecific with a few scattered fluid levels. There is prominent stool throughout the colon. There are surgical clips in the right upper quadrant. There are postsurgical changes over the lower abdomen. There is diffuse degenerative change in the lumbar spine. IMPRESSION: Nonspecific bowel gas pattern with a few scattered fluid levels and nondistended loops of bowel. There is prominent stool throughout the colon. There is no sign of free air. There is no acute pulmonary infiltrate. Dictated by: Dictated on workstation # [id number]
[2020-06-08 20:09] LABS: BILIRUBIN,URINE NEGATIVE (NEGATIVE); CLARITY,URINE CLEAR; COLOR,URINE YELLOW; GLUCOSE, URINE (UA) NEGATIVE (NEGATIVE); KETONES,URINE NEGATIVE (NEGATIVE); LEUKOCYTE ESTERASE ,URINE NEGATIVE (NEGATIVE); NITRITE,URINE NEGATIVE (NEGATIVE); PROTEIN,URINE NEGATIVE (NEGATIVE)
--- NOTE | 2020-06-08 20:09 | Diagnostic Imaging Report ---
INDICATION: Abdominal pain. TECHNIQUE: Multiple contiguous axial images were obtained through the abdomen and pelvis after administration of intravenous contrast. Auto Exposure Controls were utilized during the CT exam to meet ALARA standards for radiation dose reduction. COMPARISON is made to 09/18/2019 FINDINGS: The visualized portions of the lung bases are clear. There were no pleural fluid collections. There is no free intra-peritoneal air. There is no pacemaker device in place. The liver shows no discrete mass. There is a small cyst in the right lobe which is unchanged compared to the prior study. The spleen has been removed but there is a splenic remnant in the left upper quadrant which is unchanged compared to the prior study. Adrenal glands and pancreas appear normal. Kidneys bilaterally showed no hydronephrosis. There is a small cyst in the left kidney superiorly as well as inferiorly. There are small cysts in the right kidney. There is an indeterminate lesion which may be solid in the midpole of the right kidney measuring about 2 cm. This appears stable in size compared to the prior study. There is no right peritoneal mass or adenopathy. There is no ascites. There is mild prostatic enlargement. There is postoperative change in the anterior abdominal wall with previous mesh device in place. There are multiple dilated loops of small bowel in the midline anteriorly, with fluid-filled appearance. The remainder of the small bowel distally is decompressed. Findings are compatible with small bowel obstruction, the possibility of an internal hernia cannot be excluded. The colonic loops are decompressed with moderate stool in the colon. IMPRESSION: Findings suspicious for a small bowel obstruction with a cluster of small bowel loops in the anterior portion of the abdomen in the midline which are dilated and fluid-filled, with decompression of distal small bowel. There are postsurgical changes in the anterior abdominal wall. The findings may be secondary internal hernia. The dilatation of small bowel loops appears worsened compared to the previous study. There are multiple cysts in the kidneys, but there is also a possible solid lesion in the right kidney which appears stable compared to the prior study. Consider continued follow-up. This may be a hyperdense cyst or a solid mass. Dictated by: Dictated on workstation # [id number]
[2020-06-08] MEDS ORDERED: HURRICAINE EXT TUBE (BENZOCAINE) ONE (20:13)
[2020-06-08 20:18] LABS: BACTERIA,URINE NEGATIVE /HPF; SQUAMOUS EPITHELIAL CELL,UR RARE /HPF
--- NOTE | 2020-06-08 21:33 | Diagnostic Imaging Report ---
INDICATION: NG tube placement Frontal chest obtained at 09:04 p.m. and compared to abdominal series from earlier the same day. FINDINGS: Heart is normal in size. Pacemaker is unchanged. There is no focal infiltrate or pneumothorax or pleural fluid. There is a new NG tube seen with tip just into the stomach, with its sidehole at the GE junction. IMPRESSION: New NG tube is seen with its tip just into the stomach. Otherwise, no change compared to earlier the same day. Dictated by: Dictated on workstation # [id number]
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
--- NOTE | 2020-06-08 22:16 | Consultation - Surgery ---
[facility] 06/08/20 2215: History of Present Illness History of Present Illness Patient Consulted On(tc/time) 06/08/20 22:10 Date Seen by Provider: Jun 08, 2020 Time Seen by Provider: 21:01 Reason for Visit: Abdominal Pain History of Present Illness 84 y/o male presents to ER for abdominal pain onset between 1200 and 1300 today. Patient states pain started as a 5/10 or 6/10 dull periumbilical pain which worsened over time to a 9/10 or 10/10, prompting his arrival. Patient states pain does not radiate and is worse on palpation, pain has lessened since receiving pain medication in the ER. Patient reports a firm area around the umbilicus which, when palpated, exacerbates his pain, however denies any pain anywhere else around the abdomen even on palpation. He reports having occasional bowel obstructions in the past, noting the last one was " a few years ago" and that his last bowel movement was 2 days ago. Patient denies CP, tachycardia, SOB, nausea, vomiting, dizziness, LOC, cough, dysuria and hematuria. Allergies and Home Medications Allergies Coded Allergies: oxycodone (Verified Allergy, Unknown, 09/18/19) hallucinations Home Medications Aspirin 81 Mg Tab.chew, 81 MG PO DAILY Prescribed by: MANAN RAJPUT on 11/05/19 1258 Cephalexin 500 Mg Capsule, 500 MG PO TID Prescribed by: GERMAINE WRIGHT on 11/05/19 1256 Docusate Sodium 100 Mg Capsule, 100 MG PO HS, (Reported) Lisinopril 40 Mg Tablet, 40 MG PO DAILY, (Reported) LAST FILLED #90 04-17-19 Phenytoin Sodium Extended 100 Mg Capsule, 200 MG PO BID, (Reported) TAKES 2 (100MG) CAPSULES Past Ubxbcox-Omtrmu-Ywzufn Hx Patient Social History Alcohol Use: Past History (former heavy use, quit 28 years ago) Recreational Drug Use: No Smoking Status: Never a Smoker 2nd Hand Smoke Exposure: No Recent Foreign Travel: No Contact w/Someone Who Travel: No Recent Infectious Disease Expo: No Recent Hopitalizations: No Immunizations Up To Date Tetanus Booster (TDap): Unknown Date of Pneumonia Vaccine: Oct 05, 2019 Date of Influenza Vaccine: Sep 06, 2019 Seasonal Allergies Seasonal Allergies: No Surgeries History of Surgeries: Yes (SPLENECTOMY;L TKR X3;BOWEL RESECTION;HERNIA REPAIRS;SINUS SX;L THUMB AMP;) Surgeries: Abdominal (hernia repair), Amputation, Bowel Surgery (bowel resection), Eye Surgery, Gallbladder, Joint Replacement, Orthopedic, Pacemaker, Tonsillectomy Respiratory History of Respiratory Disorde: No Cardiovascular History of Cardiac Disorders: Yes (PACEMAKER FOR BRADYCARDIA) Cardiac Disorders: Hypertension Neurological History of Neurological Disord: Yes Neurological Disorders: Seizure Disorder Reproductive System Hx Reproductive Disorders: No Sexually Transmitted Disease: No HIV/AIDS: No Genitourinary History of Genitourinary Disor: No Gastrointestinal History of Gastrointestinal Di: Yes (VENTRAL HERNIA REPAIRS/ADHESIOLYSIS;BOWEL RESECTIONS; SPLENECTOMY) Gastrointestinal Disorders: Abdominal Hernia, Obstructive Bowel Musculoskeletal History of Musculoskeletal Dis: Yes (Tramuatic left thumb amp; LEFT TKR X 3) Musculoskeletal Disorders: Amputee, Arthritis Endocrine History of Endocrine Disorders: No HEENT History of HEENT Disorders: No Loss of Vision: Denies Hearing Impairment: Hard of Hearing, Bilateral Hearing Aide Cancer History of Cancer: No Psychosocial History of Psychiatric Problem: No Integumentary History of Skin or Integumenta: No Blood Transfusions History of Blood Disorders: No Adverse Reaction to a Blood Tr: No Family Medical History Significant Family History: No Pertinent Family Hx, Cancer (mother has "megaloblastic something" cancer) Review of Systems-General Constitutional: diaphoresis; No dizziness; weakness (chronic over the last year) EENTM: No ear pain, No eye pain Respiratory: No cough, No short of breath Cardiovascular: No chest pain; edema (trace, chronic); No palpitations Gastrointestinal: abdominal pain (periumbilical); No nausea, No vomiting Genitourinary: No dysuria, No hematuria Musculoskeletal: back pain (chronic); No muscle pain Skin: No lumps, No rash Psychiatric/Neurological: Denies Numbness, Denies Tingling Physical Exam-General Problems Physical Exam Vital Signs Vital Signs - First Documented 06/08/20 18:43 Temp 37.0 Pulse 73 Resp 18 B/P (MAP) 156/93 (114) Pulse Ox 99 O2 Delivery Room Air Capillary Refill : Less Than 3 Seconds General Appearance: mild distress Cardiovascular: systolic murmur (systolic ejection murmur) Gastrointestinal: normal bowel sounds, tenderness Neurologic/Psychiatric: alert; No facial droop Skin: No diaphoresis, No jaundice Data Review Labs Laboratory Tests 06/08/20 18:46: White Blood Count 8.5, Red Blood Count 4.00L, Hemoglobin 13.1L, Hematocrit 39L, Mean Corpuscular Volume 98, Mean Corpuscular Hemoglobin 33, Mean Corpuscular Hemoglobin Concent 34, Red Cell Distribution Width 12.6, Platelet Count 280, Mean Platelet Volume 8.4, Neutrophils (%) (Auto) 60, Lymphocytes (%) (Auto) 21, Monocytes (%) (Auto) 13H, Eosinophils (%) (Auto) 5, Basophils (%) (Auto) 1, Neutrophils # (Auto) 5.1, Lymphocytes # (Auto) 1.8, Monocytes # (Auto) 1.1H, Eosinophils # (Auto) 0.5H, Basophils # (Auto) 0.0, Prothrombin Time 13.3, INR Comment 1.0, Activated Partial Thromboplast Time 29, Sodium Level 136, Potassium Level 4.3, Chloride Level 100, Carbon Dioxide Level 25, Anion Gap 11, Blood Urea Nitrogen 16, Creatinine 0.92, Estimat Glomerular Filtration Rate > 60, BUN/Creatinine Ratio 17, Glucose Level 109H, Calcium Level 9.1, Corrected Calcium 8.9, Magnesium Level 2.1, Total Bilirubin 0.5, Aspartate Amino Transf (AST/SGOT) 16, Alanine Aminotransferase (ALT/SGPT) 7, Alkaline Phosphatase 125, Total Protein 6.8, Albumin 4.2, Amylase Level 76, Lipase 38 06/08/20 20:05: Urine Color YELLOW, Urine Clarity CLEAR, Urine pH 6.0, Urine Specific Morton <=1.005, Urine Protein NEGATIVE, Urine Glucose (UA) NEGATIVE, Urine Ketones NEGATIVE, Urine Nitrite NEGATIVE, Urine Bilirubin NEGATIVE, Urine Urobilinogen 0.2, Urine Leukocyte Esterase NEGATIVE, Urine RBC (Auto) NEGATIVE, Urine RBC NONE, Urine WBC NONE, Urine Squamous Epithelial Cells RARE, Urine Crystals NONE, Urine Bacteria NEGATIVE, Urine Casts NONE, Urine Mucus NEGATIVE, Urine Culture Indicated NO ARIANE CRUZ DO 06/08/20 2223: History of Present Illness History of Present Illness Time Seen by Provider: 21:41 History of Present Illness Increasing abdominal pain with hx of PSBO Allergies and Home Medications Allergies Coded Allergies: oxycodone (Verified Allergy, Unknown, 09/18/19) hallucinations Home Medications Aspirin 81 Mg Tab.chew, 81 MG PO DAILY Prescribed by: MANAN RAJPUT on 11/05/19 1258 Cephalexin 500 Mg Capsule, 500 MG PO TID Prescribed by: GERMAINE WRIGHT on 11/05/19 1256 Docusate Sodium 100 Mg Capsule, 100 MG PO HS, (Reported) Lisinopril 40 Mg Tablet, 40 MG PO DAILY, (Reported) LAST FILLED #90 04-17-19 Phenytoin Sodium Extended 100 Mg Capsule, 200 MG PO BID, (Reported) TAKES 2 (100MG) CAPSULES Patient Home Medication List Home Medication List Reviewed: Yes Past Svyliim-Qbkyxk-Rucipq Hx Family Medical History Significant Family History: Cancer Physical Exam-General Problems Physical Exam General Appearance: WD/WN, no apparent distress Cardiovascular: regular rate, rhythm, systolic murmur (systolic ejection murmur) Gastrointestinal: normal bowel sounds, soft, tenderness (midline), hernia (multiple ventral/incisional) Neurologic/Psychiatric: repair mechanic II-XII nml as tested Lymphatic: no adenopathy (neck, axilla or groin) Data Review Radiology Date of Exam:06/08/20 CT ABDOMEN/PELVIS W INDICATION: Abdominal pain. TECHNIQUE: Multiple contiguous axial images were obtained through the abdomen and pelvis after administration of intravenous contrast. Auto Exposure Controls were utilized during the CT exam to meet ALARA standards for radiation dose reduction. COMPARISON is made to 09/18/2019 FINDINGS: The visualized portions of the lung bases are clear. There were no pleural fluid collections. There is no free intra-peritoneal air. There is no pacemaker device in place. The liver shows no discrete mass. There is a small cyst in the right lobe which is unchanged compared to the prior study. The spleen has been removed but there is a splenic remnant in the left upper quadrant which is unchanged compared to the prior study. Adrenal glands and pancreas appear normal. Kidneys bilaterally showed no hydronephrosis. There is a small cyst in the left kidney superiorly as well as inferiorly. There are small cysts in the right kidney. There is an indeterminate lesion which may be solid in the midpole of the right kidney measuring about 2 cm. This appears stable in size compared to the prior study. There is no right peritoneal mass or adenopathy. There is no ascites. There is mild prostatic enlargement. There is postoperative change in the anterior abdominal wall with previous mesh device in place. There are multiple dilated loops of small bowel in the midline anteriorly, with fluid-filled appearance. The remainder of the small bowel distally is decompressed. Findings are compatible with small bowel obstruction, the possibility of an internal hernia cannot be excluded. The colonic loops are decompressed with moderate stool in the colon. IMPRESSION: Findings suspicious for a small bowel obstruction with a cluster of small bowel loops in the anterior portion of the abdomen in the midline which are dilated and fluid-filled, with decompression of distal small bowel. There are postsurgical changes in the anterior abdominal wall. The findings may be secondary internal hernia. The dilatation of small bowel loops appears worsened compared to the previous study. There are multiple cysts in the kidneys, but there is also a possible solid lesion in the right kidney which appears stable compared to the prior study. Consider continued follow-up. This may be a hyperdense cyst or a solid mass. Dictated by: Dictated on workstation # [id number] Dict: 06/08/201950 Trans: 06/08/202139 [facility] [id number] Interpreted by: HERRERA RANDHAWA MD Electronically signed by: HERRERA RANDHAWA MD 06/08/202139 Assessment/Plan Assessment/Plan Assessment/Plan PSBO Ventral/Incisional Hernia Pt is being admitted to medicine, IV fluids, NGT, NPO, pain control and anti- emetics. He has had multiple abdominal surgeries and it would be a very hard surgical procedure; in addition, he really doesn't want another surgery if doesn't have to do it. He has had non-operative management his last 2 visits; 09/24 and 07/23. Will order a SBFT tomorrow am. Supervisory-Addendum Brief Verification & Attestation Participated in pt care: history, MDM, physical Personally performed: exam, history, MDM, supervision of care Care discussed with: Medical Student Procedures: n/a Verification and Attestation of Medical Student E/M Service A medical student performed and documented this service. I then reviewed and verified all information documented by the medical student and made modifications to such information, when appropriate. I personally performed a physical exam, medical decision making and then discussed any differences between the notes and made revisions as necessary to create one note. Ariane Cruz , 06/08/20 , 22:23 [facility] Jun 08, 2020 22:15 ARIANE CRUZ DO Jun 08, 2020 22:23
[2020-06-08] MEDS: D5 1/2 NS W/KCL 20 MEQ/L 1,000 ML IV SCH (23:49)
[2020-06-08] MEDS: fentaNYL INJECTION 100 MCG/2 ML AMP IV PRN (23:49)
[2020-06-09] VITALS (7 sets, daily range): BP systolic 126–150; BP diastolic 54–73
--- OUTSIDE RECORDS SUMMARY | 2020-06-09 00:58 | XMS REPORT | CCD ---
Author Author Syd Rodas D.O. Organization [facility] Address [address] [place] [address] Phone Care Team Providers Care Manager [employer] Name Role Phone Gaby Rodas D.O. PP Unavailable CCM Unavailable Summary Purpose Interface Exchange Insurance Providers Payer name Policy type / Coverage type Covered democrat ID Effective Begin Date Effective End Date WPS MEDICARE PART B [place] Medicare Part B [id number] Unknown [id number] Medicare Part B [id number] Unknown Family history Mother Diagnosis Age At Onset Cancer Unknown Grandparents Diagnosis Age At Onset Cardiovascular disease Unknown Father Diagnosis Age At Onset Pneumonia Unknown Social History Social History Element Codes Description Effective Dates Tobacco history SNOMED CT: 647312832 Never smoker 06/01/2011 Marital status Unknown 01/08/2010 Employment Unknown Retired 01/08/2010 Allergies, Adverse Reactions, Alerts Substance Reaction Codes Entered Date Inactivated Date Status * NO KNOWN ENVIRONMENTAL ALLERGIES Unknown 01/26/2010 N o Inactive Date Active * NO KNOWN DRUG ALLERGIES Unknown 01/26/2010 No Inactiv e Date Active * NO KNOWN FOOD ALLERGIES Unknown 01/26/2010 No Inactiv e Date Active _ Unknown 08/31/2016 No Inactive Date Active Problems Condition Codes Effective Dates Condition Status Essential (primary) hypertension ICD-9: 401.9 ICD-10: I10 04/15/2014 Active Sick sinus syndrome ICD-9: 427.81 ICD-10: I49.5 02/06/2020 Active Small bowel obstruction ICD-9: 560.9 ICD-10: K56.609 09/24/2019 Active Encounter for general adult medical examination withou t abnormal findings ICD-9: V70.9 ICD-10: Z00.00 04/24/2018 Active Epilepsy, unspecified, not intractable, without status epilepticus ICD-9: 345.90 ICD-10: G40.909 03/02/2017 Active FLU VACCINE ICD-9: V04.81 ICD-10: Z23 09/03/2014 Active Other skin changes ICD-9: 709.8 ICD-10: R23.8 03/27/2019 Active Localized edema ICD-9: 782.3 ICD-10: R60.0 02/13/2019 Active Presence of left artificial knee joint ICD-9: V43.65 ICD-10: Z96.652 02/13/2019 Active Urinary tract infection, site not specified ICD-9: 599 .0 ICD-10: N39.0 10/01/2018 Active Mixed hyperlipidemia ICD-9: 272.4 ICD-10: E78.2 04/15/2014 Active Other fatigue ICD-9: 780.79 ICD-10: R53.83 04/15/2014 Active Pain in thoracic spine ICD-9: 724.1 ICD-10: M54.6 04/24/2018 Active Unspecified convulsions ICD-9: 780.39 ICD-10: R56.9 12/14/2016 Active 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) ICD-9: 560.81 ICD-10: K56.5 12/14/2016 Active PNEUMOCOCCAL VACCINE ICD-9: V03.82 ICD-10: Z23 07/25/2017 Active Hypokalemia ICD-9: 276.8 ICD-10: E87.6 10/16/2016 Active Altered mental status, unspecified ICD-9: 780.97 ICD-10: R41.82 10/09/2016 Active Chest pain, unspecified ICD-9: 786.50 ICD-10: R07.9 10/09/2016 Active Dizziness and giddiness ICD-9: 780.4 ICD-10: R42 10/06/2016 Active Weakness ICD-9: 780.79 ICD-10: R53.1 04/15/2014 Active Irritability and anger ICD-9: 799.29 ICD-10: R45.4 07/31/2016 Active Cardiac arrhythmia, unspecified ICD-9: 427.9 ICD-10: I49.9 04/26/2016 Active Dyspnea, unspecified ICD-9: 786.09 ICD-10: R06.00 03/14/2016 Active OSTEOARTHRISIS MULTI SITES ICD-9: 715.98 ICD-10: M19.90 11/01/2015 Active Paresthesia of skin ICD-9: 782.0 ICD-10: R20.2 11/01/2015 Active Hand pain ICD-9: 729.5 09/03/2014 Active ARTHRALGIA-MULTIPLE SITES ICD-9: 719.49 04/15/2014 Active HYPERLIPIDEMIA NEC/NOS ICD-9: 272.4 04/15/2014 Active HYPERTENSION ICD-9: 401.9 04/15/2014 Active MALAISE AND FATIGUE ICD-9: 780.79 04/15/2014 Active MEMORY LOSS ICD-9: 780.93 09/30/2013 Active Carotid bruit ICD-9: 785.9 04/02/2013 Active Knee pain ICD-9: 719.46 07/04/2011 Active CELLULITIS ICD-9: 682.9 06/01/2011 Active DYSPNEA ICD-9: 786.09 06/01/2011 Active Myalgia ICD-9: 729.1 11/15/2010 Active ACTINIC KERATOSIS ICD-9: 702.0 07/13/2010 Active ACUTE PANCREATITIS ICD-9: 577.0 01/26/2010 Active 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 01/26/2010 Active Allergic rhinitis Unknown 01/08/2010 Active Colonic Polyps Unknown 01/08/2010 Active Diverticular disease Unknown 01/08/2010 Active Hyperlipidemia Unknown 01/08/2010 Active Hypertension Unknown 12/30/2009 Active Osteoarthritis Unknown 12/30/2009 Active Medications Medication Codes Instructions Start Date Stop Date Status Fill Instructions lisinopril 40 mg tablet RxNorm: 695305 TAKE 1 TABLET DA GIULIANA (STOP THE LISINOPRIL/HCTZ) 01/16/2020 No Stop Date Active Keflex 500 mg capsule RxNorm: 618821 1 Capsule(s) Oral four juan es a day 11/07/2019 11/12/2019 Inactive Keflex 500 mg capsule RxNorm: 334363 1 Capsule(s) Oral three ti mes a day 11/07/2019 11/06/2019 Inactive Colace 100 mg capsule RxNorm: 5129365 1 Capsule(s) Oral QD 09/24/20 No Stop Date Active phenytoin sodium extended 100 mg capsule RxNorm: 647361 TAKE 2 CAPSULES TWICE A DAY 08/26/2019 No Stop Date Active aspirin 325 mg tablet RxNorm: 842565 1 Tablet(s) Oral QD 08/08/2019 No Stop Date Active Celebrex 200 mg capsule RxNorm: 725126 1 Capsule(s) PO BID 02/14/2003/14/2019 Inactive lisinopril 40 mg tablet RxNorm: 641718 TAKE 1 TABLET DA GIULIANA (STOP THE LISINOPRIL/HCTZ) 12/05/2018 01/15/2020 Inactive Cipro 250 mg tablet RxNorm: 199794 1 Tablet(s) PO BID 10/01/201812/2017 Inactive tramadol 37.5 mg-acetaminophen 325 mg tablet RxNorm: 402850 2 Tablet(s) PO TID as needed for pain 07/30/2018 02/26/2019 Inactive lisinopril 40 mg tablet RxNorm: 068755 1 TABLET(S) PO Q D REPLACES LISINOPRIL/HCTZ 12/25/2017 12/04/2018 Inactive phenytoin sodium extended 100 mg capsule RxNorm: 471355 1 Capsule(s) PO QAM and 2 at bedtime 12/14/2016 09/13/2017 Inactive lisinopril 40 mg tablet RxNorm: 389883 1 Tablet(s) PO Q D REPLACES LISINOPRIL/HCTZ 10/26/2016 11/15/2016 Inactive lisinopril 40 mg tablet RxNorm: 636016 1 Tablet(s) PO Q D REPLACES LISINOPRIL/HCTZ 10/26/2016 12/13/2016 Inactive potassium chloride ER 20 mEq tablet,extended release(p art/cryst) RxNorm: 9807743 3/4 Tablet(s) PO QD 10/10/2016 12/13/2016 Inactive lisinopril 40 mg tablet RxNorm: 211565 1 Tablet(s) PO Q D REPLACES LISINOPRIL/HCTZ 10/10/2016 10/25/2016 Inactive amlodipine 2.5 mg tablet RxNorm: 624861 1 Tablet(s) PO QD 08/01/2016 08/01/2016 Inactive tramadol 37.5 mg-acetaminophen 325 mg tablet RxNorm: 123101 2 Tablet(s) PO TID as needed for pain 05/24/2016 08/21/2016 Inactive lisinopril 20 mg-hydrochlorothiazide 25 mg tablet RxNorm: 19 7887 TAKE 1 TABLET EVERY MORNING 05/20/2016 10/09/2016 Inactive potassium chloride ER 20 mEq tablet,extended release(p art/cryst) RxNorm: 1462344 TAKE 1 TABLET TWICE A DAY 05/20/2016 10/09/2016 Inactive amlodipine 2.5 mg tablet RxNorm: 290492 1 Tablet(s) PO QHS 03/14/20 16 04/12/2016 Inactive Klor-Con 20 mEq oral packet RxNorm: 798835 1 Tablet(s) PO BID 04/0807/31/2016 Inactive lisinopril 20 mg-hydrochlorothiazide 25 mg tablet RxNorm: 19 7887 1 Tablet(s) PO QD TAKE 1 TABLET DAILY 04/08/2015 04/01/2016 Inactive lisinopril 20 mg-hydrochlorothiazide 25 mg tablet RxNorm: 19 7887 1 Tablet(s) PO QD TAKE 1 TABLET DAILY 11/07/2013 04/08/2015 Inactive potassium chloride ER 20 mEq tablet,extended release(part/cr yst) RxNorm: 445692 1 Tablet(s) PO BID 11/07/2013 04/08/2015 Inactive potassium chloride ER 20 mEq tablet,extended release(p art/cryst) RxNorm: 4397218 1 Tablet(s) PO BID 10/14/2013 10/13/2013 Inactive lisinopril 20 mg-hydrochlorothiazide 25 mg tablet RxNorm: 82 3971 1 Tablet(s) PO QD TAKE 1 TABLET DAILY 10/14/2013 11/06/2013 Inactive potassium chloride ER 20 mEq tablet,extended release(part/cr yst) RxNorm: 429139 1 Tablet(s) PO BID 10/14/2013 11/06/2013 Inactive lisinopril 20 mg-hydrochlorothiazide 25 mg tablet RxNorm: 19 7887 1 Tablet(s) PO QD TAKE 1 TABLET DAILY 10/14/2013 10/13/2013 Inactive lisinopril 20 mg-hydrochlorothiazide 25 mg tablet RxNorm: 19 7887 Tablet(s) PO TAKE 1 TABLET DAILY 06/04/2013 10/13/2013 Inactive Ultracet 37.5 mg-325 mg tablet RxNorm: 641989 2 Tablet(s) PO TID 09/29/2013 Inactive TAKE 2 TABLETS THREE TIMES A DAY NEEDED FOR PAIN K-Dur 20 mEq tablet,extended release RxNorm: 8149172 Tablet(s) PO 1 08/30/2013 Inactive TAKE 1 TABLET TWICE A DAY lisinopril 20 mg-hydrochlorothiazide 25 mg tablet RxNorm: 19 7887 1 Tablet(s) PO QD 09/05/2012 03/03/2013 Inactive Mobic 15 mg Tab RxNorm: 190433 1 Tablet(s) PO QD for arthritis pain 02/13/2012 03/13/2012 Inactive K-Dur 20 mEq tablet,extended release RxNorm: 8836919 1 Tablet(s) PO BID 07/28/2011 09/06/2012 Inactive generic equivalent o truong Ultracet 37.5 mg-325 mg tablet RxNorm: 462456 2 Tablet(s) PO TID 10/24/2011 Inactive TAKE 2 TABLETS THREE TIMES A DAY NEEDED FOR PAIN lisinopril-hydrochlorothiazide 20 mg-25 mg tablet RxNorm: 19 7887 1 Tablet(s) PO QD 06/16/2011 09/05/2012 Inactive TAKE 1 TABLET DA GIULIANA Bactrim DS 800 mg-160 mg Tab RxNorm: 429164 1 Tablet(s) PO QD 06/0107/03/2011 Inactive Ultracet 37.5 mg-325 mg Tab RxNorm: 398767 2 Tablet(s) PO TID P .r.n. pain 03/07/2011 07/27/2011 Inactive K-Dur 20 mEq Tab RxNorm: 0109587 1 Tablet(s) PO BID 04/30/20102010 Inactive lisinopril-hydrochlorothiazide 20 mg-25 mg Tab RxNorm: 721172 1 Tablet(s) PO QD 04/29/2010 06/17/2011 Inactive Relafen 750 mg Tab RxNorm: 022598 1 Tablet(s) PO BID P.r.n. pain 04/17/2010 Inactive Ultracet 37.5 mg-325 mg Tab RxNorm: 295296 2 Tablet(s) PO TID P .r.n. pain 01/08/2010 04/17/2010 Inactive Zestoretic 20 mg-25 mg Tab RxNorm: 722940 1 Tablet(s) PO QD 010 04/07/2010 Inactive K-Dur 20 mEq Tab RxNorm: 0339906 1 Tablet(s) PO BID 01/08/20102009 Inactive lisinopril 40 mg tablet RxNorm: 406665 1 Tablet(s) PO QD No Start Date Active Colace 100 mg capsule RxNorm: 2685620 1 Capsule(s) PO BID No Start Date 09/23/2019 Inactive K-Dur 20 mEq Tab RxNorm: 8630198 1 Tablet(s) PO BID No Start Date Inactive amlodipine 2.5 mg tablet RxNorm: 745070 1 Tablet(s) PO QD No Start Date 03/01/2017 Inactive Relafen 750 mg Tab RxNorm: 212002 1 Tablet(s) PO BID prn No Start D ate 02/12/2012 Inactive K-Dur 20 mEq tablet,extended release RxNorm: 301510 1 Tablet(s) PO BID No Start Date 11/01/2015 Inactive tramadol 50 mg Tab RxNorm: 965327 2 Tablet(s) PO TID prn pain No St art Date 05/23/2016 Inactive aspirin 325 mg tablet RxNorm: 938552 1 Tablet(s) PO QD No Start Date 09/30/2018 Inactive lisinopril-hydrochlorothiazide 20 mg-25 mg tablet RxNorm: 19 7887 1 Tablet(s) PO QD No Start Date 09/04/2012 Inactive Colace 100 mg capsule RxNorm: 1634700 1 Capsule(s) PO QD No Start D ate 09/30/2018 Inactive Vitamin D3 1000 units Capsule RxNorm: 1 Capsule(s) PO QD No St art Date 02/28/2016 Inactive aspirin 81 mg tablet,delayed release RxNorm: 705662 1 Tablet(s) PO QD No Start Date 02/26/2019 Inactive Colace 100 mg Cap RxNorm: 6160518 1 Capsule(s) PO BID No Start Date 0 01/26/2010 Inactive phenytoin sodium extended 100 mg capsule RxNorm: 271203 2 Capsu le(s) PO BID No Start Date 08/25/2019 Inactive Medication Administered No Medication Administered data Immunizations Vaccine Codes Date Status Influenza CVX: 135 08/08/2019 Complete Influenza CVX: 135 08/08/2019 Complete Influenza CVX: 135 07/25/2017 Complete Pneumococcal CVX: 133 07/25/2017 Complete Influenza CVX: 141 09/03/2014 Pneumococcal (Adult) Unknown 07/13/2010 Results Observation Observation Code Item Item Code Result Date S ervice Location GFR CALC [id number] GFR AA >60 ML/MIN 07/13/2010 Unknown GFR CALC 6431431 GFR NON-AA >60 ML/MIN 07/13/2010 Unknown THYROID STIMULATING HORMONE 26504 TSH 2.361 uIU/ML 07/13/2010 Unknown COMPREHENSIVE METABOLIC 19892 AST 20 U/L 2009 Unknown COMPREHENSIVE METABOLIC 20606 ALT 10 IU/L 2009 Unknown COMPREHENSIVE METABOLIC 06758 BUN 15 MG/DL 2009 Unknown COMPREHENSIVE METABOLIC 97064 ALBUMIN 4.3 GM/DL 2009 Unknown COMPREHENSIVE METABOLIC 88387 CHLORIDE 101 MMOL/L 07/13 Unknown COMPREHENSIVE METABOLIC 43350 BILI TOT 0.8 MG/DL 2009 Unknown COMPREHENSIVE METABOLIC 54530 ALK PHOS 91 U/L 2009 Unknown COMPREHENSIVE METABOLIC 43015 SODIUM 138 MMOL/L 07/13 Unknown COMPREHENSIVE METABOLIC 78652 CREATININE 0.96 MG/DL 05/2010 Unknown COMPREHENSIVE METABOLIC 27841 CALCIUM 9.3 MG/DL 2009 Unknown COMPREHENSIVE METABOLIC 99015 POTASSIUM 4.2 MMOL/L 07/13 Unknown COMPREHENSIVE METABOLIC 88649 PROT TOT 6.4 GM/DL 2009 Unknown COMPREHENSIVE METABOLIC 93335 Glucose 85 MG/DL 2009 Unknown COMPREHENSIVE METABOLIC 67878 BICARB 29 MMOL/L 2009 Unknown COMPREHENSIVE METABOLIC 40491 ANION GAP 8 MEQ/L 2009 Unknown LIPID GROUP 81507 HDL TEST 49 MG/DL 07/13/2010 Unknown LIPID GROUP 20057 TRIG 87 MG/DL 07/13/2010 Unknown LIPID GROUP 22806 TEST LDL 95 MG/DL 07/13/2010 Unknown LIPID GROUP 34722 CHOL 161 MG/DL 07/13/2010 Unknown LIPID GROUP 85164 RCHOL/HDL 3.29 RATIO 07/13/2010 Unknow n Procedures Procedure Codes Date FLU VACC PRSV FREE INC ANTIG 65 AND OLDER CPT-4: 34574 08/08/2019 FLU VACC PRSV FREE INC ANTIG 65 AND OLDER CPT-4: 28286 08/08/2019 ADMIN INFLUENZA VIRUS VAC CPT-4: G0008 08/08/2019 PPPS, subseq visit CPT-4: G0439 08/08/2019 URINE CULTURE/ COLONY COUNT CPT-4: 42511 10/01/2018 URINALYSIS NONAUTO W/O SCOPE CPT-4: 09466 10/01/2018 PPPS, subseq visit CPT-4: G0439 04/24/2018 FLU VACC PRSV FREE INC ANTIG 65 AND OLDER CPT-4: 33012 07/25/2017 PNEUMOCOCCAL VACC 13 HAN IM CPT-4: 46223 07/25/2017 ADMIN PNEUMOCOCCAL VACCINE CPT-4: G0009 07/25/2017 ADMIN INFLUENZA VIRUS VAC CPT-4: G0008 07/25/2017 URINALYSIS NONAUTO W/O SCOPE CPT-4: 58438 10/07/2016 FLU VACCINE 3 YRS & > IM UP 64 CPT-4: 44407 4 FLUZONE, 5ML (Medicare) CPT-4: Q2038 09/03/2014 ADMIN INFLUENZA VIRUS VAC CPT-4: G0008 09/03/2014 PRESCRIP TRANSMIT VIA ERX SY CPT-4: G8553 02/13/2012 CUR TOBACCO NON-USER CPT-4: G8457 06/01/2011 PRESCRIP TRANSMIT VIA ERX SY CPT-4: G8553 06/01/2011 ROUTINE VENIPUNCTURE CPT-4: 63388 07/13/2010 DESTRUCT PREMALG LESION (Cryosurgery) CPT-4: 91335 COMPREHEN METABOLIC PANEL CPT-4: 57457 07/13/2010 LIPID PANEL CPT-4: 67376 07/13/2010 ASSAY THYROID STIM HORMONE CPT-4: 72280 07/13/2010 PNEUMOCOCCAL VACC 23 HAN IM CPT-4: 58826 07/13/2010 IMMUNIZATION ADMIN CPT-4: 85463 07/13/2010 ROUTINE VENIPUNCTURE CPT-4: 13085 07/13/2010 COMPREHEN METABOLIC PANEL CPT-4: 38180 07/13/2010 LIPID PANEL CPT-4: 62990 07/13/2010 ASSAY THYROID STIM HORMONE CPT-4: 89129 07/13/2010 Vital Signs Date Vital 02/06/2020 Blood Pressure 1: 142/63 Code: 8480-6 Heart Rate 1: 59 bpm Respiratory Rate: 17 bpm SpO2: 100% Temperature: 36.8 (C) / 98.2 (F) We ight: 194 lbs 09/24/2019 Blood Pressure 1: 132/56 Code: 8480-6 Heart Rate 1: 76 bpm Respiratory Rate: 18 bpm SpO2: 95% Temperature: 36.7 (C) / 98.1 (F) We ight: 196 lbs 08/08/2019 Blood Pressure 1: 134/52 Code: 8480-6 BMI: 28.8 Code: 65143-7 Heart Rate 1: 60 bpm Height: 5'9" Respiratory Rate: 18 bpm SpO2: 95% Tempera ture: 36.7 (C) / 98.0 (F) Weight: 195 lbs 03/27/2019 Blood Pressure 1: 120/70 Code: 8480-6 Heart Rate 1: 64 bpm Respiratory Rate: 18 bpm SpO2: 94% Temperature: 36.1 (C) / 97.0 (F) We ight: 203 lbs 02/27/2019 Blood Pressure 1: 150/64 Code: 8480-6 Heart Rate 1: 59 bpm SpO2: 95% Temperature: 36.2 (C) / 97.1 (F) Weight: 208 lbs 02/13/2019 Blood Pressure 1: 118/58 Code: 8480-6 Heart Rate 1: 69 bpm Respiratory Rate: 18 bpm SpO2: 96% Temperature: 36.2 (C) / 97.2 (F) We ight: 206 lbs 10/01/2018 Blood Pressure 1: 152/82 Code: 8480-6 Heart Rate 1: 68 bpm Respiratory Rate: 20 bpm SpO2: 98% Temperature: 35.9 (C) / 96.7 (F) We ight: 187 lbs 04/24/2018 Blood Pressure 1: 142/70 Code: 8480-6 BMI: 25.1 Code: 12578-4 Heart Rate 1: 64 bpm Height: 6'1" Respiratory Rate: 20 bpm SpO2: 95% Tempera ture: 36.9 (C) / 98.5 (F) Weight: 190 lbs 09/14/2017 Blood Pressure 1: 144/70 Code: 8480-6 BMI: 25.5 Code: 98413-2 Heart Rate 1: 76 bpm Height: 6'1" Respiratory Rate: 20 bpm SpO2: 95% Tempera ture: 36.8 (C) / 98.2 (F) Weight: 193 lbs 07/25/2017 Blood Pressure 1: 116/58 Code: 8480-6 BMI: 25.5 Code: 49956-5 Heart Rate 1: 72 bpm Height: 6'1" Respiratory Rate: 20 bpm SpO2: 95% Tempera ture: 36.8 (C) / 98.3 (F) Weight: 193 lbs 03/02/2017 Blood Pressure 1: 126/70 Code: 8480-6 BMI: 25.9 Code: 91132-6 Heart Rate 1: 64 bpm Height: 6'1" Respiratory Rate: 20 bpm SpO2: 95% Tempera ture: 36.6 (C) / 97.9 (F) Weight: 196 lbs 12/14/2016 Blood Pressure 1: 144/70 Code: 8480-6 BMI: 27.0 Code: 32541-5 Heart Rate 1: 80 bpm Height: 6'1" Respiratory Rate: 20 bpm SpO2: 95% Tempera ture: 36.8 (C) / 98.2 (F) Weight: 205 lbs 10/17/2016 Blood Pressure 1: 136/70 Code: 8480-6 Heart Rate 1: 72 bpm Temperature: 36.8 (C) / 98.2 (F) Weight: 206 lbs 10/10/2016 Blood Pressure 1: 164/78 Code: 8480-6 Heart Rate 1: 72 bpm Respiratory Rate: 24 bpm SpO2: 94% Temperature: 36.2 (C) / 97.2 (F) We ight: 201 lbs 10/07/2016 Blood Pressure 1: 154/84 Code: 8480-6 Bl ood Pressure 2: 138/74 Code: 8480-6 Heart Rate 1: 76 bpm Respiratory Rate: 20 bpm SpO2: 96% Te mperature: 36.9 (C) / 98.4 (F) Weight: 202 lbs 08/31/2016 Blood Pressure 1: 144/60 Code: 8480-6 BMI: 26.5 Code: 26673-6 Heart Rate 1: 60 bpm Height: 6'1" Respiratory Rate: 20 bpm Temperature: 36 .9 (C) / 98.4 (F) Weight: 201 lbs 08/01/2016 Blood Pressure 1: 144/70 Code: 8480-6 Heart Rate 1: 68 bpm Respiratory Rate: 20 bpm Temperature: 36.9 (C) / 98.4 (F) Weight: 200 lbs 04/27/2016 Blood Pressure 1: 134/68 Code: 8480-6 BMI: 26.8 Code: 55933-5 Heart Rate 1: 68 bpm Height: 6'1" Respiratory Rate: 20 bpm Temperature: 36 .3 (C) / 97.3 (F) Weight: 203 lbs 03/21/2016 Blood Pressure 1: 126/64 Code: 8480-6 BMI: 26.8 Code: 05701-2 Heart Rate 1: 80 bpm Height: 6'1" Respiratory Rate: 20 bpm Temperature: 36 .6 (C) / 97.9 (F) Weight: 203 lbs 03/14/2016 Blood Pressure 1: 176/90 Code: 8480-6 BMI: 26.3 Code: 06106-8 Heart Rate 1: 74 bpm Height: 6'1" Respiratory Rate: 22 bpm SpO2: 94% Tempera ture: 36.2 (C) / 97.1 (F) Weight: 199 lbs 02/29/2016 Blood Pressure 1: 172/82 Code: 8480-6 BMI: 26.9 Code: 13506-1 Heart Rate 1: 60 bpm Height: 6'1" Respiratory Rate: 20 bpm SpO2: 98% Tempera ture: 36.8 (C) / 98.2 (F) Weight: 204 lbs 11/02/2015 Blood Pressure 1: 136/72 Code: 8480-6 BMI: 27.3 Code: 14638-2 Heart Rate 1: 68 bpm Height: 6'1" Respiratory Rate: 20 bpm Temperature: 36 .6 (C) / 97.8 (F) Weight: 207 lbs 03/26/2015 Blood Pressure 1: 142/74 Code: 8480-6 BMI: 28.2 Code: 11931-4 Heart Rate 1: 76 bpm Height: 6'1" Respiratory Rate: 20 bpm Temperature: 36 .7 (C) / 98.1 (F) Weight: 214 lbs 09/03/2014 Blood Pressure 1: 132/68 Code: 8480-6 BMI: 29.8 Code: 47201-5 Heart Rate 1: 80 bpm Height: 6'1" Respiratory Rate: 20 bpm Temperature: 36 .7 (C) / 98.1 (F) Weight: 226 lbs 04/15/2014 Blood Pressure 1: 142/64 Code: 8480-6 BMI: 28.9 Code: 18914-7 Heart Rate 1: 64 bpm Height: 6'1" Respiratory Rate: 22 bpm Temperature: 36 .2 (C) / 97.2 (F) Weight: 219 lbs 09/30/2013 Blood Pressure 1: 142/70 Code: 8480-6 BMI: 29.2 Code: 24011-4 Heart Rate 1: 72 bpm Height: 6'1" Respiratory Rate: 20 bpm Temperature: 36 .7 (C) / 98.1 (F) Weight: 221 lbs 04/02/2013 Blood Pressure 1: 142/78 Code: 8480-6 BMI: 29.6 Code: 04309-4 Heart Rate 1: 64 bpm Height: 6'1" Respiratory Rate: 20 bpm Temperature: 36 .6 (C) / 97.9 (F) Weight: 224 lbs 08/02/2012 Blood Pressure 1: 122/66 Code: 8480-6 BMI: 29.3 Code: 19750-5 Heart Rate 1: 64 bpm Height: 6'1" Respiratory Rate: 20 bpm Temperature: 36 .9 (C) / 98.4 (F) Weight: 222 lbs 02/13/2012 Blood Pressure 1: 138/72 Code: 8480-6 BMI: 28.5 Code: 10291-3 Heart Rate 1: 72 bpm Height: 6'1" Respiratory Rate: 20 bpm Temperature: 36 .4 (C) / 97.6 (F) Weight: 216 lbs 07/04/2011 Blood Pressure 1: 124/60 Code: 8480-6 BMI: 28.5 Code: 89121-8 Heart Rate 1: 56 bpm Height: 6'1" Respiratory Rate: 20 bpm Temperature: 36 .6 (C) / 97.9 (F) Weight: 216 lbs 06/01/2011 Blood Pressure 1: 122/68 Code: 8480-6 BMI: 28.5 Code: 87212-6 Heart Rate 1: 68 bpm Height: 6'1" Respiratory Rate: 18 bpm SpO2: 96% Tempera ture: 36.9 (C) / 98.5 (F) Weight: 216 lbs 01/04/2011 Blood Pressure 1: 136/68 Code: 8480-6 Heart Rate 1: 84 bpm Temperature: 36.3 (C) / 97.4 (F) Weight: 218 lbs 11/15/2010 Blood Pressure 1: 128/80 Code: 8480-6 Heart Rate 1: 76 bpm Temperature: 36.4 (C) / 97.6 (F) Weight: 216 lbs 07/13/2010 Blood Pressure 1: 122/70 Code: 8480-6 Heart Rate 1: 84 bpm Temperature: 36.4 (C) / 97.6 (F) Weight: 209 lbs 01/26/2010 Blood Pressure 1: 122/56 Code: 8480-6 BMI: 27.6 Code: 98600-3 Heart Rate 1: 72 bpm Height: 6'1" Temperature: 36.4 (C) / 97.6 (F) Weight: 209 lbs Functional Status No Functional Status data Reason For Visit Reason For Visit Effective Dates Notes follow up 02/06/2020 follow up 09/24/2019 Hosp fwup well man exam (65+ years) 08/08/2019 Annual [facility] new lesion 03/27/2019 follow up 02/27/2019 edema 02/13/2019 painful urination 10/01/2018 difficult urination well man exam (65+ years) 04/24/2018 follow up 09/14/2017 follow up 07/25/2017 ER fwup follow up 03/02/2017 6mo fwup follow up 12/14/2016 follow up 10/17/2016 Hospital fwup follow up 10/10/2016 dizziness 10/07/2016 follow up 08/31/2016 follow up 08/01/2016 3mo fwup follow up 04/27/2016 Discuss recent stres s test follow up 03/21/2016 follow up 03/14/2016 dyspnea 02/29/2016 follow up 11/02/2015 follow up 03/26/2015 6mo fwup high blood pressure 09/03/2014 follow up 04/15/2014 6 month follow up 09/30/2013 6mo fwup follow up 04/02/2013 6mo fwup follow up 08/02/2012 6mo fwup/no complain ts follow up 02/13/2012 6mo fwup follow up 07/04/2011 6mo fwup skin lesion 06/01/2011 to right forearm follow up 01/04/2011 6mo fwup--no complai nts arthralgia(s) 11/15/2010 follow up 07/13/2010 6mo fwup follow up 01/26/2010 HOSP FWUP/ON PANCREA TITIS Encounters Encounter Performer Location Codes Date ([id number]) OFFICE/OUTPATIENT VISIT EST Diagnosis: Essential (primary) hypertension[ICD10: I10] Diagnosis: Sick sinus syndrome[ICD10: I49.5] Gaby Sanchez Shira [facility] CPT-4: 18176 02/06/2020 ([id number]) OFFICE/OUTPATIENT VISIT EST Diagnosis: Small bowel obstruction[ICD10: K56.609] Gaby Armandocheikh MORGAN Shira [facility] CPT-4: 26081 09/24/2019 ([id number]) OFFICE/OUTPATIENT VISIT EST Diagnosis: Other skin changes[ICD10: R23.8] Jewell [facility] CPT-4: 57119 03/27/2019 ([id number]) OFFICE/OUTPATIENT VISIT EST Diagnosis: Localized edema[ICD10: R60.0] Diagnosis: Presence of left artificial knee joint[ICD10: Z96.652] Jewell [facility] CPT-4: 45477 02/27/2019 ([id number]) OFFICE/OUTPATIENT VISIT EST Diagnosis: Localized edema[ICD10: R60.0] Diagnosis: Presence of left artificial knee joint[ICD10: Z96.652] Diagnosis: Essential (primary) hypertension[ICD10: I10] Jewell [facility] CPT-4: 99690 02/13/2019 ([id number]) OFFICE/OUTPATIENT VISIT EST Diagnosis: Urinary tract infection, site not specified[ICD10: N39.0] [facility] 96969 10/01/2018 ([id number]) OFFICE/OUTPATIENT VISIT EST Diagnosis: Essential (primary) hypertension[ICD10: I10] Diagnosis: Mixed hyperlipidemia[ICD10: E78.2] Diagnosis: Unspecified convulsions[ICD10: R56.9] Gaby PARRA Shira [facility] CPT-4: 49265 09/14/2017 ([id number]) OFFICE/OUTPATIENT VISIT EST Diagnosis: 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 (postprocedural) (postinfection)[ICD10: K56.5] Diagnosis: Essential (primary) hypertension[ICD10: I10] Diagnosis: FLU VACCINE[ICD10: Z23] Diagnosis: PNEUMOCOCCAL VACCINE[ICD10: Z23] [facility]: 85668 07/25/2017 ([id number]) OFFICE/OUTPATIENT VISIT EST Diagnosis: Mixed hyperlipidemia[ICD10: E78.2] Diagnosis: Essential (primary) hypertension[ICD10: I10] Diagnosis: Epilepsy, unspecified, not intractable, without status epilepticus[ICD10: G40.909] [facility]: 43638 03/02/2017 ([id number]) OFFICE/OUTPATIENT VISIT EST Diagnosis: Essential (primary) hypertension[ICD10: I10] Diagnosis: 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 (postprocedural) (postinfection)[ICD10: K56.5] Diagnosis: Unspecified convulsions[ICD10: R56.9] Gaby Burrell TREY Silva [facility] CPT-4: 69942 12/14/2016 ([id number]) OFFICE/OUTPATIENT VISIT EST Diagnosis: Hypokalemia[ICD10: E87.6] Diagnosis: Essential (primary) hypertension[ICD10: I10] Gaby Silva [facility] CPT-4: 40339 10/17/2016 ([id number]) OFFICE/OUTPATIENT VISIT EST Diagnosis: Altered mental status, unspecified[ICD10: R41.82] Diagnosis: Chest pain, unspecified[ICD10: R07.9] Diagnosis: Essential (primary) hypertension[ICD10: I10] Diagnosis: Hypokalemia[ICD10: E87.6] Fred[facility]omack [facility] 62283 10/10/2016 OFFICE/OUTPATIENT VISIT EST Diagnosis: Essential (primary) hypertension[ICD10: I10] [facility] 79882 08/31/2016 ([id number]) OFFICE/OUTPATIENT VISIT EST Diagnosis: Irritability and anger[ICD10: R45.4] Diagnosis: Essential (primary) hypertension[ICD10: I10] [facility]: 20869 08/01/2016 ([id number]) OFFICE/OUTPATIENT VISIT EST Diagnosis: Essential (primary) hypertension[ICD10: I10] Diagnosis: Cardiac arrhythmia, unspecified[ICD10: I49.9] Gaby RODAS DO [facility] CPT-4: 41719 04/27/2016 OFFICE/OUTPATIENT VISIT EST Diagnosis: Essential (primary) hypertension[ICD10: I10] Diagnosis: Cardiac arrhythmia, unspecified[ICD10: I49.9] Diagnosis: Chest pain, unspecified[ICD10: R07.9] Gaby RODAS [facility] CPT-4: 99339 03/21/2016 OFFICE/OUTPATIENT VISIT EST Diagnosis: Essential (primary) hypertension[ICD10: I10] Diagnosis: Other fatigue[ICD10: R53.83] Diagnosis: Dyspnea, unspecified[ICD10: R06.00] [facility]: 22354 03/14/2016 OFFICE/OUTPATIENT VISIT EST Diagnosis: Dyspnea, unspecified[ICD10: R06.00] Diagnosis: Cardiac arrhythmia, unspecified[ICD10: I49.9] Diagnosis: Other fatigue[ICD10: R53.83] Lilly RODAS [facility] CPT-4: 26845 02/29/2016 ([id number]) OFFICE/OUTPATIENT VISIT EST Diagnosis: Essential (primary) hypertension[ICD10: I10] Diagnosis: Mixed hyperlipidemia[ICD10: E78.2] Diagnosis: Paresthesia of skin[ICD10: R20.2] Diagnosis: OSTEOARTHRISIS MULTI SITES[ICD10: M19.90] Gaby RODAS [employer] [facility] CPT-4: 24512 11/02/2015 ([id number]) OFFICE/OUTPATIENT VISIT EST Diagnosis: HYPERTENSION[ICD9: 401.9] Diagnosis: HYPERLIPIDEMIA NEC/NOS[ICD9: 272.4] Gaby RODAS [employer] [facility] CPT-4: 46067 03/26/2015 ([id number]) OFFICE/OUTPATIENT VISIT EST Diagnosis: HYPERTENSION[ICD9: 401.9] Diagnosis: HYPERLIPIDEMIA NEC/NOS[ICD9: 272.4] Diagnosis: Hand pain[ICD9: 729.5] Diagnosis: FLU VACCINE[ICD10: Z23] Gaby HINKLE DinoAlanna [facility] CPT-4: 29251 09/03/2014 ([id number]) OFFICE/OUTPATIENT VISIT EST Diagnosis: HYPERTENSION[ICD9: 401.9] Diagnosis: HYPERLIPIDEMIA NEC/NOS[ICD9: 272.4] Diagnosis: ARTHRALGIA-MULTIPLE SITES[ICD9: 719.49] Diagnosis: MALAISE AND FATIGUE[ICD9: 780.79] Gaby Sanchez [facility] CPT-[facility]: 51718 04/15/2014 OFFICE/OUTPATIENT VISIT EST Diagnosis: HYPERTENSION[ICD9: 401.9] Diagnosis: HYPERLIPIDEMIA NEC/NOS[ICD9: 272.4] Diagnosis: MEMORY LOSS[ICD9: 780.93] Gaby Silva ARMANDO KWONGPamela [facility] CPT-4: 77390 09/30/2013 ([id number]) OFFICE/OUTPATIENT VISIT EST Diagnosis: HYPERTENSION[ICD9: 401.9] Diagnosis: ARTHRALGIA-MULTIPLE SITES[ICD9: 719.49] Diagnosis: Carotid bruit[ICD9: 785.9] Gaby [facility]PT-[facility]: 24957 04/02/2013 ([id number]) OFFICE/OUTPATIENT VISIT EST Diagnosis: HYPERLIPIDEMIA NEC/NOS[ICD9: 272.4] Diagnosis: HYPERTENSION[ICD9: 401.9] Diagnosis: ARTHRALGIA-MULTIPLE SITES[ICD9: 719.49] [facility] CPT[facility]: 88259 08/02/2012 ([id number]) OFFICE/OUTPATIENT VISIT EST Diagnosis: HYPERTENSION[ICD9: 401.9] Diagnosis: ARTHRALGIA-MULTIPLE SITES[ICD9: 719.49] Diagnosis: Hand pain[ICD9: 729.5] Gaby [facility]av [facility] CPT-[facility]: 24020 02/13/2012 OFFICE/OUTPATIENT VISIT EST Diagnosis: HYPERTENSION[ICD9: 401.9] Diagnosis: HYPERLIPIDEMIA NEC/NOS[ICD9: 272.4] Diagnosis: Knee pain[ICD9: 719.46] Gaby [facility] CPT-4: 93713 07/04/2011 OFFICE/OUTPATIENT VISIT EST Gaby [facility] CPT- 4: 05247 06/01/2011 ([id number]) OFFICE/OUTPATIENT VISIT EST Gaby [facility] CPT-4: 42492 01/04/2011 ([id number]) OFFICE/OUTPATIENT VISIT, EST Gaby MORGAN SAlanna [facility] CPT-4: 74547 11/15/2010 ([id number]) OFFICE/OUTPATIENT VISIT, EST Gaby MORGAN SAlanna [facility] CPT-4: 86981 07/13/2010 ([id number]) OFFICE/OUTPATIENT VISIT, EST Gaby MORGAN SAlanna [facility] CPT-4: 49265 01/26/2010 Plan of Care Planned Activity Notes Codes Status Date Visit Diagnosis Plan: Essential (primary) hypertension Discussion: Stable COVID- 19 precautions discussed Lab and fwup in 6mos since just had lab done at hospital with pacemaker placement ICD-9 : 401.9 ICD-10 : I10 02/06/2020 Visit Diagnosis Plan: Sick sinus syndrome Discussion: S/P pacemaker placement ICD-9 : 427.81 ICD-10 : I49.5 02/06/2020 Appointment: Odalis Zafar [address] [facility]66[facility] CANCELED 11/07/2019 Visit Diagnosis Plan: Small bowel obstruction Discussi on: Doing fiber/water Discussed does not want surgery unless was emergency with something like perforation ICD-9 : 560.9 ICD-10 : K56.609 09/24/2019 Appointment: Gaby Rodas WPtel: [phone] [id number] Hospital Follow Up 09/24/2019 Visit Diagnosis Plan: Essential (primary) hypertension Discussion: Stable ICD-9 : 401.9 ICD-10 : I10 08/08/2019 Visit Diagnosis Plan: Epilepsy, unspecif ied, not intractable, without status epilepticus Discussion: Stable ICD-9 : 345.90 ICD-10 : G40.909 08/08/2019 Visit Diagnosis Plan: Encounter for gene [facility] adult medical examination without abnormal findings Discussion: Mediterranean diet Combinati on of cardio and weight bearing exercise Flu shot given Update fasting lab ICD-9 : V70.9 ICD-10 : Z00.00 08/08/2019 Appointment: Gaby Rodas WPtel: [facility]9 [id number] Annual Well Visit 08/08/2019 Visit Diagnosis Plan: Other skin changes Discussion: Pamela moreira sent to Dr. Domingo to have forehead evaluated. Full body skin check recommended as well. Patient states understanding. They will call patient with appt. ICD-9 : 709.8 ICD-10 : R23.8 03/27/2019 Appointment: Jewell Agee [facility] [place] [facility] ACUTE ILLNESS 03/27/2019 Care Plan: Referral Order SNOMED-CT : [id number] Pending 03/27/2019 Visit Diagnosis Plan: Localized edema Discussion: Jose Rafaele r extremity edema from knee down- improved on celebrex. Will continue celebrex for 2 more weeks. He has f/u with ortho in 1 month. Advise wearing compression stockings. ICD-9 : 782.3 ICD-10 : R60.0 02/27/2019 Appointment: Jewell Agee [facility] [place] [facility] FOLLOW UP 02/27/2019 Visit Diagnosis Plan: Presence of left artificial knee joint Discussion: With 3rd knee replacement on same extremity, expect longer recovery period and swelling for an extended period of time compared to last replacements. Patient understanding. ICD-9 : V43.65 ICD-10 : Z96.652 02/13/2019 Visit Diagnosis Plan: Essential (primary) hypertension Discussion: Continue current lisinopril dosage ICD-9 : 401.9 ICD-10 : I10 02/13/2019 Visit Diagnosis Plan: Localized edema Discussion: 2 we ek trial of celebrex 200 mg BID. Do not take tramadol while on celebrex. Ok to do tylenol only for pain. Advise wearing compression stockings and elevating extremities as much as poss ible. Notify clinic if develop SOA, chest pain/pressure. FU in 2 weeks. Patient states understanding. ICD-9 : 782.3 ICD-10 : R60.0 02/13/2019 Appointment: Jewell Agee [address] ACUTE ILLNESS 02/13/2019 Patient Education: Celebrex- [employer] Coupon [id number] [email or web address].ice/samplemd/resources/getResource/[email or web address]/[email or web address]-[email or web address] Completed 02/13/2019 Visit Diagnosis Plan: Urinary tract infection, site no t specified Discussion: cipro prescribed to take as directed. instructed patient to increase fluid with water, gatorade, cranberry juice. will send urine for culture and change medications as needed. instructed to call office with any new or worsening symptoms. ICD-9 : 599.0 ICD-10 : N39.0 10/01/2018 Appointment: Odalis Zafar [address] ACUTE ILLNESS 10/01/2018 Visit Diagnosis Plan: Epilepsy, unspecif ied, not intractable, without status epilepticus Discussion: Stable on Dilantin Check dil antin level ICD-9 : 345.90 ICD-10 : G40.909 04/24/2018 Visit Diagnosis Plan: Pain in thoracic spine Discussio n: Check thoracolumbar spine x-ray ICD-9 : 724.1 ICD-10 : M54.6 04/24/2018 Visit Diagnosis Plan: Other fatigue Discussion: Update lab Follow Up: 6 months ICD-9 : 780.79 ICD-10 : R53.83 04/24/2018 Visit Diagnosis Plan: Essential (primary) hypertension Discussion: Stable ICD-9 : 401.9 ICD-10 : I10 04/24/2018 Appointment: Gaby Rodas WPtel: [phone] Annual Well Visit 04/24/2018 Patient Education: Patient Medication Summary Completed 04/24/2018 Visit Diagnosis Plan: Mixed hyperlipidemia Discussion: Check CMP, LIpids ICD-9 : 272.4 ICD-10 : E78.2 09/14/2017 Visit Diagnosis Plan: Essential (primary) hypertension Discussion: Stable ICD-9 : 401.9 ICD-10 : I10 09/14/2017 Visit Diagnosis Plan: Unspecified convulsions Discussi on: Await note from neruology on when next phenytoin level needs checked Follow Up: 3 months ICD-9 : 780.39 ICD-10 : R56.9 09/14/2017 Appointment: Gaby Rodastel: [address] [place], [place] [phone] [place] FOLLOW UP 09/14/2017 Patient Education: Patient Medication Summary Completed 09/14/2017 Appointment: Gaby Rodas WPtel: [address] [place] [address] [place] NO SHOW 09/05/2017 Appointment: Gaby Rodastel: [address] [place], [place] [phone] [place] CANCELED 07/27/2017 Visit Diagnosis Plan: 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 Leija at end of March ICD-9 : 345.90 ICD-10 : G40.909 03/02/2017 Visit Diagnosis Plan: Essential (primary) hypertension Discussion: Stable Follow Up: 6 months ICD-9 : 401.9 ICD-10 : I10 03/02/2017 Visit Diagnosis Plan: Mixed hyperlipidemia Discussion: Up to date Saw Cardiology recently ICD-9 : 272.4 ICD-10 : E78.2 03/02/2017 Appointment: [phone] [facility] 03/01 confirmed`sl FOLLOW UP 03/02/2017 Patient Education: Patient Medication Summary Completed 03/02/2017 Visit Diagnosis Plan: Essential (primary) hypertension Discussion: Continue amlodopine and fwup with Cardiiology ICD-9 : 401.9 ICD-10 : I10 12/14/2016 Visit Diagnosis Plan: 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 [facility] Up 12/14/2016 Patient Education: Patient Medication Summary Completed 12/14/2016 Referral: Shae Olivarez WPtel: [address] [place] [address] [place] Referral Appointment Confirmed 10/24/2016 Visit Plan: Continue lisinopril at curre nt dose and monitor BP Had EEG on Monday so will await results Stop potassium and recheck Chem 7 in 1week 10/17/2016 Appointment: Gaby Rodas WPtel: 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 Rodas, will admit observation cardiac stepdown. See orders this date. 10/07/2016 Appointment: Karlene Braun WPtel: [address] [place], [place] [id number] ACUTE ILLNESS 10/07/2016 Patient Education: Patient Medication Summary Completed 10/07/2016 Visit Plan: Continue with just lisinopri l and monitor BPg 08/31/2016 Appointment: Gaby Rodas WPtel: [address] [place] [address] 08/30 confirmed~sl FOLLOW UP 08/31/2016 Patient Education: Patient Medication Summary Completed 08/31/2016 Visit Plan: Stop amlodopine Monitor home BP Recheck 1month 08/01/2016 Appointment: Gaby Rodas WPtel: [address] [place] [address] [place] 07/28 lm ~sl 08/01 lm-sp FOLLOW UP 6 Patient Education: Patient Medication Summary Completed 08/01/2016 Appointment: Gaby Rodas WPtel: [address] [place] [address] [place] 05/02 rang and rang~sl 05/03 canceled ~sl CANCELED 05/03/2016 Visit Plan: Continue current meds Stay h ydrated Monitor BP 04/27/2016 Appointment: Gaby Rodas WPtel: [address] [place] [address] [place] 04/26 confirmed~sl FOLLOW UP 04/27/2016 Patient Education: Patient Medication Summary Completed 04/27/2016 Appointment: Gaby Rodas WPtel: [address] [place] [address] [place] na/vm-sp 01/10 no vm just beeping~sl 04/18 na/vm 04/19 re scheduled-sp RESCHEDULED 04/25/2016 Visit Plan: Continue amlodopine Stress T est tomorrow Discussed that if shrub grower thinks he needs cardiac cath after the stress test then needs to proceed Fwup pending stress test results 03/21/2016 Appointment: Gaby Rodas WPtel: [address] [place], [place] [id number] 03/21 lm-sp 03/21 Called for Records ~sl FOLLOW UP 03/21/2016 Patient Education: Patient Medication Summary Completed 03/21/2016 Appointment: Gaby Rodas WPtel: [address] [place], [place] [phone] CANCELED 03/17/2016 Visit Plan: Start Norvasc 2.5 mg daily C ontinue Lisinopril - take only once daily Self monitor BP Proceed with Stress Echo Follow-up in 1 week 03/14/2016 Appointment: Lilly Lawson WPtel: [address] [place], [place] [phone] ACUTE ILLNESS 03/14/2016 Patient Education: Patient Medication Summary Completed 03/14/2016 Visit Plan: EKG today CBC, CMP, Triponin level Holter Monitor x 24 hours Follow-up with Dr. Rodas - 1 week 02/29/2016 Appointment: Lilly Lawson WPtel: [address] [place], [place] [id number] ACUTE ILLNESS 02/29/2016 Patient Education: Patient Medication Summary Completed 02/29/2016 Visit Plan: Check fasting lab including TSH, Free T4, B12, CMP, lipids, CBC, Vit D Discussed may need MRI of brain and cervical spine if has any further episodes of paresthesias--patient defers at this time 11/02/2015 Appointment: Gaby Rodas WPtel: [address] [place], [place] [phone] 08/03/ rescheduled pt 10/26 appt to 10/07 8 patient ok with change cn 10/28 confirmed ~sl FOLLOW UP 11/02/2015 Patient Education: Patient Medication Summary Completed 11/02/2015 Visit Plan: Check fasting lab next month Continue current meds 03/26/2015 Appointment: Gaby Rodas WPtel: [address] [place] [address] FOLLOW UP 03/26/2015 Patient Education: Patient Medication Summary Completed 03/26/2015 Appointment: Gaby Rodas WPtel: [address] [place] [address] 09/02 No answer FOLLOW UP 09/03/2014 Patient Education: Patient Medication Summary Completed 09/03/2014 Visit Plan: Check CBC, CMP, Lipids in AM Continue current meds 04/15/2014 Appointment: Gaby Rodas WPtel: [address] [place] [address] FOLLOW UP 04/15/2014 Patient Education: Patient Medication Summary Completed 04/15/2014 Appointment: Gaby Rodas WPtel: [address] [place] [address] 03/28/14 no answer 04/01/14 No Show FOLLOW UP 04/01/2014 Visit Plan: Decrease caffeine intake--pt drinks about 10 cups a day Also discussed taking BP pill at same time everyday Check fasting lab Discussed MRI of brain--pt defers Discussed brain exercises 09/30/2013 Appointment: Gaby Rodas WPtel: [address] [place], [place] [phone] FOLLOW UP 09/30/2013 Patient Education: Patient Medication Summary Completed 09/30/2013 Visit Plan: Continue current meds Check CMP Check Carotid dopplers 04/02/2013 Appointment: Gaby Rodas WPtel: [address] [place] [address] 03/29 appt confirmed FOLLOW UP 04/02/2013 Patient Education: Patient Medication Summary Completed 04/02/2013 Visit Plan: Continue current meds Check fasting lab in AM 08/02/2012 Appointment: aGby Rodas WPtel: [address] [place] [address] [place] FOLLOW UP 08/02/2012 Patient Education: Patient Medication Summary Completed 08/02/2012 Visit Plan: Check CBC, CMP Trial of Mobi c daily for next month instead of relafen 02/13/2012 Appointment: Gaby Rodastel: [address] [place], [place] [phone] FOLLOW UP 02/13/2012 Patient Education: Patient Medication Summary Completed 02/13/2012 Visit Plan: Continue current meds Check fasting lab Fwup with ortho as scheduled 07/04/2011 Appointment: Gaby Rodas WPtel: [address] [place] [address] FOLLOW UP 07/04/2011 Patient Education: Patient Medication Summary Completed 07/04/2011 Appointment: Gaby Rodas WPtel: [address] [place] [address] ACUTE ILLNESS 06/01/2011 Patient Education: Patient Medication Summary Completed 06/01/2011 Visit Plan: Continue current meds Fastin g lab and fwup in 6mos 01/04/2011 Appointment: Gaby Rodas WPtel: [address] [place] [address] FOLLOW UP 01/04/2011 Patient Education: Patient Medication Summary Completed 01/04/2011 Visit Plan: Check lab including CMP, CBC , Lipids, TSH, Free T4, Vit D, uric acid, WILVER, RA, ESR, CPK, PSA Cont current meds 11/15/2010 Appointment: Gaby Rodas WPtel: [address] [place], [place] [id number] ACUTE ILLNESS 11/15/2010 Patient Education: Patient Medication Summary Completed 11/15/2010 Appointment: Gaby Rodastel: [address] [place], [place] [phone] FOLLOW UP 07/13/2010 Patient Education: Patient Medication Summary Completed 07/13/2010 Patient Education: Patient Medication Summary Completed 07/13/2010 Visit Plan: Continue current meds and fw up w/ surgery as scheduled 01/26/2010 Appointment: Gaby Rodas WPtel: [phone] [facility] [id number] FOLLOW UP 01/26/2010 Patient Education: Patient Medication Summary Completed 01/26/2010 Referral: Enrike Leija Referral Initiated Referral: Shaniqua Domingo WPtel: [facility] [address] [facility] [place] Referral Appointment Requested Referral: Shaniqua Domingo WPtel: [facility] [address] [facility] [place] Referral Initiated Instructions Comment . Continue lisinopril at current dose an d monitor BP Had EEG on Monday so will await results Stop potassium and recheck Chem 7 in 1week . Discussed with Dr Rodas EEG Follow up with her in 1 week Change lisinopril/hctz to plain lisinopril 40mg daily Continue potassium 20meq but only ONCE per day Recheck BMP Monday and will get a BP as well Will help patient make his follow up with his shrub grower today as well If any change or worsening in his chest "tightness" go to ER or call 911 immediately [address] Rodas, will admit observation cardiac stepdown. See orders this date. . Continue with just lisinopril and [place] tor BPg . Stop amlodopine Monitor home BP Recheck 1month . Continue current meds Stay hydrated Monitor BP . Continue amlodopine Stress Test tomorrow Discussed that if shrub grower thinks he needs cardiac cath after the stress test then needs to proceed Fwup pending stress test results . Start Norvasc 2.5 mg daily Continue Lisinopril - take only once daily Self monitor BP Proceed with Stress Echo Follow-up in 1 week . EKG today CBC, CMP, Triponin level Holter Monitor x 24 hours Follow-up with Dr. Rodsa - 1 week . Check fasting lab including TSH, Free T4, B12, CMP, lipids, CBC, Vit D Discussed may need MRI of brain and cervical spine if has any further episodes of paresthesias--patient defers at this time . Check fasting lab next month Continue current meds . Check CBC, CMP, Lipids in AM Continue current meds . Decrease caffeine intake--pt drinks ab out 10 cups a day Also discussed taking BP pill at same time everyday Check fasting lab Discussed MRI of brain--pt defers Discussed brain exercises . Continue current meds Check CMP Check Carotid dopplers . Continue current meds Check fasting lab in AM . Check CBC, CMP Trial of Mobic daily for next month instead of relafen . Continue current meds Check fasting lab Fwup with ortho as scheduled . Continue current meds Fasting lab and fwup in 6mos . Check lab including CMP, CBC, Lipids, TSH, Free T4, Vit D, uric acid, WILVER, RA, ESR, CPK, PSA Cont current meds . Continue current meds and fwup w/ surg jing as scheduled Medical Equipment No Medical Equipment data Health Concerns Section Health Concerns data not found Goals Section Goals data not found Interventions Section Interventions data not found Health Status Evaluations/Outcomes Section Health Status Evaluations/Outcomes data not found Advance Directives No Advance Directive data
--- OUTSIDE RECORDS SUMMARY | 2020-06-09 00:58 | XMS REPORT | CCD ---
Author Author Syd Rodas D.O. 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 PP Unavailable CCM Unavailable Summary Purpose Interface Exchange Insurance Providers Payer name Policy type / Coverage type Covered democrat ID Effective Begin Date Effective End Date WPS MEDICARE PART B [place] Medicare Part B [id number] Unknown [id number] Medicare Part B [id number] Unknown Family history Mother Diagnosis Age At Onset Cancer Unknown Grandparents Diagnosis Age At Onset Cardiovascular disease Unknown Father Diagnosis Age At Onset Pneumonia Unknown Social History Social History Element Codes Description Effective Dates Tobacco history SNOMED CT: 337282356 Never smoker 06/01/2011 Marital status Unknown 01/08/2010 [...] Fill Instructions lisinopril 40 mg tablet RxNorm: 422165 TAKE 1 TABLET DA GIULIANA (STOP THE LISINOPRIL/HCTZ) 01/16/2020 No Stop Date Active Keflex 500 mg capsule RxNorm: 009281 1 Capsule(s) Oral four juan es a day 11/07/2019 11/12/2019 Inactive Keflex 500 mg capsule RxNorm: 334068 1 Capsule(s) Oral three ti mes a day 11/07/2019 11/06/2019 Inactive Colace 100 mg capsule RxNorm: 8613746 1 Capsule(s) Oral QD 09/24/20 No Stop Date Active phenytoin sodium extended 100 mg capsule RxNorm: 411682 TAKE 2 CAPSULES TWICE A DAY 08/26/2019 No Stop Date Active aspirin 325 mg tablet RxNorm: 588163 1 Tablet(s) Oral QD 08/08/2019 No Stop Date Active Celebrex 200 mg capsule RxNorm: 059502 1 Capsule(s) PO BID 02/14/2003/14/2019 Inactive lisinopril 40 mg tablet RxNorm: 891773 TAKE 1 TABLET DA GIULIANA (STOP THE LISINOPRIL/HCTZ) 12/05/2018 01/15/2020 Inactive Cipro 250 mg tablet RxNorm: 425202 1 Tablet(s) PO BID 10/01/201812/2017 Inactive tramadol 37.5 mg-acetaminophen 325 mg tablet RxNorm: 081462 2 Tablet(s) PO TID as needed for pain 07/30/2018 02/26/2019 Inactive lisinopril 40 mg tablet RxNorm: 259979 1 TABLET(S) PO Q D REPLACES LISINOPRIL/HCTZ 12/25/2017 12/04/2018 Inactive phenytoin sodium extended 100 mg capsule RxNorm: 215877 1 Capsule(s) PO QAM and 2 at bedtime 12/14/2016 09/13/2017 Inactive lisinopril 40 mg tablet RxNorm: 470590 1 Tablet(s) PO Q D REPLACES LISINOPRIL/HCTZ 10/26/2016 11/15/2016 Inactive lisinopril 40 mg tablet RxNorm: 295256 1 Tablet(s) PO Q D REPLACES LISINOPRIL/HCTZ 10/26/2016 12/13/2016 Inactive potassium chloride ER 20 mEq tablet,extended release(p art/cryst) RxNorm: 2010692 3/4 Tablet(s) PO QD 10/10/2016 12/13/2016 Inactive lisinopril 40 mg tablet RxNorm: 876569 1 Tablet(s) PO Q D REPLACES LISINOPRIL/HCTZ 10/10/2016 10/25/2016 Inactive amlodipine 2.5 mg tablet RxNorm: 313846 1 Tablet(s) PO QD 08/01/2016 08/01/2016 Inactive tramadol 37.5 mg-acetaminophen 325 mg tablet RxNorm: 095713 2 Tablet(s) PO TID as needed for pain 05/24/2016 08/21/2016 Inactive lisinopril 20 mg-hydrochlorothiazide 25 mg tablet RxNorm: 19 7887 TAKE 1 TABLET EVERY MORNING 05/20/2016 10/09/2016 Inactive potassium chloride ER 20 mEq tablet,extended release(p art/cryst) RxNorm: 6450542 TAKE 1 TABLET TWICE A DAY 05/20/2016 10/09/2016 Inactive amlodipine 2.5 mg tablet RxNorm: 474398 1 Tablet(s) PO QHS 03/14/20 16 04/12/2016 Inactive Klor-Con 20 mEq oral packet RxNorm: 131089 1 Tablet(s) PO BID 04/0807/31/2016 Inactive lisinopril 20 mg-hydrochlorothiazide 25 mg tablet RxNorm: 19 7887 1 Tablet(s) PO QD TAKE 1 TABLET DAILY 04/08/2015 04/01/2016 Inactive lisinopril 20 mg-hydrochlorothiazide 25 mg tablet RxNorm: 19 7887 1 Tablet(s) PO QD TAKE 1 TABLET DAILY 11/07/2013 04/08/2015 Inactive potassium chloride ER 20 mEq tablet,extended release(part/cr yst) RxNorm: 763185 1 Tablet(s) PO BID 11/07/2013 04/08/2015 Inactive potassium chloride ER 20 mEq tablet,extended release(p art/cryst) RxNorm: 5486036 1 Tablet(s) PO BID 10/14/2013 10/13/2013 Inactive lisinopril 20 mg-hydrochlorothiazide 25 mg tablet RxNorm: 82 3971 1 Tablet(s) PO QD TAKE 1 TABLET DAILY 10/14/2013 11/06/2013 Inactive potassium chloride ER 20 mEq tablet,extended release(part/cr yst) RxNorm: 195158 1 Tablet(s) PO BID 10/14/2013 11/06/2013 Inactive lisinopril 20 mg-hydrochlorothiazide 25 mg tablet RxNorm: 19 7887 1 Tablet(s) PO QD TAKE 1 TABLET DAILY 10/14/2013 10/13/2013 Inactive lisinopril 20 mg-hydrochlorothiazide 25 mg tablet RxNorm: 19 7887 Tablet(s) PO TAKE 1 TABLET DAILY 06/04/2013 10/13/2013 Inactive Ultracet 37.5 mg-325 mg tablet RxNorm: 302520 2 Tablet(s) PO TID 09/29/2013 Inactive TAKE 2 TABLETS THREE TIMES A DAY NEEDED FOR PAIN K-Dur 20 mEq tablet,extended release RxNorm: 3874795 Tablet(s) PO 1 08/30/2013 Inactive TAKE 1 TABLET TWICE A DAY lisinopril 20 mg-hydrochlorothiazide 25 mg tablet RxNorm: 19 7887 1 Tablet(s) PO QD 09/05/2012 03/03/2013 Inactive Mobic 15 mg Tab RxNorm: 852938 1 Tablet(s) PO QD for arthritis pain 02/13/2012 03/13/2012 Inactive K-Dur 20 mEq tablet,extended release RxNorm: 6514274 1 Tablet(s) PO BID 07/28/2011 09/06/2012 Inactive generic equivalent o truong Ultracet 37.5 mg-325 mg tablet RxNorm: 486741 2 Tablet(s) PO TID 10/24/2011 Inactive TAKE 2 TABLETS THREE TIMES A DAY NEEDED FOR PAIN lisinopril-hydrochlorothiazide 20 mg-25 mg tablet RxNorm: 19 7887 1 Tablet(s) PO QD 06/16/2011 09/05/2012 Inactive TAKE 1 TABLET DA GIULIANA Bactrim DS 800 mg-160 mg Tab RxNorm: 894514 1 Tablet(s) PO QD 06/0107/03/2011 Inactive Ultracet 37.5 mg-325 mg Tab RxNorm: 895619 2 Tablet(s) PO TID P .r.n. pain 03/07/2011 07/27/2011 Inactive K-Dur 20 mEq Tab RxNorm: 8228140 1 Tablet(s) PO BID 04/30/20102010 Inactive lisinopril-hydrochlorothiazide 20 mg-25 mg Tab RxNorm: 705361 1 Tablet(s) PO QD 04/29/2010 06/17/2011 Inactive Relafen 750 mg Tab RxNorm: 816999 1 Tablet(s) PO BID P.r.n. pain 04/17/2010 Inactive Ultracet 37.5 mg-325 mg Tab RxNorm: 758926 2 Tablet(s) PO TID P .r.n. pain 01/08/2010 04/17/2010 Inactive Zestoretic 20 mg-25 mg Tab RxNorm: 701385 1 Tablet(s) PO QD 010 04/07/2010 Inactive K-Dur 20 mEq Tab RxNorm: 3497114 1 Tablet(s) PO BID 01/08/20102009 Inactive lisinopril 40 mg tablet RxNorm: 130926 1 Tablet(s) PO QD No Start Date Active Colace 100 mg capsule RxNorm: 6175887 1 Capsule(s) PO BID No Start Date 09/23/2019 Inactive K-Dur 20 mEq Tab RxNorm: 8440287 1 Tablet(s) PO BID No Start Date Inactive amlodipine 2.5 mg tablet RxNorm: 087510 1 Tablet(s) PO QD No Start Date 03/01/2017 Inactive Relafen 750 mg Tab RxNorm: 906088 1 Tablet(s) PO BID prn No Start D ate 02/12/2012 Inactive K-Dur 20 mEq tablet,extended release RxNorm: 484257 1 Tablet(s) PO BID No Start Date 11/01/2015 Inactive tramadol 50 mg Tab RxNorm: 821509 2 Tablet(s) PO TID prn pain No St art Date 05/23/2016 Inactive aspirin 325 mg tablet RxNorm: 392058 1 Tablet(s) PO QD No Start Date 09/30/2018 Inactive lisinopril-hydrochlorothiazide 20 mg-25 mg tablet RxNorm: 19 7887 1 Tablet(s) PO QD No Start Date 09/04/2012 Inactive Colace 100 mg capsule RxNorm: 3398417 1 Capsule(s) PO QD No Start D ate 09/30/2018 Inactive Vitamin D3 1000 units Capsule RxNorm: 1 Capsule(s) PO QD No St art Date 02/28/2016 Inactive aspirin 81 mg tablet,delayed release RxNorm: 878668 1 Tablet(s) PO QD No Start Date 02/26/2019 Inactive Colace 100 mg Cap RxNorm: 9217918 1 Capsule(s) PO BID No Start Date 0 01/26/2010 Inactive phenytoin sodium extended 100 mg capsule RxNorm: 597150 2 Capsu le(s) PO BID No Start Date 08/25/2019 Inactive Medication Administered No Medication Administered data Immunizations Vaccine Codes Date Status Influenza CVX: 135 08/08/2019 Complete Influenza CVX: 135 08/08/2019 Complete Influenza CVX: 135 07/25/2017 Complete Pneumococcal CVX: 133 07/25/2017 Complete Influenza CVX: 141 09/03/2014 Pneumococcal (Adult) Unknown 07/13/2010 Results Observation Observation Code Item Item Code Result Date S ervice Location GFR CALC [id number] GFR AA >60 ML/MIN 07/13/2010 Unknown GFR CALC [id number] GFR NON-AA >60 ML/MIN 07/13/2010 Unknown THYROID STIMULATING HORMONE 82225 TSH 2.361 uIU/ML 07/13/2010 Unknown COMPREHENSIVE METABOLIC 16103 AST 20 U/L 2009 Unknown COMPREHENSIVE METABOLIC 26917 ALT 10 IU/L 2009 Unknown COMPREHENSIVE METABOLIC 73405 BUN 15 MG/DL 2009 Unknown COMPREHENSIVE METABOLIC 93536 ALBUMIN 4.3 GM/DL 2009 Unknown COMPREHENSIVE METABOLIC 07705 CHLORIDE 101 MMOL/L 07/13 Unknown COMPREHENSIVE METABOLIC 87923 BILI TOT 0.8 MG/DL 2009 Unknown COMPREHENSIVE METABOLIC 32576 ALK PHOS 91 U/L 2009 Unknown COMPREHENSIVE METABOLIC 08003 SODIUM 138 MMOL/L 07/13 Unknown COMPREHENSIVE METABOLIC 91138 CREATININE 0.96 MG/DL 05/2010 Unknown COMPREHENSIVE METABOLIC 00507 CALCIUM 9.3 MG/DL 2009 Unknown COMPREHENSIVE METABOLIC 18038 POTASSIUM 4.2 MMOL/L 07/13 Unknown COMPREHENSIVE METABOLIC 53819 PROT TOT 6.4 GM/DL 2009 Unknown COMPREHENSIVE METABOLIC 21097 Glucose 85 MG/DL 2009 Unknown COMPREHENSIVE METABOLIC 35520 BICARB 29 MMOL/L 2009 Unknown COMPREHENSIVE METABOLIC 31562 ANION GAP 8 MEQ/L 2009 Unknown LIPID GROUP 76898 HDL TEST 49 MG/DL 07/13/2010 Unknown LIPID GROUP 10574 TRIG 87 MG/DL 07/13/2010 Unknown LIPID GROUP 67989 TEST LDL 95 MG/DL 07/13/2010 Unknown LIPID GROUP 04031 CHOL 161 MG/DL 07/13/2010 Unknown LIPID GROUP 59464 RCHOL/HDL 3.29 RATIO 07/13/2010 Unknow n Procedures Procedure Codes Date FLU VACC PRSV FREE INC ANTIG 65 AND OLDER CPT-4: 65584 08/08/2019 FLU VACC PRSV FREE INC ANTIG 65 AND OLDER CPT-4: 89148 08/08/2019 ADMIN INFLUENZA VIRUS VAC CPT-4: G0008 08/08/2019 PPPS, subseq visit CPT-4: G0439 08/08/2019 URINE CULTURE/ COLONY COUNT CPT-4: 09961 10/01/2018 URINALYSIS NONAUTO W/O SCOPE CPT-4: 11938 10/01/2018 PPPS, subseq visit CPT-4: G0439 04/24/2018 FLU VACC PRSV FREE INC ANTIG 65 AND OLDER CPT-4: 77228 07/25/2017 PNEUMOCOCCAL VACC 13 HAN IM CPT-4: 94925 07/25/2017 ADMIN PNEUMOCOCCAL VACCINE CPT-4: G0009 07/25/2017 ADMIN INFLUENZA VIRUS VAC CPT-4: G0008 07/25/2017 URINALYSIS NONAUTO W/O SCOPE CPT-4: 88513 10/07/2016 FLU VACCINE 3 YRS & > IM UP 64 CPT-4: 20853 4 FLUZONE, 5ML (Medicare) CPT-4: Q2038 09/03/2014 ADMIN INFLUENZA VIRUS VAC CPT-4: G0008 09/03/2014 PRESCRIP TRANSMIT VIA ERX SY CPT-4: G8553 02/13/2012 CUR TOBACCO NON-USER CPT-4: G8457 06/01/2011 PRESCRIP TRANSMIT VIA ERX SY CPT-4: G8553 06/01/2011 ROUTINE VENIPUNCTURE CPT-4: 87126 07/13/2010 DESTRUCT PREMALG LESION (Cryosurgery) CPT-4: 85593 COMPREHEN METABOLIC PANEL CPT-4: 79040 07/13/2010 LIPID PANEL CPT-4: 28857 07/13/2010 ASSAY THYROID STIM HORMONE CPT-4: 88833 07/13/2010 PNEUMOCOCCAL VACC 23 HAN IM CPT-4: 79358 07/13/2010 IMMUNIZATION ADMIN CPT-4: 80409 07/13/2010 ROUTINE VENIPUNCTURE CPT-4: 01008 07/13/2010 COMPREHEN METABOLIC PANEL CPT-4: 49185 07/13/2010 LIPID PANEL CPT-4: 50486 07/13/2010 ASSAY THYROID STIM HORMONE CPT-4: 75051 07/13/2010 Vital Signs Date Vital 02/06/2020 Blood [...] 1: 134/52 Code: 8480-6 BMI: 28.8 Code: 93673-7 Heart Rate 1: 60 bpm Height: 5'9" [...] 1: 142/70 Code: 8480-6 BMI: 25.1 Code: 25471-6 Heart Rate 1: 64 bpm Height: 6'1" Respiratory Rate: 20 bpm SpO2: 95% Tempera ture: 36.9 (C) / 98.5 (F) Weight: 190 lbs 09/14/2017 Blood Pressure 1: 144/70 Code: 8480-6 BMI: 25.5 Code: 11163-7 Heart Rate 1: 76 bpm Height: 6'1" Respiratory Rate: 20 bpm SpO2: 95% Tempera ture: 36.8 (C) / 98.2 (F) Weight: 193 lbs 07/25/2017 Blood Pressure 1: 116/58 Code: 8480-6 BMI: 25.5 Code: 75168-5 Heart Rate 1: 72 bpm Height: 6'1" Respiratory Rate: 20 bpm SpO2: 95% Tempera ture: 36.8 (C) / 98.3 (F) Weight: 193 lbs 03/02/2017 Blood Pressure 1: 126/70 Code: 8480-6 BMI: 25.9 Code: 40491-3 Heart Rate 1: 64 bpm Height: 6'1" Respiratory Rate: 20 bpm SpO2: 95% Tempera ture: 36.6 (C) / 97.9 (F) Weight: 196 lbs 12/14/2016 Blood Pressure 1: 144/70 Code: 8480-6 BMI: 27.0 Code: 12310-7 Heart Rate 1: 80 bpm Height: 6'1" [...] 1: 144/60 Code: 8480-6 BMI: 26.5 Code: 00300-4 Heart Rate 1: 60 bpm Height: 6'1" Respiratory Rate: 20 bpm Temperature: 36 .9 (C) / 98.4 (F) Weight: 201 lbs 08/01/2016 Blood Pressure 1: 144/70 Code: 8480-6 Heart Rate 1: 68 bpm Respiratory Rate: 20 bpm Temperature: 36.9 (C) / 98.4 (F) Weight: 200 lbs 04/27/2016 Blood Pressure 1: 134/68 Code: 8480-6 BMI: 26.8 Code: 16177-3 Heart Rate 1: 68 bpm Height: 6'1" Respiratory Rate: 20 bpm Temperature: 36 .3 (C) / 97.3 (F) Weight: 203 lbs 03/21/2016 Blood Pressure 1: 126/64 Code: 8480-6 BMI: 26.8 Code: 06964-0 Heart Rate 1: 80 bpm Height: 6'1" Respiratory Rate: 20 bpm Temperature: 36 .6 (C) / 97.9 (F) Weight: 203 lbs 03/14/2016 Blood Pressure 1: 176/90 Code: 8480-6 BMI: 26.3 Code: 86995-9 Heart Rate 1: 74 bpm Height: 6'1" Respiratory Rate: 22 bpm SpO2: 94% Tempera ture: 36.2 (C) / 97.1 (F) Weight: 199 lbs 02/29/2016 Blood Pressure 1: 172/82 Code: 8480-6 BMI: 26.9 Code: 78130-3 Heart Rate 1: 60 bpm Height: 6'1" Respiratory Rate: 20 bpm SpO2: 98% Tempera ture: 36.8 (C) / 98.2 (F) Weight: 204 lbs 11/02/2015 Blood Pressure 1: 136/72 Code: 8480-6 BMI: 27.3 Code: 60026-7 Heart Rate 1: 68 bpm Height: 6'1" Respiratory Rate: 20 bpm Temperature: 36 .6 (C) / 97.8 (F) Weight: 207 lbs 03/26/2015 Blood Pressure 1: 142/74 Code: 8480-6 BMI: 28.2 Code: 44779-3 Heart Rate 1: 76 bpm Height: 6'1" Respiratory Rate: 20 bpm Temperature: 36 .7 (C) / 98.1 (F) Weight: 214 lbs 09/03/2014 Blood Pressure 1: 132/68 Code: 8480-6 BMI: 29.8 Code: 97831-0 Heart Rate 1: 80 bpm Height: 6'1" Respiratory Rate: 20 bpm Temperature: 36 .7 (C) / 98.1 (F) Weight: 226 lbs 04/15/2014 Blood Pressure 1: 142/64 Code: 8480-6 BMI: 28.9 Code: 82029-3 Heart Rate 1: 64 bpm Height: 6'1" Respiratory Rate: 22 bpm Temperature: 36 .2 (C) / 97.2 (F) Weight: 219 lbs 09/30/2013 Blood Pressure 1: 142/70 Code: 8480-6 BMI: 29.2 Code: 47943-0 Heart Rate 1: 72 bpm Height: 6'1" Respiratory Rate: 20 bpm Temperature: 36 .7 (C) / 98.1 (F) Weight: 221 lbs 04/02/2013 Blood Pressure 1: 142/78 Code: 8480-6 BMI: 29.6 Code: 96128-4 Heart Rate 1: 64 bpm Height: 6'1" Respiratory Rate: 20 bpm Temperature: 36 .6 (C) / 97.9 (F) Weight: 224 lbs 08/02/2012 Blood Pressure 1: 122/66 Code: 8480-6 BMI: 29.3 Code: 93720-9 Heart Rate 1: 64 bpm Height: 6'1" Respiratory Rate: 20 bpm Temperature: 36 .9 (C) / 98.4 (F) Weight: 222 lbs 02/13/2012 Blood Pressure 1: 138/72 Code: 8480-6 BMI: 28.5 Code: 62065-5 Heart Rate 1: 72 bpm Height: 6'1" Respiratory Rate: 20 bpm Temperature: 36 .4 (C) / 97.6 (F) Weight: 216 lbs 07/04/2011 Blood Pressure 1: 124/60 Code: 8480-6 BMI: 28.5 Code: 20580-8 Heart Rate 1: 56 bpm Height: 6'1" Respiratory Rate: 20 bpm Temperature: 36 .6 (C) / 97.9 (F) Weight: 216 lbs 06/01/2011 Blood Pressure 1: 122/68 Code: 8480-6 BMI: 28.5 Code: 04467-5 Heart Rate 1: 68 bpm Height: 6'1" [...] 1: 122/56 Code: 8480-6 BMI: 27.6 Code: 59623-5 Heart Rate 1: 72 bpm Height: 6'1" [...] TITIS Encounters Encounter Performer Location Codes Date ([id number]) OFFICE/OUTPATIENT VISIT EST Diagnosis: Essential (primary) hypertension[ICD10: I10] Diagnosis: Sick sinus syndrome[ICD10: I49.5] Gaby Sanchez Shira [facility]OD[facility] CPT-4: 25251 02/06/2020 ([id number]) OFFICE/OUTPATIENT VISIT EST Diagnosis: Small bowel obstruction[ICD10: K56.609] Gaby Armandocheikh MORGAN Shira RODAS [facility] CPT-4: 07805 09/24/2019 ([id number]) OFFICE/OUTPATIENT VISIT EST Diagnosis: Other skin changes[ICD10: R23.8] Jewell RODAS [facility] CPT-4: 92624 03/27/2019 ([id number]) OFFICE/OUTPATIENT VISIT EST Diagnosis: Localized edema[ICD10: R60.0] Diagnosis: Presence of left artificial knee joint[ICD10: Z96.652] Jewell RODAS [facility] CPT-4: 31796 02/27/2019 ([id number]) OFFICE/OUTPATIENT VISIT EST Diagnosis: Localized edema[ICD10: R60.0] Diagnosis: Presence of left artificial knee joint[ICD10: Z96.652] Diagnosis: Essential (primary) hypertension[ICD10: I10] Jewell RODAS [facility] CPT-4: 07672 02/13/2019 ([id number]) OFFICE/OUTPATIENT VISIT EST Diagnosis: Urinary tract infection, site not specified[ICD10: N39.0] [facility] 36112 10/01/2018 ([id number]) OFFICE/OUTPATIENT VISIT EST Diagnosis: Essential (primary) hypertension[ICD10: I10] Diagnosis: Mixed hyperlipidemia[ICD10: E78.2] Diagnosis: Unspecified convulsions[ICD10: R56.9] Gaby PARRA Shira [facility]OD[facility] CPT-4: 61649 09/14/2017 ([id number]) OFFICE/OUTPATIENT VISIT EST Diagnosis: 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 (postprocedural) (postinfection)[ICD10: K56.5] Diagnosis: Essential (primary) hypertension[ICD10: I10] Diagnosis: FLU VACCINE[ICD10: Z23] Diagnosis: PNEUMOCOCCAL VACCINE[ICD10: Z23] [facility] 42215 07/25/2017 ([id number]) OFFICE/OUTPATIENT VISIT EST Diagnosis: Mixed hyperlipidemia[ICD10: E78.2] Diagnosis: Essential (primary) hypertension[ICD10: I10] Diagnosis: Epilepsy, unspecified, not intractable, without status epilepticus[ICD10: G40.909] [facility]: 27561 03/02/2017 ([id number]) OFFICE/OUTPATIENT VISIT EST Diagnosis: Essential (primary) hypertension[ICD10: I10] Diagnosis: 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 (postprocedural) (postinfection)[ICD10: K56.5] Diagnosis: Unspecified convulsions[ICD10: R56.9] Gaby Burrell TREY Silva [facility] CPT-4: 41448 12/14/2016 ([id number]) OFFICE/OUTPATIENT VISIT EST Diagnosis: Hypokalemia[ICD10: E87.6] Diagnosis: Essential (primary) hypertension[ICD10: I10] Gaby Silva [facility] CPT-4: 18169 10/17/2016 ([id number]) OFFICE/OUTPATIENT VISIT EST Diagnosis: Altered mental status, unspecified[ICD10: R41.82] Diagnosis: Chest pain, unspecified[ICD10: R07.9] Diagnosis: Essential (primary) hypertension[ICD10: I10] Diagnosis: Hypokalemia[ICD10: E87.6] Freda Womack [facility]: 68821 10/10/2016 OFFICE/OUTPATIENT VISIT EST Diagnosis: Essential (primary) hypertension[ICD10: I10] [facility]: 65037 08/31/2016 ([id number]) OFFICE/OUTPATIENT VISIT EST Diagnosis: Irritability and anger[ICD10: R45.4] Diagnosis: Essential (primary) hypertension[ICD10: I10] [facility] CPT-[facility]: 69855 08/01/2016 ([id number]) OFFICE/OUTPATIENT VISIT EST Diagnosis: Essential (primary) hypertension[ICD10: I10] Diagnosis: Cardiac arrhythmia, unspecified[ICD10: I49.9] Gaby [facility] CPT-4: 14382 04/27/2016 OFFICE/OUTPATIENT VISIT EST Diagnosis: Essential (primary) hypertension[ICD10: I10] Diagnosis: Cardiac arrhythmia, unspecified[ICD10: I49.9] Diagnosis: Chest pain, unspecified[ICD10: R07.9] Gaby RODAS [facility] CPT-4: 75236 03/21/2016 OFFICE/OUTPATIENT VISIT EST Diagnosis: Essential (primary) hypertension[ICD10: I10] Diagnosis: Other fatigue[ICD10: R53.83] Diagnosis: Dyspnea, unspecified[ICD10: R06.00] [facility]: 59350 03/14/2016 OFFICE/OUTPATIENT VISIT EST Diagnosis: Dyspnea, unspecified[ICD10: R06.00] Diagnosis: Cardiac arrhythmia, unspecified[ICD10: I49.9] Diagnosis: Other fatigue[ICD10: R53.83] Lilly RODAS [facility] CPT-4: 13004 02/29/2016 ([id number]) OFFICE/OUTPATIENT VISIT EST Diagnosis: Essential (primary) hypertension[ICD10: I10] Diagnosis: Mixed hyperlipidemia[ICD10: E78.2] Diagnosis: Paresthesia of skin[ICD10: R20.2] Diagnosis: OSTEOARTHRISIS MULTI SITES[ICD10: M19.90] Gaby R[facility]AS [facility] CPT-4: 93830 11/02/2015 ([id number]) OFFICE/OUTPATIENT VISIT EST Diagnosis: HYPERTENSION[ICD9: 401.9] Diagnosis: HYPERLIPIDEMIA NEC/NOS[ICD9: 272.4] Gaby RODAS [facility] CPT-4: 64230 03/26/2015 ([id number]) OFFICE/OUTPATIENT VISIT EST Diagnosis: HYPERTENSION[ICD9: 401.9] Diagnosis: HYPERLIPIDEMIA NEC/NOS[ICD9: 272.4] Diagnosis: Hand pain[ICD9: 729.5] Diagnosis: FLU VACCINE[ICD10: Z23] Gaby HINKLE DinoAlanna [facility] CPT-4: 84680 09/03/2014 ([id number]) OFFICE/OUTPATIENT VISIT EST Diagnosis: HYPERTENSION[ICD9: 401.9] Diagnosis: HYPERLIPIDEMIA NEC/NOS[ICD9: 272.4] Diagnosis: ARTHRALGIA-MULTIPLE SITES[ICD9: 719.49] Diagnosis: MALAISE AND FATIGUE[ICD9: 780.79] Gaby Sanchez [facility] C[facility]: 70567 04/15/2014 OFFICE/OUTPATIENT VISIT EST Diagnosis: HYPERTENSION[ICD9: 401.9] Diagnosis: HYPERLIPIDEMIA NEC/NOS[ICD9: 272.4] Diagnosis: MEMORY LOSS[ICD9: 780.93] Gaby Silva ARMANDO KWONGPamela [facility] CPT-4: 66667 09/30/2013 ([id number]) OFFICE/OUTPATIENT VISIT EST Diagnosis: HYPERTENSION[ICD9: 401.9] Diagnosis: ARTHRALGIA-MULTIPLE SITES[ICD9: 719.49] Diagnosis: Carotid bruit[ICD9: 785.9] Gaby Silva [facility]: 82557 04/02/2013 ([id number]) OFFICE/OUTPATIENT VISIT EST Diagnosis: HYPERLIPIDEMIA NEC/NOS[ICD9: 272.4] Diagnosis: HYPERTENSION[ICD9: 401.9] Diagnosis: ARTHRALGIA-MULTIPLE SITES[ICD9: 719.49] [facility]: 75924 08/02/2012 ([id number]) OFFICE/OUTPATIENT VISIT EST Diagnosis: HYPERTENSION[ICD9: 401.9] Diagnosis: ARTHRALGIA-MULTIPLE SITES[ICD9: 719.49] Diagnosis: Hand pain[ICD9: 729.5] Gaby Silva [facility] CPT-4: 00231 02/13/2012 OFFICE/OUTPATIENT VISIT EST Diagnosis: HYPERTENSION[ICD9: 401.9] Diagnosis: HYPERLIPIDEMIA NEC/NOS[ICD9: 272.4] Diagnosis: Knee pain[ICD9: 719.46] Gaby [facility] CPT-4: 92733 07/04/2011 OFFICE/OUTPATIENT VISIT EST Gaby [facility] CPT- 4: 95753 06/01/2011 ([id number]) OFFICE/OUTPATIENT VISIT EST Gaby [facility] CPT-4: 45590 01/04/2011 ([id number]) OFFICE/OUTPATIENT VISIT, EST Gaby MORGAN SAlanna [facility] CPT-4: 55463 11/15/2010 ([id number]) OFFICE/OUTPATIENT VISIT, EST Gaby MORGAN SAlanna [facility] CPT-4: 99431 07/13/2010 ([id number]) OFFICE/OUTPATIENT VISIT, EST Gaby MORGAN SAlanna [facility] CPT-4: 54630 01/26/2010 Plan of Care Planned Activity Notes [...] I49.5 02/06/2020 Appointment: Odalis Zafar [address] [id number] 11/07/2019 Visit Diagnosis Plan: Small bowel obstruction Discussi on: Doing fiber/water Discussed does not want surgery unless was emergency with something like perforation ICD-9 : 560.9 ICD-10 : K56.609 09/24/2019 Appointment: Gaby Rodas WPtel: [id number] [id number] Hospital Follow Up 09/24/2019 Visit Diagnosis Plan: Essential (primary) hypertension Discussion: Stable ICD-9 : 401.9 ICD-10 : I10 08/08/2019 Visit Diagnosis Plan: Epilepsy, unspecif ied, not intractable, without status epilepticus Discussion: Stable ICD-9 : 345.90 ICD-10 : G40.909 08/08/2019 Visit Diagnosis Plan: Encounter for gene ral adult medical examination without abnormal findings Discussion: Mediterranean diet Combinati on of cardio and weight bearing exercise Flu shot given Update fasting lab ICD-9 : V70.9 ICD-10 : Z00.00 08/08/2019 Appointment: Gaby Rodas WPtel: [facility] Annual Well Visit 08/08/2019 Visit Diagnosis Plan: Other skin changes Discussion: R harish sent to Dr. Domingo to have forehead evaluated. Full body skin check recommended as well. Patient states understanding. They will call patient with appt. ICD-9 : 709.8 ICD-10 : R23.8 03/27/2019 Appointment: Jewell Agee [facility] [place][note 2] [place] [id number] ACUTE ILLNESS 03/27/2019 Care Plan: Referral Order SNOMED-CT : [id number] Pending 03/27/2019 Visit Diagnosis Plan: Localized edema Discussion: Lowe r extremity edema from knee down- improved on celebrex. Will continue celebrex for 2 more weeks. He has f/u with ortho in 1 month. Advise wearing compression stockings. ICD-9 : 782.3 ICD-10 : R60.0 02/27/2019 Appointment: Jewell Agee [facility] [place][note 2] [place] [facility] FOLLOW UP 02/27/2019 Visit Diagnosis Plan: Presence of left artificial knee joint Discussion: With 3rd knee replacement on same extremity, expect longer recovery period and swelling for an extended period of time compared to last replacements. Patient understanding. ICD-9 : V43.65 ICD-10 : Z96.652 02/13/2019 Visit Diagnosis Plan: Localized edema Discussion: 2 we ek trial of celebrex 200 mg BID. Do not take tramadol while on celebrex. Ok to do tylenol only for pain. Advise wearing compression stockings and elevating extremities as much as poss ible. Notify clinic if develop SOA, chest pain/pressure. FU in 2 weeks. Patient states understanding. ICD-9 : 782.3 ICD-10 : R60.0 02/13/2019 Visit Diagnosis Plan: Essential (primary) hypertension Discussion: Continue current lisinopril dosage ICD-9 : 401.9 ICD-10 : I10 02/13/2019 Appointment: Jewell Agee [address] ACUTE ILLNESS 02/13/2019 Patient Education: Celebrex- [employer] Coupon [id number] [email or web address] Completed 02/13/2019 Visit Diagnosis Plan: Urinary tract infection, site no t specified Discussion: cipro prescribed to take as directed. instructed patient to increase fluid with water, gatorade, cranberry juice. will send urine for culture and change medications as needed. instructed to call office with any new or worsening symptoms. ICD-9 : 599.0 ICD-10 : N39.0 10/01/2018 Appointment: Odalis Zafar [address] ACUTE ILLNESS 10/01/2018 Visit Diagnosis Plan: Epilepsy, unspecif ied, not intractable, without status epilepticus Discussion: Stable on Dilantin Check dil antin level ICD-9 : 345.90 ICD-10 : G40.909 04/24/2018 Visit Diagnosis Plan: Pain in thoracic spine Discussio n: Check thoracolumbar spine x-ray ICD-9 : 724.1 ICD-10 : M54.6 04/24/2018 Visit Diagnosis Plan: Essential (primary) hypertension Discussion: Stable ICD-9 : 401.9 ICD-10 : I10 04/24/2018 Visit Diagnosis Plan: Other fatigue Discussion: Update lab Follow Up: 6 months ICD-9 : 780.79 ICD-10 : R53.83 04/24/2018 Appointment: Gaby Rodas WPtel: [phone] Annual Well Visit 04/24/2018 Patient Education: Patient Medication Summary Completed 04/24/2018 Visit Diagnosis Plan: Essential (primary) hypertension Discussion: Stable ICD-9 : 401.9 ICD-10 : I10 09/14/2017 Visit Diagnosis Plan: Unspecified convulsions Discussi on: Await note from neruology on when next phenytoin level needs checked Follow Up: 3 months ICD-9 : 780.39 ICD-10 : R56.9 09/14/2017 Visit Diagnosis Plan: Mixed hyperlipidemia Discussion: Check CMP, LIpids ICD-9 : 272.4 ICD-10 : E78.2 09/14/2017 Appointment: Gaby Rodastel: [address] [place], [place] [phone] [place] FOLLOW UP 09/14/2017 Patient Education: Patient Medication Summary Completed 09/14/2017 Appointment: Gaby Rodas WPtel: [address] [place] [address] [place] NO SHOW 09/05/2017 Appointment: Gaby Rodastel: [address] [place] [address] [place] CANCELED 07/27/2017 Visit Diagnosis Plan: Essential (primary) hypertension Discussion: Stable High dose flu and Prevnar 13 given ICD-9 : 401.9 ICD-10 : I10 07/25/2017 Visit Diagnosis Plan: 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 Leija at end of March ICD-9 : 345.90 ICD-10 : G40.909 03/02/2017 Visit Diagnosis Plan: Mixed hyperlipidemia Discussion: Up to date Saw Cardiology recently ICD-9 : 272.4 ICD-10 : E78.2 03/02/2017 Visit Diagnosis Plan: Essential (primary) hypertension Discussion: Stable Follow Up: 6 months ICD-9 : 401.9 ICD-10 : I10 03/02/2017 Appointment: [phone] [facility]/01 confirmed`sl FOLLOW UP 03/02/2017 Patient Education: [...] : R56.9 12/14/2016 Appointment: Gaby Rodas WPtel[facility] [facility] 12/14/2016 Patient Education: Patient Medication Summary Completed 12/14/2016 Referral: Shae Olivarez WPtel: [address] [place] [address] [place] Referral Appointment Confirmed 10/24/2016 Visit Plan: Continue lisinopril at curre nt dose and monitor BP Had EEG on Monday so will await results Stop potassium and recheck Chem 7 in 1week 10/17/2016 Appointment: Gaby Rodas WPtel[facility] [facility] 10/17/2016 Patient Education: Patient Medication Summary Completed 10/17/2016 Visit Plan: Discussed with Dr Adrianna Mobley Follow up with her in 1 week Change lisinopril/hctz to plain lisinopril 40mg daily Continue potassium 20meq but only ONCE per day Recheck BMP Monday and will get a BP as well Will help patient make 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 Rodas, will admit observation cardiac stepdown. See orders this date. 10/07/2016 Appointment: Karlene Braun WPtel: [address] [place], [place] [id number] ACUTE ILLNESS 10/07/2016 Patient Education: Patient Medication Summary Completed 10/07/2016 Visit Plan: Continue with just lisinopri l and monitor BPg 08/31/2016 Appointment: Gaby Rodas WPtel: [address] [place] [address] 08/30 confirmed~sl FOLLOW UP 08/31/2016 Patient Education: Patient Medication Summary Completed 08/31/2016 Visit Plan: Stop amlodopine Monitor home BP Recheck 1month 08/01/2016 Appointment: Gaby Rodas WPtel: [address] [place] [address] [place] 07/28 lm ~sl 08/01 lm-sp FOLLOW UP 6 Patient Education: Patient Medication Summary Completed 08/01/2016 Appointment: Gaby Rodas WPtel: [address] [place] [address] [place] 05/02 rang and rang~sl 05/03 canceled ~sl CANCELED 05/03/2016 Visit Plan: Continue current meds Stay h ydrated Monitor BP 04/27/2016 Appointment: Gaby Rodas WPtel: [address] [place] [address] [place] 04/26 confirmed~sl FOLLOW UP 04/27/2016 Patient Education: Patient Medication Summary Completed 04/27/2016 Appointment: Gaby Rodas WPtel: [address] [place] [address] [place] na/vm-sp 01/10 no vm just beeping~sl 04/18 na/vm 04/19 re scheduled-sp RESCHEDULED 04/25/2016 Visit Plan: Continue amlodopine Stress T est tomorrow Discussed that if sales architect thinks he needs cardiac cath after the stress test then needs to proceed Fwup pending stress test results 03/21/2016 Appointment: Gaby Rodas WPtel: [address] [place], [place] [id number] 03/21 lm-sp 03/21 Called for Records ~sl FOLLOW UP 03/21/2016 Patient Education: Patient Medication Summary Completed 03/21/2016 Appointment: Gaby Rodas WPtel: [address] [place], [place] [phone] CANCELED 03/17/2016 Visit Plan: Start Norvasc 2.5 mg daily C ontinue Lisinopril - take only once daily Self monitor BP Proceed with Stress Echo Follow-up in 1 week 03/14/2016 Appointment: Lilly Lawson WPtel: [address] [place], [place] [id number] ACUTE ILLNESS 03/14/2016 Patient Education: Patient Medication Summary Completed 03/14/2016 Visit Plan: EKG today CBC, CMP, Triponin level Holter Monitor x 24 hours Follow-up with Dr. Rodas - 1 week 02/29/2016 Appointment: Lilly Lawson WPtel: [address] [place], [place] [id number] ACUTE ILL[facility] 02/29/2016 Patient Education: Patient Medication Summary Completed 02/29/2016 Visit Plan: Check fasting lab including TSH, Free T4, B12, CMP, lipids, CBC, Vit D Discussed may need MRI of brain and cervical spine if has any further episodes of paresthesias--patient defers at this time 11/02/2015 Appointment: Gaby Rodas WPtel: [address] [place], [place] [phone] 08/03/ rescheduled pt 10/26 appt to 10/07 8 patient ok with change cn 10/28 confirmed ~sl FOLLOW UP 11/02/2015 Patient Education: Patient Medication Summary Completed 11/02/2015 Visit Plan: Check fasting lab next month Continue current meds 03/26/2015 Appointment: Gaby Rodas WPtel: [address] [place] [address] FOLLOW UP 03/26/2015 Patient Education: Patient Medication Summary Completed 03/26/2015 Appointment: Gaby Rodas WPtel: [address] [place] [address] 09/02 No answer FOLLOW UP 09/03/2014 Patient Education: Patient Medication Summary Completed 09/03/2014 Visit Plan: Check CBC, CMP, Lipids in AM Continue current meds 04/15/2014 Appointment: Gaby Rodas WPtel: [address] [place] [address] FOLLOW UP 04/15/2014 Patient Education: Patient Medication Summary Completed 04/15/2014 Appointment: Gaby Rodas WPtel: [address] [place] [address] 03/28/14 no answer 04/01/14 No Show FOLLOW UP 04/01/2014 Visit Plan: Decrease caffeine intake--pt drinks about 10 cups a day Also discussed taking BP pill at same time everyday Check fasting lab Discussed MRI of brain--pt defers Discussed brain exercises 09/30/2013 Appointment: Gaby Rodas WPtel: [address] [place], [place] [phone] FOLLOW UP 09/30/2013 Patient Education: Patient Medication Summary Completed 09/30/2013 Visit Plan: Continue current meds Check CMP Check Carotid dopplers 04/02/2013 Appointment: Gaby Rodas WPtel: [address] [place] [address] 03/29 appt confirmed FOLLOW UP 04/02/2013 Patient Education: Patient Medication Summary Completed 04/02/2013 Visit Plan: Continue current meds Check fasting lab in AM 08/02/2012 Appointment: Gaby Rodas WPtel: [address] [place] [address] [place] FOLLOW UP 08/02/2012 Patient Education: Patient Medication Summary Completed 08/02/2012 Visit Plan: Check CBC, CMP Trial of Mobi c daily for next month instead of relafen 02/13/2012 Appointment: Gaby Rodastel: [address] [place], [place] [phone] FOLLOW UP 02/13/2012 Patient Education: Patient Medication Summary Completed 02/13/2012 Visit Plan: Continue current meds Check fasting lab Fwup with ortho as scheduled 07/04/2011 Appointment: Gaby Rodas WPtel: [address] [place] [address] FOLLOW UP 07/04/2011 Patient Education: Patient Medication Summary Completed 07/04/2011 Appointment: Gaby Rodas WPtel: [address] [place] [address] ACUTE ILLNESS 06/01/2011 Patient Education: Patient Medication Summary Completed 06/01/2011 Visit Plan: Continue current meds Fastin g lab and fwup in 6mos 01/04/2011 Appointment: Gaby Rodas WPtel: [address] [place] [address] FOLLOW UP 01/04/2011 Patient Education: Patient Medication Summary Completed 01/04/2011 Visit Plan: Check lab including CMP, CBC , Lipids, TSH, Free T4, Vit D, uric acid, WILVER, RA, ESR, CPK, PSA Cont current meds 11/15/2010 Appointment: Gaby Rodas WPtel: [address] [place], [place] [id number] ACUTE ILLNESS 11/15/2010 Patient Education: Patient Medication Summary Completed 11/15/2010 Appointment: Gaby Rodastel: [address] [place], [place] [phone] FOLLOW UP 07/13/2010 Patient Education: Patient Medication Summary Completed 07/13/2010 Patient Education: Patient Medication Summary Completed 07/13/2010 Visit Plan: Continue current meds and fw up w/ surgery as scheduled 01/26/2010 Appointment: Gaby Rodas WPtel: [phone] [id number] FOLLOW UP 01/26/2010 Patient Education: Patient Medication Summary Completed 01/26/2010 Referral: Enrike Leija Referral Initiated Referral: Shaniqua Domingo WPtel: [facility] [address] [facility] [place] [place] Referral Appointment Requested Referral: Shaniqua Domingo WPtel: [facility] [address] [facility] [place] [place] Referral Initiated Instructions Comment . 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 Start Norvasc 2.5 mg daily Continue Lisinopril - take only once daily Self monitor BP Proceed with Stress Echo Follow-up in 1 week . EKG today CBC, CMP, Triponin level Holter Monitor x 24 hours Follow-up with Dr. Rodas - 1 week . Check fasting lab [...]
--- OUTSIDE RECORDS SUMMARY | 2020-06-09 00:59 | XMS REPORT | CCD ---
Author Author Syd Rodas D.O. Organization GABY RODAS DO [facility] Address [address] [place] [address] Phone Care Team Providers Care Operator Receptionist Name Role Phone Gaby Rodas D.O. PP Unavailable CCM Unavailable Summary Purpose Interface Exchange Insurance Providers Payer name Policy type / Coverage type Covered alliance party ID Effective Begin Date Effective End Date WPS MEDICARE PART B [place] Medicare Part B [id number] Unknown [id number] Medicare Part B [id number] Unknown Family history Mother Diagnosis Age At Onset Cancer Unknown Grandparents Diagnosis Age At Onset Cardiovascular disease Unknown Father Diagnosis Age At Onset Pneumonia Unknown Social History Social History Element Codes Description Effective Dates Tobacco history SNOMED CT: 036175250 Never smoker 06/01/2011 Marital status Unknown 01/08/2010 [...] Fill Instructions lisinopril 40 mg tablet RxNorm: 610032 TAKE 1 TABLET DA GIULIANA (STOP THE LISINOPRIL/HCTZ) 01/16/2020 No Stop Date Active Keflex 500 mg capsule RxNorm: 175545 1 Capsule(s) Oral four juan es a day 11/07/2019 11/12/2019 Inactive Keflex 500 mg capsule RxNorm: 485263 1 Capsule(s) Oral three ti mes a day 11/07/2019 11/06/2019 Inactive Colace 100 mg capsule RxNorm: 3205619 1 Capsule(s) Oral QD 09/24/20 No Stop Date Active phenytoin sodium extended 100 mg capsule RxNorm: 340935 TAKE 2 CAPSULES TWICE A DAY 08/26/2019 No Stop Date Active aspirin 325 mg tablet RxNorm: 904466 1 Tablet(s) Oral QD 08/08/2019 No Stop Date Active Celebrex 200 mg capsule RxNorm: 506021 1 Capsule(s) PO BID 02/14/2003/14/2019 Inactive lisinopril 40 mg tablet RxNorm: 205609 TAKE 1 TABLET DA GIULIANA (STOP THE LISINOPRIL/HCTZ) 12/05/2018 01/15/2020 Inactive Cipro 250 mg tablet RxNorm: 077824 1 Tablet(s) PO BID 10/01/201812/2017 Inactive tramadol 37.5 mg-acetaminophen 325 mg tablet RxNorm: 505409 2 Tablet(s) PO TID as needed for pain 07/30/2018 02/26/2019 Inactive lisinopril 40 mg tablet RxNorm: 850372 1 TABLET(S) PO Q D REPLACES LISINOPRIL/HCTZ 12/25/2017 12/04/2018 Inactive phenytoin sodium extended 100 mg capsule RxNorm: 273729 1 Capsule(s) PO QAM and 2 at bedtime 12/14/2016 09/13/2017 Inactive lisinopril 40 mg tablet RxNorm: 176204 1 Tablet(s) PO Q D REPLACES LISINOPRIL/HCTZ 10/26/2016 11/15/2016 Inactive lisinopril 40 mg tablet RxNorm: 303465 1 Tablet(s) PO Q D REPLACES LISINOPRIL/HCTZ 10/26/2016 12/13/2016 Inactive potassium chloride ER 20 mEq tablet,extended release(p art/cryst) RxNorm: 9191785 3/4 Tablet(s) PO QD 10/10/2016 12/13/2016 Inactive lisinopril 40 mg tablet RxNorm: 898437 1 Tablet(s) PO Q D REPLACES LISINOPRIL/HCTZ 10/10/2016 10/25/2016 Inactive amlodipine 2.5 mg tablet RxNorm: 990564 1 Tablet(s) PO QD 08/01/2016 08/01/2016 Inactive tramadol 37.5 mg-acetaminophen 325 mg tablet RxNorm: 344514 2 Tablet(s) PO TID as needed for pain 05/24/2016 08/21/2016 Inactive lisinopril 20 mg-hydrochlorothiazide 25 mg tablet RxNorm: 19 7887 TAKE 1 TABLET EVERY MORNING 05/20/2016 10/09/2016 Inactive potassium chloride ER 20 mEq tablet,extended release(p art/cryst) RxNorm: 5026442 TAKE 1 TABLET TWICE A DAY 05/20/2016 10/09/2016 Inactive amlodipine 2.5 mg tablet RxNorm: 234658 1 Tablet(s) PO QHS 03/14/20 16 04/12/2016 Inactive Klor-Con 20 mEq oral packet RxNorm: 772512 1 Tablet(s) PO BID 04/0807/31/2016 Inactive lisinopril 20 mg-hydrochlorothiazide 25 mg tablet RxNorm: 19 7887 1 Tablet(s) PO QD TAKE 1 TABLET DAILY 04/08/2015 04/01/2016 Inactive lisinopril 20 mg-hydrochlorothiazide 25 mg tablet RxNorm: 19 7887 1 Tablet(s) PO QD TAKE 1 TABLET DAILY 11/07/2013 04/08/2015 Inactive potassium chloride ER 20 mEq tablet,extended release(part/cr yst) RxNorm: 246108 1 Tablet(s) PO BID 11/07/2013 04/08/2015 Inactive potassium chloride ER 20 mEq tablet,extended release(p art/cryst) RxNorm: 0376716 1 Tablet(s) PO BID 10/14/2013 10/13/2013 Inactive lisinopril 20 mg-hydrochlorothiazide 25 mg tablet RxNorm: 82 3971 1 Tablet(s) PO QD TAKE 1 TABLET DAILY 10/14/2013 11/06/2013 Inactive potassium chloride ER 20 mEq tablet,extended release(part/cr yst) RxNorm: 467467 1 Tablet(s) PO BID 10/14/2013 11/06/2013 Inactive lisinopril 20 mg-hydrochlorothiazide 25 mg tablet RxNorm: 19 7887 1 Tablet(s) PO QD TAKE 1 TABLET DAILY 10/14/2013 10/13/2013 Inactive lisinopril 20 mg-hydrochlorothiazide 25 mg tablet RxNorm: 19 7887 Tablet(s) PO TAKE 1 TABLET DAILY 06/04/2013 10/13/2013 Inactive Ultracet 37.5 mg-325 mg tablet RxNorm: 669046 2 Tablet(s) PO TID 09/29/2013 Inactive TAKE 2 TABLETS THREE TIMES A DAY NEEDED FOR PAIN K-Dur 20 mEq tablet,extended release RxNorm: 5375442 Tablet(s) PO 1 08/30/2013 Inactive TAKE 1 TABLET TWICE A DAY lisinopril 20 mg-hydrochlorothiazide 25 mg tablet RxNorm: 19 7887 1 Tablet(s) PO QD 09/05/2012 03/03/2013 Inactive Mobic 15 mg Tab RxNorm: 624727 1 Tablet(s) PO QD for arthritis pain 02/13/2012 03/13/2012 Inactive K-Dur 20 mEq tablet,extended release RxNorm: 2247132 1 Tablet(s) PO BID 07/28/2011 09/06/2012 Inactive generic equivalent o truong Ultracet 37.5 mg-325 mg tablet RxNorm: 732898 2 Tablet(s) PO TID 10/24/2011 Inactive TAKE 2 TABLETS THREE TIMES A DAY NEEDED FOR PAIN lisinopril-hydrochlorothiazide 20 mg-25 mg tablet RxNorm: 19 7887 1 Tablet(s) PO QD 06/16/2011 09/05/2012 Inactive TAKE 1 TABLET DA GIULIANA Bactrim DS 800 mg-160 mg Tab RxNorm: 086024 1 Tablet(s) PO QD 06/0107/03/2011 Inactive Ultracet 37.5 mg-325 mg Tab RxNorm: 099525 2 Tablet(s) PO TID P .r.n. pain 03/07/2011 07/27/2011 Inactive K-Dur 20 mEq Tab RxNorm: 2775027 1 Tablet(s) PO BID 04/30/20102010 Inactive lisinopril-hydrochlorothiazide 20 mg-25 mg Tab RxNorm: 212619 1 Tablet(s) PO QD 04/29/2010 06/17/2011 Inactive Relafen 750 mg Tab RxNorm: 497036 1 Tablet(s) PO BID P.r.n. pain 04/17/2010 Inactive Ultracet 37.5 mg-325 mg Tab RxNorm: 668028 2 Tablet(s) PO TID P .r.n. pain 01/08/2010 04/17/2010 Inactive Zestoretic 20 mg-25 mg Tab RxNorm: 032829 1 Tablet(s) PO QD 010 04/07/2010 Inactive K-Dur 20 mEq Tab RxNorm: 3688257 1 Tablet(s) PO BID 01/08/20102009 Inactive lisinopril 40 mg tablet RxNorm: 487170 1 Tablet(s) PO QD No Start Date Active Colace 100 mg capsule RxNorm: 1634169 1 Capsule(s) PO BID No Start Date 09/23/2019 Inactive K-Dur 20 mEq Tab RxNorm: 1019919 1 Tablet(s) PO BID No Start Date Inactive amlodipine 2.5 mg tablet RxNorm: 033502 1 Tablet(s) PO QD No Start Date 03/01/2017 Inactive Relafen 750 mg Tab RxNorm: 262326 1 Tablet(s) PO BID prn No Start D ate 02/12/2012 Inactive K-Dur 20 mEq tablet,extended release RxNorm: 333876 1 Tablet(s) PO BID No Start Date 11/01/2015 Inactive tramadol 50 mg Tab RxNorm: 473869 2 Tablet(s) PO TID prn pain No St art Date 05/23/2016 Inactive aspirin 325 mg tablet RxNorm: 607269 1 Tablet(s) PO QD No Start Date 09/30/2018 Inactive lisinopril-hydrochlorothiazide 20 mg-25 mg tablet RxNorm: 19 7887 1 Tablet(s) PO QD No Start Date 09/04/2012 Inactive Colace 100 mg capsule RxNorm: 2499898 1 Capsule(s) PO QD No Start D ate 09/30/2018 Inactive Vitamin D3 1000 units Capsule RxNorm: 1 Capsule(s) PO QD No St art Date 02/28/2016 Inactive aspirin 81 mg tablet,delayed release RxNorm: 140167 1 Tablet(s) PO QD No Start Date 02/26/2019 Inactive Colace 100 mg Cap RxNorm: 1697359 1 Capsule(s) PO BID No Start Date 0 01/26/2010 Inactive phenytoin sodium extended 100 mg capsule RxNorm: 270302 2 Capsu le(s) PO BID No Start Date 08/25/2019 Inactive Medication Administered No Medication Administered data Immunizations Vaccine Codes Date Status Influenza CVX: 135 08/08/2019 Complete Influenza CVX: 135 08/08/2019 Complete Influenza CVX: 135 07/25/2017 Complete Pneumococcal CVX: 133 07/25/2017 Complete Influenza CVX: 141 09/03/2014 Pneumococcal (Adult) Unknown 07/13/2010 Results Observation Observation Code Item Item Code Result Date S ervice Location GFR CALC 9694853 GFR AA >60 ML/MIN 07/13/2010 Unknown GFR CALC [id number] GFR NON-AA >60 ML/MIN 07/13/2010 Unknown THYROID STIMULATING HORMONE 78291 TSH 2.361 uIU/ML 07/13/2010 Unknown COMPREHENSIVE METABOLIC 22832 AST 20 U/L 2009 Unknown COMPREHENSIVE METABOLIC 70508 ALT 10 IU/L 2009 Unknown COMPREHENSIVE METABOLIC 19685 BUN 15 MG/DL 2009 Unknown COMPREHENSIVE METABOLIC 60085 ALBUMIN 4.3 GM/DL 2009 Unknown COMPREHENSIVE METABOLIC 00188 CHLORIDE 101 MMOL/L 07/13 Unknown COMPREHENSIVE METABOLIC 32320 BILI TOT 0.8 MG/DL 2009 Unknown COMPREHENSIVE METABOLIC 65662 ALK PHOS 91 U/L 2009 Unknown COMPREHENSIVE METABOLIC 71760 SODIUM 138 MMOL/L 07/13 Unknown COMPREHENSIVE METABOLIC 84831 CREATININE 0.96 MG/DL 05/2010 Unknown COMPREHENSIVE METABOLIC 94471 CALCIUM 9.3 MG/DL 2009 Unknown COMPREHENSIVE METABOLIC 79099 POTASSIUM 4.2 MMOL/L 07/13 Unknown COMPREHENSIVE METABOLIC 62349 PROT TOT 6.4 GM/DL 2009 Unknown COMPREHENSIVE METABOLIC 20648 Glucose 85 MG/DL 2009 Unknown COMPREHENSIVE METABOLIC 79079 BICARB 29 MMOL/L 2009 Unknown COMPREHENSIVE METABOLIC 77297 ANION GAP 8 MEQ/L 2009 Unknown LIPID GROUP 37532 HDL TEST 49 MG/DL 07/13/2010 Unknown LIPID GROUP 53037 TRIG 87 MG/DL 07/13/2010 Unknown LIPID GROUP 41270 TEST LDL 95 MG/DL 07/13/2010 Unknown LIPID GROUP 64919 CHOL 161 MG/DL 07/13/2010 Unknown LIPID GROUP 06865 RCHOL/HDL 3.29 RATIO 07/13/2010 Unknow n Procedures Procedure Codes Date FLU VACC PRSV FREE INC ANTIG 65 AND OLDER CPT-4: 71204 08/08/2019 FLU VACC PRSV FREE INC ANTIG 65 AND OLDER CPT-4: 55815 08/08/2019 ADMIN INFLUENZA VIRUS VAC CPT-4: G0008 08/08/2019 PPPS, subseq visit CPT-4: G0439 08/08/2019 URINE CULTURE/ COLONY COUNT CPT-4: 29489 10/01/2018 URINALYSIS NONAUTO W/O SCOPE CPT-4: 57469 10/01/2018 PPPS, subseq visit CPT-4: G0439 04/24/2018 FLU VACC PRSV FREE INC ANTIG 65 AND OLDER CPT-4: 70629 07/25/2017 PNEUMOCOCCAL VACC 13 HAN IM CPT-4: 00356 07/25/2017 ADMIN PNEUMOCOCCAL VACCINE CPT-4: G0009 07/25/2017 ADMIN INFLUENZA VIRUS VAC CPT-4: G0008 07/25/2017 URINALYSIS NONAUTO W/O SCOPE CPT-4: 39981 10/07/2016 FLU VACCINE 3 YRS & > IM UP 64 CPT-4: 26752 4 FLUZONE, 5ML (Medicare) CPT-4: Q2038 09/03/2014 ADMIN INFLUENZA VIRUS VAC CPT-4: G0008 09/03/2014 PRESCRIP TRANSMIT VIA ERX SY CPT-4: G8553 02/13/2012 CUR TOBACCO NON-USER CPT-4: G8457 06/01/2011 PRESCRIP TRANSMIT VIA ERX SY CPT-4: G8553 06/01/2011 ROUTINE VENIPUNCTURE CPT-4: 60072 07/13/2010 DESTRUCT PREMALG LESION (Cryosurgery) CPT-4: 59131 COMPREHEN METABOLIC PANEL CPT-4: 89990 07/13/2010 LIPID PANEL CPT-4: 52481 07/13/2010 ASSAY THYROID STIM HORMONE CPT-4: 42192 07/13/2010 PNEUMOCOCCAL VACC 23 HAN IM CPT-4: 87290 07/13/2010 IMMUNIZATION ADMIN CPT-4: 44544 07/13/2010 ROUTINE VENIPUNCTURE CPT-4: 63761 07/13/2010 COMPREHEN METABOLIC PANEL CPT-4: 23934 07/13/2010 LIPID PANEL CPT-4: 91918 07/13/2010 ASSAY THYROID STIM HORMONE CPT-4: 41520 07/13/2010 Vital Signs Date Vital 02/06/2020 Blood [...] 1: 134/52 Code: 8480-6 BMI: 28.8 Code: 94310-4 Heart Rate 1: 60 bpm Height: 5'9" [...] 1: 142/70 Code: 8480-6 BMI: 25.1 Code: 41019-7 Heart Rate 1: 64 bpm Height: 6'1" Respiratory Rate: 20 bpm SpO2: 95% Tempera ture: 36.9 (C) / 98.5 (F) Weight: 190 lbs 09/14/2017 Blood Pressure 1: 144/70 Code: 8480-6 BMI: 25.5 Code: 97499-0 Heart Rate 1: 76 bpm Height: 6'1" Respiratory Rate: 20 bpm SpO2: 95% Tempera ture: 36.8 (C) / 98.2 (F) Weight: 193 lbs 07/25/2017 Blood Pressure 1: 116/58 Code: 8480-6 BMI: 25.5 Code: 67235-2 Heart Rate 1: 72 bpm Height: 6'1" Respiratory Rate: 20 bpm SpO2: 95% Tempera ture: 36.8 (C) / 98.3 (F) Weight: 193 lbs 03/02/2017 Blood Pressure 1: 126/70 Code: 8480-6 BMI: 25.9 Code: 82913-6 Heart Rate 1: 64 bpm Height: 6'1" Respiratory Rate: 20 bpm SpO2: 95% Tempera ture: 36.6 (C) / 97.9 (F) Weight: 196 lbs 12/14/2016 Blood Pressure 1: 144/70 Code: 8480-6 BMI: 27.0 Code: 47176-6 Heart Rate 1: 80 bpm Height: 6'1" [...] 1: 144/60 Code: 8480-6 BMI: 26.5 Code: 00178-1 Heart Rate 1: 60 bpm Height: 6'1" Respiratory Rate: 20 bpm Temperature: 36 .9 (C) / 98.4 (F) Weight: 201 lbs 08/01/2016 Blood Pressure 1: 144/70 Code: 8480-6 Heart Rate 1: 68 bpm Respiratory Rate: 20 bpm Temperature: 36.9 (C) / 98.4 (F) Weight: 200 lbs 04/27/2016 Blood Pressure 1: 134/68 Code: 8480-6 BMI: 26.8 Code: 64184-3 Heart Rate 1: 68 bpm Height: 6'1" Respiratory Rate: 20 bpm Temperature: 36 .3 (C) / 97.3 (F) Weight: 203 lbs 03/21/2016 Blood Pressure 1: 126/64 Code: 8480-6 BMI: 26.8 Code: 37645-2 Heart Rate 1: 80 bpm Height: 6'1" Respiratory Rate: 20 bpm Temperature: 36 .6 (C) / 97.9 (F) Weight: 203 lbs 03/14/2016 Blood Pressure 1: 176/90 Code: 8480-6 BMI: 26.3 Code: 12949-9 Heart Rate 1: 74 bpm Height: 6'1" Respiratory Rate: 22 bpm SpO2: 94% Tempera ture: 36.2 (C) / 97.1 (F) Weight: 199 lbs 02/29/2016 Blood Pressure 1: 172/82 Code: 8480-6 BMI: 26.9 Code: 63988-9 Heart Rate 1: 60 bpm Height: 6'1" Respiratory Rate: 20 bpm SpO2: 98% Tempera ture: 36.8 (C) / 98.2 (F) Weight: 204 lbs 11/02/2015 Blood Pressure 1: 136/72 Code: 8480-6 BMI: 27.3 Code: 03548-0 Heart Rate 1: 68 bpm Height: 6'1" Respiratory Rate: 20 bpm Temperature: 36 .6 (C) / 97.8 (F) Weight: 207 lbs 03/26/2015 Blood Pressure 1: 142/74 Code: 8480-6 BMI: 28.2 Code: 60848-3 Heart Rate 1: 76 bpm Height: 6'1" Respiratory Rate: 20 bpm Temperature: 36 .7 (C) / 98.1 (F) Weight: 214 lbs 09/03/2014 Blood Pressure 1: 132/68 Code: 8480-6 BMI: 29.8 Code: 36704-1 Heart Rate 1: 80 bpm Height: 6'1" Respiratory Rate: 20 bpm Temperature: 36 .7 (C) / 98.1 (F) Weight: 226 lbs 04/15/2014 Blood Pressure 1: 142/64 Code: 8480-6 BMI: 28.9 Code: 22105-7 Heart Rate 1: 64 bpm Height: 6'1" Respiratory Rate: 22 bpm Temperature: 36 .2 (C) / 97.2 (F) Weight: 219 lbs 09/30/2013 Blood Pressure 1: 142/70 Code: 8480-6 BMI: 29.2 Code: 04355-5 Heart Rate 1: 72 bpm Height: 6'1" Respiratory Rate: 20 bpm Temperature: 36 .7 (C) / 98.1 (F) Weight: 221 lbs 04/02/2013 Blood Pressure 1: 142/78 Code: 8480-6 BMI: 29.6 Code: 28258-6 Heart Rate 1: 64 bpm Height: 6'1" Respiratory Rate: 20 bpm Temperature: 36 .6 (C) / 97.9 (F) Weight: 224 lbs 08/02/2012 Blood Pressure 1: 122/66 Code: 8480-6 BMI: 29.3 Code: 91685-9 Heart Rate 1: 64 bpm Height: 6'1" Respiratory Rate: 20 bpm Temperature: 36 .9 (C) / 98.4 (F) Weight: 222 lbs 02/13/2012 Blood Pressure 1: 138/72 Code: 8480-6 BMI: 28.5 Code: 69287-8 Heart Rate 1: 72 bpm Height: 6'1" Respiratory Rate: 20 bpm Temperature: 36 .4 (C) / 97.6 (F) Weight: 216 lbs 07/04/2011 Blood Pressure 1: 124/60 Code: 8480-6 BMI: 28.5 Code: 19726-8 Heart Rate 1: 56 bpm Height: 6'1" Respiratory Rate: 20 bpm Temperature: 36 .6 (C) / 97.9 (F) Weight: 216 lbs 06/01/2011 Blood Pressure 1: 122/68 Code: 8480-6 BMI: 28.5 Code: 01184-4 Heart Rate 1: 68 bpm Height: 6'1" [...] 1: 122/56 Code: 8480-6 BMI: 27.6 Code: 25198-2 Heart Rate 1: 72 bpm Height: 6'1" [...] TITIS Encounters Encounter Performer Location Codes Date ([id number]) OFFICE/OUTPATIENT VISIT EST Diagnosis: Essential (primary) hypertension[ICD10: I10] Diagnosis: Sick sinus syndrome[ICD10: I49.5] Gaby Sanchez Shira RODAS [facility] CPT-4: 92168 02/06/2020 ([id number]) OFFICE/OUTPATIENT VISIT EST Diagnosis: Small bowel obstruction[ICD10: K56.609] Gaby Armandocheikh MORGAN Shira [facility]ODAS [facility] CPT-4: 91988 09/24/2019 ([id number]) OFFICE/OUTPATIENT VISIT EST Diagnosis: Other skin changes[ICD10: R23.8] Jewell [facility]ODAS [facility] CPT-4: 83869 03/27/2019 ([id number]) OFFICE/OUTPATIENT VISIT EST Diagnosis: Localized edema[ICD10: R60.0] Diagnosis: Presence of left artificial knee joint[ICD10: Z96.652] Jewell [facility] CPT-4: 29232 02/27/2019 ([id number]) OFFICE/OUTPATIENT VISIT EST Diagnosis: Localized edema[ICD10: R60.0] Diagnosis: Presence of left artificial knee joint[ICD10: Z96.652] Diagnosis: Essential (primary) hypertension[ICD10: I10] Jewell [facility]OD[facility] CPT-4: 36080 02/13/2019 ([id number]) OFFICE/OUTPATIENT VISIT EST Diagnosis: Urinary tract infection, site not specified[ICD10: N39.0] [facility] 50276 10/01/2018 ([id number]) OFFICE/OUTPATIENT VISIT EST Diagnosis: Essential (primary) hypertension[ICD10: I10] Diagnosis: Mixed hyperlipidemia[ICD10: E78.2] Diagnosis: Unspecified convulsions[ICD10: R56.9] Gaby PARRA Shira [facility] CPT-4: 82021 09/14/2017 ([id number]) OFFICE/OUTPATIENT VISIT EST Diagnosis: 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 (postprocedural) (postinfection)[ICD10: K56.5] Diagnosis: Essential (primary) hypertension[ICD10: I10] Diagnosis: FLU VACCINE[ICD10: Z23] Diagnosis: PNEUMOCOCCAL VACCINE[ICD10: Z23] [facility] 90769 07/25/2017 ([id number]) OFFICE/OUTPATIENT VISIT EST Diagnosis: Mixed hyperlipidemia[ICD10: E78.2] Diagnosis: Essential (primary) hypertension[ICD10: I10] Diagnosis: Epilepsy, unspecified, not intractable, without status epilepticus[ICD10: G40.909] [facility] 67619 03/02/2017 ([id number]) OFFICE/OUTPATIENT VISIT EST Diagnosis: Essential (primary) hypertension[ICD10: I10] Diagnosis: 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 (postprocedural) (postinfection)[ICD10: K56.5] Diagnosis: Unspecified convulsions[ICD10: R56.9] Gaby Burrell TREY Silva [facility] CPT-4: 10823 12/14/2016 ([id number]) OFFICE/OUTPATIENT VISIT EST Diagnosis: Hypokalemia[ICD10: E87.6] Diagnosis: Essential (primary) hypertension[ICD10: I10] Gaby Silva [facility] CPT-4: 80891 10/17/2016 ([id number]) OFFICE/OUTPATIENT VISIT EST Diagnosis: Altered mental status, unspecified[ICD10: R41.82] Diagnosis: Chest pain, unspecified[ICD10: R07.9] Diagnosis: Essential (primary) hypertension[ICD10: I10] Diagnosis: Hypokalemia[ICD10: E87.6] Freda Womack [facility] CPT-[facility]: 80585 10/10/2016 OFFICE/OUTPATIENT VISIT EST Diagnosis: Essential (primary) hypertension[ICD10: I10] [facility]: 94406 08/31/2016 ([id number]) OFFICE/OUTPATIENT VISIT EST Diagnosis: Irritability and anger[ICD10: R45.4] Diagnosis: Essential (primary) hypertension[ICD10: I10] [facility]: 66593 08/01/2016 ([id number]) OFFICE/OUTPATIENT VISIT EST Diagnosis: Essential (primary) hypertension[ICD10: I10] Diagnosis: Cardiac arrhythmia, unspecified[ICD10: I49.9] Gaby RODAS DO [facility] CPT-4: 39087 04/27/2016 OFFICE/OUTPATIENT VISIT EST Diagnosis: Essential (primary) hypertension[ICD10: I10] Diagnosis: Cardiac arrhythmia, unspecified[ICD10: I49.9] Diagnosis: Chest pain, unspecified[ICD10: R07.9] Gaby [facility] CPT-4: 07482 03/21/2016 OFFICE/OUTPATIENT VISIT EST Diagnosis: Essential (primary) hypertension[ICD10: I10] Diagnosis: Other fatigue[ICD10: R53.83] Diagnosis: Dyspnea, unspecified[ICD10: R06.00] [facility]: 91917 03/14/2016 OFFICE/OUTPATIENT VISIT EST Diagnosis: Dyspnea, unspecified[ICD10: R06.00] Diagnosis: Cardiac arrhythmia, unspecified[ICD10: I49.9] Diagnosis: Other fatigue[ICD10: R53.83] Lilly [facility] CPT-4: 00336 02/29/2016 ([id number]) OFFICE/OUTPATIENT VISIT EST Diagnosis: Essential (primary) hypertension[ICD10: I10] Diagnosis: Mixed hyperlipidemia[ICD10: E78.2] Diagnosis: Paresthesia of skin[ICD10: R20.2] Diagnosis: OSTEOARTHRISIS MULTI SITES[ICD10: M19.90] Gaby RODAS [employer] [facility] CPT-4: 06699 11/02/2015 ([id number]) OFFICE/OUTPATIENT VISIT EST Diagnosis: HYPERTENSION[ICD9: 401.9] Diagnosis: HYPERLIPIDEMIA NEC/NOS[ICD9: 272.4] Gaby RODAS [employer] [facility] CPT-4: 46631 03/26/2015 ([id number]) OFFICE/OUTPATIENT VISIT EST Diagnosis: HYPERTENSION[ICD9: 401.9] Diagnosis: HYPERLIPIDEMIA NEC/NOS[ICD9: 272.4] Diagnosis: Hand pain[ICD9: 729.5] Diagnosis: FLU VACCINE[ICD10: Z23] Gaby HINKLE DinoAlanna [facility] CPT-4: 80745 09/03/2014 ([id number]) OFFICE/OUTPATIENT VISIT EST Diagnosis: HYPERTENSION[ICD9: 401.9] Diagnosis: HYPERLIPIDEMIA NEC/NOS[ICD9: 272.4] Diagnosis: ARTHRALGIA-MULTIPLE SITES[ICD9: 719.49] Diagnosis: MALAISE AND FATIGUE[ICD9: 780.79] Gaby Sanchez [facility] CPT-[facility]: 24083 04/15/2014 OFFICE/OUTPATIENT VISIT EST Diagnosis: HYPERTENSION[ICD9: 401.9] Diagnosis: HYPERLIPIDEMIA NEC/NOS[ICD9: 272.4] Diagnosis: MEMORY LOSS[ICD9: 780.93] Gaby Silva ARMAND[facility] CPT-4: 11830 09/30/2013 ([id number]) OFFICE/OUTPATIENT VISIT EST Diagnosis: HYPERTENSION[ICD9: 401.9] Diagnosis: ARTHRALGIA-MULTIPLE SITES[ICD9: 719.49] Diagnosis: Carotid bruit[ICD9: 785.9] Gaby Silva [facility] CPT-[facility]: 42468 04/02/2013 ([id number]) OFFICE/OUTPATIENT VISIT EST Diagnosis: HYPERLIPIDEMIA NEC/NOS[ICD9: 272.4] Diagnosis: HYPERTENSION[ICD9: 401.9] Diagnosis: ARTHRALGIA-MULTIPLE SITES[ICD9: 719.49] [facility]: 54503 08/02/2012 ([id number]) OFFICE/OUTPATIENT VISIT EST Diagnosis: HYPERTENSION[ICD9: 401.9] Diagnosis: ARTHRALGIA-MULTIPLE SITES[ICD9: 719.49] Diagnosis: Hand pain[ICD9: 729.5] Gaby [facility] CPT-[facility]: 68932 02/13/2012 OFFICE/OUTPATIENT VISIT EST Diagnosis: HYPERTENSION[ICD9: 401.9] Diagnosis: HYPERLIPIDEMIA NEC/NOS[ICD9: 272.4] Diagnosis: Knee pain[ICD9: 719.46] Gaby [facility] CPT-4: 36393 07/04/2011 OFFICE/OUTPATIENT VISIT EST [facility]y [facility] CPT- 4: 08134 06/01/2011 ([id number]) OFFICE/OUTPATIENT VISIT EST Gaby [facility] CPT-4: 72526 01/04/2011 ([id number]) OFFICE/OUTPATIENT VISIT, EST Gaby MORGAN SAlanna [facility] CPT-4: 95573 11/15/2010 ([id number]) OFFICE/OUTPATIENT VISIT, EST Gaby MORGAN SAlanna [facility] CPT-4: 16745 07/13/2010 ([id number]) OFFICE/OUTPATIENT VISIT, EST Gaby MORGAN SAlanna [facility] CPT-4: 00570 01/26/2010 Plan of Care Planned Activity Notes [...] I49.5 02/06/2020 Appointment: Odalis Zafar [address] [facility] CANCELED 11/07/2019 Visit Diagnosis Plan: Small bowel obstruction Discussi on: Doing fiber/water Discussed does not want surgery unless was emergency with something like perforation ICD-9 : 560.9 ICD-10 : K56.609 09/24/2019 Appointment: Gaby Rodas WPtel: [phone] [facility] Hospital Follow Up 09/24/2019 Visit Diagnosis [...] : Z00.00 08/08/2019 Appointment: Gaby Rodas WPtel: [facility]8 [facility] Annual Well Visit 08/08/2019 Visit Diagnosis Plan: Other skin changes Discussion: R harish sent to Dr. Domingo to have forehead evaluated. Full body skin check recommended as well. Patient states understanding. They will call patient with appt. ICD-9 : 709.8 ICD-10 : R23.8 03/27/2019 Appointment: Jewell Aege [facility] [employer] [facility] ACUTE ILLNESS 03/27/2019 Care Plan: Referral Order SNOMED-CT : [id number] Pending 03/27/2019 Visit Diagnosis Plan: Localized edema Discussion: Lowe r extremity edema from knee down- improved on celebrex. Will continue celebrex for 2 more weeks. He has f/u with ortho in 1 month. Advise wearing compression stockings. ICD-9 : 782.3 ICD-10 : R60.0 02/27/2019 Appointment: Jewell Agee [facility] [employer] [facility] FOLLOW UP 02/27/2019 Visit Diagnosis Plan: Presence [...] : I10 02/13/2019 Appointment: Jewell Agee [address] ACUTE ILLNESS 02/13/2019 Patient Education: Celebrex- [employer] Coupon [id number] [email or web address] Completed 02/13/2019 Visit Diagnosis Plan: Urinary tract infection, site no t specified Discussion: cipro prescribed to take as directed. instructed patient to increase fluid with water, gatorade, cranberry juice. will send urine for culture and change medications as needed. instructed to call office with any new or worsening symptoms. ICD-9 : 599.0 ICD-10 : N39.0 10/01/2018 Appointment: Odalis Zafar [address] ACUTE ILLNESS 10/01/2018 Visit Diagnosis Plan: [...] R53.83 04/24/2018 Appointment: Gaby Rodas WPtel: [phone] Annual Well Visit 04/24/2018 Patient Education: [...] ICD-10 : E78.2 09/14/2017 Appointment: Gaby Rodastel: [address] [place], [place] [id number] [place] FOLLOW UP 09/14/2017 Patient Education: Patient Medication Summary Completed 09/14/2017 Appointment: Gaby Rodas WPtel: [address] [place] [address] [place] NO SHOW 09/05/2017 Appointment: Gaby Rodastel: [address] [place] [address] [place] CANCELED 07/27/2017 Visit Diagnosis Plan: Essential (primary) hypertension Discussion: Stable High dose flu and Prevnar 13 given ICD-9 : 401.9 ICD-10 : I10 07/25/2017 Visit Diagnosis Plan: 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) (postinfection) Discussion: Increase colace to 100mg po BID ICD-9 : 560.81 ICD-10 : K56.5 07/25/2017 Appointment: Gaby Rodastel: [address] [place] [address] [place] Confirmed-07/14/17-KB FOLLOW UP 07/25/2017 Patient Education: [...] : I10 03/02/2017 Appointment: [facility] [phone] [id number] 03/01 confirmed`sl FOLLOW UP 03/02/2017 Patient Education: [...] : R56.9 12/14/2016 Appointment: Gaby Rodas WPtel: [id number] [facility] Follow Up 12/14/2016 Patient Education: Patient Medication Summary Completed 12/14/2016 Referral: Shae Olivarez WPtel: [address] [place] [address] [place] Referral Appointment Confirmed 10/24/2016 Visit Plan: Continue lisinopril at curre nt dose and monitor BP Had EEG on Monday so will await results Stop potassium and recheck Chem 7 in 1week 10/17/2016 Appointment: Gaby Rodas WPtel: [id number] FO[facility] UP 10/17/2016 Patient Education: Patient Medication Summary Completed 10/17/2016 Visit Plan: Discussed with Dr Adrianna Mobley Follow up with her in 1 week Change lisinopril/hctz to plain lisinopril 40mg daily Continue potassium 20meq but only ONCE per day Recheck BMP Monday and will get a BP as well Will help patient make 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 Rodas, will admit observation cardiac stepdown. See orders this date. 10/07/2016 Appointment: Karlene Braun WPtel: [address] [place], [place] [id number] ACUTE ILLNESS 10/07/2016 Patient Education: Patient Medication Summary Completed 10/07/2016 Visit Plan: Continue with just lisinopri l and monitor BPg 08/31/2016 Appointment: Gaby Rodas WPtel: [address] [place] [address] 08/30 confirmed~sl FOLLOW UP 08/31/2016 Patient Education: Patient Medication Summary Completed 08/31/2016 Visit Plan: Stop amlodopine Monitor home BP Recheck 1month 08/01/2016 Appointment: Gaby Rodas WPtel: [address] [place] [address] [place] 07/28 lm ~sl 08/01 lm-sp FOLLOW UP 6 Patient Education: Patient Medication Summary Completed 08/01/2016 Appointment: Gaby Rodas WPtel: [address] [place] [address] [place] 05/02 rang and rang~sl 05/03 canceled ~sl CANCELED 05/03/2016 Visit Plan: Continue current meds Stay h ydrated Monitor BP 04/27/2016 Appointment: Gaby Rodas WPtel: [address] [place] [address] [place] 04/26 confirmed~sl FOLLOW UP 04/27/2016 Patient Education: Patient Medication Summary Completed 04/27/2016 Appointment: Gaby Rodas WPtel: [address] [place] [address] [place] na/vm-sp 01/10 no vm just beeping~sl 04/18 na/vm 04/19 re scheduled-sp RESCHEDULED 04/25/2016 Visit Plan: Continue amlodopine Stress T est tomorrow Discussed that if telephone clerk telegraph office thinks he needs cardiac cath after the stress test then needs to proceed Fwup pending stress test results 03/21/2016 Appointment: Gaby Rodas WPtel: [address] [place], [place] [id number] 03/21 lm-sp 03/21 Called for Records ~sl FOLLOW UP 03/21/2016 Patient Education: Patient Medication Summary Completed 03/21/2016 Appointment: Gaby Rodas WPtel: [address] [place], [place] [phone] CANCELED 03/17/2016 Visit Plan: Start Norvasc 2.5 mg daily C ontinue Lisinopril - take only once daily Self monitor BP Proceed with Stress Echo Follow-up in 1 week 03/14/2016 Appointment: Lilly Lawson WPtel: [address] [place], [place] [id number] ACUTE ILLNESS 03/14/2016 Patient Education: Patient Medication Summary Completed 03/14/2016 Visit Plan: EKG today CBC, CMP, Triponin level Holter Monitor x 24 hours Follow-up with Dr. Rodas - 1 week 02/29/2016 Appointment: Lilly Lawson WPtel: [address] [place], [place] [id number] ACUTE ILLNESS 02/29/2016 Patient Education: Patient Medication Summary Completed 02/29/2016 Visit Plan: Check fasting lab including TSH, Free T4, B12, CMP, lipids, CBC, Vit D Discussed may need MRI of brain and cervical spine if has any further episodes of paresthesias--patient defers at this time 11/02/2015 Appointment: Gaby Rodas WPtel: [address] [place], [place] [phone] 08/03/ rescheduled pt 10/26 appt to 10/07 8 patient ok with change cn 10/28 confirmed ~sl FOLLOW UP 11/02/2015 Patient Education: Patient Medication Summary Completed 11/02/2015 Visit Plan: Check fasting lab next month Continue current meds 03/26/2015 Appointment: Gaby Rodas WPtel: [address] [place] [address] FOLLOW UP 03/26/2015 Patient Education: Patient Medication Summary Completed 03/26/2015 Appointment: Gaby Rodas WPtel: [address] [place] [address] 09/02 No answer FOLLOW UP 09/03/2014 Patient Education: Patient Medication Summary Completed 09/03/2014 Visit Plan: Check CBC, CMP, Lipids in AM Continue current meds 04/15/2014 Appointment: Gaby Rodas WPtel: [address] [place] [address] FOLLOW UP 04/15/2014 Patient Education: Patient Medication Summary Completed 04/15/2014 Appointment: Gaby Rodas WPtel: [address] [place] [address] 03/28/14 no answer 04/01/14 No Show FOLLOW UP 04/01/2014 Visit Plan: Decrease caffeine intake--pt drinks about 10 cups a day Also discussed taking BP pill at same time everyday Check fasting lab Discussed MRI of brain--pt defers Discussed brain exercises 09/30/2013 Appointment: Gaby Rodas WPtel: [address] [place], [place] [phone] FOLLOW UP 09/30/2013 Patient Education: Patient Medication Summary Completed 09/30/2013 Visit Plan: Continue current meds Check CMP Check Carotid dopplers 04/02/2013 Appointment: Gaby Rodas WPtel: [address] [place] [address] 03/29 appt confirmed FOLLOW UP 04/02/2013 Patient Education: Patient Medication Summary Completed 04/02/2013 Visit Plan: Continue current meds Check fasting lab in AM 08/02/2012 Appointment: Gaby Rodas WPtel: [address] [place] [address] [place] FOLLOW UP 08/02/2012 Patient Education: Patient Medication Summary Completed 08/02/2012 Visit Plan: Check CBC, CMP Trial of Mobi c daily for next month instead of relafen 02/13/2012 Appointment: Gaby Rodastel: [address] [place], [place] [phone] FOLLOW UP 02/13/2012 Patient Education: Patient Medication Summary Completed 02/13/2012 Visit Plan: Continue current meds Check fasting lab Fwup with ortho as scheduled 07/04/2011 Appointment: Gaby Rodas WPtel: [address] [place] [address] FOLLOW UP 07/04/2011 Patient Education: Patient Medication Summary Completed 07/04/2011 Appointment: Gaby Rodas WPtel: [address] [place] [address] ACUTE ILLNESS 06/01/2011 Patient Education: Patient Medication Summary Completed 06/01/2011 Visit Plan: Continue current meds Fastin g lab and fwup in 6mos 01/04/2011 Appointment: Gaby Rodas WPtel: [address] [place] [address] FOLLOW UP 01/04/2011 Patient Education: Patient Medication Summary Completed 01/04/2011 Visit Plan: Check lab including CMP, CBC , Lipids, TSH, Free T4, Vit D, uric acid, WILVER, RA, ESR, CPK, PSA Cont current meds 11/15/2010 Appointment: Gaby Rodas WPtel: [address] [place], [place] [phone] ACUTE ILLNESS 11/15/2010 Patient Education: Patient Medication Summary Completed 11/15/2010 Appointment: Gaby Rodastel: [address] [place], [place] [phone] FOLLOW UP 07/13/2010 Patient Education: Patient Medication Summary Completed 07/13/2010 Patient Education: Patient Medication Summary Completed 07/13/2010 Visit Plan: Continue current meds and fw up w/ surgery as scheduled 01/26/2010 Appointment: Gaby Rodas WPtel: [phone] [id number] FOLLOW UP 01/26/2010 Patient Education: Patient Medication Summary Completed 01/26/2010 Referral: Enrike Leija Referral Initiated Referral: Shaniqua Domingo WPtel: [facility] [address] [id number] [place] Referral Appointment Requested Referral: Shaniqua Domingo WPtel: [facility] [address] [id number] [place] Referral Initiated Instructions Comment . [...] patient make his follow up with his telephone clerk telegraph office today as well If any change or [...] amlodopine Stress Test tomorrow Discussed that if telephone clerk telegraph office thinks he needs cardiac cath after the [...]
--- OUTSIDE RECORDS SUMMARY | 2020-06-09 00:59 | XMS REPORT | CCD ---
Author Author Syd Rodas D.O. Organization [facility] Address [address] [place] [address] Phone Care Team Providers Care Personal Assistant Name Role Phone Gaby Rodas D.O. PP Unavailable CCM Unavailable Summary Purpose Interface Exchange Insurance Providers Payer name Policy type / Coverage type Covered democrat ID Effective Begin Date Effective End Date WPS MEDICARE PART B [place] Medicare Part B [id number] Unknown [id number] Medicare Part B [id number] Unknown Family history Mother Diagnosis Age At Onset Cancer Unknown Grandparents Diagnosis Age At Onset Cardiovascular disease Unknown Father Diagnosis Age At Onset Pneumonia Unknown Social History Social History Element Codes Description Effective Dates Tobacco history SNOMED CT: 022742251 Never smoker 06/01/2011 Marital status Unknown 01/08/2010 [...] Fill Instructions lisinopril 40 mg tablet RxNorm: 291737 TAKE 1 TABLET DA GIULIANA (STOP THE LISINOPRIL/HCTZ) 01/16/2020 No Stop Date Active Keflex 500 mg capsule RxNorm: 081142 1 Capsule(s) Oral four juan es a day 11/07/2019 11/12/2019 Inactive Keflex 500 mg capsule RxNorm: 072362 1 Capsule(s) Oral three ti mes a day 11/07/2019 11/06/2019 Inactive Colace 100 mg capsule RxNorm: 0909488 1 Capsule(s) Oral QD 09/24/20 No Stop Date Active phenytoin sodium extended 100 mg capsule RxNorm: 367567 TAKE 2 CAPSULES TWICE A DAY 08/26/2019 No Stop Date Active aspirin 325 mg tablet RxNorm: 679059 1 Tablet(s) Oral QD 08/08/2019 No Stop Date Active Celebrex 200 mg capsule RxNorm: 531977 1 Capsule(s) PO BID 02/14/2003/14/2019 Inactive lisinopril 40 mg tablet RxNorm: 227179 TAKE 1 TABLET DA GIULIANA (STOP THE LISINOPRIL/HCTZ) 12/05/2018 01/15/2020 Inactive Cipro 250 mg tablet RxNorm: 923095 1 Tablet(s) PO BID 10/01/201812/2017 Inactive tramadol 37.5 mg-acetaminophen 325 mg tablet RxNorm: 691833 2 Tablet(s) PO TID as needed for pain 07/30/2018 02/26/2019 Inactive lisinopril 40 mg tablet RxNorm: 909914 1 TABLET(S) PO Q D REPLACES LISINOPRIL/HCTZ 12/25/2017 12/04/2018 Inactive phenytoin sodium extended 100 mg capsule RxNorm: 409449 1 Capsule(s) PO QAM and 2 at bedtime 12/14/2016 09/13/2017 Inactive lisinopril 40 mg tablet RxNorm: 019914 1 Tablet(s) PO Q D REPLACES LISINOPRIL/HCTZ 10/26/2016 11/15/2016 Inactive lisinopril 40 mg tablet RxNorm: 575326 1 Tablet(s) PO Q D REPLACES LISINOPRIL/HCTZ 10/26/2016 12/13/2016 Inactive potassium chloride ER 20 mEq tablet,extended release(p art/cryst) RxNorm: 7539656 3/4 Tablet(s) PO QD 10/10/2016 12/13/2016 Inactive lisinopril 40 mg tablet RxNorm: 207880 1 Tablet(s) PO Q D REPLACES LISINOPRIL/HCTZ 10/10/2016 10/25/2016 Inactive amlodipine 2.5 mg tablet RxNorm: 919526 1 Tablet(s) PO QD 08/01/2016 08/01/2016 Inactive tramadol 37.5 mg-acetaminophen 325 mg tablet RxNorm: 696474 2 Tablet(s) PO TID as needed for pain 05/24/2016 08/21/2016 Inactive lisinopril 20 mg-hydrochlorothiazide 25 mg tablet RxNorm: 19 7887 TAKE 1 TABLET EVERY MORNING 05/20/2016 10/09/2016 Inactive potassium chloride ER 20 mEq tablet,extended release(p art/cryst) RxNorm: 5268505 TAKE 1 TABLET TWICE A DAY 05/20/2016 10/09/2016 Inactive amlodipine 2.5 mg tablet RxNorm: 891175 1 Tablet(s) PO QHS 03/14/20 16 04/12/2016 Inactive Klor-Con 20 mEq oral packet RxNorm: 537759 1 Tablet(s) PO BID 04/0807/31/2016 Inactive lisinopril 20 mg-hydrochlorothiazide 25 mg tablet RxNorm: 19 7887 1 Tablet(s) PO QD TAKE 1 TABLET DAILY 04/08/2015 04/01/2016 Inactive lisinopril 20 mg-hydrochlorothiazide 25 mg tablet RxNorm: 19 7887 1 Tablet(s) PO QD TAKE 1 TABLET DAILY 11/07/2013 04/08/2015 Inactive potassium chloride ER 20 mEq tablet,extended release(part/cr yst) RxNorm: 635955 1 Tablet(s) PO BID 11/07/2013 04/08/2015 Inactive potassium chloride ER 20 mEq tablet,extended release(p art/cryst) RxNorm: 9327057 1 Tablet(s) PO BID 10/14/2013 10/13/2013 Inactive lisinopril 20 mg-hydrochlorothiazide 25 mg tablet RxNorm: 82 3971 1 Tablet(s) PO QD TAKE 1 TABLET DAILY 10/14/2013 11/06/2013 Inactive potassium chloride ER 20 mEq tablet,extended release(part/cr yst) RxNorm: 583712 1 Tablet(s) PO BID 10/14/2013 11/06/2013 Inactive lisinopril 20 mg-hydrochlorothiazide 25 mg tablet RxNorm: 19 7887 1 Tablet(s) PO QD TAKE 1 TABLET DAILY 10/14/2013 10/13/2013 Inactive lisinopril 20 mg-hydrochlorothiazide 25 mg tablet RxNorm: 19 7887 Tablet(s) PO TAKE 1 TABLET DAILY 06/04/2013 10/13/2013 Inactive Ultracet 37.5 mg-325 mg tablet RxNorm: 744706 2 Tablet(s) PO TID 09/29/2013 Inactive TAKE 2 TABLETS THREE TIMES A DAY NEEDED FOR PAIN K-Dur 20 mEq tablet,extended release RxNorm: 8365279 Tablet(s) PO 1 08/30/2013 Inactive TAKE 1 TABLET TWICE A DAY lisinopril 20 mg-hydrochlorothiazide 25 mg tablet RxNorm: 19 7887 1 Tablet(s) PO QD 09/05/2012 03/03/2013 Inactive Mobic 15 mg Tab RxNorm: 222619 1 Tablet(s) PO QD for arthritis pain 02/13/2012 03/13/2012 Inactive K-Dur 20 mEq tablet,extended release RxNorm: 1036314 1 Tablet(s) PO BID 07/28/2011 09/06/2012 Inactive generic equivalent o truong Ultracet 37.5 mg-325 mg tablet RxNorm: 334836 2 Tablet(s) PO TID 10/24/2011 Inactive TAKE 2 TABLETS THREE TIMES A DAY NEEDED FOR PAIN lisinopril-hydrochlorothiazide 20 mg-25 mg tablet RxNorm: 19 7887 1 Tablet(s) PO QD 06/16/2011 09/05/2012 Inactive TAKE 1 TABLET DA GIULIANA Bactrim DS 800 mg-160 mg Tab RxNorm: 327870 1 Tablet(s) PO QD 06/0107/03/2011 Inactive Ultracet 37.5 mg-325 mg Tab RxNorm: 754083 2 Tablet(s) PO TID P .r.n. pain 03/07/2011 07/27/2011 Inactive K-Dur 20 mEq Tab RxNorm: 9987029 1 Tablet(s) PO BID 04/30/20102010 Inactive lisinopril-hydrochlorothiazide 20 mg-25 mg Tab RxNorm: 102395 1 Tablet(s) PO QD 04/29/2010 06/17/2011 Inactive Relafen 750 mg Tab RxNorm: 687195 1 Tablet(s) PO BID P.r.n. pain 04/17/2010 Inactive Ultracet 37.5 mg-325 mg Tab RxNorm: 741489 2 Tablet(s) PO TID P .r.n. pain 01/08/2010 04/17/2010 Inactive Zestoretic 20 mg-25 mg Tab RxNorm: 625163 1 Tablet(s) PO QD 010 04/07/2010 Inactive K-Dur 20 mEq Tab RxNorm: 7568667 1 Tablet(s) PO BID 01/08/20102009 Inactive lisinopril 40 mg tablet RxNorm: 668941 1 Tablet(s) PO QD No Start Date Active Colace 100 mg capsule RxNorm: 3992140 1 Capsule(s) PO BID No Start Date 09/23/2019 Inactive K-Dur 20 mEq Tab RxNorm: 4144423 1 Tablet(s) PO BID No Start Date Inactive amlodipine 2.5 mg tablet RxNorm: 604824 1 Tablet(s) PO QD No Start Date 03/01/2017 Inactive Relafen 750 mg Tab RxNorm: 484892 1 Tablet(s) PO BID prn No Start D ate 02/12/2012 Inactive K-Dur 20 mEq tablet,extended release RxNorm: 688571 1 Tablet(s) PO BID No Start Date 11/01/2015 Inactive tramadol 50 mg Tab RxNorm: 971864 2 Tablet(s) PO TID prn pain No St art Date 05/23/2016 Inactive aspirin 325 mg tablet RxNorm: 927662 1 Tablet(s) PO QD No Start Date 09/30/2018 Inactive lisinopril-hydrochlorothiazide 20 mg-25 mg tablet RxNorm: 19 7887 1 Tablet(s) PO QD No Start Date 09/04/2012 Inactive Colace 100 mg capsule RxNorm: 2418748 1 Capsule(s) PO QD No Start D ate 09/30/2018 Inactive Vitamin D3 1000 units Capsule RxNorm: 1 Capsule(s) PO QD No St art Date 02/28/2016 Inactive aspirin 81 mg tablet,delayed release RxNorm: 119431 1 Tablet(s) PO QD No Start Date 02/26/2019 Inactive Colace 100 mg Cap RxNorm: 6771739 1 Capsule(s) PO BID No Start Date 0 01/26/2010 Inactive phenytoin sodium extended 100 mg capsule RxNorm: 790778 2 Capsu le(s) PO BID No Start Date 08/25/2019 Inactive Medication Administered No Medication Administered data Immunizations Vaccine Codes Date Status Influenza CVX: 135 08/08/2019 Complete Influenza CVX: 135 08/08/2019 Complete Influenza CVX: 135 07/25/2017 Complete Pneumococcal CVX: 133 07/25/2017 Complete Influenza CVX: 141 09/03/2014 Pneumococcal (Adult) Unknown 07/13/2010 Results Observation Observation Code Item Item Code Result Date S ervice Location GFR CALC [id number] GFR AA >60 ML/MIN 07/13/2010 Unknown GFR CALC 0244535 GFR NON-AA >60 ML/MIN 07/13/2010 Unknown THYROID STIMULATING HORMONE 95780 TSH 2.361 uIU/ML 07/13/2010 Unknown COMPREHENSIVE METABOLIC 98355 AST 20 U/L 2009 Unknown COMPREHENSIVE METABOLIC 14053 ALT 10 IU/L 2009 Unknown COMPREHENSIVE METABOLIC 27865 BUN 15 MG/DL 2009 Unknown COMPREHENSIVE METABOLIC 86564 ALBUMIN 4.3 GM/DL 2009 Unknown COMPREHENSIVE METABOLIC 62367 CHLORIDE 101 MMOL/L 07/13 Unknown COMPREHENSIVE METABOLIC 99787 BILI TOT 0.8 MG/DL 2009 Unknown COMPREHENSIVE METABOLIC 44990 ALK PHOS 91 U/L 2009 Unknown COMPREHENSIVE METABOLIC 07036 SODIUM 138 MMOL/L 07/13 Unknown COMPREHENSIVE METABOLIC 17154 CREATININE 0.96 MG/DL 05/2010 Unknown COMPREHENSIVE METABOLIC 11701 CALCIUM 9.3 MG/DL 2009 Unknown COMPREHENSIVE METABOLIC 28185 POTASSIUM 4.2 MMOL/L 07/13 Unknown COMPREHENSIVE METABOLIC 53766 PROT TOT 6.4 GM/DL 2009 Unknown COMPREHENSIVE METABOLIC 68228 Glucose 85 MG/DL 2009 Unknown COMPREHENSIVE METABOLIC 25841 BICARB 29 MMOL/L 2009 Unknown COMPREHENSIVE METABOLIC 97624 ANION GAP 8 MEQ/L 2009 Unknown LIPID GROUP 92553 HDL TEST 49 MG/DL 07/13/2010 Unknown LIPID GROUP 16028 TRIG 87 MG/DL 07/13/2010 Unknown LIPID GROUP 00564 TEST LDL 95 MG/DL 07/13/2010 Unknown LIPID GROUP 95474 CHOL 161 MG/DL 07/13/2010 Unknown LIPID GROUP 24508 RCHOL/HDL 3.29 RATIO 07/13/2010 Unknow n Procedures Procedure Codes Date FLU VACC PRSV FREE INC ANTIG 65 AND OLDER CPT-4: 49181 08/08/2019 FLU VACC PRSV FREE INC ANTIG 65 AND OLDER CPT-4: 62973 08/08/2019 ADMIN INFLUENZA VIRUS VAC CPT-4: G0008 08/08/2019 PPPS, subseq visit CPT-4: G0439 08/08/2019 URINE CULTURE/ COLONY COUNT CPT-4: 34281 10/01/2018 URINALYSIS NONAUTO W/O SCOPE CPT-4: 41863 10/01/2018 PPPS, subseq visit CPT-4: G0439 04/24/2018 FLU VACC PRSV FREE INC ANTIG 65 AND OLDER CPT-4: 77469 07/25/2017 PNEUMOCOCCAL VACC 13 HAN IM CPT-4: 87621 07/25/2017 ADMIN PNEUMOCOCCAL VACCINE CPT-4: G0009 07/25/2017 ADMIN INFLUENZA VIRUS VAC CPT-4: G0008 07/25/2017 URINALYSIS NONAUTO W/O SCOPE CPT-4: 48037 10/07/2016 FLU VACCINE 3 YRS & > IM UP 64 CPT-4: 73313 4 FLUZONE, 5ML (Medicare) CPT-4: Q2038 09/03/2014 ADMIN INFLUENZA VIRUS VAC CPT-4: G0008 09/03/2014 PRESCRIP TRANSMIT VIA ERX SY CPT-4: G8553 02/13/2012 CUR TOBACCO NON-USER CPT-4: G8457 06/01/2011 PRESCRIP TRANSMIT VIA ERX SY CPT-4: G8553 06/01/2011 ROUTINE VENIPUNCTURE CPT-4: 08332 07/13/2010 DESTRUCT PREMALG LESION (Cryosurgery) CPT-4: 25409 COMPREHEN METABOLIC PANEL CPT-4: 10745 07/13/2010 LIPID PANEL CPT-4: 70325 07/13/2010 ASSAY THYROID STIM HORMONE CPT-4: 35107 07/13/2010 PNEUMOCOCCAL VACC 23 HAN IM CPT-4: 03961 07/13/2010 IMMUNIZATION ADMIN CPT-4: 20393 07/13/2010 ROUTINE VENIPUNCTURE CPT-4: 73825 07/13/2010 COMPREHEN METABOLIC PANEL CPT-4: 34824 07/13/2010 LIPID PANEL CPT-4: 56398 07/13/2010 ASSAY THYROID STIM HORMONE CPT-4: 73977 07/13/2010 Vital Signs Date Vital 02/06/2020 Blood [...] 1: 134/52 Code: 8480-6 BMI: 28.8 Code: 37509-7 Heart Rate 1: 60 bpm Height: 5'9" [...] 1: 142/70 Code: 8480-6 BMI: 25.1 Code: 86708-8 Heart Rate 1: 64 bpm Height: 6'1" Respiratory Rate: 20 bpm SpO2: 95% Tempera ture: 36.9 (C) / 98.5 (F) Weight: 190 lbs 09/14/2017 Blood Pressure 1: 144/70 Code: 8480-6 BMI: 25.5 Code: 85457-4 Heart Rate 1: 76 bpm Height: 6'1" Respiratory Rate: 20 bpm SpO2: 95% Tempera ture: 36.8 (C) / 98.2 (F) Weight: 193 lbs 07/25/2017 Blood Pressure 1: 116/58 Code: 8480-6 BMI: 25.5 Code: 40448-0 Heart Rate 1: 72 bpm Height: 6'1" Respiratory Rate: 20 bpm SpO2: 95% Tempera ture: 36.8 (C) / 98.3 (F) Weight: 193 lbs 03/02/2017 Blood Pressure 1: 126/70 Code: 8480-6 BMI: 25.9 Code: 87799-2 Heart Rate 1: 64 bpm Height: 6'1" Respiratory Rate: 20 bpm SpO2: 95% Tempera ture: 36.6 (C) / 97.9 (F) Weight: 196 lbs 12/14/2016 Blood Pressure 1: 144/70 Code: 8480-6 BMI: 27.0 Code: 79448-9 Heart Rate 1: 80 bpm Height: 6'1" [...] 1: 144/60 Code: 8480-6 BMI: 26.5 Code: 05743-1 Heart Rate 1: 60 bpm Height: 6'1" Respiratory Rate: 20 bpm Temperature: 36 .9 (C) / 98.4 (F) Weight: 201 lbs 08/01/2016 Blood Pressure 1: 144/70 Code: 8480-6 Heart Rate 1: 68 bpm Respiratory Rate: 20 bpm Temperature: 36.9 (C) / 98.4 (F) Weight: 200 lbs 04/27/2016 Blood Pressure 1: 134/68 Code: 8480-6 BMI: 26.8 Code: 58703-0 Heart Rate 1: 68 bpm Height: 6'1" Respiratory Rate: 20 bpm Temperature: 36 .3 (C) / 97.3 (F) Weight: 203 lbs 03/21/2016 Blood Pressure 1: 126/64 Code: 8480-6 BMI: 26.8 Code: 91285-8 Heart Rate 1: 80 bpm Height: 6'1" Respiratory Rate: 20 bpm Temperature: 36 .6 (C) / 97.9 (F) Weight: 203 lbs 03/14/2016 Blood Pressure 1: 176/90 Code: 8480-6 BMI: 26.3 Code: 04527-2 Heart Rate 1: 74 bpm Height: 6'1" Respiratory Rate: 22 bpm SpO2: 94% Tempera ture: 36.2 (C) / 97.1 (F) Weight: 199 lbs 02/29/2016 Blood Pressure 1: 172/82 Code: 8480-6 BMI: 26.9 Code: 27555-1 Heart Rate 1: 60 bpm Height: 6'1" Respiratory Rate: 20 bpm SpO2: 98% Tempera ture: 36.8 (C) / 98.2 (F) Weight: 204 lbs 11/02/2015 Blood Pressure 1: 136/72 Code: 8480-6 BMI: 27.3 Code: 73943-0 Heart Rate 1: 68 bpm Height: 6'1" Respiratory Rate: 20 bpm Temperature: 36 .6 (C) / 97.8 (F) Weight: 207 lbs 03/26/2015 Blood Pressure 1: 142/74 Code: 8480-6 BMI: 28.2 Code: 71515-8 Heart Rate 1: 76 bpm Height: 6'1" Respiratory Rate: 20 bpm Temperature: 36 .7 (C) / 98.1 (F) Weight: 214 lbs 09/03/2014 Blood Pressure 1: 132/68 Code: 8480-6 BMI: 29.8 Code: 08040-5 Heart Rate 1: 80 bpm Height: 6'1" Respiratory Rate: 20 bpm Temperature: 36 .7 (C) / 98.1 (F) Weight: 226 lbs 04/15/2014 Blood Pressure 1: 142/64 Code: 8480-6 BMI: 28.9 Code: 52191-8 Heart Rate 1: 64 bpm Height: 6'1" Respiratory Rate: 22 bpm Temperature: 36 .2 (C) / 97.2 (F) Weight: 219 lbs 09/30/2013 Blood Pressure 1: 142/70 Code: 8480-6 BMI: 29.2 Code: 86231-7 Heart Rate 1: 72 bpm Height: 6'1" Respiratory Rate: 20 bpm Temperature: 36 .7 (C) / 98.1 (F) Weight: 221 lbs 04/02/2013 Blood Pressure 1: 142/78 Code: 8480-6 BMI: 29.6 Code: 70997-0 Heart Rate 1: 64 bpm Height: 6'1" Respiratory Rate: 20 bpm Temperature: 36 .6 (C) / 97.9 (F) Weight: 224 lbs 08/02/2012 Blood Pressure 1: 122/66 Code: 8480-6 BMI: 29.3 Code: 62995-3 Heart Rate 1: 64 bpm Height: 6'1" Respiratory Rate: 20 bpm Temperature: 36 .9 (C) / 98.4 (F) Weight: 222 lbs 02/13/2012 Blood Pressure 1: 138/72 Code: 8480-6 BMI: 28.5 Code: 08618-6 Heart Rate 1: 72 bpm Height: 6'1" Respiratory Rate: 20 bpm Temperature: 36 .4 (C) / 97.6 (F) Weight: 216 lbs 07/04/2011 Blood Pressure 1: 124/60 Code: 8480-6 BMI: 28.5 Code: 43672-5 Heart Rate 1: 56 bpm Height: 6'1" Respiratory Rate: 20 bpm Temperature: 36 .6 (C) / 97.9 (F) Weight: 216 lbs 06/01/2011 Blood Pressure 1: 122/68 Code: 8480-6 BMI: 28.5 Code: 33215-7 Heart Rate 1: 68 bpm Height: 6'1" [...] 1: 122/56 Code: 8480-6 BMI: 27.6 Code: 50945-0 Heart Rate 1: 72 bpm Height: 6'1" [...] TITIS Encounters Encounter Performer Location Codes Date ([id number]) OFFICE/OUTPATIENT VISIT EST Diagnosis: Essential (primary) hypertension[ICD10: I10] Diagnosis: Sick sinus syndrome[ICD10: I49.5] Gaby Sanchez Shira RODAS [facility] CPT-4: 43540 02/06/2020 ([id number]) OFFICE/OUTPATIENT VISIT EST Diagnosis: Small bowel obstruction[ICD10: K56.609] Gaby Armandocheikh MORGAN Shira RODAS [facility] CPT-4: 10101 09/24/2019 ([id number]) OFFICE/OUTPATIENT VISIT EST Diagnosis: Other skin changes[ICD10: R23.8] Jewell RODAS [facility] CPT-4: 08653 03/27/2019 ([id number]) OFFICE/OUTPATIENT VISIT EST Diagnosis: Localized edema[ICD10: R60.0] Diagnosis: Presence of left artificial knee joint[ICD10: Z96.652] Jewell RODAS [facility] CPT-4: 79582 02/27/2019 ([id number]) OFFICE/OUTPATIENT VISIT EST Diagnosis: Localized edema[ICD10: R60.0] Diagnosis: Presence of left artificial knee joint[ICD10: Z96.652] Diagnosis: Essential (primary) hypertension[ICD10: I10] Jewell RODAS [facility] CPT-4: 54476 02/13/2019 ([id number]) OFFICE/OUTPATIENT VISIT EST Diagnosis: Urinary tract infection, site not specified[ICD10: N39.0] Odalis [facility] CPT-4: 60370 10/01/2018 ([id number]) OFFICE/OUTPATIENT VISIT EST Diagnosis: Essential (primary) hypertension[ICD10: I10] Diagnosis: Mixed hyperlipidemia[ICD10: E78.2] Diagnosis: Unspecified convulsions[ICD10: R56.9] Gaby PARRA Shira RODAS [facility] CPT-4: 29834 09/14/2017 ([id number]) OFFICE/OUTPATIENT VISIT EST Diagnosis: 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 (postprocedural) (postinfection)[ICD10: K56.5] Diagnosis: Essential (primary) hypertension[ICD10: I10] Diagnosis: FLU VACCINE[ICD10: Z23] Diagnosis: PNEUMOCOCCAL VACCINE[ICD10: Z23] Gaby [facility] CPT-4: 06992 07/25/2017 ([id number]) OFFICE/OUTPATIENT VISIT EST Diagnosis: Mixed hyperlipidemia[ICD10: E78.2] Diagnosis: Essential (primary) hypertension[ICD10: I10] Diagnosis: Epilepsy, unspecified, not intractable, without status epilepticus[ICD10: G40.909] [facility] 00848 03/02/2017 ([id number]) OFFICE/OUTPATIENT VISIT EST Diagnosis: Essential (primary) hypertension[ICD10: I10] Diagnosis: 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 (postprocedural) (postinfection)[ICD10: K56.5] Diagnosis: Unspecified convulsions[ICD10: R56.9] Gaby Burrell TREY Silva [facility] CPT-4: 17245 12/14/2016 ([id number]) OFFICE/OUTPATIENT VISIT EST Diagnosis: Hypokalemia[ICD10: E87.6] Diagnosis: Essential (primary) hypertension[ICD10: I10] Gaby Silva [facility] CPT-4: 97113 10/17/2016 ([id number]) OFFICE/OUTPATIENT VISIT EST Diagnosis: Altered mental status, unspecified[ICD10: R41.82] Diagnosis: Chest pain, unspecified[ICD10: R07.9] Diagnosis: Essential (primary) hypertension[ICD10: I10] Diagnosis: Hypokalemia[ICD10: E87.6] Freda Womack [facility] C[facility]: 28864 10/10/2016 OFFICE/OUTPATIENT VISIT EST Diagnosis: Essential (primary) hypertension[ICD10: I10] [facility]: 93142 08/31/2016 ([id number]) OFFICE/OUTPATIENT VISIT EST Diagnosis: Irritability and anger[ICD10: R45.4] Diagnosis: Essential (primary) hypertension[ICD10: I10] [facility]: 03530 08/01/2016 ([id number]) OFFICE/OUTPATIENT VISIT EST Diagnosis: Essential (primary) hypertension[ICD10: I10] Diagnosis: Cardiac arrhythmia, unspecified[ICD10: I49.9] Gaby RODAS DO [facility] CPT-4: 23396 04/27/2016 OFFICE/OUTPATIENT VISIT EST Diagnosis: Essential (primary) hypertension[ICD10: I10] Diagnosis: Cardiac arrhythmia, unspecified[ICD10: I49.9] Diagnosis: Chest pain, unspecified[ICD10: R07.9] Gaby RODAS [facility] CPT-4: 39821 03/21/2016 OFFICE/OUTPATIENT VISIT EST Diagnosis: Essential (primary) hypertension[ICD10: I10] Diagnosis: Other fatigue[ICD10: R53.83] Diagnosis: Dyspnea, unspecified[ICD10: R06.00] Lilly [facility] CPT-4: 39320 03/14/2016 OFFICE/OUTPATIENT VISIT EST Diagnosis: Dyspnea, unspecified[ICD10: R06.00] Diagnosis: Cardiac arrhythmia, unspecified[ICD10: I49.9] Diagnosis: Other fatigue[ICD10: R53.83] Lilly RODAS [facility] CPT-4: 03577 02/29/2016 ([id number]) OFFICE/OUTPATIENT VISIT EST Diagnosis: Essential (primary) hypertension[ICD10: I10] Diagnosis: Mixed hyperlipidemia[ICD10: E78.2] Diagnosis: Paresthesia of skin[ICD10: R20.2] Diagnosis: OSTEOARTHRISIS MULTI SITES[ICD10: M19.90] Gaby RODAS nPicker [facility] CPT-4: 72450 11/02/2015 ([id number]) OFFICE/OUTPATIENT VISIT EST Diagnosis: HYPERTENSION[ICD9: 401.9] Diagnosis: HYPERLIPIDEMIA NEC/NOS[ICD9: 272.4] Gaby RODAS [employer]Picker [facility] CPT-4: 49611 03/26/2015 ([id number]) OFFICE/OUTPATIENT VISIT EST Diagnosis: HYPERTENSION[ICD9: 401.9] Diagnosis: HYPERLIPIDEMIA NEC/NOS[ICD9: 272.4] Diagnosis: Hand pain[ICD9: 729.5] Diagnosis: FLU VACCINE[ICD10: Z23] Gaby HINKLE DinoAlanna [facility] CPT-4: 79905 09/03/2014 ([id number]) OFFICE/OUTPATIENT VISIT EST Diagnosis: HYPERTENSION[ICD9: 401.9] Diagnosis: HYPERLIPIDEMIA NEC/NOS[ICD9: 272.4] Diagnosis: ARTHRALGIA-MULTIPLE SITES[ICD9: 719.49] Diagnosis: MALAISE AND FATIGUE[ICD9: 780.79] Gab[facility] Sanchez [facility] CPT-[facility]: 12145 04/15/2014 OFFICE/OUTPATIENT VISIT EST Diagnosis: HYPERTENSION[ICD9: 401.9] Diagnosis: HYPERLIPIDEMIA NEC/NOS[ICD9: 272.4] Diagnosis: MEMORY LOSS[ICD9: 780.93] Gaby Silva ARMANDO KWONGPamela [facility] CPT-4: 26907 09/30/2013 ([id number]) OFFICE/OUTPATIENT VISIT EST Diagnosis: HYPERTENSION[ICD9: 401.9] Diagnosis: ARTHRALGIA-MULTIPLE SITES[ICD9: 719.49] Diagnosis: Carotid bruit[ICD9: 785.9] Gab[facility] CPT-[facility]: 60468 04/02/2013 ([id number]) OFFICE/OUTPATIENT VISIT EST Diagnosis: HYPERLIPIDEMIA NEC/NOS[ICD9: 272.4] Diagnosis: HYPERTENSION[ICD9: 401.9] Diagnosis: ARTHRALGIA-MULTIPLE SITES[ICD9: 719.49] [facility] CPT-[facility]: 46682 08/02/2012 ([id number]) OFFICE/OUTPATIENT VISIT EST Diagnosis: HYPERTENSION[ICD9: 401.9] Diagnosis: ARTHRALGIA-MULTIPLE SITES[ICD9: 719.49] Diagnosis: Hand pain[ICD9: 729.5] Gaby Silva [facility]ENITA [facility] CPT-4: 82791 02/13/2012 OFFICE/OUTPATIENT VISIT EST Diagnosis: HYPERTENSION[ICD9: 401.9] Diagnosis: HYPERLIPIDEMIA NEC/NOS[ICD9: 272.4] Diagnosis: Knee pain[ICD9: 719.46] Gaby [facility] CPT-4: 52556 07/04/2011 OFFICE/OUTPATIENT VISIT EST Gaby [facility] CPT- 4: 01110 06/01/2011 ([id number]) OFFICE/OUTPATIENT VISIT EST Gaby [facility] CPT-4: 38228 01/04/2011 ([id number]) OFFICE/OUTPATIENT VISIT, EST Gaby MORGAN SAlanna [facility] CPT-4: 00353 11/15/2010 ([id number]) OFFICE/OUTPATIENT VISIT, EST Gaby MORGAN SAlanna [facility] CPT-4: 18515 07/13/2010 ([id number]) OFFICE/OUTPATIENT VISIT, EST Gaby MORGAN SAlanna [facility] CPT-4: 87275 01/26/2010 Plan of Care Planned Activity Notes [...] I49.5 02/06/2020 Appointment: Odalis Zafar [address] [facility] CANCELED 11/07/2019 Visit Diagnosis Plan: Small bowel obstruction Discussi on: Doing fiber/water Discussed does not want surgery unless was emergency with something like perforation ICD-9 : 560.9 ICD-10 : K56.609 09/24/2019 Appointment: Gaby Rodas WPtel: [phone] [facility] Hospital Follow Up 09/24/2019 Visit Diagnosis [...] : Z00.00 08/08/2019 Appointment: Gaby Rodas WPtel: [facility]6 [facility] Annual Well Visit 08/08/2019 Visit Diagnosis Plan: Other skin changes Discussion: R harish sent to Dr. Domingo to have forehead evaluated. Full body skin check recommended as well. Patient states understanding. They will call patient with appt. ICD-9 : 709.8 ICD-10 : R23.8 03/27/2019 Appointment: Jewell Agee [facility] [employer] [facility] ACUTE ILLNESS 03/27/2019 Care Plan: Referral Order SNOMED-CT : 30 [id number] Pending 03/27/2019 Visit Diagnosis Plan: Localized edema Discussion: Lowe r extremity edema from knee down- improved on celebrex. Will continue celebrex for 2 more weeks. He has f/u with ortho in 1 month. Advise wearing compression stockings. ICD-9 : 782.3 ICD-10 : R60.0 02/27/2019 Appointment: Jewell Agee [facility] [employer] [facility] FOLLOW UP 02/27/2019 Visit Diagnosis Plan: [...] : I10 02/13/2019 Appointment: Jewell Agee [address] ACUTE ILLNESS 02/13/2019 Patient Education: Celebrex- [employer] Coupon [id number] [email or web address]://www.[employer]/samplemd/resources/getResource/61/8674ner2-5f62-7697-k0 Completed 02/13/2019 Visit Diagnosis Plan: Urinary tract infection, site no t specified Discussion: cipro prescribed to take as directed. instructed patient to increase fluid with water, gatorade, cranberry juice. will send urine for culture and change medications as needed. instructed to call office with any new or worsening symptoms. ICD-9 : 599.0 ICD-10 : N39.0 10/01/2018 Appointment: Odalis Zafar [address] ACUTE ILLNESS 10/01/2018 Visit Diagnosis Plan: [...] R53.83 04/24/2018 Appointment: Gaby Rodas WPtel: [phone] Annual Well Visit 04/24/2018 Patient Education: [...] ICD-10 : E78.2 09/14/2017 Appointment: Gaby Rodastel: [address] [place], [place] [id number] [place] FOLLOW UP 09/14/2017 Patient Education: Patient Medication Summary Completed 09/14/2017 Appointment: Gaby Rodas WPtel: [address] [place] [address] [place] NO SHOW 09/05/2017 Appointment: Gaby Rodastel: [address] [place] [address] [place] CANCELED 07/27/2017 Visit Diagnosis Plan: Essential (primary) hypertension Discussion: Stable High dose flu and Prevnar 13 given ICD-9 : 401.9 ICD-10 : I10 07/25/2017 Visit Diagnosis Plan: 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 [id number] [facility] Follow Up 12/14/2016 Patient Education: Patient Medication Summary Completed 12/14/2016 Referral: Shae Olivarez WPtel: [address] [place] [address] [place] Referral Appointment Confirmed 10/24/2016 Visit Plan: Continue lisinopril at curre nt dose and monitor BP Had EEG on Monday so will await results Stop potassium and recheck Chem 7 in 1week 10/17/2016 Appointment: Gaby Rodas WPtel: 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 Rodas, will admit observation cardiac stepdown. See orders this date. 10/07/2016 Appointment: Karlene Braun WPtel: [address] [place], [place] [id number] ACUTE ILLNESS 10/07/2016 Patient Education: Patient Medication Summary Completed 10/07/2016 Visit Plan: Continue with just lisinopri l and monitor BPg 08/31/2016 Appointment: Gaby Rodas WPtel: [address] [place] [address] 08/30 confirmed~sl FOLLOW UP 08/31/2016 Patient Education: Patient Medication Summary Completed 08/31/2016 Visit Plan: Stop amlodopine Monitor home BP Recheck 1month 08/01/2016 Appointment: Gaby Rodas WPtel: [address] [place] [address] [place] 07/28 lm ~sl 08/01 lm-sp FOLLOW UP 6 Patient Education: Patient Medication Summary Completed 08/01/2016 Appointment: Gaby Rodas WPtel: [address] [place] [address] [place] 05/02 rang and rang~sl 05/03 canceled ~sl CANCELED 05/03/2016 Visit Plan: Continue current meds Stay h ydrated Monitor BP 04/27/2016 Appointment: Gaby Rodas WPtel: [address] [place] [address] [place] 04/26 confirmed~sl FOLLOW UP 04/27/2016 Patient Education: Patient Medication Summary Completed 04/27/2016 Appointment: Gaby Rodas WPtel: [address] [place] [address] [place] na/vm-sp 01/10 no vm just beeping~sl 04/18 na/vm 04/19 re scheduled-sp RESCHEDULED 04/25/2016 Visit Plan: Continue amlodopine Stress T est tomorrow Discussed that if child adolescent care thinks he needs cardiac cath after the stress test then needs to proceed Fwup pending stress test results 03/21/2016 Appointment: Gaby Rodas WPtel: [address] [place] [id number] 03/21 lm-sp 03/21 Called for Records ~sl FOLLOW UP 03/21/2016 Patient Education: Patient Medication Summary Completed 03/21/2016 Appointment: Gaby Rodas WPtel: [address] [place], [place] [phone] CANCELED 03/17/2016 Visit Plan: Start Norvasc 2.5 mg daily C ontinue Lisinopril - take only once daily Self monitor BP Proceed with Stress Echo Follow-up in 1 week 03/14/2016 Appointment: Lilly Lawson WPtel: [address] [place], [place] [phone] ACUTE ILLNESS 03/14/2016 Patient Education: Patient Medication Summary Completed 03/14/2016 Visit Plan: EKG today CBC, CMP, Triponin level Holter Monitor x 24 hours Follow-up with Dr. Rodas - 1 week 02/29/2016 Appointment: Lilly Lawson WPtel: [address] [place], [place] [phone] AC[facility] 02/29/2016 Patient Education: Patient Medication Summary Completed 02/29/2016 Visit Plan: Check fasting lab including TSH, Free T4, B12, CMP, lipids, CBC, Vit D Discussed may need MRI of brain and cervical spine if has any further episodes of paresthesias--patient defers at this time 11/02/2015 Appointment: Gaby Rodas WPtel: [address] [place], [place] [phone] 08/03/ rescheduled pt 10/26 appt to 10/07 8 patient ok with change cn 10/28 confirmed ~sl FOLLOW UP 11/02/2015 Patient Education: Patient Medication Summary Completed 11/02/2015 Visit Plan: Check fasting lab next month Continue current meds 03/26/2015 Appointment: Gaby Rodas WPtel: [address] [place] [address] FOLLOW UP 03/26/2015 Patient Education: Patient Medication Summary Completed 03/26/2015 Appointment: Gaby Rodas WPtel: [address] [place] [address] 09/02 No answer FOLLOW UP 09/03/2014 Patient Education: Patient Medication Summary Completed 09/03/2014 Visit Plan: Check CBC, CMP, Lipids in AM Continue current meds 04/15/2014 Appointment: Gaby Rodas WPtel: [address] [place] [address] FOLLOW UP 04/15/2014 Patient Education: Patient Medication Summary Completed 04/15/2014 Appointment: Gaby Rodas WPtel: [address] [place] [address] 03/28/14 no answer 04/01/14 No Show FOLLOW UP 04/01/2014 Visit Plan: Decrease caffeine intake--pt drinks about 10 cups a day Also discussed taking BP pill at same time everyday Check fasting lab Discussed MRI of brain--pt defers Discussed brain exercises 09/30/2013 Appointment: Gaby Rodas WPtel: [address] [place], [place] [phone] FOLLOW UP 09/30/2013 Patient Education: Patient Medication Summary Completed 09/30/2013 Visit Plan: Continue current meds Check CMP Check Carotid dopplers 04/02/2013 Appointment: Gaby Roads WPtel: [address] [place] [address] 03/29 appt confirmed FOLLOW UP 04/02/2013 Patient Education: Patient Medication Summary Completed 04/02/2013 Visit Plan: Continue current meds Check fasting lab in AM 08/02/2012 Appointment: Gaby Rodas WPtel: [address] [place] [address] [place] FOLLOW UP 08/02/2012 Patient Education: Patient Medication Summary Completed 08/02/2012 Visit Plan: Check CBC, CMP Trial of Mobi c daily for next month instead of relafen 02/13/2012 Appointment: Gaby Rodastel: [address] [place], [place] [phone] FOLLOW UP 02/13/2012 Patient Education: Patient Medication Summary Completed 02/13/2012 Visit Plan: Continue current meds Check fasting lab Fwup with ortho as scheduled 07/04/2011 Appointment: Gaby Rodas WPtel: [address] [place] [address] FOLLOW UP 07/04/2011 Patient Education: Patient Medication Summary Completed 07/04/2011 Appointment: Gaby Rodas WPtel: [address] [place] [address] ACUTE ILLNESS 06/01/2011 Patient Education: Patient Medication Summary Completed 06/01/2011 Visit Plan: Continue current meds Fastin g lab and fwup in 6mos 01/04/2011 Appointment: Gaby Rodas WPtel: [address] [place] [address] FOLLOW UP 01/04/2011 Patient Education: Patient Medication Summary Completed 01/04/2011 Visit Plan: Check lab including CMP, CBC , Lipids, TSH, Free T4, Vit D, uric acid, WILVER, RA, ESR, CPK, PSA Cont current meds 11/15/2010 Appointment: Gaby Rodas WPtel: [address] [place], [place] [phone] AC[facility] 11/15/2010 Patient Education: Patient Medication Summary Completed 11/15/2010 Appointment: Gaby Rodastel: [address] [place], [place] [phone] FOLLOW UP 07/13/2010 Patient Education: Patient Medication Summary Completed 07/13/2010 Patient Education: Patient Medication Summary Completed 07/13/2010 Visit Plan: Continue current meds and fw up w/ surgery as scheduled 01/26/2010 Appointment: Gaby Rodas WPtel: [phone] [id number] FOLLOW UP 01/26/2010 Patient Education: Patient Medication Summary Completed 01/26/2010 Referral: Enrike Leija Referral Initiated Referral: Shaniqua Domingo WPtel: [facility] [address] [facility] [place] Referral Appointment Requested Referral: Shaniqua Domingo WPtel: [facility] [address] [facility] [place] Referral Initiated Instructions Comment . [...] patient make his follow up with his child adolescent care today as well If any change or [...] amlodopine Stress Test tomorrow Discussed that if child adolescent care thinks he needs cardiac cath after the [...]
--- OUTSIDE RECORDS SUMMARY | 2020-06-09 01:00 | XMS REPORT | CCD ---
Author Author Syd Rodas D.O. Organization [facility]ABY RODAS DO [facility] Address [address] [place] [address] Phone Care Team Providers Care Trading Assistant Name Role Phone Gaby Rodas D.O. PP Unavailable CCM Unavailable Summary Purpose Interface Exchange Insurance Providers Payer name Policy type / Coverage type Covered democrat ID Effective Begin Date Effective End Date WPS MEDICARE PART B [place] Medicare Part B [id number] Unknown [id number] Medicare Part B [id number] Unknown Family history Mother Diagnosis Age At Onset Cancer Unknown Grandparents Diagnosis Age At Onset Cardiovascular disease Unknown Father Diagnosis Age At Onset Pneumonia Unknown Social History Social History Element Codes Description Effective Dates Tobacco history SNOMED CT: 026076679 Never smoker 06/01/2011 Marital status Unknown 01/08/2010 [...] Problems Condition Codes Effective Dates Condition Status Small bowel obstruction ICD-9: 560.9 ICD-10: K56.609 09/24/2019 Active Encounter for general adult medical examination withou t abnormal findings ICD-9: V70.9 ICD-10: Z00.00 04/24/2018 Active Epilepsy, unspecified, not intractable, without status epilepticus ICD-9: 345.90 ICD-10: G40.909 03/02/2017 Active Essential (primary) hypertension ICD-9: 401.9 ICD-10: I10 04/15/2014 Active FLU VACCINE ICD-9: V04.81 ICD-10: Z23 [...] Fill Instructions lisinopril 40 mg tablet RxNorm: 283200 TAKE 1 TABLET DA GIULIANA (STOP THE LISINOPRIL/HCTZ) 01/16/2020 No Stop Date Active Keflex 500 mg capsule RxNorm: 251486 1 Capsule(s) Oral four juan es a day 11/07/2019 11/12/2019 Inactive Keflex 500 mg capsule RxNorm: 771699 1 Capsule(s) Oral three ti mes a day 11/07/2019 11/06/2019 Inactive Colace 100 mg capsule RxNorm: 2381153 1 Capsule(s) Oral QD 09/24/20 No Stop Date Active phenytoin sodium extended 100 mg capsule RxNorm: 882040 TAKE 2 CAPSULES TWICE A DAY 08/26/2019 No Stop Date Active aspirin 325 mg tablet RxNorm: 497171 1 Tablet(s) Oral QD 08/08/2019 No Stop Date Active Celebrex 200 mg capsule RxNorm: 523305 1 Capsule(s) PO BID 02/14/2003/14/2019 Inactive lisinopril 40 mg tablet RxNorm: 815770 TAKE 1 TABLET DA GIULIANA (STOP THE LISINOPRIL/HCTZ) 12/05/2018 01/15/2020 Inactive Cipro 250 mg tablet RxNorm: 039177 1 Tablet(s) PO BID 10/01/201812/2017 Inactive tramadol 37.5 mg-acetaminophen 325 mg tablet RxNorm: 268181 2 Tablet(s) PO TID as needed for pain 07/30/2018 02/26/2019 Inactive lisinopril 40 mg tablet RxNorm: 696178 1 TABLET(S) PO Q D REPLACES LISINOPRIL/HCTZ 12/25/2017 12/04/2018 Inactive phenytoin sodium extended 100 mg capsule RxNorm: 454087 1 Capsule(s) PO QAM and 2 at bedtime 12/14/2016 09/13/2017 Inactive lisinopril 40 mg tablet RxNorm: 084271 1 Tablet(s) PO Q D REPLACES LISINOPRIL/HCTZ 10/26/2016 11/15/2016 Inactive lisinopril 40 mg tablet RxNorm: 724486 1 Tablet(s) PO Q D REPLACES LISINOPRIL/HCTZ 10/26/2016 12/13/2016 Inactive potassium chloride ER 20 mEq tablet,extended release(p art/cryst) RxNorm: 1290413 3/4 Tablet(s) PO QD 10/10/2016 12/13/2016 Inactive lisinopril 40 mg tablet RxNorm: 929551 1 Tablet(s) PO Q D REPLACES LISINOPRIL/HCTZ 10/10/2016 10/25/2016 Inactive amlodipine 2.5 mg tablet RxNorm: 946475 1 Tablet(s) PO QD 08/01/2016 08/01/2016 Inactive tramadol 37.5 mg-acetaminophen 325 mg tablet RxNorm: 984812 2 Tablet(s) PO TID as needed for pain 05/24/2016 08/21/2016 Inactive lisinopril 20 mg-hydrochlorothiazide 25 mg tablet RxNorm: 19 7887 TAKE 1 TABLET EVERY MORNING 05/20/2016 10/09/2016 Inactive potassium chloride ER 20 mEq tablet,extended release(p art/cryst) RxNorm: 6684770 TAKE 1 TABLET TWICE A DAY 05/20/2016 10/09/2016 Inactive amlodipine 2.5 mg tablet RxNorm: 344205 1 Tablet(s) PO QHS 03/14/20 16 04/12/2016 Inactive Klor-Con 20 mEq oral packet RxNorm: 891721 1 Tablet(s) PO BID 04/0807/31/2016 Inactive lisinopril 20 mg-hydrochlorothiazide 25 mg tablet RxNorm: 19 7887 1 Tablet(s) PO QD TAKE 1 TABLET DAILY 04/08/2015 04/01/2016 Inactive lisinopril 20 mg-hydrochlorothiazide 25 mg tablet RxNorm: 19 7887 1 Tablet(s) PO QD TAKE 1 TABLET DAILY 11/07/2013 04/08/2015 Inactive potassium chloride ER 20 mEq tablet,extended release(part/cr yst) RxNorm: 270566 1 Tablet(s) PO BID 11/07/2013 04/08/2015 Inactive potassium chloride ER 20 mEq tablet,extended release(p art/cryst) RxNorm: 3952660 1 Tablet(s) PO BID 10/14/2013 10/13/2013 Inactive lisinopril 20 mg-hydrochlorothiazide 25 mg tablet RxNorm: 82 3971 1 Tablet(s) PO QD TAKE 1 TABLET DAILY 10/14/2013 11/06/2013 Inactive potassium chloride ER 20 mEq tablet,extended release(part/cr yst) RxNorm: 731459 1 Tablet(s) PO BID 10/14/2013 11/06/2013 Inactive lisinopril 20 mg-hydrochlorothiazide 25 mg tablet RxNorm: 19 7887 1 Tablet(s) PO QD TAKE 1 TABLET DAILY 10/14/2013 10/13/2013 Inactive lisinopril 20 mg-hydrochlorothiazide 25 mg tablet RxNorm: 19 7887 Tablet(s) PO TAKE 1 TABLET DAILY 06/04/2013 10/13/2013 Inactive Ultracet 37.5 mg-325 mg tablet RxNorm: 362012 2 Tablet(s) PO TID 09/29/2013 Inactive TAKE 2 TABLETS THREE TIMES A DAY NEEDED FOR PAIN K-Dur 20 mEq tablet,extended release RxNorm: 3701383 Tablet(s) PO 1 08/30/2013 Inactive TAKE 1 TABLET TWICE A DAY lisinopril 20 mg-hydrochlorothiazide 25 mg tablet RxNorm: 19 7887 1 Tablet(s) PO QD 09/05/2012 03/03/2013 Inactive Mobic 15 mg Tab RxNorm: 492560 1 Tablet(s) PO QD for arthritis pain 02/13/2012 03/13/2012 Inactive K-Dur 20 mEq tablet,extended release RxNorm: 1268655 1 Tablet(s) PO BID 07/28/2011 09/06/2012 Inactive generic equivalent o truong Ultracet 37.5 mg-325 mg tablet RxNorm: 687286 2 Tablet(s) PO TID 10/24/2011 Inactive TAKE 2 TABLETS THREE TIMES A DAY NEEDED FOR PAIN lisinopril-hydrochlorothiazide 20 mg-25 mg tablet RxNorm: 19 7887 1 Tablet(s) PO QD 06/16/2011 09/05/2012 Inactive TAKE 1 TABLET DA GIULIANA Bactrim DS 800 mg-160 mg Tab RxNorm: 019463 1 Tablet(s) PO QD 06/0107/03/2011 Inactive Ultracet 37.5 mg-325 mg Tab RxNorm: 213711 2 Tablet(s) PO TID P .r.n. pain 03/07/2011 07/27/2011 Inactive K-Dur 20 mEq Tab RxNorm: 4126333 1 Tablet(s) PO BID 04/30/20102010 Inactive lisinopril-hydrochlorothiazide 20 mg-25 mg Tab RxNorm: 143968 1 Tablet(s) PO QD 04/29/2010 06/17/2011 Inactive Relafen 750 mg Tab RxNorm: 250304 1 Tablet(s) PO BID P.r.n. pain 04/17/2010 Inactive Ultracet 37.5 mg-325 mg Tab RxNorm: 765184 2 Tablet(s) PO TID P .r.n. pain 01/08/2010 04/17/2010 Inactive Zestoretic 20 mg-25 mg Tab RxNorm: 582984 1 Tablet(s) PO QD 010 04/07/2010 Inactive K-Dur 20 mEq Tab RxNorm: 4778084 1 Tablet(s) PO BID 01/08/20102009 Inactive lisinopril 40 mg tablet RxNorm: 280033 1 Tablet(s) PO QD No Start Date Active Colace 100 mg capsule RxNorm: 8071777 1 Capsule(s) PO BID No Start Date 09/23/2019 Inactive K-Dur 20 mEq Tab RxNorm: 0978827 1 Tablet(s) PO BID No Start Date Inactive amlodipine 2.5 mg tablet RxNorm: 205898 1 Tablet(s) PO QD No Start Date 03/01/2017 Inactive Relafen 750 mg Tab RxNorm: 257774 1 Tablet(s) PO BID prn No Start D ate 02/12/2012 Inactive K-Dur 20 mEq tablet,extended release RxNorm: 032568 1 Tablet(s) PO BID No Start Date 11/01/2015 Inactive tramadol 50 mg Tab RxNorm: 121800 2 Tablet(s) PO TID prn pain No St art Date 05/23/2016 Inactive aspirin 325 mg tablet RxNorm: 539766 1 Tablet(s) PO QD No Start Date 09/30/2018 Inactive lisinopril-hydrochlorothiazide 20 mg-25 mg tablet RxNorm: 19 7887 1 Tablet(s) PO QD No Start Date 09/04/2012 Inactive Colace 100 mg capsule RxNorm: 8586702 1 Capsule(s) PO QD No Start D ate 09/30/2018 Inactive Vitamin D3 1000 units Capsule RxNorm: 1 Capsule(s) PO QD No St art Date 02/28/2016 Inactive aspirin 81 mg tablet,delayed release RxNorm: 172773 1 Tablet(s) PO QD No Start Date 02/26/2019 Inactive Colace 100 mg Cap RxNorm: 1196920 1 Capsule(s) PO BID No Start Date 0 01/26/2010 Inactive phenytoin sodium extended 100 mg capsule RxNorm: 516240 2 Capsu le(s) PO BID No Start Date 08/25/2019 Inactive Medication Administered No Medication Administered data Immunizations Vaccine Codes Date Status Influenza CVX: 135 08/08/2019 Complete Influenza CVX: 135 08/08/2019 Complete Influenza CVX: 135 07/25/2017 Complete Pneumococcal CVX: 133 07/25/2017 Complete Influenza CVX: 141 09/03/2014 Pneumococcal (Adult) Unknown 07/13/2010 Results Observation Observation Code Item Item Code Result Date S ervice Location GFR CALC 4749103 GFR AA >60 ML/MIN 07/13/2010 Unknown GFR CALC [id number] GFR NON-AA >60 ML/MIN 07/13/2010 Unknown THYROID STIMULATING HORMONE 58191 TSH 2.361 uIU/ML 07/13/2010 Unknown COMPREHENSIVE METABOLIC 06703 AST 20 U/L 2009 Unknown COMPREHENSIVE METABOLIC 71108 ALT 10 IU/L 2009 Unknown COMPREHENSIVE METABOLIC 66795 BUN 15 MG/DL 2009 Unknown COMPREHENSIVE METABOLIC 55210 ALBUMIN 4.3 GM/DL 2009 Unknown COMPREHENSIVE METABOLIC 86206 CHLORIDE 101 MMOL/L 07/13 Unknown COMPREHENSIVE METABOLIC 75855 BILI TOT 0.8 MG/DL 2009 Unknown COMPREHENSIVE METABOLIC 99305 ALK PHOS 91 U/L 2009 Unknown COMPREHENSIVE METABOLIC 94673 SODIUM 138 MMOL/L 07/13 Unknown COMPREHENSIVE METABOLIC 33567 CREATININE 0.96 MG/DL 05/2010 Unknown COMPREHENSIVE METABOLIC 06634 CALCIUM 9.3 MG/DL 2009 Unknown COMPREHENSIVE METABOLIC 04812 POTASSIUM 4.2 MMOL/L 07/13 Unknown COMPREHENSIVE METABOLIC 56277 PROT TOT 6.4 GM/DL 2009 Unknown COMPREHENSIVE METABOLIC 50550 Glucose 85 MG/DL 2009 Unknown COMPREHENSIVE METABOLIC 47423 BICARB 29 MMOL/L 2009 Unknown COMPREHENSIVE METABOLIC 21099 ANION GAP 8 MEQ/L 2009 Unknown LIPID GROUP 54356 HDL TEST 49 MG/DL 07/13/2010 Unknown LIPID GROUP 89518 TRIG 87 MG/DL 07/13/2010 Unknown LIPID GROUP 80919 TEST LDL 95 MG/DL 07/13/2010 Unknown LIPID GROUP 18462 CHOL 161 MG/DL 07/13/2010 Unknown LIPID GROUP 77953 RCHOL/HDL 3.29 RATIO 07/13/2010 Unknow n Procedures Procedure Codes Date FLU VACC PRSV FREE INC ANTIG 65 AND OLDER CPT-4: 68748 08/08/2019 FLU VACC PRSV FREE INC ANTIG 65 AND OLDER CPT-4: 65559 08/08/2019 ADMIN INFLUENZA VIRUS VAC CPT-4: G0008 08/08/2019 PPPS, subseq visit CPT-4: G0439 08/08/2019 URINE CULTURE/ COLONY COUNT CPT-4: 03656 10/01/2018 URINALYSIS NONAUTO W/O SCOPE CPT-4: 05767 10/01/2018 PPPS, subseq visit CPT-4: G0439 04/24/2018 FLU VACC PRSV FREE INC ANTIG 65 AND OLDER CPT-4: 92476 07/25/2017 PNEUMOCOCCAL VACC 13 HAN IM CPT-4: 31651 07/25/2017 ADMIN PNEUMOCOCCAL VACCINE CPT-4: G0009 07/25/2017 ADMIN INFLUENZA VIRUS VAC CPT-4: G0008 07/25/2017 URINALYSIS NONAUTO W/O SCOPE CPT-4: 49399 10/07/2016 FLU VACCINE 3 YRS & > IM UP 64 CPT-4: 73625 4 FLUZONE, 5ML (Medicare) CPT-4: Q2038 09/03/2014 ADMIN INFLUENZA VIRUS VAC CPT-4: G0008 09/03/2014 PRESCRIP TRANSMIT VIA ERX SY CPT-4: G8553 02/13/2012 CUR TOBACCO NON-USER CPT-4: G8457 06/01/2011 PRESCRIP TRANSMIT VIA ERX SY CPT-4: G8553 06/01/2011 ROUTINE VENIPUNCTURE CPT-4: 06859 07/13/2010 DESTRUCT PREMALG LESION (Cryosurgery) CPT-4: 19500 COMPREHEN METABOLIC PANEL CPT-4: 28544 07/13/2010 LIPID PANEL CPT-4: 87596 07/13/2010 ASSAY THYROID STIM HORMONE CPT-4: 47048 07/13/2010 PNEUMOCOCCAL VACC 23 HAN IM CPT-4: 26052 07/13/2010 IMMUNIZATION ADMIN CPT-4: 09014 07/13/2010 ROUTINE VENIPUNCTURE CPT-4: 09921 07/13/2010 COMPREHEN METABOLIC PANEL CPT-4: 75915 07/13/2010 LIPID PANEL CPT-4: 60277 07/13/2010 ASSAY THYROID STIM HORMONE CPT-4: 39138 07/13/2010 Vital Signs Date Vital 09/24/2019 Blood Pressure 1: 132/56 Code: 8480-6 Heart Rate 1: 76 bpm Respiratory Rate: 18 bpm SpO2: 95% Temperature: 36.7 (C) / 98.1 (F) We ight: 196 lbs 08/08/2019 Blood Pressure 1: 134/52 Code: 8480-6 BMI: 28.8 Code: 37291-3 Heart Rate 1: 60 bpm Height: 5'9" [...] 1: 142/70 Code: 8480-6 BMI: 25.1 Code: 28873-8 Heart Rate 1: 64 bpm Height: 6'1" Respiratory Rate: 20 bpm SpO2: 95% Tempera ture: 36.9 (C) / 98.5 (F) Weight: 190 lbs 09/14/2017 Blood Pressure 1: 144/70 Code: 8480-6 BMI: 25.5 Code: 96572-3 Heart Rate 1: 76 bpm Height: 6'1" Respiratory Rate: 20 bpm SpO2: 95% Tempera ture: 36.8 (C) / 98.2 (F) Weight: 193 lbs 07/25/2017 Blood Pressure 1: 116/58 Code: 8480-6 BMI: 25.5 Code: 37841-1 Heart Rate 1: 72 bpm Height: 6'1" Respiratory Rate: 20 bpm SpO2: 95% Tempera ture: 36.8 (C) / 98.3 (F) Weight: 193 lbs 03/02/2017 Blood Pressure 1: 126/70 Code: 8480-6 BMI: 25.9 Code: 48797-7 Heart Rate 1: 64 bpm Height: 6'1" Respiratory Rate: 20 bpm SpO2: 95% Tempera ture: 36.6 (C) / 97.9 (F) Weight: 196 lbs 12/14/2016 Blood Pressure 1: 144/70 Code: 8480-6 BMI: 27.0 Code: 14745-6 Heart Rate 1: 80 bpm Height: 6'1" [...] 1: 144/60 Code: 8480-6 BMI: 26.5 Code: 58778-5 Heart Rate 1: 60 bpm Height: 6'1" Respiratory Rate: 20 bpm Temperature: 36 .9 (C) / 98.4 (F) Weight: 201 lbs 08/01/2016 Blood Pressure 1: 144/70 Code: 8480-6 Heart Rate 1: 68 bpm Respiratory Rate: 20 bpm Temperature: 36.9 (C) / 98.4 (F) Weight: 200 lbs 04/27/2016 Blood Pressure 1: 134/68 Code: 8480-6 BMI: 26.8 Code: 17678-5 Heart Rate 1: 68 bpm Height: 6'1" Respiratory Rate: 20 bpm Temperature: 36 .3 (C) / 97.3 (F) Weight: 203 lbs 03/21/2016 Blood Pressure 1: 126/64 Code: 8480-6 BMI: 26.8 Code: 65085-1 Heart Rate 1: 80 bpm Height: 6'1" Respiratory Rate: 20 bpm Temperature: 36 .6 (C) / 97.9 (F) Weight: 203 lbs 03/14/2016 Blood Pressure 1: 176/90 Code: 8480-6 BMI: 26.3 Code: 28383-9 Heart Rate 1: 74 bpm Height: 6'1" Respiratory Rate: 22 bpm SpO2: 94% Tempera ture: 36.2 (C) / 97.1 (F) Weight: 199 lbs 02/29/2016 Blood Pressure 1: 172/82 Code: 8480-6 BMI: 26.9 Code: 25961-4 Heart Rate 1: 60 bpm Height: 6'1" Respiratory Rate: 20 bpm SpO2: 98% Tempera ture: 36.8 (C) / 98.2 (F) Weight: 204 lbs 11/02/2015 Blood Pressure 1: 136/72 Code: 8480-6 BMI: 27.3 Code: 64803-3 Heart Rate 1: 68 bpm Height: 6'1" Respiratory Rate: 20 bpm Temperature: 36 .6 (C) / 97.8 (F) Weight: 207 lbs 03/26/2015 Blood Pressure 1: 142/74 Code: 8480-6 BMI: 28.2 Code: 13576-8 Heart Rate 1: 76 bpm Height: 6'1" Respiratory Rate: 20 bpm Temperature: 36 .7 (C) / 98.1 (F) Weight: 214 lbs 09/03/2014 Blood Pressure 1: 132/68 Code: 8480-6 BMI: 29.8 Code: 98831-0 Heart Rate 1: 80 bpm Height: 6'1" Respiratory Rate: 20 bpm Temperature: 36 .7 (C) / 98.1 (F) Weight: 226 lbs 04/15/2014 Blood Pressure 1: 142/64 Code: 8480-6 BMI: 28.9 Code: 02566-8 Heart Rate 1: 64 bpm Height: 6'1" Respiratory Rate: 22 bpm Temperature: 36 .2 (C) / 97.2 (F) Weight: 219 lbs 09/30/2013 Blood Pressure 1: 142/70 Code: 8480-6 BMI: 29.2 Code: 74716-7 Heart Rate 1: 72 bpm Height: 6'1" Respiratory Rate: 20 bpm Temperature: 36 .7 (C) / 98.1 (F) Weight: 221 lbs 04/02/2013 Blood Pressure 1: 142/78 Code: 8480-6 BMI: 29.6 Code: 93963-0 Heart Rate 1: 64 bpm Height: 6'1" Respiratory Rate: 20 bpm Temperature: 36 .6 (C) / 97.9 (F) Weight: 224 lbs 08/02/2012 Blood Pressure 1: 122/66 Code: 8480-6 BMI: 29.3 Code: 58993-5 Heart Rate 1: 64 bpm Height: 6'1" Respiratory Rate: 20 bpm Temperature: 36 .9 (C) / 98.4 (F) Weight: 222 lbs 02/13/2012 Blood Pressure 1: 138/72 Code: 8480-6 BMI: 28.5 Code: 56280-2 Heart Rate 1: 72 bpm Height: 6'1" Respiratory Rate: 20 bpm Temperature: 36 .4 (C) / 97.6 (F) Weight: 216 lbs 07/04/2011 Blood Pressure 1: 124/60 Code: 8480-6 BMI: 28.5 Code: 70048-1 Heart Rate 1: 56 bpm Height: 6'1" Respiratory Rate: 20 bpm Temperature: 36 .6 (C) / 97.9 (F) Weight: 216 lbs 06/01/2011 Blood Pressure 1: 122/68 Code: 8480-6 BMI: 28.5 Code: 58960-0 Heart Rate 1: 68 bpm Height: 6'1" [...] 1: 122/56 Code: 8480-6 BMI: 27.6 Code: 65226-3 Heart Rate 1: 72 bpm Height: 6'1" Temperature: 36.4 (C) / 97.6 (F) Weight: 209 lbs Functional Status No Functional Status data Reason For Visit Reason For Visit Effective Dates Notes follow up 09/24/2019 [facility] [...] TITIS Encounters Encounter Performer Location Codes Date ([id number]) OFFICE/OUTPATIENT VISIT EST Diagnosis: Small bowel obstruction[ICD10: K56.609] Gaby RODAS [facility] CPT-4: 42002 09/24/2019 ([id number]) OFFICE/OUTPATIENT VISIT EST Diagnosis: Other skin changes[ICD10: R23.8] Jewell RODAS DO [facility] CPT-4: 29772 03/27/2019 ([id number]) OFFICE/OUTPATIENT VISIT EST Diagnosis: Localized edema[ICD10: R60.0] Diagnosis: Presence of left artificial knee joint[ICD10: Z96.652] Jewell RODAS [facility] CPT-4: 02948 02/27/2019 ([id number]) OFFICE/OUTPATIENT VISIT EST Diagnosis: Localized edema[ICD10: R60.0] Diagnosis: Presence of left artificial knee joint[ICD10: Z96.652] Diagnosis: Essential (primary) hypertension[ICD10: I10] Jewell RODAS [facility] CPT-4: 00803 02/13/2019 ([id number]) OFFICE/OUTPATIENT VISIT EST Diagnosis: Urinary tract infection, site not specified[ICD10: N39.0] Odalis [facility] CPT-4: 73758 10/01/2018 ([id number]) OFFICE/OUTPATIENT VISIT EST Diagnosis: Essential (primary) hypertension[ICD10: I10] Diagnosis: Mixed hyperlipidemia[ICD10: E78.2] Diagnosis: Unspecified convulsions[ICD10: R56.9] Gaby Burrell TREY HERNANDEZNE Shira [facility] CPT-4: 91369 09/14/2017 ([id number]) OFFICE/OUTPATIENT VISIT EST Diagnosis: 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 (postprocedural) (postinfection)[ICD10: K56.5] Diagnosis: Essential (primary) hypertension[ICD10: I10] Diagnosis: FLU VACCINE[ICD10: Z23] Diagnosis: PNEUMOCOCCAL VACCINE[ICD10: Z23] Gaby RODAS [facility] CPT-4: 83175 07/25/2017 ([id number]) OFFICE/OUTPATIENT VISIT EST Diagnosis: Mixed hyperlipidemia[ICD10: E78.2] Diagnosis: Essential (primary) hypertension[ICD10: I10] Diagnosis: Epilepsy, unspecified, not intractable, without status epilepticus[ICD10: G40.909] Gaby Adrianna [facility] CPT - 4: 88131 03/02/2017 ([id number]) OFFICE/OUTPATIENT VISIT EST Diagnosis: Essential (primary) hypertension[ICD10: I10] Diagnosis: 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 (postprocedural) (postinfection)[ICD10: K56.5] Diagnosis: Unspecified convulsions[ICD10: R56.9] Gaby [facility] CPT-4: 33099 12/14/2016 ([id number]) OFFICE/OUTPATIENT VISIT EST Diagnosis: Hypokalemia[ICD10: E87.6] Diagnosis: Essential (primary) hypertension[ICD10: I10] Gaby [facility] CPT-4: 47098 10/17/2016 ([id number]) OFFICE/OUTPATIENT VISIT EST Diagnosis: Altered mental status, unspecified[ICD10: R41.82] Diagnosis: Chest pain, unspecified[ICD10: R07.9] Diagnosis: Essential (primary) hypertension[ICD10: I10] Diagnosis: Hypokalemia[ICD10: E87.6] [facility]: 74490 10/10/2016 OFFICE/OUTPATIENT VISIT EST Diagnosis: Essential (primary) hypertension[ICD10: I10] Gaby [facility] CPT-4: 81003 08/31/2016 ([id number]) OFFICE/OUTPATIENT VISIT EST Diagnosis: Irritability and anger[ICD10: R45.4] Diagnosis: Essential (primary) hypertension[ICD10: I10] Gaby [facility] CPT-4: 66718 08/01/2016 ([id number]) OFFICE/OUTPATIENT VISIT EST Diagnosis: Essential (primary) hypertension[ICD10: I10] Diagnosis: Cardiac arrhythmia, unspecified[ICD10: I49.9] Gaby [facility] CPT-4: 94752 04/27/2016 OFFICE/OUTPATIENT VISIT EST Diagnosis: Essential (primary) hypertension[ICD10: I10] Diagnosis: Cardiac arrhythmia, unspecified[ICD10: I49.9] Diagnosis: Chest pain, unspecified[ICD10: R07.9] Gaby [facility] CPT-4: 55048 03/21/2016 OFFICE/OUTPATIENT VISIT EST Diagnosis: Essential (primary) hypertension[ICD10: I10] Diagnosis: Other fatigue[ICD10: R53.83] Diagnosis: Dyspnea, unspecified[ICD10: R06.00] Lilly RODAS DO [facility] CPT-4: 59154 03/14/2016 OFFICE/OUTPATIENT VISIT EST Diagnosis: Dyspnea, unspecified[ICD10: R06.00] Diagnosis: Cardiac arrhythmia, unspecified[ICD10: I49.9] Diagnosis: Other fatigue[ICD10: R53.83] Lilly RODAS DO [facility] CPT-4: 34459 02/29/2016 ([id number]) OFFICE/OUTPATIENT VISIT EST Diagnosis: Essential (primary) hypertension[ICD10: I10] Diagnosis: Mixed hyperlipidemia[ICD10: E78.2] Diagnosis: Paresthesia of skin[ICD10: R20.2] Diagnosis: OSTEOARTHRISIS MULTI SITES[ICD10: M19.90] Gaby RODAS [employer] [facility] CPT-4: 83523 11/02/2015 ([id number]) OFFICE/OUTPATIENT VISIT EST Diagnosis: HYPERTENSION[ICD9: 401.9] Diagnosis: HYPERLIPIDEMIA NEC/NOS[ICD9: 272.4] Gaby RODAS [facility] CPT-4: 71836 03/26/2015 ([id number]) OFFICE/OUTPATIENT VISIT EST Diagnosis: HYPERTENSION[ICD9: 401.9] Diagnosis: HYPERLIPIDEMIA NEC/NOS[ICD9: 272.4] Diagnosis: Hand pain[ICD9: 729.5] Diagnosis: FLU VACCINE[ICD10: Z23] Gaby MARCOS [facility] CPT-4: 42047 09/03/2014 ([id number]) OFFICE/OUTPATIENT VISIT EST Diagnosis: HYPERTENSION[ICD9: 401.9] Diagnosis: HYPERLIPIDEMIA NEC/NOS[ICD9: 272.4] Diagnosis: ARTHRALGIA-MULTIPLE SITES[ICD9: 719.49] Diagnosis: MALAISE AND FATIGUE[ICD9: 780.79] Gaby Sanchez Shira RODAS [employer] CPT-4: 56910 04/15/2014 OFFICE/OUTPATIENT VISIT EST Diagnosis: HYPERTENSION[ICD9: 401.9] Diagnosis: HYPERLIPIDEMIA NEC/NOS[ICD9: 272.4] Diagnosis: MEMORY LOSS[ICD9: 780.93] Gabytye Burrellstephania GABY DinoAlanna LATESHA NDER DO [facility] CPT-4: 03032 09/30/2013 ([id number]) OFFICE/OUTPATIENT VISIT EST Diagnosis: HYPERTENSION[ICD9: 401.9] Diagnosis: ARTHRALGIA-MULTIPLE SITES[ICD9: 719.49] Diagnosis: Carotid bruit[ICD9: 785.9] Gaby Silva HECTOR VIZCAINOER [facility] CPT-4: 98266 04/02/2013 ([id number]) OFFICE/OUTPATIENT VISIT EST Diagnosis: HYPERLIPIDEMIA NEC/NOS[ICD9: 272.4] Diagnosis: HYPERTENSION[ICD9: 401.9] Diagnosis: ARTHRALGIA-MULTIPLE SITES[ICD9: 719.49] Gaby MORGAN DinoAlanna INDRAER [facility] CPT-4: 15195 08/02/2012 ([id number]) OFFICE/OUTPATIENT VISIT EST Diagnosis: HYPERTENSION[ICD9: 401.9] Diagnosis: ARTHRALGIA-MULTIPLE SITES[ICD9: 719.49] Diagnosis: Hand pain[ICD9: 729.5] Gaby Silva LATESHABRANTE R [facility] CPT-4: 01564 02/13/2012 OFFICE/OUTPATIENT VISIT EST Diagnosis: HYPERTENSION[ICD9: 401.9] Diagnosis: HYPERLIPIDEMIA NEC/NOS[ICD9: 272.4] Diagnosis: Knee pain[ICD9: 719.46] Gaby Silva LATESHAND ER DO [facility] CPT-4: 14216 07/04/2011 OFFICE/OUTPATIENT VISIT EST Gaby HINKLE DinoAlanna LATESHA NDER DO [facility] CPT- 4: 89767 06/01/2011 ([id number]) OFFICE/OUTPATIENT VISIT EST Gaby OCHOA DinoAlanna ORENDER DO [facility] CPT-4: 98203 01/04/2011 ([id number]) OFFICE/OUTPATIENT VISIT, EST Gaby MORGAN DinoAlanna LATESHANDER DO [facility] CPT-4: 57329 11/15/2010 ([id number]) OFFICE/OUTPATIENT VISIT, EST Gaby RODAS DO [facility] CPT-4: 96430 07/13/2010 ([id number]) OFFICE/OUTPATIENT VISIT, EST Gaby RODAS DO [facility] CPT-4: 61830 01/26/2010 Plan of Care Planned Activity Notes Codes Status Date Appointment: Andrade, Odalis Rickey [address] CANCELED 11/07/2019 Visit Diagnosis Plan: Small bowel obstruction Discussi on: Doing fiber/water Discussed does not want surgery unless was emergency with something like perforation ICD-9 : 560.9 ICD-10 : K56.609 09/24/2019 Appointment: Gaby Rodas WPtel: [address] [place] [address] Hospital Follow Up 09/24/2019 Visit Diagnosis Plan: Essential (primary) hypertension Discussion: Stable ICD-9 : 401.9 ICD-10 : I10 08/08/2019 Visit Diagnosis Plan: Epilepsy, unspecif ied, not intractable, without status epilepticus Discussion: Stable ICD-9 : 345.90 ICD-10 : G40.909 08/08/2019 Visit Diagnosis Plan: [facility] without abnormal findings Discussion: Mediterranean diet Combinati on of cardio and weight bearing exercise Flu shot given Update fasting lab ICD-9 : V70.9 ICD-10 : Z00.00 08/08/2019 Appointment: Gaby Rodas WPtel: [address] [place] [address] Annual Well Visit 08/08/2019 Visit Diagnosis Plan: Other skin changes Discussion: Pamela moreira sent to Dr. Domingo to have forehead evaluated. Full body skin check recommended as well. Patient states understanding. They will call patient with appt. ICD-9 : 709.8 ICD-10 : R23.8 03/27/2019 Appointment: Jewell Agee [address] ACUTE ILLNESS 03/27/2019 Care Plan: Referral Order SNOMED-CT : [id number] Pending 03/27/2019 Visit Diagnosis Plan: Localized edema Discussion: Lowe r extremity edema from knee down- improved on celebrex. Will continue celebrex for 2 more weeks. He has f/u with ortho in 1 month. Advise wearing compression stockings. ICD-9 : 782.3 ICD-10 : R60.0 02/27/2019 Appointment: Jewell Agee [address] [place] [address] FOLLOW UP 02/27/2019 Visit Diagnosis Plan: Presence [...] ICD-10 : I10 02/13/2019 Appointment: Jewell Agee [address] [place] [address] ACUTE ILLNESS 02/13/2019 Patient Education: Celebrex- Optimize[employer] Coupon [id number] [email or web address] Completed 02/13/2019 Visit Diagnosis Plan: Urinary tract infection, site no t specified Discussion: cipro prescribed to take as directed. instructed patient to increase fluid with water, gatorade, cranberry juice. will send urine for culture and change medications as needed. instructed to call office with any new or worsening symptoms. ICD-9 : 599.0 ICD-10 : N39.0 10/01/2018 Appointment: Odalis Zafar [address] ACUTE ILLNESS 10/01/2018 Visit Diagnosis Plan: [...] : R53.83 04/24/2018 Appointment: Gaby Rodas WPtel: [address] [place] [address] Annual Well Visit 04/24/2018 Patient Education: Patient [...] 272.4 ICD-10 : E78.2 09/14/2017 Appointment: Gaby Rodas WPtel: [address] [place], [place] [id number] [place] FOLLOW UP 09/14/2017 Patient Education: Patient Medication Summary Completed 09/14/2017 Appointment: Gaby Rodas WPtel: [address] [place], [place] [phone] [place] NO SHOW 09/05/2017 Appointment: Gaby Rodas WPtel: [address] [place], [place] [phone] [place] CANCELED 07/27/2017 Visit Diagnosis Plan: Essential (primary) hypertension Discussion: Stable High dose flu and Prevnar 13 given ICD-9 : 401.9 ICD-10 : I10 07/25/2017 Visit Diagnosis Plan: 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 [facility] Follow Up 12/14/2016 Patient Education: Patient Medication Summary Completed 12/14/2016 Referral: Shae Olivarez WPtel: [address] [place] [address] [place] Referral Appointment Confirmed 10/24/2016 Visit Plan: Continue lisinopril at curre nt dose and monitor BP Had EEG on Monday so will await results Stop potassium and recheck Chem 7 in 1week 10/17/2016 Appointment: Gaby Rodas WPtel: [address] [place], [place] [phone] FOLLOW UP 10/17/2016 Patient Education: Patient Medication Summary Completed 10/17/2016 Visit Plan: Discussed with Dr Adrianna Mobley Follow up with her in 1 week Change lisinopril/hctz to plain lisinopril 40mg daily Continue potassium 20meq but only ONCE per day Recheck BMP Monday and will get a BP as well Will help patient make his follow up with his maitre d' today as well If any change or worsening in his chest "tightness" go to ER or call 911 immediately 10/10/2016 Appointment: Freda Womack [address] [place] [address] ACUTE ILLNESS 10/10/2016 Patient Education: Patient Medication Summary Completed 10/10/2016 Visit Plan: Discussed with Dr. Rodas, will admit observation cardiac stepdown. See orders this date. 10/07/2016 Appointment: Karlene Braun WPtel: [address] [place], [place] [id number] ACUTE ILLNESS 10/07/2016 Patient Education: Patient Medication Summary Completed 10/07/2016 Visit Plan: Continue with just lisinopri l and monitor BPg 08/31/2016 Appointment: Gaby Rodas WPtel: [address] [place], [place] [phone] 08/30 confirmed~sl FOLLOW UP 08/31/2016 Patient Education: Patient Medication Summary Completed 08/31/2016 Visit Plan: Stop amlodopine Monitor home BP Recheck 1month 08/01/2016 Appointment: Gaby Rodas WPtel: [address] [place], [place] [phone] [place] 07/28 lm ~sl 08/01 lm-sp FOLLOW UP 08/01/ 6 Patient Education: Patient Medication Summary Completed 08/01/2016 Appointment: Gaby Rodas WPtel: [address] [place], [place] [phone] 05/02 rang and rang~sl 05/03 canceled ~sl CANCELED 05/03/2016 Visit Plan: Continue current meds Stay h ydrated Monitor BP 04/27/2016 Appointment: Gaby Rodas WPtel: [address] [place], [place] [phone] 04/26 confirmed~sl FOLLOW UP 04/27/2016 Patient Education: Patient Medication Summary Completed 04/27/2016 Appointment: Gaby Rodas WPtel: [address] [place], [place] [phone] na/vm-sp 01/10 no vm just beeping~sl 04/18 na/vm 04/19 re scheduled-sp RESCHEDULED 04/25/2016 Visit Plan: Continue amlodopine Stress T est tomorrow Discussed that if maitre d' thinks he needs cardiac cath after the stress test then needs to proceed Fwup pending stress test results 03/21/2016 Appointment: Gaby Rodas WPtel: [address] [place], [place] [phone] 03/21 lm-sp 03/21 Called for Records ~sl FOLLOW UP 03/21/2016 Patient Education: Patient Medication Summary Completed 03/21/2016 Appointment: Gaby Rodas WPtel: [address] [place], [place] [phone] [place] CANCELED 03/17/2016 Visit Plan: Start Norvasc 2.5 mg daily C ontinue Lisinopril - take only once daily Self monitor BP Proceed with Stress Echo Follow-up in 1 week 03/14/2016 Appointment: Lilly Lawson WPtel: [address] [place], [place] [phone] ACUTE ILLNESS 03/14/2016 Patient Education: Patient Medication Summary Completed 03/14/2016 Visit Plan: EKG today CBC, CMP, Triponin level Holter Monitor x 24 hours Follow-up with Dr. Rodas - 1 week 02/29/2016 Appointment: Lilly Lawson WPtel: [address] [place] [address] ACUTE ILLNESS 02/29/2016 Patient Education: Patient Medication Summary Completed 02/29/2016 Visit Plan: Check fasting lab including TSH, Free T4, B12, CMP, lipids, CBC, Vit D Discussed may need MRI of brain and cervical spine if has any further episodes of paresthesias--patient defers at this time 11/02/2015 Appointment: Gaby Rodas WPtel: [address] [place] [address] 08/03/ rescheduled pt 10/26 appt to 10/07 8 patient ok with change cn 10/28 confirmed ~sl FOLLOW UP 11/02/2015 Patient Education: Patient Medication Summary Completed 11/02/2015 Visit Plan: Check fasting lab next month Continue current meds 03/26/2015 Appointment: Gaby Rodas WPtel: [address] [place] [address] FOLLOW UP 03/26/2015 Patient Education: Patient Medication Summary Completed 03/26/2015 Appointment: Gaby Rodas WPtel: [address] [place] [address] 09/02 No answer FOLLOW UP 09/03/2014 Patient Education: Patient Medication Summary Completed 09/03/2014 Visit Plan: Check CBC, CMP, Lipids in AM Continue current meds 04/15/2014 Appointment: Gaby Rodas WPtel: [address] [place] [address] FOLLOW UP 04/15/2014 Patient Education: Patient Medication Summary Completed 04/15/2014 Appointment: Gaby Rodas WPtel: [address] [place] [address] 03/28/14 no answer 04/01/14 No Show FOLLOW UP 04/01/2014 Visit Plan: Decrease caffeine intake--pt drinks about 10 cups a day Also discussed taking BP pill at same time everyday Check fasting lab Discussed MRI of brain--pt defers Discussed brain exercises 09/30/2013 Appointment: Gaby Rodas WPtel: [address] [place] [address] FOLLOW UP 09/30/2013 Patient Education: Patient Medication Summary Completed 09/30/2013 Visit Plan: Continue current meds Check CMP Check Carotid dopplers 04/02/2013 Appointment: Gaby Rodas WPtel: [address] [place] [address] 03/29 appt confirmed FOLLOW UP 04/02/2013 Patient Education: Patient Medication Summary Completed 04/02/2013 Visit Plan: Continue current meds Check fasting lab in AM 08/02/2012 Appointment: Gaby Rodas WPtel: [address] [place] [address] FOLLOW UP 08/02/2012 Patient Education: Patient Medication Summary Completed 08/02/2012 Visit Plan: Check CBC, CMP Trial of Mobi c daily for next month instead of relafen 02/13/2012 Appointment: Gaby Rodas WPtel: [address] [place], [place] [phone] FOLLOW UP 02/13/2012 Patient Education: Patient Medication Summary Completed 02/13/2012 Visit Plan: Continue current meds Check fasting lab Fwup with ortho as scheduled 07/04/2011 Appointment: Gaby Rodas WPtel: [address] [place] [address] FOLLOW UP 07/04/2011 Patient Education: Patient Medication Summary Completed 07/04/2011 Appointment: Gaby Rodastel: [address] [place] [address] ACUTE ILLNESS 06/01/2011 Patient Education: Patient Medication Summary Completed 06/01/2011 Visit Plan: Continue current meds Fastin g lab and fwup in 6mos 01/04/2011 Appointment: Gaby Rodas WPtel: [address] [place] [address] FOLLOW UP 01/04/2011 Patient Education: Patient Medication Summary Completed 01/04/2011 Visit Plan: Check lab including CMP, CBC , Lipids, TSH, Free T4, Vit D, uric acid, WILVER, RA, ESR, CPK, PSA Cont current meds 11/15/2010 Appointment: Gaby Rodas WPtel: [address] [place] [address] ACUTE ILLNESS 11/15/2010 Patient Education: Patient Medication Summary Completed 11/15/2010 Appointment: Gaby Rodas WPtel: [address] [place] [address] FOLLOW UP 07/13/2010 Patient Education: Patient Medication Summary Completed 07/13/2010 Patient Education: Patient Medication Summary Completed 07/13/2010 Visit Plan: Continue current meds and fw up w/ surgery as scheduled 01/26/2010 Appointment: Gaby Rodas WPtel: [address] [place] [address] FOLLOW UP 01/26/2010 Patient Education: Patient Medication Summary Completed 01/26/2010 Referral: Enrike Leija Referral Initiated Referral: Shaniqua Domingo WPtel: [facility] [place] [address] [address] [place] Referral Appointment Requested Referral: Shaniqua Domingo WPtel: [facility] [place] [address] [address] [place] Referral Initiated Instructions Comment . Continue [...] patient make his follow up with his maitre d' today as well If any change or [...] amlodopine Stress Test tomorrow Discussed that if maitre d' thinks he needs cardiac cath after the [...]
--- OUTSIDE RECORDS SUMMARY | 2020-06-09 01:00 | XMS REPORT | Continuity of Care Document ---
Author Organization Unknown Address Unknown Phone Unavailable Allergies There is no data. Medications There is no data. Problems Date Dx Coded Attending Type Code Diagnosis Diagnosed By 02/06/2020 W I10 Essent ial (primary) hypertension Harriett Rodasline S. 02/06/2020 W I49.5 Sick sinus syndrome Gaby Rodas S. 02/06/2020 W I10 Essent ial (primary) hypertension Harriett Rodasline S. 02/06/2020 W I49.5 Sick sinus syndrome Harriett Rodasline S. Procedures There is no data. Results There is no data. Encounters ACCT No. Visit Date/Time Discharge Status Pt. Type Provider Facility Loc./Unit Complaint 02/201811/07/2019 16:43:05 11/07/2019 23:59: 59 CLS Outpatient Gaby Rodas 96 02/06/2020 09:42:00 Document Registration
[2020-06-09] MEDS: fentaNYL INJECTION 100 MCG/2 ML AMP IV PRN ×5 (02:03→19:45)
[2020-06-09 06:05] LABS: BASOPHILS % (AUTO) 0 % (0-10); EOSINOPHILS # (AUTO) 0.3 10^3/uL (0.0-0.3); EOSINOPHILS % (AUTO) 4 % (0-10); HEMATOCRIT 37 % (40-54); HEMOGLOBIN 12.6 G/DL (13.3-17.7); LYMPHOCYTES % (AUTO) 13 % (12-44); MEAN CORPUSCULAR HEMOGLOBIN 33 PG (25-34); MEAN CORPUSCULAR HGB CONC 34 G/DL (32-36); MEAN CORPUSCULAR VOLUME 98 FL (80-99); MEAN PLATELET VOLUME 8.5 FL (7.4-10.4); MONOCYTES % (AUTO) 12 % (0-12); NEUTROPHILS # (AUTO) 5.6 X 10^3 (1.8-7.8); NEUTROPHILS % (AUTO) 71 % (42-75); PLATELET COUNT 267 10^3/uL (130-400); RED CELL DISTRIBUTION WIDTH 12.6 % (10.0-14.5); WHITE BLOOD COUNT 7.9 10^3/uL (4.3-11.0)
[2020-06-09 06:18] LABS: ALANINE AMINOTRANSFERASE < 6 U/L (0-55); ALBUMIN 3.6 GM/DL (3.2-4.5); ALKALINE PHOSPHATASE 116 U/L (40-136); BILIRUBIN,TOTAL 0.4 MG/DL (0.1-1.0); BUN/CREATININE RATIO 14; CALCIUM 8.7 MG/DL (8.5-10.1); CARBON DIOXIDE 23 MMOL/L (21-32); CHLORIDE 102 MMOL/L (98-107); GFR ESTIMATED > 60; GLUCOSE 153 MG/DL (70-105); POTASSIUM 4.3 MMOL/L (3.6-5.0); SODIUM 135 MMOL/L (135-145); TOTAL PROTEIN 5.9 GM/DL (6.4-8.2)
[2020-06-09] MEDS: D5 1/2 NS W/KCL 20 MEQ/L 1,000 ML IV SCH ×3 (06:32→19:47)
--- NOTE | 2020-06-09 07:39 | Diagnostic Imaging Report ---
INDICATION: Gastric tube placement. TECHNIQUE: Single view chest 10:34 PM. CORRELATION STUDY: 06/08/2020 FINDINGS: Left-sided pacemaker. Gastric tube is present tip in the region of body of stomach. Heart size and mediastinal configuration are unremarkable. Lung apices incompletely imaged. Visualized lung huerta generally clear. IMPRESSION: 1. Gastric tube tip likely in the region of body of stomach. Dictated by: Dictated on workstation # [id number]
[2020-06-09] MEDS ORDERED: DIATRIZOATE MEGLUM/SODIUM 37% 120 ML (GASTROGRAFIN) NG ONE (08:00)
[2020-06-09] MEDS ORDERED: PANTOPRAZOLE 40 MG (PROTONIX) VIAL IV SCH (09:00)
[2020-06-09] MEDS: MICRON FILTER IV SCH ×5 (09:30→22:00)
[2020-06-09] MEDS: PHENYTOIN IV SCH ×5 (09:30→22:00)
[2020-06-09] MEDS ORDERED: ASPI325T32 PO (10:45)
[2020-06-09] MEDS ORDERED: MULT-1136 PO (10:45)
--- NOTE | 2020-06-09 10:46 | NUR ---
SPOKE WITH THE PT (HE HAS HIS BOTTLE WITH HIM) AND CALLED [facility] TO COMPLETE THE MED REC 04-09-2020 DILANTIN 100MG #360/90DS 04-09-2020 LISINOPRIL 40MG #90/90DS- DIRECTIONS ON THE BOTTLE SHOW 1 TAB DAILY- HOWEVER PT IS TAKING TAB BID, PT INDICATED WHEN HE TAKES A WHOLE TAB IT WAS DROPPING HIS BP TO LOW. 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
[2020-06-09] MEDS: ONDANSETRON 4 MG/2 ML (SDV) Z0FRAN IV PRN ×2 (12:04→19:45)
--- NOTE | 2020-06-09 12:18 | Progress Note - Surgery ---
Subjective Date Seen by a Provider: Jun 09, 2020 Time Seen by a Provider: 08:15 Subjective/Events-last exam Abdominal pain slightly improved. No flatus or bm. Has ng tube placed. Denies fever sweats chills shortness of breath or chest pain. Going for small bowel follow through now. Objective Exam Vital Signs Date Time Temp Pulse Resp B/P (MAP) Pulse Ox O2 Delivery O2 Flow Rate FiO2 06/09/20 11:36 36.6 69 18 143/54 (83) 96 Room Air 06/09/20 07:46 36.6 60 18 150/68 (95) 97 Room Air 06/09/20 07:00 67 06/09/20 04:00 36.3 67 18 133/73 (93) 98 Room Air 06/09/20 00:57 70 06/09/20 00:09 36.1 69 18 132/72 92 Room Air 06/09/20 00:00 36.1 69 18 132/72 (92) 92 Room Air 06/08/20 23:06 Room Air 06/08/20 22:53 37.0 73 18 156/93 (114) 99 06/08/20 18:43 37.0 73 18 156/93 (114) 99 Room Air I & O 06/09/20 06:59 Intake Total 1000 ml Output Total 500 ml Balance 500 ml Capillary Refill : Less Than 3 Seconds General Appearance: No Apparent Distress, WD/WN HEENT: PERRL/EOMI, Normal ENT Inspection, Other (ng tube) Neck: Normal Inspection, Non Tender, Supple Respiratory: Chest Non Tender, No Accessory Muscle Use, No Respiratory Distress Cardiovascular: Regular Rate, Rhythm, No Edema, Systolic Murmur Gastrointestinal: soft, no organomegaly, distended (minimal); No guarding, No rebound; tenderness (minimal epigastric tenderness) Extremity: Non Tender, No Calf Tenderness Neurologic/Psychiatric: Alert, Oriented x3 Skin: Normal Color, Warm/Dry; No Diaphoresis, No Jaundice Lymphatic: No Adenopathy Results Lab Laboratory Tests 06/08/20 18:46: White Blood Count 8.5, Red Blood Count 4.00L, Hemoglobin 13.1L, Hematocrit 39L, Mean Corpuscular Volume 98, Mean Corpuscular Hemoglobin 33, Mean Corpuscular Hemoglobin Concent 34, Red Cell Distribution Width 12.6, Platelet Count 280, Mean Platelet Volume 8.4, Neutrophils (%) (Auto) 60, Lymphocytes (%) (Auto) 21, Monocytes (%) (Auto) 13H, Eosinophils (%) (Auto) 5, Basophils (%) (Auto) 1, Neutrophils # (Auto) 5.1, Lymphocytes # (Auto) 1.8, Monocytes # (Auto) 1.1H, Eosinophils # (Auto) 0.5H, Basophils # (Auto) 0.0, Prothrombin Time 13.3, INR C omment 1.0, Activated Partial Thromboplast Time 29, Sodium Level 136, Potassium Level 4.3, Chloride Level 100, Carbon Dioxide Level 25, Anion Gap 11, Blood Urea Nitrogen 16, Creatinine 0.92, Estimat Glomerular Filtration Rate > 60, BUN/Creatinine Ratio 17, Glucose Level 109H, Calcium Level 9.1, Corrected Calcium 8.9, Magnesium Level 2.1, Total Bilirubin 0.5, Aspartate Amino Transf (AST/SGOT) 16, Alanine Aminotransferase (ALT/SGPT) 7, Alkaline Phosphatase 125, Total Protein 6.8, Albumin 4.2, Amylase Level 76, Lipase 38 06/08/20 20:05: Urine Color YELLOW, Urine Clarity CLEAR, Urine pH 6.0, Urine Specific [place] <=1.005, Urine Protein NEGATIVE, Urine Glucose (UA) NEGATIVE, Urine Ketones NEGATIVE, Urine Nitrite NEGATIVE, Urine Bilirubin NEGATIVE, Urine Urobilinogen 0.2, Urine Leukocyte Esterase NEGATIVE, Urine RBC (Auto) NEGATIVE, Urine RBC NONE, Urine WBC NONE, Urine Squamous Epithelial Cells RARE, Urine Crystals NONE, Urine Bacteria NEGATIVE, Urine Casts NONE, Urine Mucus NEGATIVE, Urine Culture Indicated NO 06/09/20 05:00: Sodium Level 135, Potassium Level 4.3, Chloride Level 102, Carbon Dioxide Level 23, Anion Gap 10, Blood Urea Nitrogen 11, Creatinine 0.80, Estimat Glomerular Filtration Rate > 60, BUN/Creatinine Ratio 14, Glucose Level 153H, Calcium Level 8.7, Corrected Calcium 9.0, Total Bilirubin 0.4, Aspartate Amino Transf (AST/SGOT) 18, Alanine Aminotransferase (ALT/SGPT) < 6, Alkaline Phosphatase 116, Total Protein 5.9L, Albumin 3.6 06/09/20 05:32: White Blood Count 7.9, Red Blood Count 3.77L, Hemoglobin 12.6L, Hematocrit 37L, Mean Corpuscular Volume 98, Mean Corpuscular Hemoglobin 33, Mean Corpuscular Hemoglobin Concent 34, Red Cell Distribution Width 12.6, Platelet Count 267, Mean Platelet Volume 8.5, Neutrophils (%) (Auto) 71, Lymphocytes (%) (Auto) 13, Monocytes (%) (Auto) 12, Eosinophils (%) (Auto) 4, Basophils (%) (Auto) 0, Neutrophils # (Auto) 5.6, Lymphocytes # (Auto) 1.0, Monocytes # (Auto) 1.0, Eosinophils # (Auto) 0.3, Basophils # (Auto) 0.0 Assessment/Plan Assessment/Plan Assessment/Plan PSBO Ventral/Incisional Hernia Patient feeling a litttle better today. NPO IV hydration SBFT today NG tube to liws after study. Possibility of surgical intervention needed if doesn't resolve with conservative measures Clinical Quality Measures DVT/VTE Risk/Contraindication: Risk Factor Score Per Nursin RFS Level Per Nursing on Admit: 2=Moderate ISAIAS BELTRAN DO Jun 09, 2020 12:18
[2020-06-09] MEDS ORDERED: PROCHLORPERAZINE 10 MG/2ML INJ (COMPAZINE) IV PRN (12:45)
[2020-06-09] MEDS ORDERED: ENOXAPARIN 40 MG/0.4 ML (LOVENOX) SYR SC SCH (13:00)
--- NOTE | 2020-06-09 14:25 | NUR ---
PT REPORTS UNRELIEVED NAUSEA/VOMITING FROM PRN NAUSEA MEDICATIONS. PT HOOKED UP TO LOW INTERMITTENT WALL SUCTION. 950ML OF YELLOW/GREEN BILE SUCTIONED INTO CANISTER. PT CLAMPED FROM WALL SUCTION. REPORTS SOME RELIEF AT THIS TIME. DR BELTRAN NOTIFIED.
--- NOTE | 2020-06-09 16:58 | Diagnostic Imaging Report ---
INDICATION: Small bowel obstruction and abdominal pain. TECHNIQUE: 120 mL of Gastrografin contrast with 120 mL of water was injected through the patient's indwelling NG tube. Serial radiographs of the abdomen were then obtained. FINDINGS: Preliminary radiograph shows an NG tube passing below the diaphragm. Bowel gas pattern is unremarkable. Initial images demonstrate contrast within the stomach with emptying into proximal small bowel loops which appear to be normal in caliber. Proximal jejunal loops do show some alna-le-yuddcous dilatation. There is some slow progression of contrast through small bowel loops. The procedure was carried out to 8 hours. There does appear to be a small amount of contrast in the right lower quadrant which appears to be located within the proximal colon. An additional radiograph later tonight or tomorrow morning would be useful. IMPRESSION: Slow progression of contrast through the small bowel but there does appear to be contrast within the right colon on the final image. Confirmation could be obtained with an additional radiograph obtained later this evening or tomorrow morning. Dictated by: Dictated on workstation # [id number]
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
[2020-06-09] MEDS: NS IV SCH ×3 (22:00)
[2020-06-10] VITALS: BP 128/62
[2020-06-10 04:00] VITALS: BP 139/70
[2020-06-10] MEDS: MICRON FILTER IV SCH ×3 (04:27)
[2020-06-10] MEDS: NS IV SCH ×3 (04:27)
[2020-06-10] MEDS: PHENYTOIN IV SCH ×3 (04:27)
[2020-06-10] MEDS: D5 1/2 NS W/KCL 20 MEQ/L 1,000 ML IV SCH (04:28)
[2020-06-10 05:20] LABS: BASOPHILS % (AUTO) 0 % (0-10); EOSINOPHILS # (AUTO) 0.1 10^3/uL (0.0-0.3); EOSINOPHILS % (AUTO) 1 % (0-10); HEMATOCRIT 37 % (40-54); HEMOGLOBIN 12.1 G/DL (13.3-17.7); LYMPHOCYTES # (AUTO) 0.9 X 10^3 (1.0-4.0); LYMPHOCYTES % (AUTO) 10 % (12-44); MEAN CORPUSCULAR HEMOGLOBIN 33 PG (25-34); MEAN CORPUSCULAR HGB CONC 33 G/DL (32-36); MEAN CORPUSCULAR VOLUME 99 FL (80-99); MEAN PLATELET VOLUME 8.4 FL (7.4-10.4); MONOCYTES % (AUTO) 12 % (0-12); NEUTROPHILS # (AUTO) 6.4 X 10^3 (1.8-7.8); NEUTROPHILS % (AUTO) 77 % (42-75); PLATELET COUNT 263 10^3/uL (130-400); RED CELL DISTRIBUTION WIDTH 12.9 % (10.0-14.5); WHITE BLOOD COUNT 8.4 10^3/uL (4.3-11.0)
[2020-06-10 05:41] LABS: ALANINE AMINOTRANSFERASE < 6 U/L (0-55); ALBUMIN 3.4 GM/DL (3.2-4.5); ALKALINE PHOSPHATASE 109 U/L (40-136); BILIRUBIN,TOTAL 0.6 MG/DL (0.1-1.0); BUN/CREATININE RATIO 12; CALCIUM 8.4 MG/DL (8.5-10.1); CARBON DIOXIDE 20 MMOL/L (21-32); CHLORIDE 105 MMOL/L (98-107); CREATININE SERUM 0.76 MG/DL (0.60-1.30); GFR ESTIMATED > 60; GLUCOSE 107 MG/DL (70-105); POTASSIUM 4.4 MMOL/L (3.6-5.0); SODIUM 137 MMOL/L (135-145); TOTAL PROTEIN 5.6 GM/DL (6.4-8.2)
[2020-06-10 08:23] VITALS: BP 157/72
--- NOTE | 2020-06-10 08:34 | Diagnostic Imaging Report ---
INDICATION: NG tube placement KUB 8:14 AM There is an NG tube in place. The tip appears to be in the gastric fundus. The sidehole is just above the GE junction. Gallbladder is surgically absent. There is contrast in the colon from a prior exam. Patient has had a ventral hernia repair. IMPRESSION: NG tube is in the stomach. Dictated by: Dictated on workstation # [id number]
[2020-06-10] MEDS: PANTOPRAZOLE 40 MG (PROTONIX) TAB PO SCH (11:30)
--- NOTE | 2020-06-10 12:47 | Progress Note ---
Subjective Date Seen by a Provider: Jun 10, 2020 Time Seen by a Provider: 12:44 Subjective/Events-last exam Fwup small bowel obstruction, incisional hernia, seizure disorder, hypertension. Sitting up in chair with NG tube out. Has had several BMs. Feeling much better. Objective Exam Vital Signs Date Time Temp Pulse Resp B/P (MAP) Pulse Ox O2 Delivery O2 Flow Rate FiO2 06/10/20 08:23 36.5 75 18 157/72 (100) 98 Room Air 06/10/20 08:00 96 Room Air 06/10/20 06:44 80 06/10/20 04:00 36.6 70 12 139/70 (93) 97 Room Air 06/10/20 01:00 70 06/10/20 00:00 36.5 72 16 128/62 (84) 96 Room Air 06/09/20 21:00 37.1 06/09/20 20:30 95 Room Air 06/09/20 19:57 37.1 70 16 144/72 (96) 95 Room Air 06/09/20 19:45 36.8 06/09/20 19:00 80 06/09/20 15:45 36.8 72 16 126/65 (85) 96 Room Air I & O 06/10/20 07:00 Intake Total 0 ml Output Total 4625 ml Balance -4625 ml Capillary Refill : Less Than 3 SecondsLess Than 3 Seconds General Appearance: No Apparent Distress Respiratory: Lungs Clear Cardiovascular: Regular Rate, Rhythm Gastrointestinal: normal bowel sounds, non tender, soft Extremity: Non Tender, No Calf Tenderness, No Pedal Edema Neurologic/Psychiatric: Alert, Oriented x3 Skin: Warm/Dry Results Lab Laboratory Tests 06/10/20 05:15: White Blood Count 8.4, Red Blood Count 3.70L, Hemoglobin 12.1L, Hematocrit 37L, Mean Corpuscular Volume 99, Mean Corpuscular Hemoglobin 33, Mean Corpuscular Hemoglobin Concent 33, Red Cell Distribution Width 12.9, Platelet Count 263, Mean Platelet Volume 8.4, Neutrophils (%) (Auto) 77H, Lymphocytes (%) (Auto) 10L , Monocytes (%) (Auto) 12, Eosinophils (%) (Auto) 1, Basophils (%) (Auto) 0, Neutrophils # (Auto) 6.4, Lymphocytes # (Auto) 0.9L, Monocytes # (Auto) 1.0, Eosinophils # (Auto) 0.1, Basophils # (Auto) 0.0, Sodium Level 137, Potassium Level 4.4, Chloride Level 105, Carbon Dioxide Level 20L, Anion Gap 12, Blood Ur ea Nitrogen 9, Creatinine 0.76, Estimat Glomerular Filtration Rate > 60, BUN/Creatinine Ratio 12, Glucose Level 107H, Calcium Level 8.4L, Corrected Calcium 8.9, Total Bilirubin 0.6, Aspartate Amino Transf (AST/SGOT) 18, Alanine Aminotransferase (ALT/SGPT) < 6, Alkaline Phosphatase 109, Total Protein 5.6L, Albumin 3.4 Assessment/Plan Assessment/Plan Assess & Plan/Chief Complaint 1. Small Bowel Obstruction--improved, NG tube out, on clear liquids, restart oral meds 2. Hypertension--resume lisinopril 3. Seizure Disorder--switched to po dilantin 4. Incisional Hernia--no incarceration or strangulation Clinical Quality Measures Admission Status Admission Dx 1. Small Bowel Obstruction--admit for pain control, NG tube, surgical consult, small bowel follow through 2. Incisional Hernia--recurrent 3. Hypertension--monitor BP and start IV lopressor if needed 4. Seizure Disorder--started on IV dilantin since is NPO DVT/VTE Risk/Contraindication: Risk Factor Score Per Nursin RFS Level Per Nursing on Admit: 2=Moderate MANAN RAJPUT DO Jun 10, 2020 12:47
[2020-06-10 13:00] VITALS: BP 137/72
--- NOTE | 2020-06-10 13:26 | NUR ---
Pt is Jain. Crystallography Teacher provided prayer and Communion.
[2020-06-10 16:02] VITALS: BP 155/72
[2020-06-10 19:51] VITALS: BP 139/63
[2020-06-10] MEDS: lisINopril 20 MG (PRINIVIL) TABLET PO SCH (19:51)
[2020-06-10] MEDS: PHENYTOIN 100 MG (DILANTIN) CAP PO SCH (19:52)
--- NOTE | 2020-06-10 20:37 | Progress Note - Surgery ---
Subjective Date Seen by a Provider: Jun 10, 2020 Time Seen by a Provider: 11:00 Subjective/Events-last exam feeling better. pain improved. having multiple bowel movements. no nausea or emesis. small bowel follow through completed and delayed transit to right colon. No new complaints. denies n/v fever sweats chills shortness of breath or chest pain. Objective Exam Vital Signs Date Time Temp Pulse Resp B/P (MAP) Pulse Ox O2 Delivery O2 Flow Rate FiO2 06/10/20 19:51 35.6 74 16 139/63 (88) 99 Room Air 06/10/20 19:00 80 06/10/20 16:02 35.8 70 18 155/72 (99) 99 Room Air 06/10/20 13:00 36.6 74 18 137/72 (93) 98 Room Air 06/10/20 12:47 78 06/10/20 08:23 36.5 75 18 157/72 (100) 98 Room Air 06/10/20 08:00 96 Room Air 06/10/20 06:44 80 06/10/20 04:00 36.6 70 12 139/70 (93) 97 Room Air 06/10/20 01:00 70 06/10/20 00:00 36.5 72 16 128/62 (84) 96 Room Air 06/09/20 21:00 37.1 I & O 06/10/20 07:00 Intake Total 0 ml Output Total 4625 ml Balance -4625 ml Capillary Refill : Less Than 3 SecondsLess Than 3 Seconds General Appearance: No Apparent Distress HEENT: PERRL/EOMI, Other (NG tube in place) Neck: Normal Inspection, Supple Respiratory: Chest Non Tender, No Accessory Muscle Use, No Respiratory Distress Cardiovascular: Regular Rate, Rhythm, No Edema Gastrointestinal: non tender, soft; No distended, No guarding, No rebound; hernia (incisional) Extremity: Non Tender, No Calf Tenderness, No Pedal Edema Neurologic/Psychiatric: Alert, Oriented x3 Skin: Normal Color, Warm/Dry Lymphatic: No Adenopathy Results Lab Laboratory Tests 06/10/20 05:15: White Blood Count 8.4, Red Blood Count 3.70L, Hemoglobin 12.1L, Hematocrit 37L, Mean Corpuscular Volume 99, Mean Corpuscular Hemoglobin 33, Mean Corpuscular Hemoglobin Concent 33, Red Cell Distribution Width 12.9, Platelet Count 263, Mean Platelet Volume 8.4, Neutrophils (%) (Auto) 77H, Lymphocytes (%) (Auto) 10L , Monocytes (%) (Auto) 12, Eosinophils (%) (Auto) 1, Basophils (%) (Auto) 0, Neutrophils # (Auto) 6.4, Lymphocytes # (Auto) 0.9L, Monocytes # (Auto) 1.0, Eosinophils # (Auto) 0.1, Basophils # (Auto) 0.0, Sodium Level 137, Potassium Level 4.4, Chloride Level 105, Carbon Dioxide Level 20L, Anion Gap 12, Blood Ure a Nitrogen 9, Creatinine 0.76, Estimat Glomerular Filtration Rate > 60, BUN/Creatinine Ratio 12, Glucose Level 107H, Calcium Level 8.4L, Corrected Calcium 8.9, Total Bilirubin 0.6, Aspartate Amino Transf (AST/SGOT) 18, Alanine Aminotransferase (ALT/SGPT) < 6, Alkaline Phosphatase 109, Total Protein 5.6L, Albumin 3.4 Assessment/Plan Assessment/Plan Assessment/Plan small bowel obstruction incisional hernia patient having bowel movements and contrast made way into colon, but delayed. feeling better pull ng tube start on clears slowly advance as tolerates and if does home soon Clinical Quality Measures DVT/VTE Risk/Contraindication: Risk Factor Score Per Nursin RFS Level Per Nursing on Admit: 2=Moderate ISIAAS BELTRAN DO Jun 10, 2020 20:37
[2020-06-10] MEDS ORDERED: DOCUSATE SODIUM 100 MG (COLACE) CAP PO SCH (21:00)
[2020-06-11] VITALS: BP 156/82
[2020-06-11 04:00] VITALS: BP 121/66
[2020-06-11 08:00] VITALS: BP 134/68
[2020-06-11] MEDS: PHENYTOIN 100 MG (DILANTIN) CAP PO SCH (08:33)
[2020-06-11] MEDS: PANTOPRAZOLE 40 MG (PROTONIX) TAB PO SCH (08:33)
[2020-06-11] MEDS: lisINopril 20 MG (PRINIVIL) TABLET PO SCH (08:33)
--- NOTE | 2020-06-11 11:20 | Progress Note - Surgery ---
Subjective Date Seen by a Provider: Jun 11, 2020 Time Seen by a Provider: 11:16 Subjective/Events-last exam Feeling good. No pain. Tolerating clears. + bm and flatus. Denies n/v fever sweats chills shortness of breath or chest pain. wanting to go home. Objective Exam Vital Signs Date Time Temp Pulse Resp B/P (MAP) Pulse Ox O2 Delivery O2 Flow Rate FiO2 06/11/20 08:00 37.0 69 16 134/68 (90) 98 Room Air 06/11/20 06:36 74 06/11/20 04:00 36.7 67 18 121/66 (84) 97 Room Air 06/11/20 01:00 63 06/11/20 00:00 36.5 70 18 156/82 (106) 97 Room Air 06/10/20 19:51 35.6 74 16 139/63 (88) 99 Room Air 06/10/20 19:45 Room Air 06/10/20 19:00 80 06/10/20 16:02 35.8 70 18 155/72 (99) 99 Room Air 06/10/20 13:00 36.6 74 18 137/72 (93) 98 Room Air 06/10/20 12:47 78 I & O 06/11/20 07:00 Intake Total 818 ml Balance 818 ml Capillary Refill : Less Than 3 SecondsLess Than 3 Seconds General Appearance: No Apparent Distress HEENT: PERRL/EOMI, Other (NG tube in place) Neck: Normal Inspection, Supple Respiratory: Chest Non Tender, No Accessory Muscle Use, No Respiratory Distress Cardiovascular: Regular Rate, Rhythm, No Edema Gastrointestinal: non tender, soft; No distended, No guarding, No rebound; hernia (incisional) Extremity: Non Tender, No Calf Tenderness, No Pedal Edema Neurologic/Psychiatric: Alert, Oriented x3 Skin: Normal Color, Warm/Dry Lymphatic: No Adenopathy Assessment/Plan Assessment/Plan Assessment/Plan small bowel obstruction incisional hernia patient having bowel movements and contrast made way into colon, but delayed. feeling better wanting to go home advance diet no surgical intervention at this time patient understands possibility of this returning again ok to dc if tolerates diet from surgical standpoint Clinical Quality Measures DVT/VTE Risk/Contraindication: Risk Factor Score Per Nursin RFS Level Per Nursing on Admit: 2=Moderate ISAIAS BELTRAN DO Jun 11, 2020 11:20
[2020-06-11 12:00] VITALS: BP 150/80
[2020-06-11 14:24] VITALS: BP 150/80
--- NOTE | 2020-06-11 14:36 | NUR ---
"RD ASSESSMENT PMHx: HTN; seizure; obstructive bowel PT INTERACTION: Pt was awake and pleasant during nutrition assessment. Pt states current appetite is good. Note avg PO intake 75% x2meal, per chart review. Pt states following a regular diet at home, and has no issues with chewing/swallowing food. Pt states no recent issues with nausea, vomiting, constipation, or diarrhea. Note last BM was 8/5, and pt currently on bowel regimen of colace HS, per chart review. Pt states no recent wt changes. Note unable to determine recent wt hx, per chart review. ABNORMAL NUTRITION-RELATED LAB VALUES LOW: Ca 8.4; Pro 5.6 HIGH: glu 107 Est. kcal needs: 1750 kcal | 20 kcal/kg Est. Pro needs: 70 g Pro | 0.8 g Pro/kg PES STATEMENT: Given current appetite and PO intake, no nutrition diagnosis at this time (NO-1.1) INTERVENTION: Continue with current diet order of DYS2 Mechanically Altered diet. Will continue to follow and reassess as pt needs, intake, and status change. MONITOR/EVALUATE: PO Intake; Plan of Care; Hydration Status; Weight Status; Lab Values Shira Palm, MS, RD, LD"
== END 2020-06-11 14:24 | disposition home or self-care (01) | DRG 390 ==
LOC: EDUNIT# 18:37 → ER 18:39 → 4TH 22:12
PROVIDERS: ADMIT Family Medicine; ATTEND Family Medicine
PROC: 0D9670Z Drainage of Stomach with Drainage Device, Via Natural or Artificial Opening (ICD-10-PCS; principal; 2020-06-08)
DX: K56.600 Partial intestinal obstruction, unspecified as to cause (principal); K43.2 Incisional hernia without obstruction or gangrene; G40.909 Epilepsy, unspecified, not intractable, without status epilepticus; M19.91 Primary osteoarthritis, unspecified site; I10 Essential (primary) hypertension; Z89.012 Acquired absence of left thumb; Z95.0 Presence of cardiac pacemaker; Z90.81 Acquired absence of spleen; Z90.49 Acquired absence of other specified parts of digestive tract; Z20.89 Contact with and (suspected) exposure to other communicable diseases
CPT/HCPCS: 36415; 71045; 74018; 74022; 74177; 74250; 80053; 80185; 81000; 82150; 83690; 83735; 85025; 85610; 85730; 93005; 93041; 96361; 96374; 96375; 96376

== ENCOUNTER 2020-10-31 08:45 | Emergency (ER) | payer MEDICARE, OTHER ==
[~2020-10-31] VITALS: Ht 175.3 cm; Wt 85.3 kg
[~2020-10-31 08:45] MED LIST changes: +ASPI-1238 PO; -ASPI-983 PO; +MULT-1136 PO
--- NOTE | 2020-10-31 09:36 | ED Cardiac General ---
History of Present Illness General Chief Complaint: Cardiac/General Problems Stated Complaint: BLOOD PRESSURE COMPLICATIONS Source: patient Exam Limitations: no limitations History of Present Illness Date Seen by Provider: Oct 31, 2020 Time Seen by Provider: 09:20 Initial Comments Patient is an 85-year-old who presents to the emergency room today with a chief complaint of elevated blood pressure. Patient states that he has been concerned over the course of the last 2 days that his blood pressure is not in its normal 120s over 60 with his lisinopril 40 mg daily. Patient states he took his blood pressure medicine at 6:00 this morning and was getting diastolic blood pressures as high as 90. Patient states he is intermittently had some chest heaviness that he rates at greatest a 3-4 that is brief and goes away on its own. Patient states that the chest pain will last at most about 30 seconds. Patient states he did have a stress test many years ago but has never had any type of angiography. Patient denies any associated symptoms with the chest pressure. He states he last had it on the drive over to the hospital before checking in. He denies any recent illnesses such as fevers, chills, cough, congestion. No GI or complaints are reported. All other review of systems reviewed and negative except as stated. Timing/Duration: 1/2 hour Severity: mild Location: substernal Activities at Onset: none Prior CP/Workup: no prior chest pain NTG SL TAG WRITER: No ASA po TAG WRITER: No Associated Systoms: Chest Pain Allergies and Home Medications Allergies Coded Allergies: oxycodone (Verified Allergy, Unknown, 09/18/19) hallucinations Home Medications Aspirin 325 Mg Tablet.dr, 162.5 MG PO DAILY, (Reported) TAKES OF A 325MG TAB Docusate Sodium 100 Mg Capsule, 100 MG PO HS, (Reported) Lisinopril 40 Mg Tablet, 20 MG PO BID, (Reported) TAKES OF A 40MG TAB Multivitamin 1 Each Tablet, 1 EACH PO 3X WEEKLY, (Reported) TAKES 3 TIMES WEEKLY- NO SPECIFIC DAYS Phenytoin Sodium Extended 100 Mg Capsule, 200 MG PO BID, (Reported) TAKES 2 (100MG) CAPSULES Patient Home Medication List Home Medication List Reviewed: Yes Review of Systems Review of Systems Constitutional: see HPI EENTM: No Symptoms Reported Respiratory: No Symptoms Reported Cardiovascular: Chest Pain Gastrointestinal: No Symptoms Reported Genitourinary: No Symptoms Reported Musculoskeletal: no symptoms reported Skin: no symptoms reported All Other Systems Reviewed Negative Unless Noted: Yes Past Jethelo-Yfctuq-Nrbcis Hx Patient Social History Alcohol Use: Denies Use Recreational Drug Use: No Smoking Status: Never a Smoker Recent Hopitalizations: No Immunizations Up To Date Tetanus Booster (TDap): Unknown PED Vaccines UTD: Yes Seasonal Allergies Seasonal Allergies: No Past Medical History Surgeries: Yes (spleen) Gallbladder, Tonsillectomy Respiratory: No Cardiac: Yes (PACEMAKER) Hypertension Neurological: No Genitourinary: No Gastrointestinal: No Musculoskeletal: No Endocrine: No HEENT: No Cancer: No Psychosocial: No Integumentary: No Blood Disorders: No Physical Exam Vital Signs Vital Signs - First Documented 10/31/20 09:00 Pulse 71 Resp 12 B/P (MAP) 161/87 (111) Pulse Ox 97 O2 Delivery Room Air Capillary Refill : Less Than 3 Seconds Height, Weight, BMI Height: '" Weight: lbs. oz. kg; BMI Method: General Appearance: No Apparent Distress, WD/WN Neck: Full Range of Motion, Non Tender, Supple Respiratory: Lungs Clear, Normal Breath Sounds, No Accessory Muscle Use, No Respiratory Distress Cardiovascular: Regular Rate, Rhythm Gastrointestinal: Normal Bowel Sounds, Non Tender, Soft Extremity: Normal Capillary Refill, Normal Inspection, Normal Range of Motion, Non Tender Neurologic/Psychiatric: Alert, Oriented x3, No Motor/Sensory Deficits, Normal Mood/Affect Skin: Normal Color, Warm/Dry Progress/Results/Core Measures Results/Orders Lab Results Laboratory Tests Test 10/31/20 10:32 10/31/20 13:04 Range/Units White Blood Count 4.7 4.3-11.0 10^3/uL Red Blood Count 4.27 L 4.30-5.52 10^6/uL Hemoglobin 14.1 13.3-17.7 g/dL Hematocrit 42 40-54 % Mean Corpuscular Volume 98 80-99 fL Mean Corpuscular Hemoglobin 33 25-34 pg Mean Corpuscular Hemoglobin Concent 34 32-36 g/dL Red Cell Distribution Width 12.7 10.0-14.5 % Platelet Count 265 130-400 10^3/uL Mean Platelet Volume 8.9 L 9.0-12.2 fL Immature Granulocyte % (Auto) 0 % Neutrophils (%) (Auto) 62 42-75 % Lymphocytes (%) (Auto) 25 12-44 % Monocytes (%) (Auto) 10 0-12 % Eosinophils (%) (Auto) 2 0-10 % Basophils (%) (Auto) 1 0-10 % Neutrophils # (Auto) 2.9 1.8-7.8 10^3/uL Lymphocytes # (Auto) 1.2 1.0-4.0 10^3/uL Monocytes # (Auto) 0.5 0.0-1.0 10^3/uL Eosinophils # (Auto) 0.1 0.0-0.3 10^3/uL Basophils # (Auto) 0.0 0.0-0.1 10^3/uL Immature Granulocyte # (Auto) 0.0 0.0-0.1 10^3/uL Sodium Level 135 135-145 MMOL/L Potassium Level 4.5 3.6-5.0 MMOL/L Chloride Level 100 98-107 MMOL/L Carbon Dioxide Level 22 21-32 MMOL/L Anion Gap 13 5-14 MMOL/L Blood Urea Nitrogen 15 7-18 MG/DL Creatinine 0.85 0.60-1.30 MG/DL Estimat Glomerular Filtration Rate > 60 BUN/Creatinine Ratio 18 Glucose Level 99 70-105 MG/DL Calcium Level 9.4 8.5-10.1 MG/DL Total Creatine Kinase 45 30-200 U/L Creatine Kinase MB 1.2 <6.6 NG/ML Troponin I < 0.028 < 0.028 <0.028 NG/ML My Orders Orders - CAMERON MOREIRA MD Ed Iv/Invasive Line Start (10/31/20 09:29) Cbc With Automated Diff (10/31/20 09:29) Basic Metabolic Panel (10/31/20 09:29) Creatine Kinase (10/31/20 09:29) Creatine Kinase Mb (10/31/20 09:29) Troponin I (10/31/20 09:29) Ekg Tracing (10/31/20 09:29) Chest Pa/Lat (2 View) (10/31/20 09:29) Troponin I (10/31/20 13:10) Ekg Tracing (10/31/20 13:32) Vital Signs/I&O 10/31/20 09:00 Pulse 71 Resp 12 B/P (MAP) 161/87 (111) Pulse Ox 97 O2 Delivery Room Air Progress Progress Note : Time: 09:35 Progress Note This 85-year-old presents with a chief complaint of elevated blood pressure and pulse rate. Patient states that he is concerned that his blood pressure medication is not working. Patient is planning on changing patch driller to Dr. Haro and has an upcoming appointment although he is not sure when. Patient complains of brief self-limited chest pressure over the course of the last several days. He states is not unusual to have it once a day for him however he has had it multiple times a day over the course of the last couple of days. Evaluation today includes a physical exam, two-view chest x-ray, EKG, CBC, chemistry, cardiac enzyme profile. Patient is treated in the emergency department with 324 mg of baby aspirin. Patient is pain-free at the time of my evaluation. Disposition pending review of laboratory studies. Initial ECG Impression Date: Oct 31, 2020 Initial ECG Impression Time: 10:00 Initial ECG Rate: 72 Initial ECG Rhythm: Normal Sinus Initial ECG Intervals: Normal Diagnostic Imaging Diagonstic Imaging: Xray Plain Films/CT/US/NM/MRI: chest Comments [facility], [place] NAME: KELLE TATUM [facility] REC#: [id number] PT STATUS: REG ER : 1935 PHYSICIAN: CAMERON MOREIRA MD ADMIT DATE: 10/31/20/ER Signed Date of Exam:10/31/20 CHEST PA/LAT (2 VIEW) EXAMINATION: CHEST (PA AND LATERAL) CLINICAL INDICATION: 85-year-old male, chest pain. COMPARISON: June 08, 2020. FINDINGS: There is a left-sided cardiac assist device with leads. Heart size and mediastinal contours are unchanged. There is no identified pneumothorax. There is no pleural effusion. There is no identified focal airspace consolidation. IMPRESSION: No identified acute cardiopulmonary abnormality. Dictated by: Dictated on workstation # [id number] Dict: 10/31/20 1031 Trans: 10/31/20 1103 [facility] [id number] Interpreted by: OSBALDO MOON MD Electronically signed by: OSBALDO MOON MD 10/31/20 1103 Departure Impression Primary Impression: Elevated blood pressure reading Additional Impression: Chest pain Qualified Codes: R07.9 - Chest pain, unspecified Disposition: HOME, SELF-CARE Condition: Stable Departure-Patient Inst. Decision time for Depature: 14:20 Referrals: UNKNOWN (PCP) Primary Care Physician VIOLETTE CORRALES MD FACP [facility] Patient Instructions: Chest Pain (DC), High Blood Pressure in Adults Add. Discharge Instructions: Please call Dr. Corrales's office on Monday to schedule a sooner appointment with him if possible regarding your chest pain. Take a baby aspirin every day. Return to the emergency room if you have any worsening chest pain especially pain associated with nausea, shortness of breath, sweating or radiation of the pain. Monitor your blood pressure once daily and keep a record of this for your patch driller. Copy Copies To 1: MANAN RAJPUT KATHRYN M MD Oct 31, 2020 09:36
--- NOTE | 2020-10-31 10:35 | Diagnostic Imaging Report ---
EXAMINATION: CHEST (PA AND LATERAL) CLINICAL INDICATION: 85-year-old male, chest pain. COMPARISON: June 08, 2020. FINDINGS: There is a left-sided cardiac assist device with leads. Heart size and mediastinal contours are unchanged. There is no identified pneumothorax. There is no pleural effusion. There is no identified focal airspace consolidation. IMPRESSION: No identified acute cardiopulmonary abnormality. Dictated by: Dictated on workstation # [id number]
[2020-10-31 10:36] LABS: BASOPHILS % (AUTO) 1 % (0-10); EOSINOPHILS # (AUTO) 0.1 10^3/uL (0.0-0.3); EOSINOPHILS % (AUTO) 2 % (0-10); HEMATOCRIT 42 % (40-54); HEMOGLOBIN 14.1 g/dL (13.3-17.7); LYMPHOCYTES # (AUTO) 1.2 10^3/uL (1.0-4.0); LYMPHOCYTES % (AUTO) 25 % (12-44); MEAN CORPUSCULAR HEMOGLOBIN 33 pg (25-34); MEAN CORPUSCULAR HGB CONC 34 g/dL (32-36); MEAN CORPUSCULAR VOLUME 98 fL (80-99); MEAN PLATELET VOLUME 8.9 fL (9.0-12.2); MONOCYTES # (AUTO) 0.5 10^3/uL (0.0-1.0); MONOCYTES % (AUTO) 10 % (0-12); NEUTROPHILS # (AUTO) 2.9 10^3/uL (1.8-7.8); NEUTROPHILS % (AUTO) 62 % (42-75); PLATELET COUNT 265 10^3/uL (130-400); WHITE BLOOD COUNT 4.7 10^3/uL (4.3-11.0)
[2020-10-31 10:45] LABS: CHLORIDE 100 MMOL/L (98-107); POTASSIUM 4.5 MMOL/L (3.6-5.0); SODIUM 135 MMOL/L (135-145)
[2020-10-31 10:46] LABS: CALCIUM 9.4 MG/DL (8.5-10.1)
[2020-10-31 10:47] LABS: GLUCOSE 99 MG/DL (70-105)
[2020-10-31 10:48] LABS: CARBON DIOXIDE 22 MMOL/L (21-32)
[2020-10-31 10:51] LABS: CREATININE SERUM 0.85 MG/DL (0.60-1.30); GFR ESTIMATED > 60
[2020-10-31 10:52] LABS: BUN/CREATININE RATIO 18
[2020-10-31 10:53] LABS: CREATINE KINASE 45 U/L (30-200)
[2020-10-31 10:59] LABS: CREATINE KINASE MB 1.2 NG/ML (<6.6)
[2020-10-31 14:35] VITALS: BP 145/83
== END 2020-10-31 14:35 | disposition home or self-care (01) ==
LOC: EDUNIT# 08:45 → ER 10:04
DX: R03.0 Elevated blood-pressure reading, without diagnosis of hypertension (principal); R07.9 Chest pain, unspecified; I10 Essential (primary) hypertension; Z95.0 Presence of cardiac pacemaker; Z88.5 Allergy status to narcotic agent; Z79.82 Long term (current) use of aspirin
CPT/HCPCS: 36415; 71046; 80048; 82550; 82553; 84484; 85025; 93005

== ENCOUNTER → 2020-11-11 | Outpatient (CLI) | payer MEDICARE, OTHER | LOC: CARD 08:46 | PROVIDERS: ATTEND Internal Medicine Cardiovascular Disease | DX: Z01.810 Encounter for preprocedural cardiovascular examination (principal); I35.1 Nonrheumatic aortic (valve) insufficiency | CPT/HCPCS: 93306 ==

== ENCOUNTER → 2020-11-17 | Outpatient (CLI) | payer MEDICARE, OTHER ==
[~2020-11-17] VITALS: Ht 177 cm; Wt 86.0 kg
[~2020-11-17] MED LIST changes: +REGADENOSON 0.4 MG/5 ML SYR (LEXISCAN) IV ONE
[2020-11-17] MEDS: CATHETER FLUSH 10 ML SYR IV PRN ×2 (08:27→09:23)
[2020-11-17 09:22] VITALS: BP 151/78
--- NOTE | 2020-11-17 15:08 | STRESS TEST ---
DATE OF SERVICE: 11/17/2020 RESTING AND POST REGADENOSON TECHNETIUM-99M TETROFOSMIN SPECT IMAGING ORDERING PHYSICIAN: Dr. Corrales. PRIMARY PHYSICIAN: Dr. Rodas. CLINICAL DIAGNOSIS: Shortness of breath. Baseline images were carried out after injection of 10.11 mCi of technetium-99m Tetrofosmin. This was followed by 0.4 mg regadenoson and 31 mCi of technetium-99m Tetrofosmin for stress imaging. The electrocardiogram showed sinus rhythm with nonspecific ST abnormality at baseline. It did not change significantly with the regadenoson infusion. Review of images at rest and following stress does not indicate any distinct perfusion defects consistent with significant myocardial ischemia or infarction. Gated images show normal global left ventricular systolic function with normal regional wall motion. Left ventricular ejection fraction is calculated to be 54%. Left ventricular end diastolic volume is 80 mL. TID is absent (1.05). CONCLUSIONS: 1. This study does not indicate significant myocardial ischemia or infarction. 2. Normal regional wall motion. 3. Normal global left ventricular systolic function with a calculated ejection fraction of 54%. Job ID: [id number] DocumentID: [id number] Dictated Date: 11/17/2020 14:45:15 Compensation Analyst Date: 11/17/2020 15:07:40 Dictated By: VIOLETTE CORRALES MD, MA, FACP, FACC,
== END ==
LOC: CARD 08:30
PROVIDERS: ATTEND Internal Medicine Cardiovascular Disease
DX: R06.09 Other forms of dyspnea (principal); R06.02 Shortness of breath
CPT/HCPCS: 78452; 93017; A9502

== ENCOUNTER 2021-10-12 18:21 | Emergency (ER) | payer MEDICARE, OTHER ==
[~2021-10-12] VITALS: Ht 177.8 cm; Wt 86.1 kg
[~2021-10-12 18:21] MED LIST changes: -LISI1TAB26 PO; +LISI1TAB48 PO; -LISI40TA PO; +LISI40TA9 PO; +POTA-179 PO; -POTA20TA15 PO; -REGADENOSON 0.4 MG/5 ML SYR (LEXISCAN) IV ONE
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
[2021-10-12 19:28] LABS: BASOPHILS # (AUTO) 0.1 10^3/uL (0.0-0.1); BASOPHILS % (AUTO) 1 % (0-10); EOSINOPHILS # (AUTO) 0.2 10^3/uL (0.0-0.3); EOSINOPHILS % (AUTO) 4 % (0-10); HEMATOCRIT 38 % (40-54); HEMOGLOBIN 12.8 g/dL (13.3-17.7); LYMPHOCYTES % (AUTO) 20 % (12-44); MEAN CORPUSCULAR HEMOGLOBIN 34 pg (25-34); MEAN CORPUSCULAR HGB CONC 34 g/dL (32-36); MEAN CORPUSCULAR VOLUME 100 fL (80-99); MEAN PLATELET VOLUME 8.3 fL (9.0-12.2); MONOCYTES # (AUTO) 0.7 10^3/uL (0.0-1.0); MONOCYTES % (AUTO) 14 % (0-12); NEUTROPHILS # (AUTO) 3.1 10^3/uL (1.8-7.8); NEUTROPHILS % (AUTO) 61 % (42-75); PLATELET COUNT 272 10^3/uL (130-400)
[2021-10-12 19:51] LABS: CALCIUM 9.6 MG/DL (8.5-10.1); CREATININE SERUM 1.06 MG/DL (0.60-1.30); POTASSIUM 4.5 MMOL/L (3.6-5.0)
[2021-10-12 20:03] VITALS: BP 154/79
== END 2021-10-12 20:04 | disposition home or self-care (01) ==
LOC: EDUNIT# 18:21 → ER 18:23
DX: I10 Essential (primary) hypertension (principal); G40.909 Epilepsy, unspecified, not intractable, without status epilepticus; Z79.82 Long term (current) use of aspirin; Z79.899 Other long term (current) drug therapy
CPT/HCPCS: 36415; 80048; 85025

== ENCOUNTER 2022-02-22 13:18 | Outpatient (CLI) | payer MEDICARE ==
[~2022-02-22] VITALS: Ht 177.8 cm; Wt 88.6 kg
[2022-02-22] MEDS ORDERED: APIX2.5T PO (14:23)
[2022-02-22] MEDS ORDERED: METO50TA7 PO (14:25)
[2022-02-22] MEDS ORDERED: CLN.1T PO (14:28)
[2022-02-24] MEDS ORDERED: TRM50T PO (16:20)
== END 2022-02-22 15:02 | disposition home or self-care (01) ==
LOC: PREOP 13:18
PROVIDERS: ATTEND Surgery
DX: Z01.818 Encounter for other preprocedural examination (principal)

== ENCOUNTER 2022-02-24 06:33 | Day surgery (SDC) | payer MEDICARE, OTHER ==
[~2022-02-24] VITALS: Ht 177 cm; Wt 88.6 kg
[2022-02-24] VITALS (9 sets, daily range): BP systolic 140–150; BP diastolic 68–84
[~2022-02-24 06:33] MED LIST changes: +APIX2.5T PO; +CLN.1T PO; +METO50TA7 PO
[2022-02-24] MEDS ORDERED: ceFAZolin 2 GM IV Premixed 50 ML IV ONE (07:30)
--- NOTE | 2022-02-24 09:49 | Progress Note-Pre Operative ---
Pre-Operative Progress Note H&P Reviewed The H&P was reviewed, patient examined and no changes noted. Date Seen by Provider: Feb 24, 2022 Time Seen by Provider: 09:49 Date H&P Reviewed: Feb 24, 2022 Time H&P Reviewed: 09:49 Pre-Operative Diagnosis: melanoma scalp ISAIAS BELTRAN DO Feb 24, 2022 09:49
[2022-02-24] MEDS: LACTATED RINGERS 1,000 ML IV PRN ×2 (10:04→13:29)
[2022-02-24] MEDS ORDERED: LIDOCAINE/EPI 2% 1:100,00 (XYLOCAINE) 20 ML VIAL ONE (10:25)
[2022-02-24] MEDS ORDERED: METHYLENE BLUE 0.5% (PROVAYBLUE) 50 mg/10 ml vial IV ONE (10:49)
[2022-02-24] MEDS ORDERED: proPOfol 200 MG/20 ML (DIPRIVAN) VIAL IV ONE (11:32)
[2022-02-24] MEDS ORDERED: LIDOCAINE PF 2% 5 ML (XYLOCAINE) VIAL ONE (11:32)
[2022-02-24] MEDS ORDERED: fentaNYL INJ 100 MCG/2 ML AMP ONE (11:33)
--- NOTE | 2022-02-24 11:57 | Diagnostic Imaging Report ---
LYMPHOSCINTIGRAPHY INDICATION: Melanoma COMPARISON: None available. FINDINGS: A total of 1.1 mCi of technetium 99m sulfur colloid was injected intradermally around the melanoma site in the patient's scalp. 2 spot scintigraphic images demonstrate radiotracer activity along the left aspect of the neck into the supraclavicular region. IMPRESSION: [place] lymph node drainage appears to be along the left aspect of the neck. Dictated by: Dictated on workstation # [id number]
[2022-02-24] MEDS ORDERED: PHENYLEPHRINE INJ 10 MG/ML (FOR PYXIS KITS ONLY) ONE (12:50)
--- NOTE | 2022-02-24 13:17 | Anesthesia-General Post-Op ---
General Patient Condition Mental Status/LOC: Same as Preop Cardiovascular: Satisfactory Nausea/Vomiting: Absent Respiratory: Satisfactory Pain: Controlled Complications: Absent Post Op Complications Complications None Follow Up Care/Instructions Patient Instructions None needed. Anesthesia/Patient Condition Patient Condition Patient is doing well, no complaints, stable vital signs, no apparent adverse anesthesia problems. No complications reported per nursing. JOE CHAN CRNA Feb 24, 2022 13:17
[2022-02-24] MEDS ORDERED: fentaNYL INJ 100 MCG/2 ML AMP IVP ONE (13:30)
[2022-02-24] MEDS ORDERED: ONDANSETRON 4 MG/2 ML (SDV) Z0FRAN IVP PRN (13:30)
--- NOTE | 2022-02-24 13:47 | Progress Note-Post Operative ---
Post-Operative Progess Note Surgeon (s)/Coke Crusher Operator (s) Surgeon ISAIAS BELTRAN DO Coke Crusher Operator: NA Pre-Operative Diagnosis melanoma scalp Post-Operative Diagnosis SAME Procedure & Operative Findings Date of Procedure 02/24/22 Procedure Performed/Findings wide excision melanoma scalp 3x6 cm with sentinel node biopsy left neck. Anesthesia Type general Estimated Blood Loss Estimated blood loss (mL): minimal Specimens/Packing Specimens Removed scalp lesion, left neck node ISAIAS BELTRAN DO Feb 24, 2022 13:47
--- NOTE | 2022-02-24 13:49 | Discharge Inst-Simple/Standard ---
Discharge Inst-Standard Patient Instructions/Follow Up Plan of Care/Instructions/FU: 12-14 days Radha Activity as Tolerated: Yes Discharge Diet: Regular Diet Other Inst to Patient Follow up Appt: Make appointment for 12-14 days. Instructions: No lifting greater than 10 pounds. No strenuous activity. May shower in 24 hours, no tub bath or soaking. Use incentive spirometer at home as directed. No Smoking Skin/Wound Care: You have special glue over your incision that will fall off on it's own. Sutures to be removed in about 12-14 days. Symptoms to Report: Appetite Changes, Extremity Discoloration, Numbness/Tingling, Swelling Increased, Bleeding Excessive, Eyesight Changes, Pain Increased, Urine Color Change, Constipation(Persistent), Fever over 101 degree F, Pain/Pressure in chest, Urinating Difficulty, Cough Up/Vomit Blood, Heart Beat Irreg/Pounding, Pain/Pressure in jaw, Vaginal Bleeding Increase, Cramps in feet or legs, Lightheadedness, Pain/Pressure in shoulder, Diarrhea(Persistent), Memory Changes Suddenly, Questions/Concerns, Weight gain consecutive days, Dizziness/Fainting, Nausea/Vomiting, Shortness of Breath, Weight gain over 2 pounds If questions or concerns contact your physician Or seek help at emergency department. ISAIAS BELTRAN DO Feb 24, 2022 13:49
[2022-02-24] MEDS ORDERED: ACETAMINOPHEN 500 MG TAB (TYLENOL) ONE (14:34)
[2022-02-24] MEDS ORDERED: ACETAMINOPHEN 500 MG TAB (TYLENOL) PO ONE (14:45)
[2022-02-24] MEDS ORDERED: HYDROcodone/APAP 5 MG/325 MG (LORTAB) TAB PO ONE (15:00)
[2022-02-24] MEDS ORDERED: HYDROcodone/APAP 5 MG/325 MG (LORTAB) TAB ONE (15:02)
[2022-02-24] MEDS ORDERED: TRM50T PO (16:20)
--- NOTE | 2022-02-25 00:36 | OPERATIVE REPORT ---
DATE OF SERVICE: 02/24/2022 PREOPERATIVE DIAGNOSIS: Melanoma scalp. POSTOPERATIVE DIAGNOSIS: Melanoma scalp. PROCEDURE: Wide excision of scalp lesion, 3 x 6 cm and excision sentinel node biopsy. SURGEON: Wilmar Garcia DO ANESTHESIA: General. ESTIMATED BLOOD LOSS: Minimal. COMPLICATIONS: None. INDICATIONS: The patient is an 86-year-old male with a lesion on the top of the scalp. He is needing wide excision and sentinel node biopsy. He understands risks and benefits of procedure and wishes to proceed. Consent was signed in the chart. The patient had lymphoscintigraphy previously, very delayed transition for any notable pickup. DESCRIPTION OF PROCEDURE: The patient was prepped and 4 mL of methylene blue was injected at the melanoma site on the scalp. Time utilized which allowed for migration of the dye to move through lymphatics. The patient was then reprepped and draped in sterile fashion and a Conor counter was used to try to isolate any nodes that picked up the tracer. Over the katia on the left neck, local anesthetic was infiltrated and a 15 blade scalpel was used to make a skin incision. The Conor counter was then inserted into the wound. No significant radiotracer pickup able to be found. Approximately 20 was the highest level we found. Wound was then explored. There was no evidence of any of the dye within these areas. Again, multiple positions and we started exploring the left neck without seeing any significant nodes or dye. The Conor counter did only picked up one more area where it was approximately 20, this area was then dissected around and cautery was used to remove this. There was a small node, which the count was 18. No other areas that were able to be located with the Conor counter. The subcutaneous tissues were then reapproximated using 3-0 Vicryl. Skin was then closed using 4-0 Monocryl in a running fashion. The area was washed and dried and Skin Affix was placed. Attention was then placed with a melanoma on top of the scalp, which was already prepped and draped. Local anesthetic was infiltrated. A 15 blade scalpel was used to make an incision in elliptical fashion measuring 6.3 cm around the lesion. Skin and subcutaneous tissue was removed. Hemostasis was achieved. The wound was irrigated and the skin was then closed using 2-0 Prolene in a simple running fashion. The area was washed and dried, sterile bandage was applied. The patient tolerated the procedure well without any complications, taken to recovery room in stable condition. Job ID: [id number] DocumentID: [id number] Dictated Date: 02/24/2022 14:29:24 Electrician Assistant Date: 02/24/2022 19:19:37 Dictated By: DO MITUL BULL
== END 2022-02-24 15:05 | disposition home or self-care (01) ==
LOC: CARD 06:33
PROVIDERS: ATTEND Surgery
DX: C43.4 Malignant melanoma of scalp and neck (principal)
CPT/HCPCS: 21012; 78195; 87081; 88305; 88307; 88344; A9541

== ENCOUNTER 2022-03-08 20:01 | Emergency (ER) | payer MEDICARE, OTHER ==
[~2022-03-08] VITALS: Ht 178 cm; Wt 88.6 kg
[~2022-03-08 20:01] MED LIST changes: +TRM50T PO
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
[2022-03-08 20:38] LABS: BASOPHILS # (AUTO) 0.1 10^3/uL (0.0-0.1); BASOPHILS % (AUTO) 1 % (0-10); EOSINOPHILS # (AUTO) 0.3 10^3/uL (0.0-0.3); EOSINOPHILS % (AUTO) 6 % (0-10); HEMATOCRIT 40 % (40-54); HEMOGLOBIN 13.4 g/dL (13.3-17.7); LYMPHOCYTES # (AUTO) 1.7 10^3/uL (1.0-4.0); LYMPHOCYTES % (AUTO) 28 % (12-44); MEAN CORPUSCULAR HEMOGLOBIN 33 pg (25-34); MEAN CORPUSCULAR HGB CONC 34 g/dL (32-36); MEAN CORPUSCULAR VOLUME 99 fL (80-99); MEAN PLATELET VOLUME 8.5 fL (9.0-12.2); MONOCYTES # (AUTO) 0.7 10^3/uL (0.0-1.0); MONOCYTES % (AUTO) 12 % (0-12); NEUTROPHILS # (AUTO) 3.2 10^3/uL (1.8-7.8); NEUTROPHILS % (AUTO) 54 % (42-75); PLATELET COUNT 308 10^3/uL (130-400)
[2022-03-08 20:46] LABS: ALBUMIN 4.1 GM/DL (3.2-4.5)
[2022-03-08 20:47] LABS: POTASSIUM 4.3 MMOL/L (3.6-5.0)
[2022-03-08 20:48] LABS: CALCIUM 9.4 MG/DL (8.5-10.1)
[2022-03-08 20:49] LABS: TOTAL PROTEIN 6.8 GM/DL (6.4-8.2)
[2022-03-08 20:51] LABS: BILIRUBIN,TOTAL 0.3 MG/DL (0.1-1.0)
[2022-03-08 20:53] LABS: CREATININE SERUM 0.92 MG/DL (0.60-1.30)
[2022-03-08 21:08] VITALS: BP 149/73
== END 2022-03-08 21:09 | disposition home or self-care (01) ==
LOC: EDUNIT# 20:01 → ER 20:05
DX: I10 Essential (primary) hypertension (principal); Z79.899 Other long term (current) drug therapy
CPT/HCPCS: 36415; 80053; 85025

== ENCOUNTER → 2022-05-24 | Outpatient (CLI) | payer MEDICARE, OTHER ==
--- NOTE | 2022-05-24 14:28 | Diagnostic Imaging Report ---
INDICATION: R HIP PAIN; LOWER BACK PAIN, R SI JOINT PAIN COMPARISON: None. FINDINGS: 2 views of the right hip were obtained and show no fractures, dislocations, or other acute bony abnormalities. Joint spaces are well maintained throughout. Mild osteophytic changes are noted. The soft tissues appear unremarkable. No unexpected radiopaque foreign bodies are identified. IMPRESSION: Unremarkable radiographic exam of the right hip. Dictated by: Dictated on workstation # [id number]
--- NOTE | 2022-05-24 14:33 | Diagnostic Imaging Report ---
Indication: Back pain x3 weeks. COMPARISON: 04/24/2018 FINDINGS: Frontal and lateral radiograph views of the lumbar spine were obtained. There is reversal of normal lordotic curvature of the lumbar spine. No significant anteroretrolisthesis is seen. There is no evidence of jumped facets. Vertebral body heights are maintained. There is no acute fracture. Advanced multilevel degenerative changes are noted consistent with intervertebral disc height loss with bridging endplate osteophytes, as well as multilevel facet arthropathy. Included small bowel loops are nondistended. IMPRESSION: 1. No acute fracture or dislocation lumbar spine. 2. Advanced multilevel degenerative changes. Dictated by: Dictated on workstation # [id number]
--- NOTE | 2022-05-24 14:46 | Diagnostic Imaging Report ---
INDICATION: R HIP PAIN; LOWER BACK PAIN, R SI JOINT PAIN COMPARISON: None. FINDINGS: Multiple radiographic views of the sacrum and coccyx were obtained and show no fractures, dislocations, or other acute bony abnormalities. Joint spaces are well maintained throughout. The soft tissues appear unremarkable. No unexpected radiopaque foreign bodies are identified. IMPRESSION: Unremarkable radiographic exam of the sacrum and coccyx. Dictated by: Dictated on workstation # [id number]
== END ==
LOC: RAD 13:49
PROVIDERS: ATTEND Family Medicine
DX: M47.816 Spondylosis without myelopathy or radiculopathy, lumbar region (principal)
CPT/HCPCS: 72100; 72220; 73502

== ENCOUNTER 2023-04-27 09:57 | Emergency (ER) | payer MEDICARE, OTHER ==
[~2023-04-27] VITALS: Ht 178 cm; Wt 89.0 kg
[2023-04-27 10:20] LABS: BASOPHILS % (AUTO) 1 % (0-10); EOSINOPHILS # (AUTO) 0.3 10^3/uL (0.0-0.3); EOSINOPHILS % (AUTO) 6 % (0-10); HEMATOCRIT 36 % (40-54); LYMPHOCYTES # (AUTO) 1.5 10^3/uL (1.0-4.0); LYMPHOCYTES % (AUTO) 33 % (12-44); MEAN CORPUSCULAR HEMOGLOBIN 33 pg (25-34); MEAN CORPUSCULAR HGB CONC 34 g/dL (32-36); MEAN CORPUSCULAR VOLUME 98 fL (80-99); MEAN PLATELET VOLUME 8.6 fL (9.0-12.2); MONOCYTES # (AUTO) 0.6 10^3/uL (0.0-1.0); MONOCYTES % (AUTO) 13 % (0-12); NEUTROPHILS # (AUTO) 2.1 10^3/uL (1.8-7.8); NEUTROPHILS % (AUTO) 47 % (42-75); PLATELET COUNT 254 10^3/uL (130-400); WHITE BLOOD COUNT 4.5 10^3/uL (4.3-11.0)
[2023-04-27 10:42] LABS: BILIRUBIN,URINE NEGATIVE (NEGATIVE); CLARITY,URINE CLEAR; COLOR,URINE YELLOW; GLUCOSE, URINE (UA) NEGATIVE (NEGATIVE); KETONES,URINE NEGATIVE (NEGATIVE); LEUKOCYTE ESTERASE ,URINE NEGATIVE (NEGATIVE); NITRITE,URINE NEGATIVE (NEGATIVE); PROTEIN,URINE NEGATIVE (NEGATIVE)
[2023-04-27 10:43] LABS: ALANINE AMINOTRANSFERASE < 6 U/L (0-55); ALBUMIN 3.6 GM/DL (3.2-4.5); ALKALINE PHOSPHATASE 130 U/L (40-136); BILIRUBIN,TOTAL 0.3 MG/DL (0.1-1.0); BUN/CREATININE RATIO 18; CALCIUM 8.7 MG/DL (8.5-10.1); CARBON DIOXIDE 28 MMOL/L (21-32); CHLORIDE 102 MMOL/L (98-107); CREATININE SERUM 0.85 MG/DL (0.60-1.30); GFR ESTIMATED 85; GLUCOSE 125 MG/DL (70-105); POTASSIUM 3.7 MMOL/L (3.6-5.0); SODIUM 136 MMOL/L (135-145); TOTAL PROTEIN 6.1 GM/DL (6.4-8.2)
[2023-04-27 10:50] LABS: BACTERIA,URINE NEGATIVE /HPF; SQUAMOUS EPITHELIAL CELL,UR RARE /HPF; WBC,URINE RARE /HPF
[2023-04-27 11:12] VITALS: BP_SYST 123; BP_SYST 136; BP_SYST 137; BP_DIAS 63; BP_DIAS 68; BP_DIAS 69
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
[2023-04-27 11:28] LABS: PROTHROMBIN TIME PATIENT 13.5 SEC (12.2-14.7)
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
[2023-04-27] MEDS ORDERED: IOHEXOL 350 MG/ML 100 ML (OMNIPAQUE 350) VIAL IV ONE (12:00)
[2023-04-27] MEDS ORDERED: HOLD METFORMIN - RECEIVED CONTRAST 20 ML VIAL IV SCH (12:00)
[2023-04-27] MEDS ORDERED: NS 100 ML (IVPB) BAG IV ONE (12:00)
--- NOTE | 2023-04-27 13:02 | Diagnostic Imaging Report ---
PROCEDURE: CT angiography of the head and CT angiography of the neck with and without contrast. TECHNIQUE: Contiguous noncontrast images were obtained from the skull base through the vertex. After intravenous contrast administration, helical CT angiography of the neck was performed. Source data was reformatted into 3D MIP projections. Delayed post contrast acquisition was also obtained. Auto Exposure Controls were utilized during the CT exam to meet ALARA standards for radiation dose reduction. INDICATION: Dizziness and blurred vision as well as unsteady gait. FINDINGS: The delayed postcontrast images through the brain are without evidence of an abnormal enhancing lesion. CT angiographic portion of the study demonstrates a three-vessel branching pattern to the aortic arch. Both the right and left common carotid arteries are widely patent. The carotid bifurcations are widely patent. The right and left internal carotid arteries are widely patent. The left vertebral artery appears to be dominant. Both vertebral arteries are widely patent. No stenosis is identified. The basilar artery is patent. The left posterior cerebral artery is widely patent. There appears to be a hypoplastic right posterior cerebral artery P1 segment consistent with origin. The right CREDIT ASSESSMENT ANALYST is supplied via the P-comm and appears to be widely patent. The right and left anterior cerebral arteries are widely patent. The M1 and M2 branches of the middle cerebral arteries are widely patent. No thromboemboli or evidence of large vessel occlusion is identified. IMPRESSION: Essentially unremarkable CT angiogram of the head and neck. No thromboemboli or evidence of large vessel occlusion is detected. Dictated by: Dictated on workstation # [id number]
[2023-04-27 13:30] VITALS: BP 147/76
== END 2023-04-27 13:30 | disposition home or self-care (01) ==
LOC: EDUNIT# 09:57 → ER 09:59
DX: R42 Dizziness and giddiness (principal); I11.0 Hypertensive heart disease with heart failure; I50.9 Heart failure, unspecified; Z79.02 Long term (current) use of antithrombotics/antiplatelets; Z79.82 Long term (current) use of aspirin
CPT/HCPCS: 36415; 70450; 70496; 70498; 80053; 81000; 82947; 84484; 85025; 85610; 85730; 93005; 93041

== ENCOUNTER → 2023-06-20 | Outpatient (CLI) | payer MEDICARE, OTHER ==
[~2023-06-20] MED LIST changes: +CATHETER FLUSH 10 ML SYR IVP PRN; +REGADENOSON 0.4 MG/5 ML SYR (LEXISCAN) IV ONE
[2023-06-20 10:05] VITALS: BP 125/61
--- NOTE | 2023-06-20 19:54 | STRESS TEST ---
DATE OF SERVICE: 06/20/2023 RESTING AND POST REGADENOSON TECHNETIUM-99M TETROFOSMIN SPECT CT IMAGING ORDERING PHYSICIAN: Matthew Corrales M.D.; ART; MARGUERITE; LAST; PRIMARY PHYSICIAN: Dr. Rodas CLINICAL DIAGNOSIS: Wide complex tachycardia. Baseline images were carried out after injection of 10.58 mCi of technetium-99m tetrofosmin. This was followed by 0.4 mg regadenoson and 30.5 mCi of technetium-99m tetrofosmin for stress imaging. The electrocardiogram showed sinus rhythm with nonspecific ST-T abnormality at baseline. This did not change significantly with the regadenoson infusion. The patient tolerated the procedure well. Review of images at rest and following stress does not indicate any distinct perfusion defects consistent with significant myocardial ischemia or infarction. Gated images show normal global left ventricular systolic function with normal regional wall motion. Left ventricular ejection fraction is calculated to be 61%. Left ventricular end-diastolic volume 78 mL, TID is absent (1.05). CONCLUSIONS: 1. No evidence of any significant myocardial ischemia or infarction on this study. 2. Normal regional wall motion. 3. Normal global left ventricular systolic function with a calculated ejection fraction of 61%. Job ID: [id number] DocumentID: [id number] Dictated Date: 06/20/2023 17:13:55 Computational Linguist Date: 06/20/2023 19:53:00 Dictated By: MATTHEW CORRALES MD; ART; MARGUERITE; LAST;
== END ==
LOC: CARD 08:45
PROVIDERS: ATTEND Internal Medicine Cardiovascular Disease
DX: I47.20 Ventricular tachycardia, unspecified (principal)
CPT/HCPCS: 78452; 93017; A9502

== ENCOUNTER → 2023-07-11 | Outpatient (CLI) | payer MEDICARE ==
[~2023-07-11] MED LIST changes: -CATHETER FLUSH 10 ML SYR IVP PRN; -REGADENOSON 0.4 MG/5 ML SYR (LEXISCAN) IV ONE
== END ==
LOC: CARD 08:30
PROVIDERS: ATTEND Internal Medicine Cardiovascular Disease
DX: I51.7 Cardiomegaly (principal); I34.0 Nonrheumatic mitral (valve) insufficiency; I35.1 Nonrheumatic aortic (valve) insufficiency
CPT/HCPCS: 93306